=== PATIENT | male | born 1950 | race Caucasian/White ===

== ENCOUNTER 2016-11-21 14:41 | Inpatient (IN) | payer BC ==
[2016-11-21] MEDS ORDERED: SODIUM CHLORIDE 0.9% 500 ML IV ONE (15:12)
--- NOTE | 2016-11-21 15:15 | ED ---
General Adult HPI - General Chief complaint: Headache Stated complaint: altered mental Time Seen by Provider: 11/21/16 14:50 Source: patient, family, RN notes reviewed Mode of arrival: wheelchair Limitations: no limitations - History of Present Illness Initial comments: This is a 66-year-old male who presents to the emergency room with a past medical history significant for CVA as well as smoking hypertension and diabetes. She comes in today because he has been altered mentally according to his significant other for 3 days. So has been coughing a right-sided headache for 3 days. Patient is also been sleeping almost all day long according to the except for about 2 hours a day over the last 3 days. Patient denies any numbness or weakness that is new patient denies any visual disturbance or speech disturbance. Patient denies chest pain palpitations difficulty breathing shortest breath. Patient denies abdominal pain patient denies nausea vomiting or diarrhea. Patient denies any recent injury or trauma. Patient denies any dysuria hematuria urinary frequency. Significant other states that he is confused and it appears to be getting slightly worse over the last 3 days. - Related Data Home Medications Medication Instructions Recorded Confirmed Celecoxib [CeleBREX] 200 mg PO DAILY 06/04/14 11/21/16 amLODIPine BESYLATE/BENAZEPRIL 1 cap PO BID 06/04/14 11/21/16 [Amlodipine-Benazepril 10-20 mg] glipiZIDE [Glucotrol] 10 mg PO BID 06/04/14 11/21/16 Metoprolol Succinate 25 mg PO HS 10/21/14 11/21/16 Dipyridamole-Aspirin 200-25 mg 1 cap PO BID 11/10/14 11/21/16 [Aggrenox] Acetaminophen Tab [Tylenol Tab] 325 - 650 mg PO Q6H PRN 11/21/16 11/21/16 Atorvastatin [Lipitor] 20 mg PO HS 11/21/16 11/21/16 metFORMIN HCL 1,000 mg PO BID 11/21/16 11/21/16 Allergies Allergy/AdvReac Type Severity Reaction Status Date / Time No Known Allergies Allergy Verified 11/21/16 15:49 Review of Systems ROS Statement: Those systems with pertinent positive or pertinent negative responses have been documented in the HPI. ROS Other: All systems not noted in ROS Statement are negative. 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 History of Any Multi-Drug Resistant Organisms: None Reported Past Surgical History: No Surgical Hx Reported Additional Past Surgical History / Comment(s): R wrist fx with repair, Past Anesthesia/Blood Transfusion Reactions: No Reported Reaction Additional Past Anesthesia/Blood Transfusion Reaction / Comment(s): Pt has never recieved blood. Past Psychological History: No Psychological Hx Reported Additional Psychological History / Comment(s): Pt lives with in their home. 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 Smoking Status: Current every day smoker Past Alcohol Use History: None Reported Past Drug Use History: None Reported - Past Family History Father Family Medical History: Vascular Disorder Additional Family Medical History / Comment(s): Father during a surgery for his blood flow to his legs. Mother Family Medical History: Congestive Heart Failure (CHF), Diabetes Mellitus General Exam - General Exam Comments Initial Comments: GENERAL: Patient is well-developed and well-nourished. Patient is nontoxic and well- hydrated and is in mild distress. ENT: Neck is soft and supple. No significant lymphadenopathy is noted. Oropharynx is clear. Moist mucous membranes. Neck has full range of motion without eliciting any pain. EYES: The sclera were anicteric and conjunctiva were pink and moist. Extraocular movements were intact and pupils were equal round and reactive to light. Patient has some drooping of the right eyelid at rest but patient states this is from a previous stroke. PULMONARY: Unlabored respirations. Good breath sounds bilaterally. No audible rales rhonchi or wheezing was noted. CARDIOVASCULAR: There is a regular rate and rhythm without any murmurs gallops or rubs. ABDOMEN: Soft and nontender with normal bowel sounds. No palpable organomegaly was noted. There is no palpable pulsatile mass. SKIN: Skin is clear with no lesions or rashes and otherwise unremarkable. NEUROLOGIC: Patient is alert and oriented x3. Cranial nerves II through XII are grossly intact. Motor and sensory are also intact. Normal speech, volume and content. Symmetrical smile. MUSCULOSKELETAL: Normal extremities with adequate strength and full range of motion. No lower extremity swelling or edema. No calf tenderness. LYMPHATICS: No significant lymphadenopathy is noted PSYCHIATRIC: Normal psychiatric evaluation. Normal interpersonal interactions appears functionally intact in deals appropriately with others. No signs of depression. No signs of anxiety. Limitations: no limitations Course Vital Signs 11/21/16 11/21/16 11/21/16 14:47 15:02 15:29 Temperature 98.4 F 97.3 F L 97.0 F L Pulse Rate 84 86 84 Respiratory 20 15 18 Rate Blood Pressure 154/73 162/80 158/77 O2 Sat by Pulse 96 96 95 Oximetry Medical Decision Making - Medical Decision Making EKG shows sinus rhythm with an occasional PVC at 83 bpm WI interval is 1:30 QRS is 12 QT interval 370 QTC is 434. Patient's EKG is compared to an old EKG in no acute abdomen is noted the only difference EKGs noted is the PVCs. CAT scan of the patient's brain shows a subacute ischemia in the left occipital parietal region. I spoke with Dr. Padron he agreed to admit the patient I admitted the patient a consult to Dr. Oliver for neurology and I wrote admitting orders. - Lab Data Result diagrams: 11/21/16 15:09 11/21/16 15:09 Lab Results 11/21/16 11/21/16 11/21/16 Range/Units 15:09 15:09 15:09 WBC 6.8 (3.8-10.6) k/uL RBC 4.82 (4.30-5.90) m/uL Hgb 14.7 (13.0-17.5) gm/dL Hct 43.6 (39.0-53.0) % MCV 90.6 (80.0-100.0) fL MCH 30.5 (25.0-35.0) pg MCHC 33.7 (31.0-37.0) g/dL RDW 13.3 (11.5-15.5) % Plt Count 344 (150-450) k/uL Neutrophils % 66 % Lymphocytes % 22 % Monocytes % 10 % Eosinophils % 0 % Basophils % 1 % Neutrophils # 4.5 (1.3-7.7) k/uL Lymphocytes # 1.5 (1.0-4.8) k/uL Monocytes # 0.7 (0-1.0) k/uL Eosinophils # 0.0 (0-0.7) k/uL Basophils # 0.0 (0-0.2) k/uL PT (9.0-12.0) sec INR (<1.1) APTT (22.0-30.0) sec Sodium 142 (137-145) mmol/L Potassium 3.9 (3.5-5.1) mmol/L Chloride 103 (98-107) mmol/L Carbon Dioxide 24 (22-30) mmol/L Anion Gap 15 mmol/L BUN 22 H (9-20) mg/dL Creatinine 1.60 H (0.66-1.25) mg/dL Est GFR (MDRD) Af Amer 53 (>60 ml/min/1.73 sqM) Est GFR (MDRD) Non-Af 44 (>60 ml/min/1.73 sqM) Glucose 90 (74-99) mg/dL POC Glucose (mg/dL) (75-99) mg/dL POC Glu Internet Architect ID Calcium 9.8 (8.4-10.2) mg/dL Total Bilirubin 0.7 (0.2-1.3) mg/dL AST 33 (17-59) U/L ALT 57 (21-72) U/L Alkaline Phosphatase 103 (38-126) U/L Total Creatine Kinase 55 (55-170) U/L Total Protein 7.5 (6.3-8.2) g/dL Albumin 4.6 (3.5-5.0) g/dL 11/21/16 11/21/16 Range/Units 15:09 15:25 WBC (3.8-10.6) k/uL RBC (4.30-5.90) m/uL Hgb (13.0-17.5) gm/dL Hct (39.0-53.0) % MCV (80.0-100.0) fL MCH (25.0-35.0) pg MCHC (31.0-37.0) g/dL RDW (11.5-15.5) % Plt Count (150-450) k/uL Neutrophils % % Lymphocytes % % Monocytes % % Eosinophils % % Basophils % % Neutrophils # (1.3-7.7) k/uL Lymphocytes # (1.0-4.8) k/uL Monocytes # (0-1.0) k/uL Eosinophils # (0-0.7) k/uL Basophils # (0-0.2) k/uL PT 10.7 (9.0-12.0) sec INR 1.1 (<1.1) APTT 23.8 (22.0-30.0) sec Sodium (137-145) mmol/L Potassium (3.5-5.1) mmol/L Chloride (98-107) mmol/L Carbon Dioxide (22-30) mmol/L Anion Gap mmol/L BUN (9-20) mg/dL Creatinine (0.66-1.25) mg/dL Est GFR (MDRD) Af Amer (>60 ml/min/1.73 sqM) Est GFR (MDRD) Non-Af (>60 ml/min/1.73 sqM) Glucose (74-99) mg/dL POC Glucose (mg/dL) 89 (75-99) mg/dL POC Glu Internet Architect DANIS [employer] Calcium (8.4-10.2) mg/dL Total Bilirubin (0.2-1.3) mg/dL AST (17-59) U/L ALT (21-72) U/L Alkaline Phosphatase (38-126) U/L Total Creatine Kinase (55-170) U/L Total Protein (6.3-8.2) g/dL Albumin (3.5-5.0) g/dL Disposition Clinical Impression: CVA (cerebral infarction) Disposition: ADMITTED IP TO THIS [facility] Time of Disposition: 16:08
[2016-11-21 15:26] LABS: Glucose,Whole Blood 89 mg/dL (75-99)
[2016-11-21 15:34] LABS: Basophils % (A) 1 %; CH 31.4; CHCM 34.9; Eosinophils % (A) 0 %; HCT 43.6 % (39.0-53.0); HDW 2.52; HGB 14.7 gm/dL (13.0-17.5); Luc # (Auto) 0.14; Luc % (Auto) 2; Lymphocytes # (A) 1.5 k/uL (1.0-4.8); Lymphocytes % (A) 22 %; MCH 30.5 pg (25.0-35.0); MCHC 33.7 g/dL (31.0-37.0); MCV 90.6 fL (80.0-100.0); Monocytes # (A) 0.7 k/uL (0-1.0); Monocytes % (A) 10 %; Neutrophils # (A) 4.5 k/uL (1.3-7.7); Neutrophils % (A) 66 %; RBC 4.82 m/uL (4.30-5.90); RDW 13.3 % (11.5-15.5); WBC 6.8 k/uL (3.8-10.6); WBC (Perox) 6.84
[2016-11-21 15:42] LABS: Calcium 9.8 mg/dL (8.4-10.2); Potassium 3.9 mmol/L (3.5-5.1); Total Bilirubin 0.7 mg/dL (0.2-1.3); Total Protein 7.5 g/dL (6.3-8.2)
--- NOTE | 2016-11-21 15:50 | XR ---
EXAMINATION TYPE: XR chest 2V DATE OF EXAM: 11/21/2016 3:46 PM HISTORY: altered mental status. REFERENCE: Previous study dated 06/04/2014. FINDINGS: The lungs are clear. Pleural spaces are clear. Heart size is normal. IMPRESSION: NORMAL CHEST.
[2016-11-21 15:52] LABS: Partial Thromboplastin Time 23.8 sec (22.0-30.0)
[2016-11-21 15:55] LABS: INR 1.1 (<1.1); Prothrombin Time 10.7 sec (9.0-12.0)
--- NOTE | 2016-11-21 15:55 | CT ---
EXAMINATION TYPE: CT brain wo con DATE OF EXAM: 11/21/2016 3:43 PM COMPARISON: NONE HISTORY: Headache CT DLP: 1108.2 mGycm Automated exposure control for dose reduction was used. FINDINGS: There is abnormal attenuation within the left parietal and occipital lobe. No mass effect. Moderate generalized degenerative change with nonspecific periventricular white matter changes. Areas of abnormal signal in the white matter are nonspecific but suggestive of remote microvascular ischem ia. Well-defined density within the basal ganglia bilaterally is suggestive of remote lacunar infarct ion. Abnormal density within the mandeep is suggestive of remote ischemia. IMPRESSION: 1. Correlate for subacute ischemia left occipital and parietal lobes. Recommend MRI of the brain 2. No acute hemorrhage. 3. Degenerative and remote ischemic change
[2016-11-21 16:14] LABS: Creatine Kinase MB 1.4 ng/mL (0.0-2.4); Troponin I 0.029 ng/mL (0.000-0.034)
[2016-11-21 20:39] LABS: Glucose,Whole Blood 96 mg/dL (75-99)
[2016-11-21] MEDS: DIPYRIDAMOLE-ASPIRIN 200-25 MG 1 EACH CPMP.12HR PO SCH (20:51)
[2016-11-21] MEDS: metFORMIN 500 MG TAB PO SCH (20:51)
[2016-11-21] MEDS: METOPROLOL SUCCINATE (ER) 25 MG TAB.ER.24H PO SCH (20:52)
[2016-11-21] MEDS: ATORVASTATIN 20 MG TAB PO SCH (20:52)
[2016-11-21] MEDS: glipiZIDE 10 MG TAB PO SCH (20:52)
[2016-11-21 22:38] LABS: Appearance,Urine Clear (Clear); Bilirubin,Urine Negative (Negative); Glucose,Urine (UA) Negative (Negative); Ketones,Urine Negative (Negative); Leukocyte Esterase,Urine Negative (Negative); Mucus,Urine Rare /hpf; Nitrite,Urine Negative (Negative); PH, Urine 5.5 (5.0-8.0); Particle Count 1059; Protein,Urine 1+ (Negative); RBC,Urine <1 /hpf (0-5); Specific Gravity,Urine 1.014 (1.001-1.035); Squamous Epithelial Cell,Urine <1 /hpf (0-4); UA Billing (MACRO vs. MICRO) MICRO; Urobilinogen,Urine <2.0 mg/dL (<2.0); WBC,Urine 1 /hpf (0-5)
[2016-11-22 05:36] LABS: Glucose,Whole Blood 75 mg/dL (75-99)
--- NOTE | 2016-11-22 08:36 | US ---
EXAMINATION TYPE: US carotid duplex BILAT DATE OF EXAM: 11/22/2016 8:24 AM COMPARISON: 10/21/2014 carotid ultrasound CLINICAL HISTORY: Stenosis. Admitted with headache and altered mental status yesterday. EXAM MEASUREMENTS: RIGHT: Peak Systolic Velocity (PSV) cm/sec ----- Right CCA: 52.6 ----- Right ICA: 69.1 ----- Right ECA: 71.1 ICA/CCA ratio: 1.3 RIGHT: End Diastole cm/sec ----- Right CCA: 10.6 ----- Right ICA: 15.3 ----- Right ECA: 8.6 LEFT: Peak Systolic Velocity (PSV) cm/sec ----- Left CCA: 56.8 ----- Left ICA: 98.3 ----- Left ECA: 125.9 ICA/CCA ratio: 1.7 LEFT: End Diastole cm/sec ----- Left CCA: 16.7 ----- Left ICA: 19.5 ----- Left ECA: 13.6 VERTEBRALS (direction of flow): Right Vertebral: Antegrade Left Vertebral: Antegrade TECHNOLOGIST IMPRESSION: moderate atherosclerotic changes left bulb into proximal left ica Grayscale images redemonstrate moderate eccentric plaque at left carotid bulb not significantly whatley ed from prior study. Velocity measurements and ratios in visualized portion of both internal carotid arteries remains within normal limits. IMPRESSION: No hemodynamically significant stenosis is seen in either internal carotid artery. No si gnificant change from prior.
[2016-11-22] MEDS: metFORMIN 500 MG TAB PO SCH (08:56)
[2016-11-22] MEDS: LISINOPRIL 20 MG TAB PO SCH (08:58)
[2016-11-22] MEDS: amLODIPine 10 MG TAB PO SCH (08:58)
[2016-11-22] MEDS: DIPYRIDAMOLE-ASPIRIN 200-25 MG 1 EACH CPMP.12HR PO SCH ×2 (08:58→21:29)
[2016-11-22 09:41] LABS: Anion Gap 12 mmol/L; Blood Urea Nitrogen 20 mg/dL (9-20); Calcium 9.5 mg/dL (8.4-10.2); Carbon Dioxide 27 mmol/L (22-30); Chloride 102 mmol/L (98-107); Glucose 151 mg/dL (74-99); Magnesium 1.9 mg/dL (1.6-2.3); Non-African American GFR(MDRD) 52 (>60 ml/min/1.73 sqM); Sodium 141 mmol/L (137-145)
[2016-11-22] MEDS ORDERED: Magnesium Replacement Protocol 1 EACH MISC MISCELLANE PRN (09:51)
[2016-11-22 12:08] LABS: Glucose,Whole Blood 130 mg/dL (75-99)
--- NOTE | 2016-11-22 12:26 | P.HPIM ---
History of Present Illness H&P Date: 11/22/16 Chief Complaint: Headache Patient is a 66-year-old male, patient of Dr. Padron in the outpatient setting, but medical history significant for CVA, diabetes mellitus type 2, dyslipidemia, hypertension, retinal hemorrhage, detached retina, and TIA. Patient is a cigarette smoker. Patient was admitted through the emergency department with stated complained of "full last 2 days and felt cold." According to , patient has been complaining of headaches for approximately one week. states that patient did have an episode last Sunday where he is complaining of headache followed by one episode of vomiting. states that over the last 3 days patient's appetite has been decreased, patient has been "repeating himself," and been sleeping excessively. Patient also states that his right eye has been bothering him more recently and is right eye vision is more blurry especially looking to the right. Patient reports chronic numbness of his right upper and lower extremity since his stroke in 1999. No history of fevers, shortness of breath, chest pain, or abdominal pain. Patient denies urinary urgency, hesitancy, dysuria, hematuria. Patient denies constipation or diarrhea. EKG in the emergency department without ischemic changes. CT of brain with evidence of subacute ischemia left occipital and parietal lobes with no acute hemorrhage; degenerative and remote ischemic changes. Chest x-ray with no acute cardiopulmonary process. Carotid duplex study with no hemodynamically significant stenosis in either internal carotid artery. Labs on admission with evidence of acute on chronic renal failure, stage III suspect secondary to dehydration with BUN to creatinine ratio greater than 20. In the emergency department, patient was given a fluid bolus of 500 mL of normal saline and [facility] with consult to Dr. Erickson for neurology service. Upon examination, patient is sitting on the side of the bed with present at bedside. Patient currently denies headache. Denies chills, nausea, vomiting , shortness of breath, chest pain, or abdominal pain. Patient reports good appetite. Patient states that he really needs to smoke a cigarette. Labs reviewed with renal function improved. Magnesium 1.9. Neurology recommendations pending. Past Medical History Past Medical History: CVA/TIA, Diabetes Mellitus, Eye Disorder (History of right retinal detachment and right retinal macular degeneration. Patient follows with Dr. 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 History of Any Multi-Drug Resistant Organisms: None Reported Past Surgical History: No Surgical Hx Reported Additional Past Surgical History / Comment(s): R wrist fx with repair Past Anesthesia/Blood Transfusion Reactions: No Reported Reaction Additional Past Anesthesia/Blood Transfusion Reaction / Comment(s): Pt has never recieved blood. Past Psychological History: No Psychological Hx Reported Additional Psychological History / Comment(s): Pt lives with in their home. Pt is retired from [employer]. Smoking Status: Current every day smoker Past Alcohol Use History: None Reported Past Drug Use History: None Reported - Past Family History Father Family Medical History: Vascular Disorder Additional Family Medical History / Comment(s): Father during a surgery for his blood flow to his legs. Mother Family Medical History: Congestive Heart Failure (CHF), Diabetes Mellitus Medications and Allergies Home Medications Medication Instructions Recorded Confirmed Type Celecoxib [CeleBREX] 200 mg PO DAILY 06/04/14 11/21/16 History amLODIPine BESYLATE/BENAZEPRIL 1 cap PO BID 06/04/14 11/21/16 History [Amlodipine-Benazepril 10-20 mg] glipiZIDE [Glucotrol] 10 mg PO BID 06/04/14 11/21/16 History Metoprolol Succinate 25 mg PO HS 10/21/14 11/21/16 History Dipyridamole-Aspirin 200-25 mg 1 cap PO BID 11/10/14 11/21/16 History [Aggrenox] Atorvastatin [Lipitor] 20 mg PO HS 11/21/16 11/21/16 History metFORMIN HCL 1,000 mg PO BID 11/21/16 11/21/16 History Allergies Allergy/AdvReac Type Severity Reaction Status Date / Time No Known Allergies Allergy Verified 11/21/16 19:51 Physical Exam Vitals: Vital Signs Temp Pulse Pulse Resp BP BP Pulse Ox 11/22/16 08:00 97.1 F L 76 141/83 96 11/22/16 04:00 71 16 146/76 95 11/22/16 00:00 82 16 96 11/21/16 20:00 98.1 F 85 16 167/76 95 11/21/16 18:52 96.9 F L 89 18 163/74 95 11/21/16 18:38 98.0 F 98 18 163/72 97 11/21/16 16:43 97.0 F L 86 18 167/79 95 Intake and Output 11/21/16 11/22/16 11/22/16 22:59 06:59 14:59 Intake Total 120 Output Total 200 Balance -200 120 Intake: Oral 120 Output: Urine 200 Other: Voiding Method Toilet Toilet Weight 66.9 kg GENERAL: Pt awake and alert, well-appearing, well-nourished, and in no acute distress. HEAD: Atraumatic, normocephalic. EYES: Pupils equal, round, and reactive to light. Peripheral vision to right eye decreased. Lateral ocular movement of right eye absent. Sclera anicteric, conjunctiva are normal. ENT: Oropharynx clear without exudates. Moist mucous membranes. Tongue smooth, pink, no lesions, protrudes in midline. NECK:Normal range of motion, supple without lymphadenopathy or JVD. LUNGS: Breath sounds clear to auscultation bilaterally. No wheezes, rales, or rhonchi. HEART: Heart S1, S2, no S3 or S4. Regular rate and rhythm. No murmurs, rubs or gallops. ABDOMEN: Soft, nontender, nondistended, normoactive bowel sounds. No guarding, no rebound. No masses or organomegaly appreciated. EXTREMITIES: Palpable peripheral pulses. No edema. No calf tenderness. NEUROLOGICAL: Pt oriented x 3. Focal deficits noted to right eye suspect cranial nerve II and involvement. Decreased sensation to right upper and right lower extremity PSYCH: Normal mood, normal affect. Poor insight, poor judgment. SKIN: Warm, dry, intact. Normal turgor. No rashes or lesions. Results CBC & Chem 7: 11/21/16 15:09 11/22/16 09:09 Labs: Abnormal Lab Results - Last 24 Hours (Table) 11/21/16 11/22/16 Range/Units 21:32 09:09 Creatinine 1.38 H (0.66-1.25) mg/dL Glucose 151 H (74-99) mg/dL Urine Protein 1+ H (Negative) Hyaline Casts 4 H (0-2) /lpf Urine Mucus Rare H (None) /hpf Chest x-ray: report reviewed CT Scan - head: report reviewed Thrombosis Risk Factor Assmnt - DVT/VTE Prophylaxis DVT/VTE Prophylaxis: Pharmacologic Prophylaxis ordered, Mechanical Prophylaxis ordered - Choose All That Apply Any of the Below Risk Factors Present?: Yes Other Risk Factors: Yes Each Risk Factor Represents 2 Points: Age 61-74 years Other congenital or acquired thrombophilia - If yes, enter type in comment: Yes Each Risk Factor Represents 5 Points: Stroke (< 1 month) Thrombosis Risk Factor Assessment Total Risk Factor Score: 7 Thrombosis Risk Factor Assessment Level: High Risk Assessment and Plan Plan: Impression and plan: 1. Acute CVA. CT brain with evidence of subacute ischemia left occipital and parietal lobes. Neurology consult requested, recommendations pending. Continue stroke workup per protocol. Continue Aggrenox twice a day.. 2. Hypertension. Continue lisinopril 40 mg daily, continue Norvasc 10 mg daily , continue metoprolol succinate 25 mg by mouth daily. 3. Dyslipidemia. Continue Lipitor 20 mg daily. 4. Type 2 diabetes mellitus. Continue Glucotrol 10 mg by mouth before meals twice a day, continue Accu-Cheks before meals and at bedtime with Humalog sliding scale, continue consistent carbohydrate diet. Hold metformin for acute renal failure with admitting GFR less than 50. 5. Acute renal failure, present on admission, suspect secondary to intravascular volume deficit secondary to dehydration. BUN to creatinine ratio greater than 20. Encourage oral intake. 6. Chronic renal failure, stage III. GFR on 08/07/2016 56. 7. History of right eye blurriness. Consult Dr. Cha for ophthalmology service, recommendations pending. 8. History of retinal detachment status post surgery. 9. History of right retinal hemorrhage with injections. 10. Nicotine dependence. Continue nicotine patch. Smoking cessation encouraged. 11. History of previous CVA with previous lacunar infarct and possible microvascular ischemia involving right optic nerve. 12. History of TIA. Continue full neurological workup. Continue current medications. Continue Aggrenox. Continue to follow with neurology and ophthalmology service. Continue DVT prophylaxis. Repeat CBC, BMP, magnesium in a.m. The above impression and plan have been discussed and directed by Dr. Padron. Angel DAVILA acting as scribe for Dr. Padron.
[2016-11-22] MEDS: INSULIN LISPRO (humaLOG) 300 UNIT/3 ML VIAL SQ SCH ×3 (12:38→23:47)
[2016-11-22] MEDS: glipiZIDE 10 MG TAB PO SCH ×2 (12:38→17:33)
[2016-11-22] MEDS: NICOTINE 14MG/24HR PATCH TRANSDERM SCH (12:38)
[2016-11-22] MEDS: MAGNESIUM SULFATE-D5W PMX 1 GM in DEXTROSE/WATER 1 100ML.BAG IVPB SCH ×2 (12:38→14:26)
[2016-11-22 15:09] LABS: Hemoglobin A1C 6.9 % (4.2-6.1)
[2016-11-22 17:20] LABS: Glucose,Whole Blood 100 mg/dL (75-99)
[2016-11-22 20:36] LABS: Glucose,Whole Blood 116 mg/dL (75-99)
[2016-11-22] MEDS: ATORVASTATIN 20 MG TAB PO SCH (21:29)
[2016-11-22] MEDS: METOPROLOL SUCCINATE (ER) 25 MG TAB.ER.24H PO SCH (21:29)
[2016-11-23 05:45] LABS: Glucose,Whole Blood 104 mg/dL (75-99)
[2016-11-23] MEDS: INSULIN LISPRO (humaLOG) 300 UNIT/3 ML VIAL SQ SCH ×4 (06:42→22:08)
[2016-11-23 06:57] LABS: Basophils # (A) 0.1 k/uL (0-0.2); Basophils % (A) 1 %; CH 31.5; CHCM 34.4; Eosinophils # (A) 0.1 k/uL (0-0.7); Eosinophils % (A) 1 %; HCT 42.4 % (39.0-53.0); HDW 2.54; HGB 13.7 gm/dL (13.0-17.5); Luc # (Auto) 0.18; Luc % (Auto) 2; Lymphocytes # (A) 1.3 k/uL (1.0-4.8); Lymphocytes % (A) 14 %; MCH 29.7 pg (25.0-35.0); MCHC 32.4 g/dL (31.0-37.0); MCV 91.7 fL (80.0-100.0); Mean Platelet Volume 6.8; Monocytes # (A) 0.7 k/uL (0-1.0); Monocytes % (A) 8 %; Neutrophils # (A) 6.6 k/uL (1.3-7.7); Neutrophils % (A) 74 %; RBC 4.62 m/uL (4.30-5.90); WBC 8.9 k/uL (3.8-10.6)
[2016-11-23] MEDS: glipiZIDE 10 MG TAB PO SCH ×2 (07:03→18:03)
[2016-11-23 07:10] LABS: Anion Gap 10 mmol/L; Blood Urea Nitrogen 17 mg/dL (9-20); Calcium 9.6 mg/dL (8.4-10.2); Carbon Dioxide 28 mmol/L (22-30); Chloride 104 mmol/L (98-107); Glucose 121 mg/dL (74-99); Magnesium 1.9 mg/dL (1.6-2.3); Non-African American GFR(MDRD) 52 (>60 ml/min/1.73 sqM); Potassium 3.9 mmol/L (3.5-5.1); Sodium 142 mmol/L (137-145)
[2016-11-23] MEDS: LISINOPRIL 20 MG TAB PO SCH (08:53)
[2016-11-23] MEDS: NICOTINE 14MG/24HR PATCH TRANSDERM SCH (08:53)
[2016-11-23] MEDS: DIPYRIDAMOLE-ASPIRIN 200-25 MG 1 EACH CPMP.12HR PO SCH ×2 (08:53→22:07)
[2016-11-23] MEDS: amLODIPine 10 MG TAB PO SCH (08:53)
[2016-11-23] MEDS: ACETAMINOPHEN TAB 325 MG TAB PO PRN (09:25)
[2016-11-23 13:26] LABS: Glucose,Whole Blood 153 mg/dL (75-99)
--- NOTE | 2016-11-23 14:20 | P.PN ---
Subjective Principal diagnosis: CVA Patient is a 66-year-old male, patient of Dr. Padron in the outpatient setting, but medical history significant for CVA, diabetes mellitus type 2, dyslipidemia, hypertension, retinal hemorrhage, detached retina, and TIA. Patient is a cigarette smoker. Patient was admitted through the emergency department with stated complained of "full last 2 days and felt cold." According to , patient has been complaining of headaches for approximately one week. states that patient did have an episode last Sunday where he is complaining of headache followed by one episode of vomiting. states that over the last 3 days patient's appetite has been decreased, patient has been "repeating himself," and been sleeping excessively. Patient also states that his right eye has been bothering him more recently and is right eye vision is more blurry especially looking to the right. Patient reports chronic numbness of his right upper and lower extremity since his stroke in 1999. No history of fevers, shortness of breath, chest pain, or abdominal pain. Patient denies urinary urgency, hesitancy, dysuria, hematuria. Patient denies constipation or diarrhea. EKG in the emergency department without ischemic changes. CT of brain with evidence of subacute ischemia left occipital and parietal lobes with no acute hemorrhage; degenerative and remote ischemic changes. Chest x-ray with no acute cardiopulmonary process. Carotid duplex study with no hemodynamically significant stenosis in either internal carotid artery. Labs on admission with evidence of acute on chronic renal failure, stage III suspect secondary to dehydration with BUN to creatinine ratio greater than 20. In the emergency department, patient was given a fluid bolus of 500 mL of normal saline and admitted to the selective care with consult to Dr. Erickson for neurology service, which has been changed to Dr. Falk. Consult was also requested for Dr. Whitney from ophthalmology service. 11/22/2016: Upon examination, patient is sitting on the side of the bed with present at bedside. Patient currently denies headache. Denies chills, nausea, vomiting, shortness of breath, chest pain, or abdominal pain. Patient reports good appetite. Patient states that he really needs to smoke a cigarette. Labs reviewed with renal function improved. Magnesium 1.9. Neurology recommendations pending. 11/23/2016: Patient is evaluated on selective care unit where he is currently sitting up in a chair. No new symptoms overnight. Renal function improved. Did speak with Dr. Falk from neurology service who recommended patient undergo MRI and MRA of brain without contrast in addition to EEG. Also spoke with Dr. Whitney who recommended that patient follow up in outpatient setting 1- 2 days after discharge. Objective - Vital Signs Vital signs: Vital Signs Temp 96.0 F L 11/23/16 13:48 Pulse 77 11/23/16 13:48 Resp 18 11/23/16 13:48 BP 170/77 11/23/16 13:48 Pulse Ox 97 11/23/16 13:48 Intake & Output 11/22/16 11/23/16 11/23/16 18:59 06:59 18:59 Intake Total 240 200 Balance 240 200 Weight 64.7 kg Intake: Oral 240 200 Other: Voiding Method Toilet # Voids 0 1 - Exam GENERAL: Pt awake and alert, well-appearing, well-nourished, and in no acute distress. HEAD: Atraumatic, normocephalic. EYES: Pupils equal, round, and reactive to light. Peripheral vision to right eye decreased. Sclera anicteric, conjunctiva are normal. ENT: Oropharynx clear without exudates. Moist mucous membranes. Tongue smooth, pink, no lesions, protrudes in midline. NECK:Normal range of motion, supple without lymphadenopathy or JVD. LUNGS: Breath sounds clear to auscultation bilaterally. No wheezes, rales, or rhonchi. HEART: Heart S1, S2, no S3 or S4. Regular rate and rhythm. No murmurs, rubs or gallops. ABDOMEN: Soft, nontender, nondistended, normoactive bowel sounds. No guarding, no rebound. No masses or organomegaly appreciated. EXTREMITIES: Palpable peripheral pulses. No edema. No calf tenderness. NEUROLOGICAL: Pt oriented x 3. Focal deficits noted to right eye suspect cranial nerve II and involvement. Decreased sensation to right upper and right lower extremity. PSYCH: Normal mood, normal affect. Poor insight, poor judgment. SKIN: Warm, dry, intact. Normal turgor. No rashes or lesions. - Labs CBC & Chem 7: 11/23/16 06:37 11/23/16 06:37 Labs: Abnormal Lab Results - Last 24 Hours (Table) 11/22/16 11/22/16 11/22/16 Range/Units 09:09 17:17 20:35 Creatinine (0.66-1.25) mg/dL Glucose (74-99) mg/dL POC Glucose (mg/dL) 100 H 116 H (75-99) mg/dL Hemoglobin A1c 6.9 H (4.2-6.1) % 11/23/16 11/23/16 11/23/16 Range/Units 05:44 06:37 13:24 Creatinine 1.37 H (0.66-1.25) mg/dL Glucose 121 H (74-99) mg/dL POC Glucose (mg/dL) 104 H 153 H (75-99) mg/dL Hemoglobin A1c (4.2-6.1) % Assessment and Plan Plan: Impression and plan: 1. Acute CVA. CT brain with evidence of subacute ischemia left occipital and parietal lobes. Neurology consult requested, recommendations received. Continue stroke workup per protocol. Continue Aggrenox twice a day. Continue statin. Will order MRI and MRA of brain without contrast in addition to EGD. 2. Hypertension. Continue lisinopril 40 mg daily, continue Norvasc 10 mg daily , continue metoprolol succinate 25 mg by mouth daily. 3. Dyslipidemia. Continue Lipitor 20 mg daily. 4. Type 2 diabetes mellitus. Continue Glucotrol 10 mg by mouth before meals twice a day, continue Accu-Cheks before meals and at bedtime with Humalog sliding scale, continue consistent carbohydrate diet. Hold metformin for acute renal failure with admitting GFR less than 50. 5. Acute renal failure, present on admission, suspect secondary to intravascular volume deficit secondary to dehydration, resolved. 6. Chronic renal failure, stage III. GFR on 08/07/2016 56. 7. History of right eye blurriness. Consult Dr. Cha for ophthalmology service, recommendations received. Patient to follow-up in 1 to 2 days in outpatient setting after discharge. 8. History of retinal detachment status post surgery. 9. History of right retinal hemorrhage with injections. 10. Nicotine dependence. Continue nicotine patch. Smoking cessation encouraged. 11. History of previous CVA with previous lacunar infarct and possible microvascular ischemia involving right optic nerve. 12. History of TIA. Continue full neurological workup. Continue current medications. Continue Aggrenox. Continue to follow with neurology. Continue DVT prophylaxis. Repeat CBC, BMP in a.m. The above impression and plan have been discussed and directed by Dr. James. Nguyene NYLON MENDER-C acting as scribe for Dr. Padron.
[2016-11-23 16:53] LABS: Glucose,Whole Blood 134 mg/dL (75-99)
--- NOTE | 2016-11-23 20:23 | MR ---
EXAMINATION TYPE: MR brain wo con, MR angio head wo con DATE OF EXAM: 11/23/2016 8:11 PM COMPARISON: CT brain from 2 days ago. MRI brain October 21, 2014. Old MRA brain August 30, 2011 HISTORY: Patient has CVA symptoms, left side numbness to arm and leg TECHNIQUE: Multiplanar, multisequence imaging of the brain and brainstem is performed without IV cont rast. [id number] images. [place] are performed. FINDINGS: Diffusion weighted images demonstrate areas of increased signal on diffusion weighted images with dim inished signal on ADC mapping that shows T1 hypointensity and T2 hyperintensity involving the inferio r left occipital lobe extending superiorly up to the level of the splenium of corpus callosum which i s included. There is edema and sulcal effacement. There is extension anteriorly involving the medial posterior temporal lobe. Findings consistent with a large posterior infarct There is no worrisome extra-axial fluid collection. There is background of diffuse cerebral atrophy. There are scattered foci of T2 hyperintensity seen throughout the white matter bilaterally. There is old infarct at level upon and in the right [place] radiata redemonstrated. Midline structures demonstrate normal morphology. The craniocervical junction appears within normal limits. Normal vascular flow voids are present. Mild mild to moderate mucosal thickening involving et hmoid sinuses bilaterally is redemonstrated. Mild mucosal thickening involving frontal sinuses bilate rally is noted. Right lens is now thinned. MRA images show diffuse narrowing of the supraclinoid segment of both internal carotid arteries witho ut greater than 50% focal stenosis. There is tiny eccentric aneurysmal along the right lateral margin of the right internal carotid artery raw data image 69 measuring 1.2 mm. No significant stenosis in the anterior circulation is seen. There is patent anterior communicating artery identified. Images of posterior circulation redemonstrated dominant right vertebral artery. Hypoplastic posterior indicating arteries bilaterally are redemonstrated. No significant stenosis is seen. IMPRESSION: 1. There is fairly large evolving acute infarct in the left posterior circulation involving the left occipital lobe extending to the posterior medial left temporal lobe also involving the splenium of th e corpus callosum. 2. There is background of mild to moderate diffuse cerebral atrophy and moderate chronic small vessel ischemic change with old infarcts all redemonstrated. 3. Stable chronic paranasal sinus disease. 4. No significant stenosis in the [place]. Atherosclerotic change supraclinoid segment bilat erally without greater than 50% stenosis. Likely clinically insignificant eccentric 1.2 mm aneurysm l ateral right supraclinoid segment of distal internal carotid artery. No aneurysm at the level of circ le of [place].
[2016-11-23 20:27] LABS: Glucose,Whole Blood 104 mg/dL (75-99)
[2016-11-23] MEDS: ATORVASTATIN 20 MG TAB PO SCH (22:07)
[2016-11-23] MEDS: METOPROLOL SUCCINATE (ER) 25 MG TAB.ER.24H PO SCH (22:07)
[2016-11-24 07:46] VITALS: BP 156/71; PULSE 82; RESP 16; TEMP 98
[2016-11-24 08:11] LABS: Basophils % (A) 0 %; CH 31.4; CHCM 34.3; Eosinophils % (A) 0 %; HCT 38.7 % (39.0-53.0); HDW 2.54; HGB 12.8 gm/dL (13.0-17.5); Luc # (Auto) 0.14; Luc % (Auto) 2; Lymphocytes % (A) 12 %; MCH 30.5 pg (25.0-35.0); MCHC 33.2 g/dL (31.0-37.0); MCV 91.8 fL (80.0-100.0); Monocytes # (A) 0.6 k/uL (0-1.0); Monocytes % (A) 7 %; Neutrophils # (A) 6.5 k/uL (1.3-7.7); Neutrophils % (A) 79 %; RBC 4.21 m/uL (4.30-5.90); RDW 12.9 % (11.5-15.5); WBC 8.2 k/uL (3.8-10.6)
[2016-11-24 08:26] LABS: Calcium 9.2 mg/dL (8.4-10.2); Potassium 4.1 mmol/L (3.5-5.1)
[2016-11-24] MEDS: ACETAMINOPHEN TAB 325 MG TAB PO PRN (08:55)
[2016-11-24] MEDS: amLODIPine 10 MG TAB PO SCH (08:56)
[2016-11-24] MEDS: glipiZIDE 10 MG TAB PO SCH (08:56)
[2016-11-24] MEDS: DIPYRIDAMOLE-ASPIRIN 200-25 MG 1 EACH CPMP.12HR PO SCH (08:56)
[2016-11-24] MEDS: NICOTINE 14MG/24HR PATCH TRANSDERM SCH ×2 (08:56→09:06)
[2016-11-24] MEDS: LISINOPRIL 20 MG TAB PO SCH (08:56)
[2016-11-24] MEDS: INSULIN LISPRO (humaLOG) 300 UNIT/3 ML VIAL SQ SCH (09:06)
--- NOTE | 2016-11-24 11:58 | EEG ---
DATE OF SERVICE: 11/23/2016 INDICATIONS FOR EXAMINATION: Stroke. AGE: 66Y DESCRIPTION OF PROCEDURE: This EEG was performed using a 21 channel digital electroencephalograph following international 10-20 system. DESCRIPTION OF THE RECORDING: From the beginning of the tracing, with the patient's eyes closed, the background rhythm was mostly consisting of 9 Hz alpha frequency in the posterior occipital leads. No obvious asymmetry is seen. Occasional movement artifacts are noticed. Photic stimulation was performed with a minimal driving response seen. No pathological waves were elicited. Later in the tracing, muscle artifacts are noticed more on the right side compared to the left side. No epileptiform discharges are seen. His EKG lead showed regular rate and rhythm. INTERPRETATION: This awake EEG can be considered within normal limits. No epileptiform discharges were seen. The absence of epileptiform discharges does not rule out the diagnoses of epilepsy. Therefore, clinical correlation is recommended.
--- NOTE | 2016-11-24 12:21 | P.DS ---
Providers Date of admission: 11/21/16 16:10 Expected date of discharge: 11/24/16 Attending physician: Chandan Padron Consults: 11/23/16 09:03 Consult Physician Routine Consulting Provider: Jamison Falk Consult Reason/Comments: CVA Do you want consulting provider notified?: Already Contacted Primary care physician: Chandan Padron [facility] Course: Patient is a 66-year-old male, patient of Dr. Padron in the outpatient setting,with medical history significant for CVA, diabetes mellitus type 2, dyslipidemia, hypertension, retinal hemorrhage, detached retina, and TIA. Patient is a cigarette smoker. Patient was admitted through the emergency department with complaints of headaches for approximately one week, increased blurry vision to right eye, and fatigue. Patient was found to have evidence of a fairly large evolving acute infarct in the left posterior circulation involving the left occipital lobe extending to the posterior medial left temporal lobe also involving the splenium of the corpus callosum. Patient was seen and evaluated by Dr. Falk during his hospital stay. Admission labs with evidence of acute renal failure. Dr. Whitney from ophthalmology service was consulted but requested to have patient follow up in the outpatient setting in 1-2 days post discharge. Patient's renal function improved during hospital stay. No new neurological deficits observed during hospital stay. Patient was very eager to go home. Neurology recommended the patient follow-up with their service and 2-3 weeks post discharge. Patient and family educated on importance of smoking cessation which patient declined at time of discharge. Celebrex and metformin was held upon discharge secondary to renal function and new CVA. Patient will follow-up with Dr. Padron in the outpatient setting. Discharge diagnoses: 1. Acute CVA and left posterior circulation involving left occipital lobe extending to the posterior medial left temporal lobe also involving the splenium of the corpus callosum. 2. Mild to moderate diffuse cerebral atrophy and moderate chronic small vessel ischemic changes with old infarcts. 2. Hypertension. 3. Dyslipidemia. 4. Type 2 diabetes mellitus. 5. Acute renal failure, present on admission, suspect secondary to intravascular volume deficit secondary to dehydration, resolved. 6. Chronic renal failure, stage III. 7. History of right eye blurriness. 8. History of retinal detachment status post surgery. 9. History of right retinal hemorrhage with injections. 10. Nicotine dependence. 11. History of previous CVA with previous lacunar infarct and possible microvascular ischemia involving right optic nerve. 12. History of TIA. The above impression and plan have been discussed and directed by Dr. Padron. Angel DAVILA acting as scribe for Dr. Padron. Pertinent Studies: EKG; brain CT; chest x-ray; carotid Doppler study; brain MRI; head MRA; EEG Patient Condition at Discharge: Stable Plan - Discharge Summary Discharge Medication List amLODIPine BESYLATE/BENAZEPRIL [Amlodipine-Benazepril 10-20 mg] 1 cap PO BID 10/17 [History] glipiZIDE [Glucotrol] 10 mg PO BID 06/04/14 [History] Metoprolol Succinate 25 mg PO HS 10/21/14 [History] Dipyridamole-Aspirin 200-25 mg [Aggrenox 25MG -200MG] 1 cap PO BID 11/10/14 [ History] Atorvastatin [Lipitor] 20 mg PO HS 11/21/16 [History] Follow up Appointment(s)/Referral(s): Carlton Cha MD [STAFF PHYSICIAN] - 11/27/16 8:30 am Chandan Padron DO [Primary Care Provider] - 1-2 days Jamison Falk MD [STAFF PHYSICIAN] - 2 Weeks Patient Instructions/Handouts: Stroke (DC) Discharge Disposition: HOME SELF-CARE
--- NOTE | 2016-11-27 15:20 | CONS ---
DATE OF CONSULTATION: 11/23/2016 CHIEF COMPLAINT: Visual changes. HISTORY OF PRESENT ILLNESS: Mr. Mccormick is a pleasant 66-year-old male who is being evaluated today on 11/23/2016 by the neurology service per the request of Dr. Padron for visual changes. The patient has a history of ischemic stroke and is on Aggrenox b.i.d. at home. His stroke risk factors include a previous history of stroke, his gender, his age, history of hypertension, dyslipidemia, and continued smoking. He was brought into [facility] with complaints of visual disturbance. The patient was having some blurred vision in his peripheral visual field mostly affecting the left side. A CT scan of the brain was done, which showed evidence of a subacute ischemic stroke involving the left occipital and parietal lobe. He was admitted for further work-up and management. His carotid Doppler showed no hemodynamically significant stenosis. I did review his EEG, which was normal. His CBC, urinalysis and urine drug screen were normal. His basic metabolic profile was normal except for mildly elevated creatinine at 1.37. An MRI of the brain was just completed and the report is still pending. I did review the images which did show evidence of an acute infarct involving the left occipital parietal region. Hypoplastic left vertebral artery was noticed as well. At the time of my evaluation, the patient is sitting at the edge of his bed and appears to be in no acute distress. He denies any changes in his visual symptoms. He denies any lateralizing numbness or weakness. PAST MEDICAL HISTORY: Stroke, diabetes, history of retinal detachments, dyslipidemia, hypertension, chronic renal disease, history of orthopedic surgeries. SOCIAL HISTORY: The patient continues to smoke cigarettes. He denies any alcohol or drug use. FAMILY HISTORY: Positive for heart disease and diabetes. HOME MEDICATIONS: Reviewed in the chart. ALLERGIES: No known drug allergies. REVIEW OF SYSTEMS: CONSTITUTIONAL: Negative. EYES: As mentioned above. ENT: Negative. CARDIOVASCULAR: Negative. RESPIRATORY: Positive for frequent coughing. NEUROLOGICAL: As mentioned above. GASTROINTESTINAL: Negative. GENITOURINARY: Negative. ENDOCRINE: Positive for history of diabetes. MUSCULOSKELETAL: Negative. Dermatological: Negative. PSYCHIATRIC: Negative. PHYSICAL EXAM: Vital signs show a temperature of 96.6, pulse 78, respirations 18, blood pressure 166/77. GENERAL APPEARANCE: The patient is a well-developed, elderly male who appears to be in no acute distress. HEENT: Normocephalic, atraumatic, no facial asymmetry is seen. Extraocular muscles are intact. Neck is supple with no masses felt. CARDIOVASCULAR: Regular rate and rhythm. ABDOMEN: Nontender, nondistended. EXTREMITIES: No edema or clubbing. NEUROLOGICAL EXAM: The patient is awake, alert, and oriented x3. Speech and language are normal. Strength is full in all 4 extremities. Sensory exam was normal to light touch in all 4 extremities. No tremors or seizure-like activity is seen. Cranial nerve testing showed no facial asymmetry but his visual testing showed decreased visual acuity involving the right eye in all visual barry and there is slight decreased visual acuity involving the right visual field of the left eye. IMPRESSION: 1. Acute ischemic stroke, left occipital parietal region. 2. Right visual field vision difficulties. 3. Tobacco dependence. 4. History of previous ischemic stroke. 5. Hypertension. 6. Diabetes. RECOMMENDATIONS: The patient did suffer an acute ischemic stroke, as seen on his CT scan of the brain and MRI of the brain. His MRI report is still pending but I did review the images which did show an acute ischemic infarct involving the left parietal occipital region. He continues to have some right visual field difficulties involving his left eye. He does have chronic visual acuity reduction involving his right due to retinal detachment. I will keep him on Aggrenox b.i.d. Otherwise, his carotid Doppler showed no hemodynamically significant stenosis. I will order a fasting lipid panel and serum homocysteine level. The patient was again counseled on tobacco cessation. Continue the rest of your current work-up and management. I will continue to follow with you. Further recommendations to follow. Thank you, Dr. Padron, for allowing me to participate in the care of your patient. If you have any questions, please feel free to contact me.
== END 2016-11-24 13:40 | disposition home or self-care (01) | DRG 65 ==
LOC: EC 14:41 → 6SEL 16:10 → 5ONC 11-23 11:01
PROVIDERS: ADMIT Family Medicine; ATTEND Family Medicine
DX: I63.9 Cerebral infarction, unspecified (principal); N17.9 Acute kidney failure, unspecified; E11.22 Type 2 diabetes mellitus with diabetic chronic kidney disease; N18.3 Chronic kidney disease, stage 3 (moderate); I12.9 Hypertensive chronic kidney disease with stage 1 through stage 4 chronic kidney disease, or unspecified chronic kidney disease; E78.5 Hyperlipidemia, unspecified; F17.210 Nicotine dependence, cigarettes, uncomplicated; I69.398 Other sequelae of cerebral infarction; R20.0 Anesthesia of skin; H35.30 Unspecified macular degeneration; I49.3 Ventricular premature depolarization; Z79.84 Long term (current) use of oral hypoglycemic drugs; Z79.899 Other long term (current) drug therapy
CPT/HCPCS: 36415; 70450; 70544; 70551; 71020; 80048; 80053; 80061; 80306; 81001; 82550; 82553; 83036; 83735; 84484; 85025; 85610; 85730; 93005; 93880; 95819; 96360; 99285

== ENCOUNTER 2017-12-27 10:46 | Inpatient (IN) | payer BC, MEDICARE ==
[2017-12-27] MEDS ORDERED: methylPREDNISolone SOD SUCCI 125 MG/2 ML VIAL IV STA (11:00)
[2017-12-27] MEDS ORDERED: IPRATROPIUM-ALBUTEROL 3 ML NEB INHALATION STA (11:00)
[2017-12-27] MEDS ORDERED: SODIUM CHLORIDE 0.9% 1,000 ML IV STA (11:04)
[2017-12-27] MEDS ORDERED: SODIUM CHLORIDE 0.9% 500 ML IV STA (11:04)
--- NOTE | 2017-12-27 11:04 | ED ---
SOB HPI - General Chief Complaint: Shortness of Breath Stated Complaint: francisco Time Seen by Provider: 12/27/17 10:53 Source: patient, family Mode of arrival: wheelchair Limitations: no limitations - History of Present Illness Initial Comments: This 67-year-old white male presents with a complaint of some shortness of breath. He has had this for the past 2 days. He denies any coughing, fever, shortness of breath, or nasal congestion. He states that it is worse when he lies down flat or if he exerts himself. He denies any current leg pain or swelling. There is no history of previous known pulmonary or Cardiologic disorders. He does not have any known history of asthma, COPD, or emphysema. He does relate that he's been smoking approximately one pack per day for the last 50 years. No other complaints or modifying factors. He denies any chest pain. - Related Data Home Medications Medication Instructions Recorded Confirmed glipiZIDE [Glucotrol] 10 mg PO BID 06/04/14 12/27/17 Dipyridamole-Aspirin 200-25 mg 1 cap PO BID 11/10/14 12/27/17 [Aggrenox 25MG -200MG] Atorvastatin [Lipitor] 20 mg PO HS 11/21/16 12/27/17 Cholecalciferol [Vitamin D3] 1,000 unit PO DAILY 12/27/17 12/27/17 Latanoprost Ophth [Xalatan 0.005%] 1 drop BOTH EYES HS 12/27/17 12/27/17 metFORMIN HCL 1,000 mg PO TID 12/27/17 12/27/17 Allergies Allergy/AdvReac Type Severity Reaction Status Date / Time No Known Allergies Allergy Verified 12/27/17 11:35 Review of Systems ROS Statement: Those systems with pertinent positive or pertinent negative responses have been documented in the HPI. ROS Other: All systems not noted in ROS Statement are negative. 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 History of Any Multi-Drug Resistant Organisms: None Reported Past Surgical History: No Surgical Hx Reported Additional Past Surgical History / Comment(s): R wrist fx with repair Past Anesthesia/Blood Transfusion Reactions: No Reported Reaction Additional Past Anesthesia/Blood Transfusion Reaction / Comment(s): Pt has never recieved blood. Past Psychological History: No Psychological Hx Reported Smoking Status: Current every day smoker Past Alcohol Use History: None Reported Past Drug Use History: None Reported - Past Family History Father Family Medical History: Vascular Disorder Additional Family Medical History / Comment(s): Father during a surgery for his blood flow to his legs. Mother Family Medical History: Congestive Heart Failure (CHF), Diabetes Mellitus General Exam - General Exam Comments Initial Comments: GENERAL: The patient is well nourished and well hydrated. VITAL SIGNS: Heart rate, blood pressure, respiratory rate reviewed as recorded in nurse's notes. EYES: Pupils are round and reactive. Extraocular movements are intact. No conjunctival / lid redness or swelling. ENT: No external evidence of injury, swelling, or ecchymosis. Airway is patent. Throat is clear. NECK: Nontender. No swelling or evidence of injury. No subcutaneous emphysema. Trachea is midline. No thyroid mass. HEART: Regular rate and rhythm. Good peripheral pulses. There is no lower extremity swelling or edema noted. LUNGS/CHEST: There is mild wheezing noted bilaterally. No ecchymosis, subcutaneous emphysema, or tenderness. ABDOMEN: Abdomen soft without tenderness. No palpable masses or organomegaly. No peritoneal signs. No abdominal wall swelling or ecchymosis. EXTREMITIES: No extremity tenderness. Normal muscle tone and function. No thoracolumbar tenderness. NEUROLOGIC: Sensation is grossly intact. Cranial nerve exam reveals face is symmetrical, tongue is midline, speech is clear. SKIN: No abrasions or ecchymosis is noted. No induration or masses noted. PSYCHIATRIC: Alert and oriented. Appropriate behavior and judgment. Limitations: no limitations Course Vital Signs 12/27/17 12/27/17 12/27/17 10:48 11:12 11:32 Temperature 97.4 F L Pulse Rate 117 H 116 H 116 H Respiratory 20 Rate Blood Pressure 180/96 O2 Sat by Pulse 94 L Oximetry 12/27/17 12:27 Temperature 97.1 F L Pulse Rate 104 H Respiratory 22 Rate Blood Pressure 184/94 O2 Sat by Pulse 93 L Oximetry Medical Decision Making - Medical Decision Making The patient was seen and examined. All diagnostics were reviewed. He does receive a IV as well as IV Solu-Medrol. He also receives a double DuoNeb breathing treatment. The EKG is completed and this does show sinus tachycardia at a rate of 103. The patient does have some ST-T wave changes primarily in the anteroseptal as well as lateral leads but this does appear to be similar as compared to old EKGs from 2013. The laboratory came back showing a significant elevation of the BNP at 23,000, and elevation of the CK-MB and troponin, elevation of the renal function studies which are worsened as compared to previous. The chest x-ray shows evidence of congestive heart failure. The d- dimer is slightly elevated but it is felt as though his main problem is that of congestive heart failure. Upon reviewing the x-ray and labs it is felt that the possibility of a pulmonary embolism is unlikely due to a clear-cut diagnosis of congestive heart failure and possible non-ST elevation myocardial infarction. He does receive some aspirin as well as some Nitropaste. Heparin will be started. The case is discussed with Dr. Padron and he is agreeable with admission with cardiology to consult and would forego a VQ scan at this time. His repeat EKG still does not show any evidence of ST elevation. It shows a sinus tachycardia at a rate of 107. There is some nonspecific ST T-wave changes primarily noted in lead V5 and the 6 and flattening of T-wave in aVL. - Lab Data Result diagrams: 12/27/17 11:48 12/27/17 11:48 Lab Results 12/27/17 12/27/17 12/27/17 Range/Units 11:48 11:48 11:48 WBC 11.1 H (3.8-10.6) k/uL RBC 4.14 L (4.30-5.90) m/uL Hgb 12.4 L (13.0-17.5) gm/dL Hct 37.5 L (39.0-53.0) % MCV 90.6 (80.0-100.0) fL MCH 29.9 (25.0-35.0) pg MCHC 33.0 (31.0-37.0) g/dL RDW 13.2 (11.5-15.5) % Plt Count 481 H (150-450) k/uL Neutrophils % 80 % Lymphocytes % 13 % Monocytes % 4 % Eosinophils % 1 % Basophils % 0 % Neutrophils # 8.9 H (1.3-7.7) k/uL Lymphocytes # 1.5 (1.0-4.8) k/uL Monocytes # 0.5 (0-1.0) k/uL Eosinophils # 0.1 (0-0.7) k/uL Basophils # 0.0 (0-0.2) k/uL PT (9.0-12.0) sec INR (<1.2) APTT (22.0-30.0) sec D-Dimer (<0.60) mg/L FEU Sodium 147 H (137-145) mmol/L Potassium 4.0 (3.5-5.1) mmol/L Chloride 106 (98-107) mmol/L Carbon Dioxide 23 (22-30) mmol/L Anion Gap 18 mmol/L BUN 28 H (9-20) mg/dL Creatinine 2.31 H (0.66-1.25) mg/dL Est GFR (CKD-EPI)AfAm 33 (>60 ml/min/1.73 sqM) Est GFR (CKD-EPI)NonAf 29 (>60 ml/min/1.73 sqM) Glucose 134 H (74-99) mg/dL Calcium 9.6 (8.4-10.2) mg/dL Total Bilirubin 0.8 (0.2-1.3) mg/dL AST 21 (17-59) U/L ALT 33 (21-72) U/L Alkaline Phosphatase 107 (38-126) U/L Total Creatine Kinase 53 L (55-170) U/L CK-MB (CK-2) 3.0 H* (0.0-2.4) ng/mL CK-MB (CK-2) Rel Index 5.7 Troponin I 1.340 H* (0.000-0.034) ng/mL NT-Pro-B Natriuret Pep pg/mL Total Protein 6.6 (6.3-8.2) g/dL Albumin 4.1 (3.5-5.0) g/dL 12/27/17 12/27/17 Range/Units 11:48 11:48 WBC (3.8-10.6) k/uL RBC (4.30-5.90) m/uL Hgb (13.0-17.5) gm/dL Hct (39.0-53.0) % MCV (80.0-100.0) fL MCH (25.0-35.0) pg MCHC (31.0-37.0) g/dL RDW (11.5-15.5) % Plt Count (150-450) k/uL Neutrophils % % Lymphocytes % % Monocytes % % Eosinophils % % Basophils % % Neutrophils # (1.3-7.7) k/uL Lymphocytes # (1.0-4.8) k/uL Monocytes # (0-1.0) k/uL Eosinophils # (0-0.7) k/uL Basophils # (0-0.2) k/uL PT 11.0 (9.0-12.0) sec INR 1.1 (<1.2) APTT 22.5 (22.0-30.0) sec D-Dimer 0.76 H (<0.60) mg/L FEU Sodium (137-145) mmol/L Potassium (3.5-5.1) mmol/L Chloride (98-107) mmol/L Carbon Dioxide (22-30) mmol/L Anion Gap mmol/L BUN (9-20) mg/dL Creatinine (0.66-1.25) mg/dL Est GFR (CKD-EPI)AfAm (>60 ml/min/1.73 sqM) Est GFR (CKD-EPI)NonAf (>60 ml/min/1.73 sqM) Glucose (74-99) mg/dL Calcium (8.4-10.2) mg/dL Total Bilirubin (0.2-1.3) mg/dL AST (17-59) U/L ALT (21-72) U/L Alkaline Phosphatase (38-126) U/L Total Creatine Kinase (55-170) U/L CK-MB (CK-2) (0.0-2.4) ng/mL CK-MB (CK-2) Rel Index Troponin I (0.000-0.034) ng/mL NT-Pro-B Natriuret Pep 02702 pg/mL Total Protein (6.3-8.2) g/dL Albumin (3.5-5.0) g/dL Disposition Clinical Impression: COPD exacerbation, Dyspnea, Bronchospasm, Hypertension, PA (acute kidney injury), Tobacco abuse, Hypoxia, Congestive heart failure, NSTEMI (non-ST elevated myocardial infarction) Disposition: ADMITTED IP TO THIS HOSP Condition: Fair Is patient prescribed a controlled substance at d/c from ED?: No Time of Disposition: 12:48 Decision Date: 12/27/17 Decision Time: 12:48
--- NOTE | 2017-12-27 11:56 | XR ---
EXAMINATION TYPE: XR chest 2V DATE OF EXAM: 12/27/2017 COMPARISON: 11/21/2016 HISTORY: Shortness of breath TECHNIQUE: Frontal and lateral views of the chest are obtained. FINDINGS: There is new mild interstitial pulmonary edema, layering trace pleural effusions blunting the costophrenic angles, and bibasilar airspace disease favoring atelectasis. No pneumothorax is iden tified. Osseous structures are intact with mild multilevel degenerative change of the thoracic spine. Heart is upper limits of normal size. Royal B lines are seen on the left. IMPRESSION: Findings of fluid overload that may be cardiogenic or noncardiogenic.
[2017-12-27] MEDS ORDERED: ASPIRIN 81 MG PO STA (11:59)
[2017-12-27] MEDS ORDERED: FUROSEMIDE 10 MG/ML 10 ML VIAL IV STA (11:59)
[2017-12-27] MEDS ORDERED: NITROGLYCERIN OINT 1 INCH/GM PACKET TOPICAL STA (11:59)
[2017-12-27 12:02] LABS: Basophils % (A) 0 %; Eosinophils # (A) 0.1 k/uL (0-0.7); Eosinophils % (A) 1 %; HCT 37.5 % (39.0-53.0); HGB 12.4 gm/dL (13.0-17.5); Lymphocytes # (A) 1.5 k/uL (1.0-4.8); Lymphocytes % (A) 13 %; MCH 29.9 pg (25.0-35.0); MCV 90.6 fL (80.0-100.0); Mean Platelet Volume 7.3; Monocytes # (A) 0.5 k/uL (0-1.0); Monocytes % (A) 4 %; Neutrophils # (A) 8.9 k/uL (1.3-7.7); Neutrophils % (A) 80 %; Platelet Count 481 k/uL (150-450); RBC 4.14 m/uL (4.30-5.90); RDW 13.2 % (11.5-15.5); WBC 11.1 k/uL (3.8-10.6)
[2017-12-27 12:10] LABS: Albumin 4.1 g/dL (3.5-5.0); Calcium 9.6 mg/dL (8.4-10.2); Total Bilirubin 0.8 mg/dL (0.2-1.3); Total Protein 6.6 g/dL (6.3-8.2)
[2017-12-27 12:18] LABS: INR 1.1 (<1.2); Partial Thromboplastin Time 22.5 sec (22.0-30.0)
[2017-12-27 12:21] LABS: D-Dimer 0.76 mg/L FEU (<0.60)
[2017-12-27 12:36] LABS: Troponin I 1.34 ng/mL (0.000-0.034)
[2017-12-27] MEDS ORDERED: hydrALAZINE HCL 20 MG/ML 1 ML VIAL IVP STA (12:38)
[2017-12-27] MEDS ORDERED: HEPARIN SODIUM,PORCINE 5,000 UNIT/ML 1 ML VIAL IV PRN (12:49)
[2017-12-27] MEDS ORDERED: HEPARIN SODIUM,PORCINE 5,000 UNIT/ML 1 ML VIAL IV ONE (12:49)
[2017-12-27] MEDS: HEPARIN SOD,PORK IN 0.45% NACL 25,000 UNIT in 0.45% NACL 1 500ML.BAG IV SCH (13:04)
[2017-12-27] MEDS: IPRATROPIUM-ALBUTEROL 3 ML NEB INHALATION SCH ×2 (15:47→19:20)
[2017-12-27 17:05] LABS: Glucose,Whole Blood 243 mg/dL (75-99)
[2017-12-27] MEDS: metFORMIN 500 MG TAB PO SCH ×2 (17:24→22:07)
[2017-12-27] MEDS: glipiZIDE 10 MG TAB PO SCH (17:25)
[2017-12-27] MEDS: NITROGLYCERIN OINT 1 INCH/GM PACKET TOPICAL SCH ×2 (17:25→23:24)
[2017-12-27 19:30] LABS: Creatine Kinase MB 2.8 ng/mL (0.0-2.4); Troponin I 0.86 ng/mL (0.000-0.034)
[2017-12-27] MEDS ORDERED: ATORVASTATIN 20 MG TAB PO SCH (21:00)
[2017-12-27] MEDS ORDERED: DIPYRIDAMOLE-ASPIRIN 200-25 MG 1 EACH CPMP.12HR PO SCH (21:00)
[2017-12-27 21:06] LABS: Glucose,Whole Blood 171 mg/dL (75-99)
[2017-12-27] MEDS: hydrALAZINE HCL 25 MG TAB PO SCH (22:07)
[2017-12-27] MEDS: METOPROLOL TARTRATE 25 MG TAB PO SCH (22:08)
[2017-12-27] MEDS: LATANOPROST 0.005% OPHTH DROPS 2.5 ML BTL BOTH EYES SCH (22:08)
[2017-12-27] MEDS ORDERED: IPRATROPIUM-ALBUTEROL 3 ML NEB INHALATION PRN (22:08)
[2017-12-28 01:24] LABS: Creatine Kinase MB 3.5 ng/mL (0.0-2.4); Troponin I 0.793 ng/mL (0.000-0.034)
[2017-12-28 06:14] LABS: Glucose,Whole Blood 65 mg/dL (75-99)
[2017-12-28 06:24] LABS: Basophils % (A) 0 %; Eosinophils # (A) 0.1 k/uL (0-0.7); Eosinophils % (A) 1 %; HCT 30.7 % (39.0-53.0); Lymphocytes # (A) 1.9 k/uL (1.0-4.8); Lymphocytes % (A) 13 %; MCH 29.3 pg (25.0-35.0); MCHC 32.2 g/dL (31.0-37.0); MCV 90.9 fL (80.0-100.0); Mean Platelet Volume 7.9; Monocytes # (A) 0.6 k/uL (0-1.0); Monocytes % (A) 4 %; Neutrophils # (A) 11.6 k/uL (1.3-7.7); Neutrophils % (A) 82 %; Platelet Count 371 k/uL (150-450); RBC 3.37 m/uL (4.30-5.90); RDW 13.4 % (11.5-15.5); WBC 14.3 k/uL (3.8-10.6)
[2017-12-28] MEDS: glipiZIDE 10 MG TAB PO SCH ×2 (06:24→17:18)
[2017-12-28] MEDS: NITROGLYCERIN OINT 1 INCH/GM PACKET TOPICAL SCH ×4 (06:25→23:35)
[2017-12-28 06:28] LABS: HGB 9.9 gm/dL (13.0-17.5)
[2017-12-28 06:37] LABS: Calcium 8.7 mg/dL (8.4-10.2)
[2017-12-28 06:38] LABS: Glucose,Whole Blood 99 mg/dL (75-99)
--- NOTE | 2017-12-28 07:53 | ECHOF ---
Referral Reason:sob MEASUREMENTS -------- HEIGHT: 165.1 cm WEIGHT: 72.6 kg BP: IVSd: 1.1 cm (0.6 - 1.1) LVIDd: 4.8 cm (3.9 - 5.3) LVPWd: 1.4 cm (0.6 - 1.1) IVSs: 1.5 cm LVIDs: 4.6 cm LVPWs: 1.4 cm LAESV Index (A-L): 22.71 ml/m Ao Diam: 3.4 cm (2.0 - 3.7) AV Cusp: 1.6 cm (1.5 - 2.6) LA Diam: 3.8 cm (2.7 - 3.8) MV EXCURSION: 15.271 mm (> 18.000) MV EF SLOPE: 85 mm/s (70 - 150) EPSS: 1.0 cm MV E Ata: 0.98 m/s MV DecT: 125 ms MV A Ata: 0.82 m/s MV E/A Ratio: 1.21 AV maxP.68 mmHg AV meanP.11 mmHg RAP: 5.00 mmHg RVSP: 20.45 mmHg FINDINGS -------- Resting tachycardia (HR>100bpm). This was a technically good study. The left ventricular size is normal. There is mild concentric left ventricular hypertrophy. There is severe global hypokinesis of LV . Overall left ventricular systolic function is severely impair ed with, an EF between 20 - 25 %. The right ventricle is normal in size and function. The left atrium is normal in size. The right atrium is normal in size. Aortic valve is trileaflet and is mildly thickened. There is mild aortic stenosis present. Peak/m simran gradient across the Aortic Valve is 17.68mmHg / 10.11mmHg. The mitral valve leaflets are mildly thickened. [id number]-[id number] mitral regurgitation is present. Mild tricuspid regurgitation present. The right ventricular systolic pressure, as measured by Doppl er, is 20.45mmHg. Pulmonic valve appears structurally normal. Cannot exclude thrombus/mass in the lv apex. The aortic root size is normal. The inferior vena cava is mildly dilated. There is a trivial pericardial effusion present. CONCLUSIONS -------- 1. Resting tachycardia (HR>100bpm). 2. This was a technically good study. 3. The left ventricular size is normal. 4. There is mild concentric left ventricular hypertrophy. 5. There is severe global hypokinesis of LV . 6. Overall left ventricular systolic function is severely impaired with, an EF between 20 - 25 %. 7. The right ventricle is normal in size and function. 8. The left atrium is normal in size. 9. The right atrium is normal in size. 10. Aortic valve is trileaflet and is mildly thickened. 11. There is mild aortic stenosis present. 12. Peak/mean gradient across the Aortic Valve is 17.68mmHg / 10.11mmHg. 13. The mitral valve leaflets are mildly thickened. 14. Udnt-lr-[id number] mitral regurgitation is present. 15. Mild tricuspid regurgitation present. 16. The right ventricular systolic pressure, as measured by Doppler, is 20.45mmHg. 17. Pulmonic valve appears structurally normal. 18. Cannot exclude thrombus/mass in the lv apex. 19. The aortic root size is normal. 20. The inferior vena cava is mildly dilated. 21. There is a trivial pericardial effusion present. [employer]: Nimisha Ramirez RDCS
--- NOTE | 2017-12-28 07:59 | CONS ---
CONSULTATION ATTENDING: Dr. Padron. HISTORY OF PRESENT ILLNESS: Mr. Mccormick 67-year-old male with history of diabetes and hyperlipidemia, who presented with a symptoms of progressive dyspnea going on for the last week or so. He denies any associated chest discomfort. In the emergency room, he was noted to have evidence of renal failure, mild elevation of troponin as well as elevation of the NT proBNP. The patient denies any prior cardiac history. He denies any discomfort in the chest. He denies any PND or orthopnea. No peripheral edema. He denies any dizziness, palpitation, or syncope. He has no prior cardiac workup. He has a prior history of stroke. He denies any prior history of CHF or myocardial infarction. His coronary risk factors are remarkable for the history of diabetes, hyperlipidemia. He is a nonsmoker. MEDICATIONS: Include metformin 1 g 3 times a day, Glucotrol 10 mg twice a day, Aggrenox 25-200 mg daily, Lipitor 20 mg daily. Vitamin D and Xalatan eye drops. REVIEW OF SYSTEMS: RESPIRATORY SYSTEM. He has no history of documented asthma or emphysema. He has the progressive dyspnea. He denies any wheezing. GI system: No recent GI bleeding. No peptic ulcer disease. system: No dysuria, hematuria. Nervous system: He has a history of stroke as needed. PHYSICAL EXAMINATION: A 67-year-old male, alert, in no apparent distress. Blood pressure 134/70 with a heart rate in the 80s. HEAD: Normocephalic. Eyes sclerae anicteric. Neck: Good carotid upstroke. No bruit. No jugular venous distention. Lungs: No rales or wheezes. HEART: Regular rate and rhythm S1, S2. No S3. Plus systolic murmur heard at the base. No diastolic murmur. ABDOMEN: Soft, nontender. Positive bowel sounds. No megaly. EXTREMITIES: No edema. Intact distal pulses. LAB DATA: Revealed BUN and creatinine 35 and 2.3, potassium 4.0. Troponin of 1.3, 0.8, 0.793. NT proBNP of 23,800. EKG revealed a sinus mechanism with poor R wave progression cannot exclude anterior myocardial infarction, nonspecific ST-T wave changes. No evolution on the EKG. Chest x-ray revealed evidence of congestive heart failure. IMPRESSION: 1. Symptoms of progressive dyspnea with findings suggestive of congestive heart failure. The patient feels better this morning. He received a dose of diuretics yesterday. 2. Elevation of the troponin could be related to recent myocardial infarction. 3. Renal failure. 4. History of diabetes. 5. Hyperlipidemia. RECOMMENDATIONS: The patient may have had sustained a myocardial infarction about a week ago and he is presenting now with the finding of congestive heart failure. I will add to his regimen hydralazine as well as beta rebekah. His metformin will be stopped. He will be given diuretics. We will obtain echocardiogram with Doppler. At this time, the patient may require coronary angiography, but this time I would like to stabilize his renal function prior to proceeding with any procedure. Depending on his progress, further recommendation will be made. Thank you for this consult. We will follow with you. BOZENA / ELLAN: [id number] /
[2017-12-28] MEDS: hydrALAZINE HCL 25 MG TAB PO SCH ×2 (08:47→20:35)
[2017-12-28] MEDS: CHOLECALCIFEROL 1,000 UNIT TAB PO SCH (08:48)
[2017-12-28] MEDS: METOPROLOL TARTRATE 25 MG TAB PO SCH ×2 (08:48→20:35)
[2017-12-28] MEDS ORDERED: ASPIRIN 325 MG TAB PO SCH (09:00)
[2017-12-28] MEDS: IPRATROPIUM-ALBUTEROL 3 ML NEB INHALATION SCH ×4 (09:28→20:44)
[2017-12-28] MEDS: ASPIRIN 81 MG PO SCH (09:43)
[2017-12-28] MEDS: FUROSEMIDE 10 MG/ML 4 ML VIAL IV SCH ×2 (09:43→20:34)
[2017-12-28 11:28] LABS: Glucose,Whole Blood 131 mg/dL (75-99)
[2017-12-28] MEDS: HEPARIN SOD,PORK IN 0.45% NACL 25,000 UNIT in 0.45% NACL 1 500ML.BAG IV SCH (12:34)
--- NOTE | 2017-12-28 14:00 | P.NPCON ---
History of Present Illness - Reason for Consult acute renal failure - History of Present Illness Reason for consultation: Acute kidney injury History of present illness: Patient is a 67-year-old male seen in renal consultation for acute kidney injury on chronic kidney disease. Looking at prior records it appears patient has chronic kidney disease stage III with baseline creatinine in the range of 1.2-1.3. Patient presented to the hospital with worsening dyspnea over the last couple of weeks. Patient did admit to orthopnea. Chest x-ray suggested fluid overload. Echocardiogram revealed an ejection fraction of 20-25%, mild to moderate mitral regurgitation. He is currently maintained on Lasix 40 mg IV twice daily. Admits to good urine output. No hematuria or dysuria. Denies lower extremity edema. No vomiting or diarrhea. Denies use of NSAIDs. Denies any family history of renal disease. Denies any active chest pain. Dyspnea has improved since admission. He does have history of diabetes mellitus and is maintained on metformin as an outpatient. Creatinine was 2.31 on admission and is 2.33 today. Vital signs are stable. General: The patient appeared well nourished and normally developed. HEENT: Head exam is unremarkable. Neck is without jugular venous distension. LUNGS: Lungs are clear to auscultation and percussion. Breath sounds decreased. HEART: Rate and Rhythm are regular. First and second heart sounds normal. No murmurs, rubs or gallops. ABDOMEN: Abdominal exam reveals normal bowel sounds. Non-tender and non- distended. No evidence of peritonitis. EXTREMITITES: No clubbing, cyanosis, or edema. 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 History of Any Multi-Drug Resistant Organisms: None Reported Past Surgical History: No Surgical Hx Reported Additional Past Surgical History / Comment(s): R wrist fx with repair, R eye retinal detachment with surgery, R eye retinal hemorrhage with eye injections in the past Past Anesthesia/Blood Transfusion Reactions: No Reported Reaction Additional Past Anesthesia/Blood Transfusion Reaction / Comment(s): Pt has never recieved blood. Smoking Status: Current every day smoker - Past Family History Father Family Medical History: Vascular Disorder Additional Family Medical History / Comment(s): Father during vascular surgery for his blood flow to his legs. Mother Family Medical History: Congestive Heart Failure (CHF), Diabetes Mellitus Medications and Allergies Home Medications Medication Instructions Recorded Confirmed Type glipiZIDE [Glucotrol] 10 mg PO BID 06/04/14 12/27/17 History Dipyridamole-Aspirin 200-25 mg 1 cap PO BID 11/10/14 12/27/17 History [Aggrenox 25MG -200MG] Atorvastatin [Lipitor] 20 mg PO HS 11/21/16 12/27/17 History Cholecalciferol [Vitamin D3] 1,000 unit PO DAILY 12/27/17 12/27/17 History Latanoprost Ophth [Xalatan 0.005%] 1 drop BOTH EYES HS 12/27/17 12/27/17 History metFORMIN HCL 1,000 mg PO TID 12/27/17 12/27/17 History Allergies Allergy/AdvReac Type Severity Reaction Status Date / Time No Known Allergies Allergy Verified 12/27/17 11:35 Physical Exam Vitals: Vital Signs Temp Pulse Pulse Resp BP BP Pulse Ox 12/28/17 13:34 96 12/28/17 13:24 100 12/28/17 12:00 95 17 145/84 100 12/28/17 09:43 88 12/28/17 09:28 84 12/28/17 08:00 97.1 F L 96 18 154/81 97 12/28/17 03:52 97.5 F L 88 18 134/71 94 L 12/28/17 00:00 97.2 F L 98 18 133/69 95 12/27/17 20:00 97.3 F L 118 H 18 145/65 95 12/27/17 19:32 116 H 16 12/27/17 19:21 116 H 16 12/27/17 15:55 114 H 18 12/27/17 15:48 97.9 F 115 H 18 144/95 98 12/27/17 15:30 114 H 22 175/93 98 12/27/17 15:00 109 H 22 172/101 98 12/27/17 14:00 113 H 22 173/90 95 Intake and Output 12/27/17 12/28/17 12/28/17 22:59 06:59 14:59 Intake Total 1555.455 121.912 504.633 Output Total 150 Balance 1555.455 -28.088 504.633 Intake: Amount of Fluid Infused ( 1000 ml) Intake, IV Titration 113.455 121.912 264.633 Amount Heparin Sod,Pork in 0.45% 113.455 121.912 264.633 NaCl 25,000 unit In 0.45 % NaCl 1 500ml.bag @ 12 UNITS/KG/HR 17.41 mls/hr IV .Q24H GELY Rx#: [id number] Oral 442 240 Output: Urine 150 Other: # Voids 1 1 Weight 65 kg Results - Lab Results Most recent lab results Calcium 8.7 mg/dL (8.4-10.2) 12/28/17 05:56 12/28/17 05:56 12/28/17 05:56 Assessment and Plan Plan: Assessment: #1. Nonoliguric acute kidney injury secondary to ATN secondary to cardiorenal syndrome. Creatinine 2.31 on admission and is 2.33 today. Rule out urinary retention. #2. Chronic kidney disease stage III with baseline creatinine in the range of 1.2-1.3. Etiology is likely diabetic kidney disease. #3. Systolic CHF with ejection fraction of 20-25%. Unclear as to if this is acute or chronic. #4. Hypernatremia secondary to lack of oral water intake and diuresis. Sodium level stable at 147 today. #5. Anemia. Rule out iron deficiency. #6. Diabetes mellitus. #7. Dyspnea secondary to fluid overload. Plan: Continue with Lasix 40 mg IV twice daily. Agree with holding metformin. Check urinalysis. Check renal ultrasound. Avoid nephrotoxic agents and hypotensive episodes. Encouraged oral water intake. Check iron studies. Repeat electrolytes in the morning. Case discussed with cardiology. Patient will likely require cardiac catheterization in the near future. I discussed with the patient and his family present at bedside the risk of developing contrast-induced nephropathy post cardiac catheterization. They understand. Thank you for the consultation. I will continue to follow the patient with you during his hospital stay.
--- NOTE | 2017-12-28 14:59 | US ---
EXAMINATION TYPE: US kidneys/renal and bladder DATE OF EXAM: 12/28/2017 COMPARISON: NONE CLINICAL HISTORY: essence. EXAM MEASUREMENTS: Right Kidney: 9.3 x 4.6 x 4.4 cm Left Kidney: 8.7 x 4.7 x 4.1 cm Right Kidney: No hydronephrosis or masses seen, Left Kidney: No hydronephrosis or masses seen, Measuring small, however symmetric with the right Bladder: wnl Bilateral Jets seen: Yes There is no evidence for hydronephrosis at this point in time. No nephrolithiasis is seen. No hyacinth s are identified. The urinary bladder is anechoic. Bilateral ureteral jets are seen. Bilateral pleural effusions visualized IMPRESSION: Diminutive kidneys are without evidence for hydronephrosis or nephrolithiasis. Pleural effusions seen . Fatty liver.
[2017-12-28 16:16] LABS: Appearance,Urine Clear (Clear); Bilirubin,Urine Negative (Negative); Blood,Urine Negative (Negative); Color,Urine Yellow; Glucose,Urine (UA) Negative (Negative); Ketones,Urine Negative (Negative); Leukocyte Esterase,Urine Negative (Negative); Nitrite,Urine Negative (Negative); Protein,Urine Trace (Negative); Urobilinogen,Urine <2.0 mg/dL (<2.0)
[2017-12-28 16:39] LABS: Glucose,Whole Blood 137 mg/dL (75-99)
[2017-12-28 18:56] LABS: Iron Saturation 9.86 (15.00-50.00)
[2017-12-28 20:31] LABS: Glucose,Whole Blood 177 mg/dL (75-99)
[2017-12-28] MEDS: LATANOPROST 0.005% OPHTH DROPS 2.5 ML BTL BOTH EYES SCH (20:34)
[2017-12-28] MEDS: ATORVASTATIN 40 MG TAB PO SCH (20:34)
--- NOTE | 2017-12-28 23:29 | HP ---
HISTORY AND PHYSICAL DATE OF SERVICE: 12/28/2017. This is a pleasant 67-year-old debilitated white male who was admitted to the hospital with acute myocardial infarction. The patient has suffered many strokes, approximately 3 in the past, with not much regard to his health. He continues to suffer from sugar diabetes as well as hypertension and he continues to smoke, despite encouragement to quit. ALLERGIES: No known drug allergies. MEDICATIONS: Include: 1. Glucotrol. 2. Aggrenox. 3. Lipitor. 4. Vitamin D. 5. Dilantin. 6. Metformin. PAST MEDICAL HISTORY: Significant for TIA and CVA x3, diabetes with neuropathy, hyperlipidemia, hypertension, renal disease. PAST SURGICAL HISTORY: No surgeries reported except a right wrist fracture with repair. PSYCHOLOGICAL: He is denies any depression. SOCIAL: Tobacco: Currently every day smoker. Denies any drugs or alcohol. REVIEW OF SYSTEMS: Was unobtained secondary to the patient's condition. FAMILY HISTORY: Father during surgery. Mother had congestive heart failure and diabetes. Mother had vascular problems and congestive heart failure. PHYSICAL EXAM: GENERAL: The patient is alert and answering questions appropriately. Vital signs are stable. He is asking to go home. EYES: Pupils are equal. HEENT: Head is normocephalic. Neck is supple. No JVD. HEART: Regular rate and rhythm rate and rhythm. LUNGS: Diminished breath sounds bilateral. ABDOMEN: Soft, nontender. No rebound, rigidity or guarding. EXTREMITIES: Walks with an unsteady gait. Neurological reveals no new deficit at this time. He has some residual weakness on the right from previous stroke. IMPRESSIONS: 1. Acute myocardial infarction. 2. Significant acute congestive heart failure. 3. Diabetes. 4. Previous stroke and multi-infarct dementia. PLAN: Continue to follow the patient's progress, neurological consultation. MMODL / IJN: [id number] /
[2017-12-29] MEDS: NITROGLYCERIN OINT 1 INCH/GM PACKET TOPICAL SCH ×4 (06:08→23:22)
[2017-12-29 06:11] LABS: Glucose,Whole Blood 197 mg/dL (75-99)
[2017-12-29 06:12] LABS: Basophils % (A) 0 %; Eosinophils # (A) 0.1 k/uL (0-0.7); Eosinophils % (A) 0 %; HCT 32.1 % (39.0-53.0); HGB 10.6 gm/dL (13.0-17.5); Lymphocytes # (A) 1.4 k/uL (1.0-4.8); Lymphocytes % (A) 11 %; MCH 30.2 pg (25.0-35.0); MCHC 33.1 g/dL (31.0-37.0); MCV 91.3 fL (80.0-100.0); Mean Platelet Volume 7.4; Monocytes # (A) 0.5 k/uL (0-1.0); Monocytes % (A) 4 %; Neutrophils # (A) 10.8 k/uL (1.3-7.7); Neutrophils % (A) 84 %; Platelet Count 409 k/uL (150-450); RBC 3.51 m/uL (4.30-5.90); RDW 13.3 % (11.5-15.5); WBC 12.8 k/uL (3.8-10.6)
[2017-12-29] MEDS: glipiZIDE 10 MG TAB PO SCH ×2 (06:15→17:11)
[2017-12-29 06:40] LABS: Calcium 8.7 mg/dL (8.4-10.2); Magnesium 1.7 mg/dL (1.6-2.3)
[2017-12-29] MEDS: IPRATROPIUM-ALBUTEROL 3 ML NEB INHALATION SCH ×4 (08:49→19:22)
[2017-12-29] MEDS: METOPROLOL TARTRATE 25 MG TAB PO SCH ×2 (08:59→20:54)
[2017-12-29] MEDS: hydrALAZINE HCL 25 MG TAB PO SCH ×2 (08:59→20:53)
[2017-12-29] MEDS: CHOLECALCIFEROL 1,000 UNIT TAB PO SCH (08:59)
[2017-12-29] MEDS: ASPIRIN 81 MG PO SCH (08:59)
[2017-12-29] MEDS: FUROSEMIDE 10 MG/ML 4 ML VIAL IV SCH ×2 (08:59→20:53)
--- NOTE | 2017-12-29 12:00 | P.PN ---
Subjective Progress Note Date: 12/29/17 Principal diagnosis: This is a 7-year-old male seen in consultation because of acute kidney injury and chronic kidney disease. He was admitted with shortness of breath. His troponin is 0.7. He has no chest pain though. His shortness of breath is about the same and his mild. Appetite is fair. No nausea vomiting headache dizziness. No fever chills dysuria frequency. He is known with diabetes, hypertension, history of stroke in 2017 retinal hemorrhage. Objective - Vital Signs Vital signs: Vital Signs Temp 97.7 F 12/29/17 11:30 Pulse 105 H 12/29/17 11:30 Resp 19 12/29/17 11:30 BP 141/80 12/29/17 11:30 Pulse Ox 98 12/29/17 11:30 Intake & Output 12/28/17 12/29/17 12/29/17 18:59 06:59 18:59 Intake Total 1160.633 765.807 240 Output Total 300 350 Balance 860.633 415.807 240 Weight 65 kg 63.9 kg Intake: IV 182 heparin 182 Intake, IV Titration 264.633 465.807 Amount Heparin Sod,Pork in 0.45% 264.633 465.807 NaCl 25,000 unit In 0.45 % NaCl 1 500ml.bag @ 12 UNITS/KG/HR 17.41 mls/hr IV .Q24H [facility] Rx#: [id number] Oral 714 300 240 Output: Urine 300 350 Other: Voiding Method Urinal Urinal # Voids 1 2 # Bowel Movements 1 On examination is awake alert oriented. HEENT exam no JVP neck is supple no facial asymmetry Lungs are clear to auscultation percussion good air entry bilaterally Heart sounds are unremarkable for any murmur rub gallop Abdomen soft nontender no organomegaly ascites masses Extremity exam was no edema Neurologically awake alert oriented. - Labs CBC & Chem 7: 12/29/17 05:43 12/29/17 05:43 Labs: Abnormal Lab Results - Last 24 Hours (Table) 12/28/17 12/28/17 12/28/17 Range/Units 05:56 16:10 16:37 WBC (3.8-10.6) k/uL RBC (4.30-5.90) m/uL Hgb (13.0-17.5) gm/dL Hct (39.0-53.0) % Neutrophils # (1.3-7.7) k/uL APTT (22.0-30.0) sec BUN (9-20) mg/dL Creatinine (0.66-1.25) mg/dL Glucose (74-99) mg/dL POC Glucose (mg/dL) 137 H (75-99) mg/dL Iron 28 L (65-175) ug/dL Iron Saturation 9.86 L (15.00-50.00) Urine Protein Trace H (Negative) 12/28/17 12/29/17 12/29/17 Range/Units 20:30 05:43 05:43 WBC 12.8 H (3.8-10.6) k/uL RBC 3.51 L (4.30-5.90) m/uL Hgb 10.6 L (13.0-17.5) gm/dL Hct 32.1 L (39.0-53.0) % Neutrophils # 10.8 H (1.3-7.7) k/uL APTT 70.5 H (22.0-30.0) sec BUN (9-20) mg/dL Creatinine (0.66-1.25) mg/dL Glucose (74-99) mg/dL POC Glucose (mg/dL) 177 H (75-99) mg/dL Iron (65-175) ug/dL Iron Saturation (15.00-50.00) Urine Protein (Negative) 12/29/17 12/29/17 Range/Units 05:43 06:10 WBC (3.8-10.6) k/uL RBC (4.30-5.90) m/uL Hgb (13.0-17.5) gm/dL Hct (39.0-53.0) % Neutrophils # (1.3-7.7) k/uL APTT (22.0-30.0) sec BUN 40 H (9-20) mg/dL Creatinine 2.31 H (0.66-1.25) mg/dL Glucose 176 H (74-99) mg/dL POC Glucose (mg/dL) 197 H (75-99) mg/dL Iron (65-175) ug/dL Iron Saturation (15.00-50.00) Urine Protein (Negative) Microbiology - Last 24 Hours (Table) 12/27/17 11:48 Blood Culture - Preliminary Blood No Growth after 24 hours Assessment and Plan Assessment: Impression 1. Acute kidney injury secondary to prerenal, creatinine baseline is 1.27 dated 11/20/2017. Creatinine on admission was 2.31 and remains the same 2 days later at 2.31. 2. Chronic kidney disease with a baseline creatinine of 1.27 on 11/20/2017. Trace proteinuria possible diabetic nephropathy and nephrosclerosis. 3. Slightly high troponin 0.7 rule out acute [place] though doubt it. 4. Anemia of chronic kidney disease hemoglobin is 10.6, admission hemoglobin was 12.4. Rule out bleeding. 5. Hyponatremia secondary to decreased water intake. Sodium improved from 147- 141. Recommendation. 1. There is some discussion although is not clear about a possible need for cardiac cath. If he needs a cardiac catheterization then we will have to wait until acute kidney injury resolves. Can be performed if it is urgent but there does not seem to be any reason for urgency. 2. Check postvoid residual 3. Monitor I's and O's, 4. Monitor labs. 5. Watch for GI bleed. Check occult blood
[2017-12-29] MEDS: HEPARIN SOD,PORK IN 0.45% NACL 25,000 UNIT in 0.45% NACL 1 500ML.BAG IV SCH (16:07)
--- NOTE | 2017-12-29 17:29 | P.PN ---
Subjective 67-year-old male admitted for back and start failure systolic dysfunction with acute exacerbation patient can he is given IV Lasix and the patient is also found to have non-ST elevation microinfarction patient may may need A catheterization. If reading his kidney function to improve. Patient appears to have acute on chronic kidney disease patient's previous creatinine was 1.27 now around 2.3 Constitutional: Denied any fatigue denied any fever. Cardio vascular: denied any chest pain, palpitations Gastrointestinal denied any nausea vomiting Pulmonary: Denied any shortness of breath cough Neurologic denied any new focal deficits Objective - Vital Signs Vital signs: Vital Signs Temp 97.6 F 12/29/17 16:39 Pulse 105 H 12/29/17 16:39 Resp 19 12/29/17 16:39 BP 161/84 12/29/17 16:39 Pulse Ox 95 12/29/17 16:39 Intake & Output 12/28/17 12/29/17 12/29/17 18:59 06:59 18:59 Intake Total 1160.633 765.807 480 Output Total 153 155 7759 Balance 860.633 415.807 -520 Weight 65 kg 63.9 kg Intake: IV 182 heparin 182 Intake, IV Titration 264.633 465.807 Amount Heparin Sod,Pork in 0.45% 264.633 465.807 NaCl 25,000 unit In 0.45 % NaCl 1 500ml.bag @ 12 UNITS/KG/HR 17.41 mls/hr IV .Q24H [facility] Rx#: [id number] Oral 714 300 480 Output: Urine 297 029 6572 Other: Voiding Method Urinal Urinal # Voids 1 2 # Bowel Movements 1 - Exam PHYSICAL EXAMINATION: GENERAL: The patient is alert and oriented x3, not in any acute distress. Well developed, well nourished. HEENT: Pupils are round and equally reacting to light. EOMI. No scleral icterus. No conjunctival pallor. Normocephalic, atraumatic. No pharyngeal erythema. No thyromegaly. CARDIOVASCULAR: S1 and S2 present. No murmurs, rubs, patient does have S3 and minimally elevated JVD with mild pedal edema PULMONARY: Chest is clear to auscultation, no wheezing or crackles. ABDOMEN: Soft, nontender, nondistended, normoactive bowel sounds. No palpable organomegaly. MUSCULOSKELETAL: No joint swelling or deformity. EXTREMITIES: No cyanosis, clubbing, NEUROLOGICAL: Gross neurological examination did not reveal any focal deficits. SKIN: No rashes. - Labs CBC & Chem 7: 12/29/17 05:43 12/29/17 05:43 Labs: Abnormal Lab Results - Last 24 Hours (Table) 12/28/17 12/28/17 12/29/17 Range/Units 05:56 20:30 05:43 WBC 12.8 H (3.8-10.6) k/uL RBC 3.51 L (4.30-5.90) m/uL Hgb 10.6 L (13.0-17.5) gm/dL Hct 32.1 L (39.0-53.0) % Neutrophils # 10.8 H (1.3-7.7) k/uL APTT (22.0-30.0) sec BUN (9-20) mg/dL Creatinine (0.66-1.25) mg/dL Glucose (74-99) mg/dL POC Glucose (mg/dL) 177 H (75-99) mg/dL Iron 28 L (65-175) ug/dL Iron Saturation 9.86 L (15.00-50.00) 12/29/17 12/29/17 12/29/17 Range/Units 05:43 05:43 06:10 WBC (3.8-10.6) k/uL RBC (4.30-5.90) m/uL Hgb (13.0-17.5) gm/dL Hct (39.0-53.0) % Neutrophils # (1.3-7.7) k/uL APTT 70.5 H (22.0-30.0) sec BUN 40 H (9-20) mg/dL Creatinine 2.31 H (0.66-1.25) mg/dL Glucose 176 H (74-99) mg/dL POC Glucose (mg/dL) 197 H (75-99) mg/dL Iron (65-175) ug/dL Iron Saturation (15.00-50.00) Microbiology - Last 24 Hours (Table) 12/27/17 11:48 Blood Culture - Preliminary Blood No Growth after 48 hours Assessment and Plan Plan: -Congestive heart failure acute systolic dysfunction with acute exacerbation continue with IV Lasix. 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
--- NOTE | 2017-12-29 20:45 | PN ---
PROGRESS NOTE This patient has been admitted with history of shortness of breath and congestive cardiac failure. Patient also has acute on chronic renal failure. The patient remains comfortable at present without any acute respiratory distress. Blood pressure is 160/84 mmHg, respirations are not labored. Oxygen saturation is 95%. Bilateral diminished air entry. First and second heart sounds are normal. The patient has been diuresing with IV Lasix. Hemoglobin is 10.6. Patient's creatinine remains 2.3. His baseline creatinine is in the range of 1.2-1.3. Echocardiogram reveals moderate to severely impaired left ventricular systolic function. Patient's iron saturation is 10%. We will at present continue the patient on IV Lasix. There is no significant improvement in the patient's creatinine by tomorrow, may consider treatment with dobutamine to treat cardiorenal syndrome. We will hold off the cardiac catheterization at present until the patient's renal functions are stable. MMODL / IJN: [id number] /
[2017-12-29 20:49] LABS: Glucose,Whole Blood 153 mg/dL (75-99)
[2017-12-29] MEDS: ATORVASTATIN 40 MG TAB PO SCH (20:53)
[2017-12-29] MEDS: LATANOPROST 0.005% OPHTH DROPS 2.5 ML BTL BOTH EYES SCH (20:54)
[2017-12-30 05:50] LABS: Glucose,Whole Blood 170 mg/dL (75-99)
[2017-12-30] MEDS: NITROGLYCERIN OINT 1 INCH/GM PACKET TOPICAL SCH ×3 (06:02→17:26)
[2017-12-30] MEDS: glipiZIDE 10 MG TAB PO SCH ×2 (06:02→17:26)
[2017-12-30 06:51] LABS: Basophils % (A) 0 %; Eosinophils # (A) 0.1 k/uL (0-0.7); Eosinophils % (A) 1 %; HCT 32.7 % (39.0-53.0); HGB 10.6 gm/dL (13.0-17.5); Lymphocytes # (A) 1.4 k/uL (1.0-4.8); Lymphocytes % (A) 12 %; MCH 29.6 pg (25.0-35.0); MCHC 32.5 g/dL (31.0-37.0); Mean Platelet Volume 7.9; Monocytes # (A) 0.5 k/uL (0-1.0); Monocytes % (A) 4 %; Neutrophils # (A) 9.9 k/uL (1.3-7.7); Neutrophils % (A) 83 %; Platelet Count 361 k/uL (150-450); RDW 13.2 % (11.5-15.5)
[2017-12-30 07:04] LABS: Calcium 8.7 mg/dL (8.4-10.2)
[2017-12-30 07:07] LABS: Potassium 4.5 mmol/L (3.5-5.1)
[2017-12-30] MEDS: FUROSEMIDE 10 MG/ML 4 ML VIAL IV SCH (08:21)
[2017-12-30] MEDS: hydrALAZINE HCL 25 MG TAB PO SCH ×2 (08:21→20:07)
[2017-12-30] MEDS: METOPROLOL TARTRATE 25 MG TAB PO SCH ×2 (08:21→20:07)
[2017-12-30] MEDS: ASPIRIN 81 MG PO SCH (08:21)
[2017-12-30] MEDS: CHOLECALCIFEROL 1,000 UNIT TAB PO SCH (08:21)
[2017-12-30] MEDS: IPRATROPIUM-ALBUTEROL 3 ML NEB INHALATION SCH ×4 (08:24→21:02)
[2017-12-30 11:36] LABS: Glucose,Whole Blood 160 mg/dL (75-99)
--- NOTE | 2017-12-30 11:39 | P.PN ---
Subjective Progress Note Date: 12/30/17 Principal diagnosis: This is a 7-year-old male seen in consultation because of acute kidney injury secondary to prerenal from possible acute NC, and chronic kidney disease. He was admitted with shortness of breath. His troponin 1.3 and is down to 0.7 as of 12/28/2017.. He has no chest pain though. His shortness of breath is about the same and his mild. Appetite is fair. No nausea vomiting headache dizziness. No fever chills dysuria frequency. He is known with diabetes, hypertension, history of stroke in 2017 retinal hemorrhage. Objective - Vital Signs Vital signs: Vital Signs Temp 97.6 F 12/30/17 08:27 Pulse 105 H 12/30/17 08:36 Resp 18 12/30/17 08:27 BP 195/101 12/30/17 08:27 Pulse Ox 96 12/30/17 08:27 Intake & Output 12/29/17 12/30/17 12/30/17 18:59 06:59 18:59 Intake Total 720 200 274.193 Output Total 1000 450 Balance -280 -250 274.193 Weight 64.8 kg Intake: Intake, IV Titration 34.193 Amount Heparin Sod,Pork in 0.45% 34.193 NaCl 25,000 unit In 0.45 % NaCl 1 500ml.bag @ 12 UNITS/KG/HR 17.41 mls/hr IV .Q24H [facility] Rx#: [id number] Oral 720 200 240 Output: Urine 1000 450 Other: Voiding Method Urinal Urinal Urinal # Voids 1 # Bowel Movements 1 On examination is awake alert oriented comfortable he is on nasal cannula but short of breath on exertion. No dizziness. HEENT exam no JVP neck is supple no facial asymmetry Lungs are significant for bilateral fine crackles no dullness percussion good air entry bilaterally Heart sounds are unremarkable for any murmur rub gallop Abdomen soft nontender no organomegaly status masses Extremity exam was trace edema Neurologically awake alert oriented. - Labs CBC & Chem 7: 12/30/17 05:28 12/30/17 05:28 Labs: Abnormal Lab Results - Last 24 Hours (Table) 12/29/17 12/30/17 12/30/17 Range/Units 20:47 05:28 05:28 WBC 12.0 H (3.8-10.6) k/uL RBC 3.60 L (4.30-5.90) m/uL Hgb 10.6 L (13.0-17.5) gm/dL Hct 32.7 L (39.0-53.0) % Neutrophils # 9.9 H (1.3-7.7) k/uL APTT 67.7 H (22.0-30.0) sec Carbon Dioxide (22-30) mmol/L BUN (9-20) mg/dL Creatinine (0.66-1.25) mg/dL Glucose (74-99) mg/dL POC Glucose (mg/dL) 153 H (75-99) mg/dL 12/30/17 12/30/17 Range/Units 05:28 05:49 WBC (3.8-10.6) k/uL RBC (4.30-5.90) m/uL Hgb (13.0-17.5) gm/dL Hct (39.0-53.0) % Neutrophils # (1.3-7.7) k/uL APTT (22.0-30.0) sec Carbon Dioxide 21 L (22-30) mmol/L BUN 35 H (9-20) mg/dL Creatinine 2.07 H (0.66-1.25) mg/dL Glucose 134 H (74-99) mg/dL POC Glucose (mg/dL) 170 H (75-99) mg/dL Microbiology - Last 24 Hours (Table) 12/27/17 11:48 Blood Culture - Preliminary Blood No Growth after 48 hours Assessment and Plan Assessment: Impression 1. Acute kidney injury secondary to prerenal, creatinine baseline is 1.27 dated 11/20/2017. Creatinine on admission was 2.31 and has improved to 2.07 as of this morning. 2. Chronic kidney disease with a baseline creatinine of 1.27 on 11/20/2017. Trace proteinuria possible diabetic nephropathy and nephrosclerosis. Ultrasound shows 9.3 and 8.7 cm dated 12/28/2017 3. Possible acute NC with high troponin 1.3 and down to 0.7 rule out acute [place]. 4. Anemia of chronic kidney disease hemoglobin is 10.6, admission hemoglobin was 12.4. Rule out bleeding. 5. Hyponatremia secondary to decreased water intake. Sodium improved from 147- 141. 6. Congestive heart failure Recommendation. 1. Supposedly scheduled for cardiac catheterization tomorrow. In view of his acute kidney injury I would like to discuss with cardiology if there is urgency to cardiac cath or if it can be postponed in view of the acute kidney injury. If there is urgency we will proceed and take the risk of ATN from diet toxicity. This was discussed with the family and the patient. They accept the risk. 2. Monitor I's and O's, 3. Monitor labs. 4. Check chest x-ray this morning and see if she needs aggressive diuresis. This will improve his blood pressure as well as his acute kidney injury.
--- NOTE | 2017-12-30 12:07 | XR ---
EXAMINATION TYPE: XR chest 2V DATE OF EXAM: 12/30/2017 HISTORY: CHF and PA . REFERENCE: Previous study dated 12/27/2017. FINDINGS: There is vascular congestion and pulmonary edema. There are bilateral effusions. I suspect underlying COPD. IMPRESSION: 1. COPD. 2. FINDINGS CONSISTENT WITH CONGESTIVE HEART FAILURE AND PULMONARY EDEMA.
[2017-12-30] MEDS ORDERED: FUROSEMIDE 10 MG/ML 4 ML VIAL IV STA (12:25)
[2017-12-30] MEDS: DOBUTamine 250 MG in DEXTROSE 5% IN WATER 250 ML IV SCH ×2 (15:24)
--- NOTE | 2017-12-30 15:58 | P.PN ---
Subjective 67-year-old male admitted for back and start failure systolic dysfunction with acute exacerbation patient can he is given IV Lasix and the patient is also found to have non-ST elevation microinfarction patient may may need A catheterization. If reading his kidney function to improve. Patient appears to have acute on chronic kidney disease patient's previous creatinine was 1.27 now around 2.3 12/30/2017 Patient's creatinine did improve with the patient pulmonary divide history of worsened patient isn't ready Yeung and now patient does have crackles on exam patient's dose of Lasix was increased. Creatinine came down to 2 from 2.3. Once his kidney function improves cardiology will plan on cardiac catheterization Constitutional: Denied any fatigue denied any fever. Cardio vascular: denied any chest pain, palpitations Gastrointestinal denied any nausea vomiting Pulmonary: Denied any shortness of breath cough Neurologic denied any new focal deficits Objective - Vital Signs Vital signs: Vital Signs Temp 97.7 F 12/30/17 12:02 Pulse 96 12/30/17 15:56 Resp 18 12/30/17 12:02 BP 159/81 12/30/17 12:02 Pulse Ox 98 12/30/17 15:42 Intake & Output 12/29/17 12/30/17 12/30/17 18:59 06:59 18:59 Intake Total 720 200 274.193 Output Total 1000 450 800 Balance -280 -250 -525.807 Weight 64.8 kg Intake: Intake, IV Titration 34.193 Amount Heparin Sod,Pork in 0.45% 34.193 NaCl 25,000 unit In 0.45 % NaCl 1 500ml.bag @ 12 UNITS/KG/HR 17.41 mls/hr IV .Q24H COUNTS INCLUDE 234 BEDS AT THE [facility] Rx#: [id number] Oral 720 200 240 Output: Urine 1000 450 800 Other: Voiding Method Urinal Urinal Urinal # Voids 1 # Bowel Movements 1 - Exam PHYSICAL EXAMINATION: GENERAL: The patient is alert and oriented x3, not in any acute distress. Well developed, well nourished. HEENT: Pupils are round and equally reacting to light. EOMI. No scleral icterus. No conjunctival pallor. Normocephalic, atraumatic. No pharyngeal erythema. No thyromegaly. CARDIOVASCULAR: S1 and S2 present. No murmurs, rubs, patient does have S3 and elevated JVD with mild pedal edema PULMONARY: Diffuse crackles bilaterally ABDOMEN: Soft, nontender, nondistended, normoactive bowel sounds. No palpable organomegaly. MUSCULOSKELETAL: No joint swelling or deformity. EXTREMITIES: No cyanosis, clubbing, NEUROLOGICAL: Gross neurological examination did not reveal any focal deficits. SKIN: No rashes. - Labs CBC & Chem 7: 12/30/17 05:28 12/30/17 05:28 Labs: Abnormal Lab Results - Last 24 Hours (Table) 12/29/17 12/30/17 12/30/17 Range/Units 20:47 05:28 05:28 WBC 12.0 H (3.8-10.6) k/uL RBC 3.60 L (4.30-5.90) m/uL Hgb 10.6 L (13.0-17.5) gm/dL Hct 32.7 L (39.0-53.0) % Neutrophils # 9.9 H (1.3-7.7) k/uL APTT 67.7 H (22.0-30.0) sec Carbon Dioxide (22-30) mmol/L BUN (9-20) mg/dL Creatinine (0.66-1.25) mg/dL Glucose (74-99) mg/dL POC Glucose (mg/dL) 153 H (75-99) mg/dL 12/30/17 12/30/17 12/30/17 Range/Units 05:28 05:49 11:35 WBC (3.8-10.6) k/uL RBC (4.30-5.90) m/uL Hgb (13.0-17.5) gm/dL Hct (39.0-53.0) % Neutrophils # (1.3-7.7) k/uL APTT (22.0-30.0) sec Carbon Dioxide 21 L (22-30) mmol/L BUN 35 H (9-20) mg/dL Creatinine 2.07 H (0.66-1.25) mg/dL Glucose 134 H (74-99) mg/dL POC Glucose (mg/dL) 170 H 160 H (75-99) mg/dL Microbiology - Last 24 Hours (Table) 12/27/17 11:48 Blood Culture - Preliminary Blood No Growth after 72 hours Assessment and Plan Plan: -Congestive heart failure acute systolic dysfunction with acute exacerbation continue with IV Lasix. Patient had ejection fraction of 25% which is probably from acute myocardial -Acute renal failure prerenal azotemia secondary to congestive heart failure and patient is on IV Lasix as mentioned above I's and O's and basic metabolic profile tomorrow. Patient's creatinine did improve probably may remain on IV Lasix. There is no improvement will consider dobutamine drip -Possible non-ST elevation myocardial infarction: Continue with IV heparin -Leukocytosis: Reactive secondary to acute myocardial infarction -Type 2 diabetes mellitus with diabetic nephropathy chronic kidney disease stage II -Hyperlipidemia
[2017-12-30] MEDS: HEPARIN SOD,PORK IN 0.45% NACL 25,000 UNIT in 0.45% NACL 1 500ML.BAG IV SCH (16:13)
[2017-12-30 17:01] LABS: Glucose,Whole Blood 229 mg/dL (75-99)
[2017-12-30 18:24] LABS: Hemoglobin A1C 6.9 % (4.0-6.0)
[2017-12-30] MEDS: FUROSEMIDE 10 MG/ML 10 ML VIAL IV SCH (20:06)
[2017-12-30] MEDS: LATANOPROST 0.005% OPHTH DROPS 2.5 ML BTL BOTH EYES SCH (20:07)
[2017-12-30] MEDS: ATORVASTATIN 40 MG TAB PO SCH (20:07)
[2017-12-30] MEDS: HEPARIN SODIUM,PORCINE/D5W PMX 25,000 UNIT in DEXTROSE/WATER 1 500ML.BAG IV SCH (21:10)
[2017-12-30 21:20] LABS: Glucose,Whole Blood 87 mg/dL (75-99)
[2017-12-31] MEDS: NITROGLYCERIN OINT 1 INCH/GM PACKET TOPICAL SCH ×5 (00:01→23:04)
--- NOTE | 2017-12-31 00:19 | PN ---
PROGRESS NOTE This patient is admitted with congestive cardiac failure and acute on chronic renal failure. The patient complains of mild shortness of breath. The patient's chest x-ray done today shows evidence of a more congestive heart failure as compared to before. The patient's creatinine remains . Blood pressure is 146/57 mmHg. Heart S1 and S2 normal. Lungs reveal bilateral basal rales. Patient's Lasix was increased to 80 mg q.12h hourly. We will also start dobutamine hopefully to improve the renal perfusion and improve the patient's cardiac output and renal plasma flow. At present we will hold cardiac catheterization because of the patient's acute on chronic renal failure. MMODL / IJN: [id number] /
[2017-12-31] MEDS: DOBUTamine 250 MG in DEXTROSE 5% IN WATER 250 ML IV SCH ×4 (04:14→16:17)
[2017-12-31 05:56] LABS: Basophils % (A) 0 %; Eosinophils # (A) 0.1 k/uL (0-0.7); Eosinophils % (A) 1 %; HCT 29.9 % (39.0-53.0); HGB 9.8 gm/dL (13.0-17.5); Lymphocytes # (A) 1.7 k/uL (1.0-4.8); Lymphocytes % (A) 19 %; MCH 29.7 pg (25.0-35.0); MCHC 32.8 g/dL (31.0-37.0); MCV 90.4 fL (80.0-100.0); Mean Platelet Volume 7.2; Monocytes # (A) 0.4 k/uL (0-1.0); Monocytes % (A) 5 %; Neutrophils # (A) 6.7 k/uL (1.3-7.7); Neutrophils % (A) 74 %; Platelet Count 349 k/uL (150-450); RBC 3.31 m/uL (4.30-5.90); RDW 13.4 % (11.5-15.5)
[2017-12-31 06:36] LABS: Glucose,Whole Blood 138 mg/dL (75-99)
[2017-12-31] MEDS: glipiZIDE 10 MG TAB PO SCH ×2 (06:39→17:15)
[2017-12-31] MEDS: FUROSEMIDE 10 MG/ML 10 ML VIAL IV SCH ×2 (08:57→21:08)
[2017-12-31] MEDS: ASPIRIN 81 MG PO SCH (09:02)
[2017-12-31] MEDS: METOPROLOL TARTRATE 25 MG TAB PO SCH ×2 (09:02→21:09)
[2017-12-31] MEDS: hydrALAZINE HCL 25 MG TAB PO SCH ×2 (09:02→21:08)
[2017-12-31] MEDS: IPRATROPIUM-ALBUTEROL 3 ML NEB INHALATION SCH ×4 (09:20→20:46)
--- NOTE | 2017-12-31 09:20 | P.PN ---
Subjective Patient is seen in follow-up for acute kidney injury on chronic kidney disease. Patient has chronic kidney disease stage III secondary to diabetic kidney disease and cardiorenal syndrome with baseline creatinine near 1.3. Creatinine was 2.31 this admission and was down to 2.07 as of yesterday. Patient presented with dyspnea and orthopnea. He is noted to have ejection fraction of 20-25% with mild to moderate mitral regurgitation. He is currently maintained on dobutamine drip along with Lasix 80 mg IV twice daily. He admits to good urine output. No vomiting or diarrhea. Vital signs are stable. General: The patient appeared well nourished and normally developed. HEENT: Head exam is unremarkable. Neck is without jugular venous distension. LUNGS: Lungs are clear to auscultation and percussion. Breath sounds decreased. HEART: Rate and Rhythm are regular. First and second heart sounds normal. No murmurs, rubs or gallops. ABDOMEN: Abdominal exam reveals normal bowel sounds. Non-tender and non- distended. No evidence of peritonitis. EXTREMITITES: No clubbing, cyanosis, or edema. Objective - Vital Signs Vital signs: Vital Signs Temp 97.5 F L 12/31/17 08:00 Pulse 89 12/31/17 08:00 Resp 16 12/31/17 08:00 BP 170/88 12/31/17 08:00 Pulse Ox 97 12/31/17 08:00 Intake & Output 12/30/17 12/31/17 12/31/17 18:59 06:59 18:59 Intake Total 718.193 244.222 240 Output Total 1600 625 Balance -881.807 -380.778 240 Weight 62.9 kg Intake: Intake, IV Titration 34.193 244.222 Amount Heparin Sod,Pork in 0.45% 34.193 NaCl 25,000 unit In 0.45 % NaCl 1 500ml.bag @ 12 UNITS/KG/HR 17.41 mls/hr IV .Q24H [facility] Rx#: [id number] Heparin Sodium,Porcine/ 244.222 D5w Pmx 25,000 unit In Dextrose/Water 1 500ml. bag @ 12 UNITS/KG/HR 17. 41 mls/hr IV .Q24H [facility] Rx #:[id number] Oral 684 240 Output: Urine 1600 625 Other: Voiding Method Urinal Urinal - Labs CBC & Chem 7: 12/31/17 05:41 12/30/17 05:28 Labs: Abnormal Lab Results - Last 24 Hours (Table) 12/30/17 12/30/17 12/30/17 Range/Units 05:28 11:35 16:23 RBC (4.30-5.90) m/uL Hgb (13.0-17.5) gm/dL Hct (39.0-53.0) % APTT (22.0-30.0) sec POC Glucose (mg/dL) 160 H 229 H (75-99) mg/dL Hemoglobin A1c 6.9 H (4.0-6.0) % 12/31/17 12/31/17 12/31/17 Range/Units 05:41 05:41 06:34 RBC 3.31 L (4.30-5.90) m/uL Hgb 9.8 L (13.0-17.5) gm/dL Hct 29.9 L (39.0-53.0) % APTT 63.1 H (22.0-30.0) sec POC Glucose (mg/dL) 138 H (75-99) mg/dL Hemoglobin A1c (4.0-6.0) % Microbiology - Last 24 Hours (Table) 12/27/17 11:48 Blood Culture - Preliminary Blood No Growth after 72 hours Assessment and Plan Plan: Assessment: #1. Nonoliguric acute kidney injury secondary to ATN secondary to cardiorenal syndrome. Creatinine 2.31 on admission and 2.07 as of yesterday. Labs from today are pending at this time. #2. Chronic kidney disease stage III with baseline creatinine in the range of 1.2-1.3. Etiology is diabetic kidney disease and cardiorenal syndrome. #3. Systolic CHF with ejection fraction of 20-25%. Unclear as to if this is acute or chronic. #4. Hypernatremia secondary to lack of oral water intake and diuresis. Resolved. #5. Anemia. Iron deficiency noted. #6. Diabetes mellitus. #7. Dyspnea secondary to fluid overload. Plan: Continue with Lasix 80 mg IV twice daily. Add metolazone 5 mg daily. Maintain dobutamine drip. Ferrlecit 125 mg IV daily for 3 days. First dose today. Avoid nephrotoxic agents and hypotensive episodes. Encouraged oral water intake. Repeat electrolytes in the morning. Case discussed with cardiology. Patient will likely require cardiac catheterization in the near future. I discussed with the patient and his family present at bedside the risk of developing contrast-induced nephropathy post cardiac catheterization. They understand.
[2017-12-31 09:31] LABS: Calcium 8.6 mg/dL (8.4-10.2); Magnesium 1.6 mg/dL (1.6-2.3); Potassium 3.2 mmol/L (3.5-5.1)
[2017-12-31] MEDS ORDERED: Potassium Replacement Protocol 1 EACH MISC MISCELLANE PRN (09:39)
[2017-12-31] MEDS ORDERED: Magnesium Replacement Protocol 1 EACH MISC MISCELLANE PRN (09:40)
[2017-12-31] MEDS: SODIUM FERRIC GLUCONAT-SUCROSE 125 MG in SODIUM CHLORIDE 0.9% 100 ML IVPB SCH (09:53)
[2017-12-31] MEDS ORDERED: POTASSIUM CHLORIDE ER 20 MEQ TAB.ER PO SCH (10:00)
[2017-12-31] MEDS: METOLAZONE 5 MG TAB PO SCH (10:02)
[2017-12-31] MEDS: MAGNESIUM SULFATE-D5W PMX 1 GM in DEXTROSE/WATER 1 100ML.BAG IVPB SCH ×2 (10:08→11:43)
[2017-12-31] MEDS ORDERED: POTASSIUM CHLORIDE ER 20 MEQ TAB.ER PO STA (10:57)
[2017-12-31 11:40] LABS: Glucose,Whole Blood 165 mg/dL (75-99)
[2017-12-31] MEDS: CHOLECALCIFEROL 1,000 UNIT TAB PO SCH (11:43)
[2017-12-31] MEDS: HEPARIN SODIUM,PORCINE/D5W PMX 25,000 UNIT in DEXTROSE/WATER 1 500ML.BAG IV SCH (16:17)
[2017-12-31 16:25] LABS: Glucose,Whole Blood 113 mg/dL (75-99)
[2017-12-31 20:45] LABS: Glucose,Whole Blood 185 mg/dL (75-99)
--- NOTE | 2017-12-31 20:59 | PN ---
PROGRESS NOTE The patient is a pleasantly debilitated 67-year-old white male who is currently awaiting heart catheterization until his kidney function stabilizes. He was admitted with acute HI and acute congestive heart failure. He does admit to shortness of breath with exertion. His BUN and creatinine have not responded too well to cautious fluids. Vital signs are stable. His blood pressure is 146/57. HEENT: Head is normocephalic and atraumatic. Pupils are equal, round and reactive to light. Neck is supple. No JVD. HEART: Regular rate and rhythm. LUNGS: Clear to auscultation with decreased breath sounds in bilateral bases and slight crackles. Abdomen is soft, non-tender. No rebound. EXTREMITIES: No cyanosis, clubbing or jaundice. NEUROLOGICAL: Appears intact, post stroke. Some behaviors are erratic and irrational at times. IMPRESSIONS: 1. Acute kidney injury secondary to his myocardial infarction. 2. His chronic kidney disease, stage III. 3. Diabetes, type 2, with diabetic nephropathy. 4. Systolic congestive heart failure with ejection fraction of 20% to 25%. 5. Anemia of iron deficiency and chronic kidney disease. 6. Hypernatremia. 7. Past cerebrovascular accident x2. PLAN: Will continue gentle hydration. Nephrology consultation in progress. Cardiology is currently waiting for improved renal function to undergo a cardiac catheterization to find out the extent of his coronary artery disease and myocardial infarction. MMODL / IJN: [id number] /
[2017-12-31] MEDS: ATORVASTATIN 40 MG TAB PO SCH (21:08)
[2017-12-31] MEDS: LATANOPROST 0.005% OPHTH DROPS 2.5 ML BTL BOTH EYES SCH (21:09)
[2018-01-01] MEDS: DOBUTamine 250 MG in DEXTROSE 5% IN WATER 250 ML IV SCH ×4 (02:33→16:26)
[2018-01-01] MEDS: NITROGLYCERIN OINT 1 INCH/GM PACKET TOPICAL SCH ×3 (06:05→17:11)
[2018-01-01 06:10] LABS: Glucose,Whole Blood 163 mg/dL (75-99)
[2018-01-01] MEDS: glipiZIDE 10 MG TAB PO SCH ×2 (06:29→16:30)
[2018-01-01 06:42] LABS: Basophils % (A) 0 %; Eosinophils # (A) 0.2 k/uL (0-0.7); Eosinophils % (A) 2 %; HCT 30.3 % (39.0-53.0); Lymphocytes # (A) 1.7 k/uL (1.0-4.8); Lymphocytes % (A) 18 %; MCH 29.8 pg (25.0-35.0); MCV 90.4 fL (80.0-100.0); Mean Platelet Volume 7.4; Monocytes # (A) 0.5 k/uL (0-1.0); Monocytes % (A) 5 %; Neutrophils # (A) 7.1 k/uL (1.3-7.7); Neutrophils % (A) 75 %; Platelet Count 337 k/uL (150-450); RBC 3.35 m/uL (4.30-5.90); RDW 13.5 % (11.5-15.5); WBC 9.5 k/uL (3.8-10.6)
[2018-01-01 07:10] LABS: Calcium 8.8 mg/dL (8.4-10.2); Magnesium 1.9 mg/dL (1.6-2.3)
[2018-01-01] MEDS: IPRATROPIUM-ALBUTEROL 3 ML NEB INHALATION SCH ×4 (08:22→19:45)
[2018-01-01] MEDS: hydrALAZINE HCL 25 MG TAB PO SCH ×2 (09:54→20:55)
[2018-01-01] MEDS: ASPIRIN 81 MG PO SCH (09:54)
[2018-01-01] MEDS: METOPROLOL TARTRATE 25 MG TAB PO SCH ×2 (09:54→20:55)
[2018-01-01] MEDS: METOLAZONE 5 MG TAB PO SCH (09:54)
[2018-01-01] MEDS: HEPARIN SODIUM,PORCINE/D5W PMX 25,000 UNIT in DEXTROSE/WATER 1 500ML.BAG IV SCH (09:55)
[2018-01-01] MEDS: FUROSEMIDE 10 MG/ML 10 ML VIAL IV SCH ×2 (10:02→20:55)
[2018-01-01] MEDS: SODIUM FERRIC GLUCONAT-SUCROSE 125 MG in SODIUM CHLORIDE 0.9% 100 ML IVPB SCH (11:38)
[2018-01-01] MEDS: INSULIN ASPART 100 UNIT/ML 1 ML 10 ML VIAL SQ SCH ×3 (11:41→21:07)
[2018-01-01] MEDS: CHOLECALCIFEROL 1,000 UNIT TAB PO SCH (11:41)
[2018-01-01 11:42] LABS: Glucose,Whole Blood 171 mg/dL (75-99)
--- NOTE | 2018-01-01 16:11 | P.PN ---
Subjective Progress Note Date: 01/01/18 Patient seen and examined at the bedside on rounds with Dr. Padron. Patient is awake and alert. Sitting up in the chair. He complains of shortness of breath this morning, specifically with exertion. Patient states he just walked to the bathroom and feels winded. He remains on dobutamine drip and heparin drip. Nephrology and cardiology are on consult. Creatinine is 1.90, which is the same as yesterday. Creatinine was 2.31 on admission. He remains on lasix 80mg IV q 12 hours. Patient states he is urinating frequently. Denies chest pain or pressure. Denies nausea or vomiting. Blood pressure this morning was 159/74. Remains on 1.5L NC with oxygen saturations greater than 92%. Patient is very anxious to be discharged home. Discussed importance of hospitalization and treatment with patient. Patient verbalized understanding. Objective - Vital Signs Vital signs: Vital Signs Temp 97.0 F L 01/01/18 08:00 Pulse 88 01/01/18 08:39 Resp 16 01/01/18 08:00 BP 159/74 01/01/18 08:00 Pulse Ox 95 01/01/18 08:26 Intake & Output 12/31/17 01/01/18 01/01/18 18:59 06:59 18:59 Intake Total 717.105 200 578.583 Output Total 1032024 250 Balance -312.895 -1825 328.583 Weight 63 kg Intake: Intake, IV Titration 255.105 200 460.583 Amount Heparin Sodium,Porcine/ 255.105 460.583 D5w Pmx 25,000 unit In Dextrose/Water 1 500ml. bag @ 12 UNITS/KG/HR 17. 41 mls/hr IV .Q24H [facility] Rx #:[id number] Magnesium Sulfate-D5w Pmx 200 1 gm In Dextrose/Water 1 100ml.bag @ 100 mls/hr IVPB Q1H [facility] Rx#: [id number] Oral 462 118 Output: Urine 1030 2025 250 Other: Voiding Method Urinal # Voids 1 - Exam GENERAL: This is a 67-year-old male in no apparent distress at the time of examination. Pleasant and cooperative, although very anxious to be discharged home HEENT: Head is atraumatic, normocephalic. Pupils are equal, round, and reactive to light. Sclerae anicteric. Conjunctivae are clear. Mucus membranes of the mouth are moist. Neck is supple. RESPIRATORY: Clear to ausculation with fine crackles to bilateral posterior bases. No wheezes, rales, or rhonchi. No use of accessory muscles. Patient maintaining oxygen saturation greater than 92%. No chest wall tenderness is noted on palpation or with deep breathing. CARDIOVASCULAR: Regular rate and rhythm. S1 and S2 noted. No systolic or diastolic murmur auscultated. No JVD noted. No S3 or S4 noted. GASTROINTESTINAL: No distention noted. Abdomen soft and round. Normal active bowel sounds auscultated x 4 quadrants. No pain or tenderness noted upon palpation. INTEGUMENTARY: No cyanosis. No jaundice. No rashes noted. No cellulitis noted. EXTREMITIES: 2+ peripheral pulses. No evidence of peripheral edema. No calf tenderness noted. NEUROLOGIC: Cranial nerves II-XII intact. PSYCHIATRIC: Awake, alert, and oriented X 3. Anxious. Appropriate affect. - Labs CBC & Chem 7: 01/01/18 05:54 01/01/18 05:54 Labs: Abnormal Lab Results - Last 24 Hours (Table) 12/31/17 12/31/17 12/31/17 Range/Units 11:38 16:24 20:44 RBC (4.30-5.90) m/uL Hgb (13.0-17.5) gm/dL Hct (39.0-53.0) % APTT (22.0-30.0) sec BUN (9-20) mg/dL Creatinine (0.66-1.25) mg/dL Glucose (74-99) mg/dL POC Glucose (mg/dL) 165 H 113 H 185 H (75-99) mg/dL 01/01/18 01/01/18 01/01/18 Range/Units 05:54 05:54 05:54 RBC 3.35 L (4.30-5.90) m/uL Hgb 10.0 L (13.0-17.5) gm/dL Hct 30.3 L (39.0-53.0) % APTT 63.2 H (22.0-30.0) sec BUN 23 H (9-20) mg/dL Creatinine 1.90 H (0.66-1.25) mg/dL Glucose 150 H (74-99) mg/dL POC Glucose (mg/dL) (75-99) mg/dL 01/01/18 Range/Units 06:06 RBC (4.30-5.90) m/uL Hgb (13.0-17.5) gm/dL Hct (39.0-53.0) % APTT (22.0-30.0) sec BUN (9-20) mg/dL Creatinine (0.66-1.25) mg/dL Glucose (74-99) mg/dL POC Glucose (mg/dL) 163 H (75-99) mg/dL Microbiology - Last 24 Hours (Table) 12/27/17 11:48 Blood Culture - Preliminary Blood No Growth after 96 hours Assessment and Plan Plan: ASSESSMENT: Suspected non-ST elevation myocardial infarction, cardiology following Nonoliguric acute kidney injury secondary to ATN secondary to cardiorenal syndrome, creatinine 2.31 on admission Chronic kidney disease, stage III, baseline creatinine 1.2-1.3 Acute exacerbation of systolic congestive heart failure, EF 20-25% Diabetes mellitus, type II, hemoglobin A1c 6.9% Hypernatremia secondary to lack of oral water intake and diuresis, resolved Anemia, iron deficiency and anemia of chronic disease, patient to receive Ferrlecit per nephrology History of cerebrovascular accident 2 PLAN: Nephrology on consult. Appreciate recommendations and input Continue Lasix 80 mg. Continue dobutamine drip. Cardiology on consult. Appreciate recommendations and input Patient to undergo cardiac catheterization in the near future Continue heparin drip Home meds as appropriate Monitor labs GI prophylaxis: Protonix 40 mg PO Daily DVT prophylaxis: Currently on heparin drip Monitor vital signs and address as appropriate Further recommendations pending patient's course Nurse practitioner note has been reviewed by physician. Signing provider agrees with the documented findings, assessment, and plan of care.
[2018-01-01 16:46] LABS: Glucose,Whole Blood 220 mg/dL (75-99)
--- NOTE | 2018-01-01 18:51 | PN ---
PROGRESS NOTE Patient is seen for followup for acute kidney injury. Currently he remains on dobutamine drip and IV heparin. Cardiac catheterization is tentatively scheduled for Sunday. Renal function is fairly stable. Serum creatinine has been 1.9 for the last 2 days. Patient denies any significant complaints. On examination, blood pressure was 149/71, heart rate 88 per minute. He is afebrile. EXAMINATION OF THE HEART: S1, S2. EXAMINATION OF LUNGS: Bilateral breath sounds are heard. No crackles or wheezing is heard. ABDOMEN: Soft, non-tender. Examination of lower extremities shows no evidence of edema. ULTRASOUND COORDINATOR exam is grossly intact. Labs show sodium 139, potassium 4.0, chloride 100, BUN 23, serum creatinine 1.9, hemoglobin 10.0 g/dL. ASSESSMENT: 1. Acute kidney injury, acute tubular necrosis, currently nonoliguric, slightly improved. 2. Chronic kidney disease, stage III, with baseline creatinine 1.2 to 1.3, secondary to diabetic kidney disease and cardiorenal syndrome. 3. Congestive heart failure, acute on top of chronic, ejection fraction 20% to 25%, currently improved. 4. Hypernatremia, now resolved. 5. Iron deficiency, receiving IV iron. 6. Fluid overload, currently improved. PLAN: Repeat labs in a.m. Most likely patient will be stable to proceed with cardiac catheterization on Sunday. Avoid hypotension and decrease Lasix to 60 mg q.12 hours. MMODL / IJN: [id number] /
[2018-01-01 19:20] LABS: Glucose,Whole Blood 64 mg/dL (75-99)
[2018-01-01] MEDS: ATORVASTATIN 40 MG TAB PO SCH (20:55)
[2018-01-01 21:04] LABS: Glucose,Whole Blood 182 mg/dL (75-99)
[2018-01-01] MEDS: LATANOPROST 0.005% OPHTH DROPS 2.5 ML BTL BOTH EYES SCH (21:07)
--- NOTE | 2018-01-01 22:20 | CONS ---
CONSULTATION This patient's vital signs and laboratory tests over the last 24 hours reviewed. This patient was admitted with acute congestive cardiac failure. Patient also had evidence of acute kidney injury with initial creatinine 2.3. The patient seems to be feeling better. His shortness of breath is improved. The patient's blood pressure is 140/70 mmHg. First and second heart sounds are normal. Lungs revealed a few crackles at the bases. Abdomen is soft. The patient's serum creatinine is 1.9. Patient has been diuresing well with IV Lasix as well as dobutamine. IMPRESSION: 1. Acute on chronic systolic heart failure. The patient's congestive heart failure is improving. 2. Acute kidney injury. RECOMMENDATIONS: We will continue the patient on IV Lasix and dobutamine over the next 24-48 hours. At present, the patient does not need urgent cardiac catheterization in view of his acute kidney and kidney injury. Once the patient's kidney function has stabilized and improved, we will consider cardiac catheterization as an outpatient. We will repeat the chest x-ray tomorrow. MMRANJIT / ELLAN: [id number] /
[2018-01-02] MEDS: NITROGLYCERIN OINT 1 INCH/GM PACKET TOPICAL SCH ×3 (01:06→11:27)
[2018-01-02] MEDS: DOBUTamine 250 MG in DEXTROSE 5% IN WATER 250 ML IV SCH ×4 (04:18→14:58)
[2018-01-02 05:59] LABS: Glucose,Whole Blood 141 mg/dL (75-99)
[2018-01-02 06:10] LABS: Basophils % (A) 0 %; Eosinophils # (A) 0.2 k/uL (0-0.7); Eosinophils % (A) 2 %; HGB 11.1 gm/dL (13.0-17.5); Lymphocytes # (A) 1.7 k/uL (1.0-4.8); Lymphocytes % (A) 14 %; MCH 28.8 pg (25.0-35.0); MCHC 32.5 g/dL (31.0-37.0); MCV 88.7 fL (80.0-100.0); Mean Platelet Volume 7.8; Monocytes # (A) 0.7 k/uL (0-1.0); Monocytes % (A) 6 %; Neutrophils # (A) 9.3 k/uL (1.3-7.7); Neutrophils % (A) 77 %; Platelet Count 365 k/uL (150-450); RBC 3.83 m/uL (4.30-5.90); RDW 13.4 % (11.5-15.5); WBC 12.1 k/uL (3.8-10.6)
[2018-01-02] MEDS: INSULIN ASPART 100 UNIT/ML 1 ML 10 ML VIAL SQ SCH ×4 (06:19→21:48)
[2018-01-02 06:22] LABS: Albumin 3.9 g/dL (3.5-5.0); Calcium 9.9 mg/dL (8.4-10.2); Magnesium 1.9 mg/dL (1.6-2.3); Potassium 4.3 mmol/L (3.5-5.1); Total Bilirubin 0.6 mg/dL (0.2-1.3); Total Protein 6.1 g/dL (6.3-8.2)
[2018-01-02] MEDS: PANTOPRAZOLE 40 MG TABLET PO SCH (06:48)
[2018-01-02] MEDS: glipiZIDE 10 MG TAB PO SCH ×2 (06:48→17:02)
[2018-01-02] MEDS: IPRATROPIUM-ALBUTEROL 3 ML NEB INHALATION SCH ×5 (07:21→20:15)
--- NOTE | 2018-01-02 08:47 | XR ---
EXAMINATION TYPE: XR chest 1V portable DATE OF EXAM: 01/02/2018 HISTORY: Shortness of breath. COMPARISON: 12/30/2017 TECHNIQUE: Single view of the chest is submitted. FINDINGS: Demonstrated are scattered senescent parenchymal change. Much improved features of congestive failure. Resolution of pulmonary venous congestion and interstit ial edema. Small residual pleural effusions and basilar atelectasis or infiltrates. Hilar and mediastinal structures are within normal limits. Degenerative changes are seen of the dorsal spine. IMPRESSION: 1. Much improved features of congestive failure. Resolution of pulmonary venous congestion and inter stitial edema. Small residual pleural effusions and basilar atelectasis or infiltrates.
[2018-01-02] MEDS: FUROSEMIDE 10 MG/ML 10 ML VIAL IV SCH (08:56)
[2018-01-02] MEDS: ASPIRIN 81 MG PO SCH (08:57)
[2018-01-02] MEDS: METOPROLOL TARTRATE 25 MG TAB PO SCH ×2 (08:57→21:48)
[2018-01-02] MEDS: hydrALAZINE HCL 25 MG TAB PO SCH ×2 (08:57→21:48)
[2018-01-02] MEDS: METOLAZONE 5 MG TAB PO SCH (08:58)
[2018-01-02] MEDS: SODIUM FERRIC GLUCONAT-SUCROSE 125 MG in SODIUM CHLORIDE 0.9% 100 ML IVPB SCH (11:09)
[2018-01-02 11:17] LABS: Glucose,Whole Blood 202 mg/dL (75-99)
[2018-01-02] MEDS: CHOLECALCIFEROL 1,000 UNIT TAB PO SCH (11:27)
[2018-01-02] MEDS: FUROSEMIDE 40 MG TAB PO SCH (17:02)
[2018-01-02 17:05] LABS: Glucose,Whole Blood 167 mg/dL (75-99)
--- NOTE | 2018-01-02 18:36 | PN ---
PROGRESS NOTE Patient is seen for followup for acute kidney injury. He is currently being diuresed. The patient has had an acute myocardial infarction and he is awaiting cardiac catheterization. The serum creatinine is slightly higher from 1.9-2.1 mg/dL. The patient has had good urine output. His diuretics were slightly decreased yesterday. I will decrease them further today. His volume status has improved significantly. PHYSICAL EXAMINATION: Blood pressure is 139/81, heart rate 93 per minute. Patient is afebrile. Examination of the heart S1, S2. Examination lungs decreased breath sounds bases. Abdomen is soft, nontender. Exam of lower extremities shows no significant edema. DESIGN TEACHER exam is grossly intact. LAB: Show sodium 140, potassium 4.3, chloride 93, CO2 is 35, BUN 24, serum creatinine 2.15, hemoglobin 11.1 g/dL. ASSESSMENT: 1. Acute kidney injury, cardiorenal and secondary to recent diuresis. Currently, the slightly improved. Serum creatinine is higher again mainly secondary to diureses. I will decrease the Lasix and the metolazone as well. The patient is maintained on dobutamine drip. It appears that cardiology would like to perform cardiac catheterization as outpatient, which is appropriate from kidney standpoint. However, if the patient needs urgent cardiac catheterization, we can proceed. I expect the renal function to improve over the next 2-3 days given the reduction in the diuretics. 2. Status post acute non ST elevation myocardial infarction. 3. Chronic kidney disease stage 3 secondary to diabetic kidney disease and cardiorenal syndrome. Baseline creatinine 1.2-1.3. 4. Cardiomyopathy ejection fraction 20-25%. 5. Congestive heart failure, acute on top of chronic, mainly systolic. 6. Iron deficiency maintained on IV iron. PLAN: 1. Decrease diuretics and expect improvement in renal function over the next 2-3 days. 2. Okay to proceed with cardiac cath if still planning on Sunday. Otherwise, it is appropriate to do it as outpatient. MMODL / IJN: [id number] /
--- NOTE | 2018-01-02 20:04 | P.PN ---
Subjective Progress Note Date: 01/02/18 01/01/2018 Patient seen and examined at the bedside on rounds with Dr. Padron. Patient is awake and alert. Sitting up in the chair. He complains of shortness of breath this morning, specifically with exertion. Patient states he just walked to the bathroom and feels winded. He remains on dobutamine drip and heparin drip. Nephrology and cardiology are on consult. Creatinine is 1.90, which is the same as yesterday. Creatinine was 2.31 on admission. He remains on lasix 80mg IV q 12 hours. Patient states he is urinating frequently. Denies chest pain or pressure. Denies nausea or vomiting. Blood pressure this morning was 159/74. Remains on 1.5L NC with oxygen saturations greater than 92%. Patient is very anxious to be discharged home. Discussed importance of hospitalization and treatment with patient. Patient verbalized understanding. 01/02/2018 Patient seen and examined at the bedside. Spouse present. Patient is sitting on the side of the bed eating breakfast. Patient states his appetite is good but does not like the food here. Patient states his shortness of breath is improving. He remains on 1L NC. Oxygen saturations greater than 92%. Blood pressure this AM is 139/81. Heart rate in the 90s. Patients heparin drip was discontinued yesterday per cardiology. He remains on dobutamine at 5mcg. Lasix has been decreased to 40mg IV q 12 hours. Chest xray completed 01/02/2018 reveals much improved features of CHF. Resolution of pulmonary venous congestion and interstitial edema. Small residual pleural effusions and basilar atelectasis or infiltrates. Creatinine today has increased to 2.15, from 1.90 yesterday. Patient will require cardiac catherization in the near future and may occur as an outpatient procedure per cardiology. Patients has requested provider document request for all staff and providers do not tell the patient there is a possibility of him going home until the day of discharge as the patient has apparently been told this during hospitalization and then the patient becomes upset that he cant be discharged. Objective - Vital Signs Vital signs: Vital Signs Temp 98.0 F 01/02/18 08:00 Pulse 93 01/02/18 08:00 Resp 15 01/02/18 08:00 BP 139/81 01/02/18 08:00 Pulse Ox 95 01/02/18 08:00 Intake & Output 01/01/18 01/02/18 01/02/18 18:59 06:59 18:59 Intake Total 1498.583 480 120 Output Total 1372 2575 150 Balance 126.583 -2094 -30 Weight 63 kg 63.2 kg Intake: Intake, IV Titration 460.583 Amount Heparin Sodium,Porcine/ 460.583 D5w Pmx 25,000 unit In Dextrose/Water 1 500ml. bag @ 12 UNITS/KG/HR 17. 41 mls/hr IV .Q24H [facility] Rx #:[id number] Oral 1038 480 120 Output: Urine 1372 2575 150 Other: # Voids 4 - Exam GENERAL: This is a 67-year-old male in no apparent distress at the time of examination. Pleasant and cooperative, although very anxious to be discharged home. HEENT: Head is atraumatic, normocephalic. Pupils are equal, round, and reactive to light. Sclerae anicteric. Conjunctivae are clear. Mucus membranes of the mouth are moist. Neck is supple. RESPIRATORY: Clear to ausculation. No wheezes, rales, or rhonchi. No use of accessory muscles. Patient maintaining oxygen saturation greater than 92%. No chest wall tenderness is noted on palpation or with deep breathing. CARDIOVASCULAR: Regular rate and rhythm. S1 and S2 noted. No systolic or diastolic murmur auscultated. No JVD noted. No S3 or S4 noted. GASTROINTESTINAL: No distention noted. Abdomen soft and round. Normal active bowel sounds auscultated x 4 quadrants. No pain or tenderness noted upon palpation. INTEGUMENTARY: No cyanosis. No jaundice. No rashes noted. No cellulitis noted. EXTREMITIES: 2+ peripheral pulses. No evidence of peripheral edema. No calf tenderness noted. NEUROLOGIC: Cranial nerves II-XII intact. PSYCHIATRIC: Awake, alert, and oriented X 3. Anxious. Appropriate affect. - Labs CBC & Chem 7: 01/02/18 05:48 01/02/18 05:48 Labs: Abnormal Lab Results - Last 24 Hours (Table) 01/01/18 01/01/18 01/01/18 Range/Units 11:35 16:44 19:19 WBC (3.8-10.6) k/uL RBC (4.30-5.90) m/uL Hgb (13.0-17.5) gm/dL Hct (39.0-53.0) % Neutrophils # (1.3-7.7) k/uL Chloride (98-107) mmol/L Carbon Dioxide (22-30) mmol/L BUN (9-20) mg/dL Creatinine (0.66-1.25) mg/dL Glucose (74-99) mg/dL POC Glucose (mg/dL) 171 H 220 H 64 L (75-99) mg/dL ALT (21-72) U/L Total Protein (6.3-8.2) g/dL 01/01/18 01/02/18 01/02/18 Range/Units 20:45 05:48 05:48 WBC 12.1 H (3.8-10.6) k/uL RBC 3.83 L (4.30-5.90) m/uL Hgb 11.1 L (13.0-17.5) gm/dL Hct 34.0 L (39.0-53.0) % Neutrophils # 9.3 H (1.3-7.7) k/uL Chloride 93 L (98-107) mmol/L Carbon Dioxide 35 H (22-30) mmol/L BUN 24 H (9-20) mg/dL Creatinine 2.15 H (0.66-1.25) mg/dL Glucose 120 H (74-99) mg/dL POC Glucose (mg/dL) 182 H (75-99) mg/dL ALT 79 H (21-72) U/L Total Protein 6.1 L (6.3-8.2) g/dL 01/02/18 Range/Units 05:58 WBC (3.8-10.6) k/uL RBC (4.30-5.90) m/uL Hgb (13.0-17.5) gm/dL Hct (39.0-53.0) % Neutrophils # (1.3-7.7) k/uL Chloride (98-107) mmol/L Carbon Dioxide (22-30) mmol/L BUN (9-20) mg/dL Creatinine (0.66-1.25) mg/dL Glucose (74-99) mg/dL POC Glucose (mg/dL) 141 H (75-99) mg/dL ALT (21-72) U/L Total Protein (6.3-8.2) g/dL Microbiology - Last 24 Hours (Table) 12/27/17 11:48 Blood Culture - Preliminary Blood No Growth after 120 hours Assessment and Plan Plan: ASSESSMENT: Suspected non-ST elevation myocardial infarction, cardiology following Nonoliguric acute kidney injury secondary to ATN secondary to cardiorenal syndrome, creatinine 2.31 on admission Chronic kidney disease, stage III, baseline creatinine 1.2-1.3 Acute exacerbation of systolic congestive heart failure, EF 20-25% Diabetes mellitus, type II, hemoglobin A1c 6.9% Hypernatremia secondary to lack of oral water intake and diuresis, resolved Anemia, iron deficiency and anemia of chronic disease, patient to receive Ferrlecit x 3 doses per nephrology History of cerebrovascular accident 2 PLAN: Nephrology on consult. Appreciate recommendations and input Continue Lasix 40 mg. Wean per nephrology Avoid nephrotoxic agents Cardiology on consult. Appreciate recommendations and input Continue dobutamine drip per cardiology Patient to undergo cardiac catheterization in the near future. May be as an outpatient per cardiology. Wean oxygen as tolerated Home meds as appropriate Monitor labs GI prophylaxis: Protonix 40 mg PO Daily DVT prophylaxis: Currently on heparin drip Monitor vital signs and address as appropriate Further recommendations pending patient's course Nurse practitioner note has been reviewed by physician. Signing provider agrees with the documented findings, assessment, and plan of care.
[2018-01-02] MEDS ORDERED: FUROSEMIDE 10 MG/ML 4 ML VIAL IV SCH (21:00)
[2018-01-02 21:11] LABS: Glucose,Whole Blood 213 mg/dL (75-99)
[2018-01-02] MEDS: ATORVASTATIN 40 MG TAB PO SCH (21:48)
[2018-01-02] MEDS: LATANOPROST 0.005% OPHTH DROPS 2.5 ML BTL BOTH EYES SCH (21:49)
[2018-01-03] MEDS: DOBUTamine 250 MG in DEXTROSE 5% IN WATER 250 ML IV SCH ×2 (01:35)
[2018-01-03 06:16] LABS: Glucose,Whole Blood 131 mg/dL (75-99)
[2018-01-03] MEDS: PANTOPRAZOLE 40 MG TABLET PO SCH (06:38)
[2018-01-03] MEDS: INSULIN ASPART 100 UNIT/ML 1 ML 10 ML VIAL SQ SCH ×2 (06:38→12:34)
[2018-01-03] MEDS: glipiZIDE 10 MG TAB PO SCH (06:38)
[2018-01-03 07:03] LABS: Albumin 3.8 g/dL (3.5-5.0); Potassium 4.6 mmol/L (3.5-5.1); Total Bilirubin 0.6 mg/dL (0.2-1.3)
[2018-01-03] MEDS: hydrALAZINE HCL 25 MG TAB PO SCH (08:24)
[2018-01-03] MEDS: METOPROLOL TARTRATE 25 MG TAB PO SCH (08:25)
[2018-01-03] MEDS: ASPIRIN 81 MG PO SCH (08:25)
[2018-01-03] MEDS: FUROSEMIDE 40 MG TAB PO SCH (08:25)
[2018-01-03] MEDS: IPRATROPIUM-ALBUTEROL 3 ML NEB INHALATION SCH (08:34)
[2018-01-03] MEDS: SODIUM FERRIC GLUCONAT-SUCROSE 125 MG in SODIUM CHLORIDE 0.9% 100 ML IVPB SCH (09:35)
--- NOTE | 2018-01-03 10:57 | P.PN ---
Subjective Progress Note Date: 01/03/18 01/01/2018 Patient seen and examined at the bedside on rounds with Dr. Padron. Patient is awake and alert. Sitting up in the chair. He complains of shortness of breath this morning, specifically with exertion. Patient states he just walked to the bathroom and feels winded. He remains on dobutamine drip and heparin drip. Nephrology and cardiology are on consult. Creatinine is 1.90, which is the same as yesterday. Creatinine was 2.31 on admission. He remains on lasix 80mg IV q 12 hours. Patient states he is urinating frequently. Denies chest pain or pressure. Denies nausea or vomiting. Blood pressure this morning was 159/74. Remains on 1.5L NC with oxygen saturations greater than 92%. Patient is very anxious to be discharged home. Discussed importance of hospitalization and treatment with patient. Patient verbalized understanding. 01/02/2018 Patient seen and examined at the bedside. Spouse present. Patient is sitting on the side of the bed eating breakfast. Patient states his appetite is good but does not like the food here. Patient states his shortness of breath is improving. He remains on 1L NC. Oxygen saturations greater than 92%. Blood pressure this AM is 139/81. Heart rate in the 90s. Patients heparin drip was discontinued yesterday per cardiology. He remains on dobutamine at 5mcg. Lasix has been decreased to 40mg IV q 12 hours. Chest xray completed 01/02/2018 reveals much improved features of CHF. Resolution of pulmonary venous congestion and interstitial edema. Small residual pleural effusions and basilar atelectasis or infiltrates. Creatinine today has increased to 2.15, from 1.90 yesterday. Patient will require cardiac catherization in the near future and may occur as an outpatient procedure per cardiology. Patients has requested provider document request for all staff and providers do not tell the patient there is a possibility of him going home until the day of discharge as the patient has apparently been told this during hospitalization and then the patient becomes upset that he cant be discharged. 01/03/2018 Patient seen and examined at the bedside on rounds with Dr. Padron. Patient is sitting up in the bed. Patient is upset and wanting to be discharged home today. Explained to patient that we are still monitoring his kidney function and awaiting further input from cardiology regarding dobutamine drip. Patient denies chest pain or pressure. Denies shortness of breath. Patient is on room air with oxygen saturations greater than 92%. Creatinine today is 2.34, up from 2.15. He is receiving lasix 40mg PO BID. Zaroxolyn was discontinued yesterday. Objective - Vital Signs Vital signs: Vital Signs Temp 97.2 F L 01/03/18 04:00 Pulse 89 01/03/18 08:45 Resp 18 01/03/18 04:00 BP 132/68 01/03/18 04:00 Pulse Ox 93 L 01/03/18 04:00 Intake & Output 01/02/18 01/03/18 01/03/18 18:59 06:59 18:59 Intake Total 460 40 240 Output Total 1100 1300 300 Balance -640 -1260 -60 Weight 59.6 kg Intake: IV 40 0.9 40 Oral 460 240 Output: Urine 1100 1300 300 Other: Voiding Method Urinal Toilet Urinal # Voids 200 - Exam GENERAL: This is a 67-year-old male in no apparent distress at the time of examination. Pleasant and cooperative, although very anxious to be discharged home. HEENT: Head is atraumatic, normocephalic. Pupils are equal, round, and reactive to light. Sclerae anicteric. Conjunctivae are clear. Mucus membranes of the mouth are moist. Neck is supple. RESPIRATORY: Clear to ausculation. No wheezes, rales, or rhonchi. No use of accessory muscles. Patient maintaining oxygen saturation greater than 92%. No chest wall tenderness is noted on palpation or with deep breathing. CARDIOVASCULAR: Regular rate and rhythm. S1 and S2 noted. No systolic or diastolic murmur auscultated. No JVD noted. No S3 or S4 noted. GASTROINTESTINAL: No distention noted. Abdomen soft and round. Normal active bowel sounds auscultated x 4 quadrants. No pain or tenderness noted upon palpation. INTEGUMENTARY: No cyanosis. No jaundice. No rashes noted. No cellulitis noted. EXTREMITIES: 2+ peripheral pulses. No evidence of peripheral edema. No calf tenderness noted. NEUROLOGIC: Cranial nerves II-XII intact. PSYCHIATRIC: Awake, alert, and oriented X 3. Anxious. Appropriate affect. - Labs CBC & Chem 7: 01/02/18 05:48 01/03/18 06:16 Labs: Abnormal Lab Results - Last 24 Hours (Table) 01/02/18 01/02/18 01/02/18 Range/Units 11:02 16:26 21:09 Chloride (98-107) mmol/L Carbon Dioxide (22-30) mmol/L BUN (9-20) mg/dL Creatinine (0.66-1.25) mg/dL Glucose (74-99) mg/dL POC Glucose (mg/dL) 202 H 167 H 213 H (75-99) mg/dL ALT (21-72) U/L Total Protein (6.3-8.2) g/dL 01/03/18 01/03/18 Range/Units 06:11 06:16 Chloride 91 L (98-107) mmol/L Carbon Dioxide 36 H (22-30) mmol/L BUN 30 H (9-20) mg/dL Creatinine 2.34 H (0.66-1.25) mg/dL Glucose 111 H (74-99) mg/dL POC Glucose (mg/dL) 131 H (75-99) mg/dL ALT 79 H (21-72) U/L Total Protein 6.0 L (6.3-8.2) g/dL Microbiology - Last 24 Hours (Table) 12/27/17 11:48 Blood Culture - Final Blood No Growth after 144 hours Assessment and Plan Plan: ASSESSMENT: Suspected non-ST elevation myocardial infarction, cardiology following Nonoliguric acute kidney injury secondary to ATN secondary to cardiorenal syndrome, creatinine 2.31 on admission Chronic kidney disease, stage III, baseline creatinine 1.2-1.3 Acute exacerbation of systolic congestive heart failure, EF 20-25% Diabetes mellitus, type II, hemoglobin A1c 6.9% Hypernatremia secondary to lack of oral water intake and diuresis, resolved Anemia, iron deficiency and anemia of chronic disease, patient to receive Ferrlecit x 3 doses per nephrology History of cerebrovascular accident 2 PLAN: Nephrology on consult. Appreciate recommendations and input Avoid nephrotoxic agents Cardiology on consult. Appreciate recommendations and input Dobutamine infusion per cardiology Patient to undergo cardiac catheterization in the near future. May be as an outpatient per cardiology. Continue to hold Metformin at the time of discharge due to kidney function. Patient may continue on Glipizide 10mg with meals at DC. DC scheduled neubulizer treatments. Patient may continue with PRN treatments. Unlikely that patient will require nebulizer at the time of discharge. Will provide rx for glucometer to patient at the time of discharge Home meds as appropriate Monitor labs GI prophylaxis: Protonix 40 mg PO Daily DVT prophylaxis: LEISA hose to bilateral LE Monitor vital signs and address as appropriate Further recommendations pending patient's course Nurse practitioner note has been reviewed by physician. Signing provider agrees with the documented findings, assessment, and plan of care.
[2018-01-03 10:59] VITALS: RESP 16
--- NOTE | 2018-01-03 11:27 | P.PN ---
Subjective Patient is seen in follow-up for acute kidney injury on chronic kidney disease. Patient has chronic kidney disease stage III secondary to diabetic kidney disease and cardiorenal syndrome with baseline creatinine near 1.3. Creatinine is elevated at 2.34 today. Patient presented with dyspnea and orthopnea. He is noted to have ejection fraction of 20-25% with mild to moderate mitral regurgitation. He is currently maintained on dobutamine drip along with Lasix 40 mg PO twice daily. He admits to good urine output. No vomiting or diarrhea. Eager to go home. Vital signs are stable. General: The patient appeared well nourished and normally developed. HEENT: Head exam is unremarkable. Neck is without jugular venous distension. LUNGS: Lungs are clear to auscultation and percussion. Breath sounds decreased. HEART: Rate and Rhythm are regular. First and second heart sounds normal. No murmurs, rubs or gallops. ABDOMEN: Abdominal exam reveals normal bowel sounds. Non-tender and non- distended. No evidence of peritonitis. EXTREMITITES: No clubbing, cyanosis, or edema. Objective - Vital Signs Vital signs: Vital Signs Temp 97.2 F L 01/03/18 08:00 Pulse 89 01/03/18 08:45 Resp 16 01/03/18 08:00 BP 139/66 01/03/18 08:00 Pulse Ox 95 01/03/18 08:00 Intake & Output 01/02/18 01/03/18 01/03/18 18:59 06:59 18:59 Intake Total 460 40 240 Output Total 1100 1300 300 Balance -640 -1260 -60 Weight 59.6 kg Intake: IV 40 0.9 40 Oral 460 240 Output: Urine 1100 1300 300 Other: Voiding Method Urinal Toilet Toilet Urinal # Voids 200 1 # Bowel Movements 1 - Labs CBC & Chem 7: 01/02/18 05:48 01/03/18 06:16 Labs: Abnormal Lab Results - Last 24 Hours (Table) 01/02/18 01/02/18 01/03/18 Range/Units 16:26 21:09 06:11 Chloride (98-107) mmol/L Carbon Dioxide (22-30) mmol/L BUN (9-20) mg/dL Creatinine (0.66-1.25) mg/dL Glucose (74-99) mg/dL POC Glucose (mg/dL) 167 H 213 H 131 H (75-99) mg/dL ALT (21-72) U/L Total Protein (6.3-8.2) g/dL 01/03/18 Range/Units 06:16 Chloride 91 L (98-107) mmol/L Carbon Dioxide 36 H (22-30) mmol/L BUN 30 H (9-20) mg/dL Creatinine 2.34 H (0.66-1.25) mg/dL Glucose 111 H (74-99) mg/dL POC Glucose (mg/dL) (75-99) mg/dL ALT 79 H (21-72) U/L Total Protein 6.0 L (6.3-8.2) g/dL Microbiology - Last 24 Hours (Table) 12/27/17 11:48 Blood Culture - Final Blood No Growth after 144 hours Assessment and Plan Plan: Assessment: #1. Nonoliguric acute kidney injury secondary to ATN secondary to cardiorenal syndrome. Creatinine elevated at 2.34 today. #2. Chronic kidney disease stage III with baseline creatinine in the range of 1.2-1.3. Etiology is diabetic kidney disease and cardiorenal syndrome. #3. Systolic CHF with ejection fraction of 20-25%. Unclear as to if this is acute or chronic. #4. Hypernatremia secondary to lack of oral water intake and diuresis. Resolved. #5. Anemia. s/p IV iron. #6. Diabetes mellitus. #7. Dyspnea secondary to fluid overload. Improved. Plan: Continue with Lasix 40 mg po bid. Avoid nephrotoxic agents and hypotensive episodes. Repeat electrolytes in the morning. Case discussed with cardiology. Patient will likely require cardiac catheterization in the near future. I discussed with the patient and his family present at bedside the risk of developing contrast-induced nephropathy post cardiac catheterization. They understand. Will need BMP checked in 2-3 days post-discharge and f/u outpatient within 1-2 weeks.
[2018-01-03 11:46] LABS: Glucose,Whole Blood 238 mg/dL (75-99)
[2018-01-03] MEDS: CHOLECALCIFEROL 1,000 UNIT TAB PO SCH (12:35)
[2018-01-03 13:23] VITALS: BMI 21.8
[2018-01-03 14:12] VITALS: BP 132/69; PULSE 101; TEMP 96.9
--- NOTE | 2018-01-03 14:58 | P.PN ---
Subjective Progress Note Date: 01/03/18 This is a 67-year-old gentleman with diabetes and hyperlipidemia who presented to the hospital with symptoms of dyspnea, patient was found to have abnormality in troponin, also found to be in congestive heart failure as well as acute renal failure. He was seen and examined today, feeling great overall, creatinine worsened somewhat today. He was on dobutamine as well as IV Lasix which will be discontinued today. From the primary perspective as well as nephrology, patient is discharged. He may be able to go home today from our perspective to follow-up with Dr. Blair in the office. We need to check lytes BUN and creatinine every 3 days. Heart catheterization will be performed as an outpatient once the patient is more stable. Hemodynamically he is stable today. Objective - Vital Signs Vital signs: Vital Signs Temp 96.9 F L 01/03/18 12:00 Pulse 101 H 01/03/18 12:00 Resp 16 01/03/18 12:00 BP 132/69 01/03/18 12:00 Pulse Ox 95 01/03/18 12:00 Intake & Output 01/02/18 01/03/18 01/03/18 18:59 06:59 18:59 Intake Total 460 40 360 Output Total 1100 1300 1300 Balance -640 -1260 -940 Weight 59.6 kg 59.6 kg Intake: IV 40 0.9 40 Oral 460 360 Output: Urine 1100 1300 1300 Other: Voiding Method Urinal Toilet Toilet Urinal # Voids 200 1 # Bowel Movements 1 - Exam PHYSICAL EXAMINATION: HEENT: [Head is atraumatic, normocephalic. Pupils equal, round. Neck is supple. There is no elevated jugular venous pressure.] HEART EXAMINATION: [Heart S1, [id number] murmur is heard.] CHEST EXAMINATION:[ Lungs are clear to auscultation and precussion. No chest wall tenderness is noted on palpation or with deep breathing.] ABDOMEN: [ Soft, nontender. Bowel sounds are heard. No organomegaly noted]. EXTREMITIES:[ 2+ peripheral pulses with no evidence of peripheral edema and no calf tenderness noted]. NEUROLOGIC [patient is awake, alert and oriented -3.] . - Labs CBC & Chem 7: 01/02/18 05:48 01/03/18 06:16 Labs: Abnormal Lab Results - Last 24 Hours (Table) 01/02/18 01/02/18 01/03/18 Range/Units 16:26 21:09 06:11 Chloride (98-107) mmol/L Carbon Dioxide (22-30) mmol/L BUN (9-20) mg/dL Creatinine (0.66-1.25) mg/dL Glucose (74-99) mg/dL POC Glucose (mg/dL) 167 H 213 H 131 H (75-99) mg/dL ALT (21-72) U/L Total Protein (6.3-8.2) g/dL 01/03/18 01/03/18 Range/Units 06:16 11:24 Chloride 91 L (98-107) mmol/L Carbon Dioxide 36 H (22-30) mmol/L BUN 30 H (9-20) mg/dL Creatinine 2.34 H (0.66-1.25) mg/dL Glucose 111 H (74-99) mg/dL POC Glucose (mg/dL) 238 H (75-99) mg/dL ALT 79 H (21-72) U/L Total Protein 6.0 L (6.3-8.2) g/dL Microbiology - Last 24 Hours (Table) 12/27/17 11:48 Blood Culture - Final Blood No Growth after 144 hours Assessment and Plan Plan: assessment and plan #1 systolic congestive heart failure acute on chronic #2 acute on chronic renal failure #3 diabetes #4 hyperlipidemia # 5 abnormality in troponin which could be secondary to non-Q-wave [place] plan Patient may be able to be discharged home today from cardiology's perspective. We will make him a follow-up appointment to see Dr. Blair in the office post discharge. Kokites BUN and creatinine every 3 days. She will undergo outpatient cardiac catheterization once stable from the kidney perspective. DNP note has been reviewed, I agree with a documented findings and plan of care. Patient was seen and examined.
[2018-01-03 16:45] LABS: Glucose,Whole Blood 224 mg/dL (75-99)
--- NOTE | 2018-01-04 12:12 | P.DS ---
Providers Date of admission: 12/27/17 12:50 Expected date of discharge: 01/03/18 Attending physician: Chandan Padron Consults: 12/27/17 12:50 Consult Physician Urgent Consulting Provider: Ramses Richardson Consult Reason/Comments: nstemi, chf, htn Do you want consulting provider notified?: Yes 12/28/17 08:06 Consult Physician Stat Consulting Provider: Darren Diego Consult Reason/Comments: ckd/ acute kidney injury Do you want consulting provider notified?: Yes Primary care physician: Chandan Padron [facility] Course: 67-year-old male who presented to the emergency room with a chief complaint of chest pain. The patient was found to have elevated troponins. He was admitted to the selective care unit and cardiology was consulted. He was also found to have acute kidney injury on admission and nephrology was also consulted to evaluate the patient. He was placed on lasix IV due to fluid overload which he responded to well. He was able to wean off supplemental oxygen and tolerate short periods of ambulation. He was transitioned to oral lasix per cardiology. He was placed on dobutamine drip during hospitalization in an effort to improve his kidney function. His bun/cr stayed relatively about the same. The decision was made to allow the patient to be discharged home as he had remained stable and symptom free for many days in the hospital and then schedule cardiac catherization on an outpatient basis. He was deemed stable for discharge per dr. padron. He was cleared for discharge from cardiology and nephrology as well. He is to follow up outpatient will all providers. His metformin was discontinued due to PA and he is to continue to hold medication at this time. Rx given to the patient for glucometer and testing supplies. He is to repeat lab work in 3 days. DISCHARGE DIAGNOSIS: Non-ST elevation myocardial infarction, cardiology following Nonoliguric acute kidney injury secondary to ATN secondary to cardiorenal syndrome, creatinine 2.31 on admission Chronic kidney disease, stage III, baseline creatinine 1.2-1.3 Acute exacerbation of systolic congestive heart failure, EF 20-25% Diabetes mellitus, type II, hemoglobin A1c 6.9% Hypernatremia secondary to lack of oral water intake and diuresis, resolved Anemia, iron deficiency and anemia of chronic disease, patient to receive Ferrlecit x 3 doses per nephrology History of cerebrovascular accident 2 Nurse practitioner note has been reviewed by physicianJeanne Bhandariing provider agrees with the documented findings, assessment, and plan of care. Patient Condition at Discharge: Fair Plan - Discharge Summary Discharge Rx Participant: No New Discharge Prescriptions: New Aspirin 81 mg PO DAILY #30 chew Atorvastatin [Lipitor] 40 mg PO HS #30 tab Furosemide [Lasix] 40 mg PO BID@0900,1600 #60 tab hydrALAZINE HCL [Apresoline] 25 mg PO BID #60 tab Metoprolol Tartrate [Lopressor] 25 mg PO BID #60 tab Continue glipiZIDE [Glucotrol] 10 mg PO BID Latanoprost Ophth [Xalatan 0.005%] 1 drop BOTH EYES HS Cholecalciferol [Vitamin D3] 1,000 unit PO DAILY Discontinued Dipyridamole-Aspirin 200-25 mg [Aggrenox 25MG -200MG] 1 cap PO BID Atorvastatin [Lipitor] 20 mg PO HS metFORMIN HCL 1,000 mg PO TID Discharge Medication List glipiZIDE [Glucotrol] 10 mg PO BID 06/04/14 [History] Cholecalciferol [Vitamin D3] 1,000 unit PO DAILY 12/27/17 [History] Latanoprost Ophth [Xalatan 0.005%] 1 drop BOTH EYES HS 12/27/17 [History] Aspirin 81 mg PO DAILY #30 chew 01/03/18 [Rx] Atorvastatin [Lipitor] 40 mg PO HS #30 tab 01/03/18 [Rx] Furosemide [Lasix] 40 mg PO BID@0900,1600 #60 tab 01/03/18 [Rx] Metoprolol Tartrate [Lopressor] 25 mg PO BID #60 tab 01/03/18 [Rx] hydrALAZINE HCL [Apresoline] 25 mg PO BID #60 tab 01/03/18 [Rx] Follow up Appointment(s)/Referral(s): Violet Blair MD [STAFF PHYSICIAN] - 01/09/18 2:15 pm Chandan Padron DO [Primary Care Provider] - 01/10/18 8:50 am (SUNDAY) Darren Diego DO [STAFF PHYSICIAN] - 1 Week (Spoke to entry level receptionist. Office will call with appointment time.) Ambulatory/Diagnostic Orders: Basic Metabolic Panel [LAB.AMB] Time Frame: 3 Days, Location: Determined By Patient Patient Instructions/Handouts: Heart Failure (DC), Left Heart Catheterization ( DC), Acute Kidney Injury (DC) Discharge Disposition: HOME SELF-CARE
== END 2018-01-03 17:00 | disposition home or self-care (01) | DRG 280 ==
LOC: EC 10:46 → 6SEL 12:50
PROVIDERS: ADMIT Family Medicine; ATTEND Family Medicine
DX: I21.4 Non-ST elevation (NSTEMI) myocardial infarction (principal); I50.23 Acute on chronic systolic (congestive) heart failure; N17.0 Acute kidney failure with tubular necrosis; E87.0 Hyperosmolality and hypernatremia; I13.0 Hypertensive heart and chronic kidney disease with heart failure and stage 1 through stage 4 chronic kidney disease, or unspecified chronic kidney disease; I42.9 Cardiomyopathy, unspecified; I69.351 Hemiplegia and hemiparesis following cerebral infarction affecting right dominant side; D50.9 Iron deficiency anemia, unspecified; D63.1 Anemia in chronic kidney disease; E11.21 Type 2 diabetes mellitus with diabetic nephropathy; E11.22 Type 2 diabetes mellitus with diabetic chronic kidney disease; E11.40 Type 2 diabetes mellitus with diabetic neuropathy, unspecified; E78.5 Hyperlipidemia, unspecified; F01.50 Vascular dementia, unspecified severity, without behavioral disturbance, psychotic disturbance, mood disturbance, and anxiety; F17.200 Nicotine dependence, unspecified, uncomplicated; I34.0 Nonrheumatic mitral (valve) insufficiency; N18.3 Chronic kidney disease, stage 3 (moderate); T50.2X5A Adverse effect of carbonic-anhydrase inhibitors, benzothiadiazides and other diuretics, initial encounter; Z79.84 Long term (current) use of oral hypoglycemic drugs; Z79.899 Other long term (current) drug therapy; Z82.49 Family history of ischemic heart disease and other diseases of the circulatory system; Z83.3 Family history of diabetes mellitus; Z87.81 Personal history of (healed) traumatic fracture; I69.319 Unspecified symptoms and signs involving cognitive functions following cerebral infarction; I69.398 Other sequelae of cerebral infarction
CPT/HCPCS: 36415; 71045; 71046; 76770; 80048; 80053; 80061; 81003; 82550; 82553; 82728; 83036; 83540; 83550; 83735; 83880; 84484; 85025; 85379; 85610; 85730; 87040; 93005; 93306; 94640; 94760; 96361; 96365; 96366; 96375; 96376; 99285

== ENCOUNTER 2018-02-06 10:31 | Day surgery (SDC) | payer BC, MEDICARE ==
[2018-02-01 10:27] VITALS: BMI 22.8
[~2018-02-06 10:31] MED LIST: ALPRAZolam 0.25 MG TAB PO PRN; ALPRAZolam 0.5 MG TAB PO PRN; ASPIRIN 325 MG TAB PO STA; ATORVASTATIN 80 MG TAB PO STA; NITROGLYCERIN SL TABS 0.4 MG TAB SUBLINGUAL PRN; SODIUM CHLORIDE 0.9% 1,000 ML in EMPTY BAG 1 BAG IV ONE
[2018-02-06 10:54] VITALS: TEMP 97.6
[2018-02-06] MEDS ORDERED: SODIUM CHLORIDE 0.9% 1,000 ML IV SCH ×3 (11:00→13:00)
[2018-02-06 11:20] LABS: Calcium 9.8 mg/dL (8.4-10.2); Potassium 3.7 mmol/L (3.5-5.1)
[2018-02-06] MEDS ORDERED: VERAPAMIL 2.5 MG/ML 2 ML AMP ONE (12:00)
[2018-02-06] MEDS ORDERED: LIDOCAINE 2% INJ 20 MG/ML (20 ML MDV) ONE (12:00)
[2018-02-06] MEDS ORDERED: HEPARIN SODIUM 1,000 UN/ML (10ML VL) ONE (12:01)
[2018-02-06] MEDS ORDERED: fentaNYL (PF) 50 MCG/ML 2 ML AMP ONE (12:01)
[2018-02-06] MEDS ORDERED: fentaNYL (PF) 50 MCG/ML 2 ML AMP IVP ONE (12:18)
[2018-02-06] MEDS ORDERED: LIDOCAINE 2% INJ 20 MG/ML SQ ONE (12:23)
[2018-02-06] MEDS ORDERED: VERAPAMIL SYRINGE (5 MG/10 ML) INTRAARTER ONE (12:24)
[2018-02-06] MEDS ORDERED: MIDAZOLAM 2 MG/2 ML VIAL IVP ONE (12:24)
[2018-02-06] MEDS ORDERED: MIDAZOLAM 2 MG/2 ML VIAL ONE (12:24)
[2018-02-06] MEDS ORDERED: HEPARIN SODIUM 1,000 UN/ML (10ML VL) IV ONE (12:25)
[2018-02-06] MEDS ORDERED: NITROGLYCERIN SL TABS 0.4 MG TAB SUBLINGUAL ONE (12:28)
[2018-02-06] MEDS ORDERED: IOPAMIDOL-370 125ML BTL INJ ONE (12:46)
[2018-02-06] MEDS ORDERED: RX INFO: IV CONTRAST WAS GIVEN 1 EACH MISC MISCELLANE PRN (12:55)
[2018-02-06] MEDS ORDERED: ACETYLCYSTEINE 600 MG PO SCH (13:00)
[2018-02-06] MEDS ORDERED: hydrALAZINE HCL 50 MG TAB PO STA ×2 (13:07→15:31)
--- NOTE | 2018-02-06 13:49 | CC ---
CARDIAC CATHETERIZATION REPORT Mr. Mccormick is a 67-year-old male with known history of hypertension, hyperlipidemia, diabetes mellitus, history of chronic tobacco use, who was noted to have severe cardiomyopathy of unknown etiology. In view of that, recommendation made regarding cardiac catheterization. The procedures, risks and complications were discussed with the patient who is in full understanding and agreement. PROCEDURE: Patient was brought to labels molder in a fasting semi-sedated state after receiving fentanyl and Benadryl and achieving moderate conscious sedated state. Using Xylocaine anesthesia and Seldinger technique, a 6-Estonian sheath was introduced in the right radial artery. Selective right and left angiography performed were performed using 5- Estonian 3.5 bend right and left Boaz catheter, multiple views of the coronary artery including reji-axial views obtained. Following that, a 5-Estonian tight pigtail catheter was introduced into the left ventricle and pressures were calculated. Following that, catheter and sheaths were removed. Hemostasis was obtained with deployment of a TR band. There was no immediate complication. Patient is returned to his room in stable condition. Of note, patient received intra-arterial verapamil as well as 3500 units of intravenous heparin. FINDINGS: 1. FLUOROSCOPY: There was calcification involving the left main. 2. LEFT MAIN: This is a short-size vessel bifurcating into left circumflex, left anterior descending artery, left main coronary artery, has no evidence of high- grade stenosis. 3. LEFT ANTERIOR DESCENDING ARTERY: This is a large-sized vessel reaching toward the apex with a wraparound apex segment giving rise to a small diagonal branch. Left anterior descending artery tapers down distal third of the left anterior descending artery and its branches have no evidence of obstructive coronary artery disease. 4. LEFT CIRCUMFLEX: This is a nondominant vessel, giving rise to 2 obtuse marginal branch of moderate caliber. The left circumflex as well as it branches have no evidence of significant obstructive disease. Mild plaque in the mid left circumflex was noted. 5. RIGHT CORONARY ARTERY: This vessel is totally occluded proximally with no significant antegrade flow. 6. COLLATERALS: There is good collateral from the left coronary system toward the right PDA, that is large in caliber. 7. LEFT VENTRICULOGRAM: Left ventriculogram was not performed. 8. HEMODYNAMICS: There was no gradient across the aortic valve. The left ventricular end-diastolic pressure 32 to 34 mmHg. CONCLUSION: 1. Calcified left main. 2. Chronically occluded proximal right coronary artery with good collateral from the left coronary artery system. 3. Mild disease in the left circumflex. 4. Elevated left ventricular end-diastolic pressure. RECOMMENDATION: In view of finding anatomy, I have recommended to continue medical therapy with aggressive risk factor modifications. Depending on his progress, further recommendation will be made. Those findings and recommendation were discussed with the patient and his family who are in full understanding and agreement. Duration of procedure is 18 minutes. MMRANJIT / ELLAN: [id number] /
--- NOTE | 2018-02-06 13:55 | LTR ---
DATE OF SERVICE: 02/06/2018 RE: Eric Mccormick Dear Dr. Padron; I had the pleasure to perform cardiac catheterization on Mr. Mccormick at [facility] on February 06, 2018 and a full copy of the procedure note will be forwarded to you. In brief, he was found to have chronic occluded right coronary artery with collateral from the left coronary system. At this time, I will maximize his medical therapy and depending on his progress, further recommendation would be made. I will keep you updated on his progress and thank you again for allowing me to participate in this patient's care. Please feel free to call for any questions. Sincerely yours, MD BOZENA Good / BLAKE: [id number] /
[2018-02-06 15:26] VITALS: RESP 18
[2018-02-06] MEDS ORDERED: amLODIPine 5 MG TAB ONE (16:50)
[2018-02-06 16:53] VITALS: PULSE 70
[2018-02-06] MEDS ORDERED: amLODIPine 5 MG TAB PO STA (16:53)
[2018-02-06 17:53] VITALS: BP 150/80
[2018-02-06] MEDS ORDERED: hydrALAZINE HCL 25 MG TAB PO SCH (21:00)
[2018-02-06] MEDS ORDERED: ATORVASTATIN 40 MG TAB PO SCH (21:00)
[2018-02-06] MEDS ORDERED: METOPROLOL TARTRATE 25 MG TAB PO SCH (21:00)
[2018-02-06] MEDS ORDERED: LATANOPROST 0.005% OPHTH DROPS 2.5 ML BTL BOTH EYES SCH (21:00)
[2018-02-06] MEDS ORDERED: glipiZIDE 10 MG TAB PO SCH (21:00)
[2018-02-07] MEDS ORDERED: ASPIRIN 81 MG PO SCH (09:00)
[2018-02-07] MEDS ORDERED: CHOLECALCIFEROL 1,000 UNIT TAB PO SCH (09:00)
== END 2018-02-06 18:35 | disposition home or self-care (01) ==
LOC: CATHCVL 10:31
PROVIDERS: ATTEND Internal Medicine Interventional Cardiology
DX: I25.10 Atherosclerotic heart disease of native coronary artery without angina pectoris (principal); I25.5 Ischemic cardiomyopathy; I25.82 Chronic total occlusion of coronary artery; E78.2 Mixed hyperlipidemia; F17.210 Nicotine dependence, cigarettes, uncomplicated; E11.22 Type 2 diabetes mellitus with diabetic chronic kidney disease; I12.9 Hypertensive chronic kidney disease with stage 1 through stage 4 chronic kidney disease, or unspecified chronic kidney disease; N18.9 Chronic kidney disease, unspecified; Z79.84 Long term (current) use of oral hypoglycemic drugs; Z79.82 Long term (current) use of aspirin; Z82.49 Family history of ischemic heart disease and other diseases of the circulatory system; Z86.73 Personal history of transient ischemic attack (TIA), and cerebral infarction without residual deficits
CPT/HCPCS: 93458; 80048; C1894; C1769; J2001; J2250; J3010; J1644; Q9967

== ENCOUNTER → 2018-02-09 | Outpatient (CLI) | payer BC, MEDICARE ==
[2018-02-09 13:56] LABS: Calcium 9.8 mg/dL (8.4-10.2); Potassium 4.2 mmol/L (3.5-5.1)
== END | disposition home or self-care (01) ==
LOC: LAB 12:32
PROVIDERS: ATTEND Nurse Practitioner Family
DX: S37.009A Unspecified injury of unspecified kidney, initial encounter (principal)
CPT/HCPCS: 80048

== ENCOUNTER → 2018-05-20 | Outpatient (CLI) | payer MEDICARE, BC ==
[2018-05-20 11:17] LABS: HGB 12.9 gm/dL (13.0-17.5); MCH 29.2 pg (25.0-35.0); MCHC 32.3 g/dL (31.0-37.0); MCV 90.2 fL (80.0-100.0); Mean Platelet Volume 7.3; Platelet Count 235 k/uL (150-450); RBC 4.43 m/uL (4.30-5.90); RDW 13.3 % (11.5-15.5); WBC 12.7 k/uL (3.8-10.6)
[2018-05-20 11:45] LABS: Albumin 3.9 g/dL (3.5-5.0); Calcium 9.8 mg/dL (8.4-10.2); Magnesium 1.9 mg/dL (1.6-2.3); Potassium 3.9 mmol/L (3.5-5.1); Total Bilirubin 0.6 mg/dL (0.2-1.3); Total Protein 6.7 g/dL (6.3-8.2); Uric Acid 7.8 mg/dL (3.5-8.5)
[2018-05-20 12:05] LABS: Prostate Specific Antigen 2.06 ng/mL (0.00-4.00)
[2018-05-20 17:22] LABS: Vitamin D 25 Hydroxy 32.3 ng/mL (30.0-100.0)
[2018-05-20 17:35] LABS: Iron Saturation 21.17 (15.00-50.00)
[2018-05-20 18:07] LABS: DNA Double-Stranded NEGATIVE (NEGATIVE)
[2018-05-20 19:17] LABS: Hemoglobin A1C 6.8 % (4.0-6.0)
[2018-05-21 13:50] LABS: C-ANCA <1:20 Titer (<1:20); P-ANCA <1:20 Titer (<1:20)
== END ==
LOC: LABWHC1 09:58
PROVIDERS: ATTEND Internal Medicine Interventional Cardiology
DX: N17.9 Acute kidney failure, unspecified (principal); E21.3 Hyperparathyroidism, unspecified; N25.81 Secondary hyperparathyroidism of renal origin; E11.9 Type 2 diabetes mellitus without complications; D50.9 Iron deficiency anemia, unspecified; R80.9 Proteinuria, unspecified; N39.0 Urinary tract infection, site not specified; M10.9 Gout, unspecified; E78.2 Mixed hyperlipidemia
CPT/HCPCS: 36415; 80053; 80061; 82306; 82728; 83036; 83516; 83540; 83550; 83735; 83883; 83970; 84100; 84153; 84550; 85027; 86038; 86160; 86162; 86225; 86255; 86334

== ENCOUNTER → 2018-06-28 | Outpatient (CLI) | payer MEDICARE, BC ==
[2018-06-28 14:10] LABS: HCT 40.6 % (39.0-53.0); HGB 13.5 gm/dL (13.0-17.5); MCH 29.5 pg (25.0-35.0); MCHC 33.1 g/dL (31.0-37.0); Mean Platelet Volume 7.3; Platelet Count 252 k/uL (150-450); RBC 4.56 m/uL (4.30-5.90); RDW 13.5 % (11.5-15.5); WBC 9.9 k/uL (3.8-10.6)
[2018-06-28 14:20] LABS: Potassium 4.6 mmol/L (3.5-5.1)
== END | disposition home or self-care (01) ==
LOC: LABPAT 12:39
PROVIDERS: ATTEND Internal Medicine Clinical Cardiac Electrophysiology
DX: Z01.812 Encounter for preprocedural laboratory examination (principal); I25.5 Ischemic cardiomyopathy; I25.10 Atherosclerotic heart disease of native coronary artery without angina pectoris
CPT/HCPCS: 36415; 80051; 82565; 82947; 84520; 85027

== ENCOUNTER 2018-07-04 06:34 | Day surgery (SDC) | payer MEDICARE, BC ==
[~2018-07-04 06:34] MED LIST changes: -ALPRAZolam 0.25 MG TAB PO PRN; -ALPRAZolam 0.5 MG TAB PO PRN; -ASPIRIN 325 MG TAB PO STA; -ATORVASTATIN 80 MG TAB PO STA; -NITROGLYCERIN SL TABS 0.4 MG TAB SUBLINGUAL PRN; -SODIUM CHLORIDE 0.9% 1,000 ML in EMPTY BAG 1 BAG IV ONE; +ceFAZolin 1,000 MG in SODIUM CHLORIDE 0.9% IRRIGATIO 250 ML IRRIGATION ONE; +ceFAZolin IN SWFI 2 GM/20 ML SYRINGE IVP ONE
[2018-07-04 07:18] LABS: Glucose,Whole Blood 132 mg/dL (75-99)
[2018-07-04] MEDS ORDERED: LIDOCAINE 1% INJ 10MG/ML (20 ML MDV) ONE ×2 (07:52→08:21)
[2018-07-04] MEDS ORDERED: fentaNYL (PF) 50 MCG/ML 2 ML AMP ONE (07:52)
[2018-07-04] MEDS ORDERED: MIDAZOLAM 2 MG/2 ML VIAL ONE (07:52)
[2018-07-04] MEDS ORDERED: PROPOFOL 10 MG/ML 20 ML VIAL IV ONE (07:52)
[2018-07-04] MEDS ORDERED: IOPAMIDOL-250 50ML BTL IV ONE (08:06)
[2018-07-04] MEDS ORDERED: SODIUM CHLORIDE 0.9% 950 ML IV ONE (08:09)
--- NOTE | 2018-07-04 08:29 | P.HPCAR ---
History of Present Illness Diagnosis Congestive heart failure class II Cardiomyopathy with a left ventricular ejection fraction of 30% that has not improved significantly despite medical treatment and revascularization Sick Sinus Syndrome heart rates between 40-50 beats a minute at rest Diabetes type 2, hypertension, chronic kidney disease Coronary artery disease Inferior wall ID, old Cardio myopathy is likely a combination of ischemic as well as nonischemic cardiomyopathy A shared decision-making process between the patient and myself involving a detailed discussion of the indication for the procedure, expectations, success rates, risks and alternatives/options in the office. 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 Smoking Status: Current every day smoker - Past Family History Father Family Medical History: Vascular Disorder Additional Family Medical History / Comment(s): Father during vascular surgery for his blood flow to his legs. Mother Family Medical History: Congestive Heart Failure (CHF), Diabetes Mellitus Physical Examination Vital Signs Temp Pulse Resp BP Pulse Ox 07/04/18 07:08 97.8 F 56 L 20 157/83 95 Results Current Medications Generic Name Dose Route Start Last Admin Trade Name Freq PRN Reason Stop Dose Admin Lactated Ringer's 1,000 mls @ 20 mls/hr 07/03/18 14:45 Lactated Ringers IV .Q24H GELY Sodium Chloride 1,000 mls @ 50 mls/hr 07/04/18 05:53 Saline 0.9% IV .Q20H GELY Sodium Chloride 1,000 mls @ 50 mls/hr 07/04/18 05:53 Saline 0.9% IV .Q20H GELY
[2018-07-04] MEDS ORDERED: LIDOCAINE 1% INJ 10MG/ML (20 ML MDV) SQ ONE ×2 (08:41→08:53)
[2018-07-04] MEDS ORDERED: HYDROcodone/APAP 5-325MG 1 EACH TAB PO PRN (09:57)
[2018-07-04] MEDS ORDERED: ACETAMINOPHEN TAB 325 MG TAB PO PRN (09:57)
[2018-07-04 11:10] LABS: Glucose,Whole Blood 152 mg/dL (75-99)
[2018-07-04] MEDS ORDERED: ACETAMINOPHEN IV (For NPO) 1,000 MG in EMPTY BAG 1 BAG IVPB ONE (11:28)
[2018-07-04 11:43] VITALS: BMI 25.4
[2018-07-04] MEDS: LACTATED RINGERS 1,000 ML IV SCH ×2 (11:48→13:28)
[2018-07-04] MEDS: SODIUM CHLORIDE 0.9% 1,000 ML IV SCH ×4 (11:49→21:23)
[2018-07-04 11:59] LABS: Glucose,Whole Blood 143 mg/dL (75-99)
[2018-07-04] MEDS: ceFAZolin IN SWFI 2 GM/20 ML SYRINGE IVP SCH ×2 (14:03→20:06)
[2018-07-04] MEDS: hydrALAZINE HCL 25 MG TAB PO SCH ×2 (15:50→20:08)
[2018-07-04 16:31] LABS: Glucose,Whole Blood 236 mg/dL (75-99)
[2018-07-04] MEDS: CARVEDILOL 6.25 MG TAB PO SCH (17:31)
[2018-07-04] MEDS: glipiZIDE 10 MG TAB PO SCH (17:31)
[2018-07-04] MEDS: FUROSEMIDE 40 MG TAB PO SCH (17:31)
--- NOTE | 2018-07-04 20:03 | PCN ---
PROCEDURE NOTE Mr. Mccormick has severe cardiomyopathy. Please see my H and P for details. He underwent a dual-chamber ICD implantation for primary prevention of sudden cardiac . DESCRIPTION OF PROCEDURE: The patient brought to the EP lab in a fasting state. Written informed consent was obtained prior to procedure. The left shoulder area was prepped and draped as per protocol. 1% lidocaine was used for local anesthesia. A 4 cm incision was made parallel to the deltopectoral groove, about 1.5 cm medial to it. The incision was carried down to the level of the pectoralis muscle. A subfascial pocket was made. Hemostasis was assured. The left axillary vein was accessed at 2 separate points under fluoroscopy and via appropriately-sized introducer sheaths 2 leads were positioned in the right heart. The atrial lead was a [employer] model #1944, 52 cm length and serial number [id number]. This was positioned in the right atrial appendage. P waves were between 3- 6 mV, pacing impedance 564 ohms, pacing threshold 0.5 V at 0.5 milliseconds 10 V test negative. The RV lead was positioned in the low RV septum. R-waves 18.8 mV. Pacing impedance 896 ohms, pacing threshold 0.6 V at 0.5 milliseconds. Current protocol was followed. The leads were secured to the underlying pectoralis fascia using 2 nonabsorbable sutures. Pocket was irrigated with antibiotic solution. Leads were connected to the generator ([employer] model number [id number] serial #[id number]). Leads and generator were then placed in the subfascial pocket. The wound was closed in 3 layers and dressed per protocol. DFT testing under anesthesia: DC fib shock was used to induce ventricular fibrillation. This was adequately and appropriately detected at least sensitivity and successfully internally defibrillated with a 10-joule shock. The charge time was 1.9 seconds and shock impedance 71 ohms. No post shock noise occurred. No dropouts noted. The device was then programmed according to the RIT programming. DDD 50 bpm and later rate responsiveness added. PLAN: IV antibiotics and telemetry monitoring. MMODL / IJN: [id number] /
--- NOTE | 2018-07-04 20:03 | LTR ---
DATE OF SERVICE: 07/04/[address] Chandan Padron: I had the pleasure of seeing Mr. Eric Mccormick in electrophysiology followup. Eric underwent a dual-chamber an ICD implantation for management of future risk of sudden cardiac on account of his severe cardiomyopathy and sick sinus syndrome. His blood pressure was elevated through the hospitalization. Therefore, I stopped metoprolol and switched him to carvedilol instead and hopefully with this change, his blood pressure will be better controlled. He will continue to follow up with you and Dr. Blair and he will see me in the [facility] in 5 days. Thank you for entrusting me in the care of your patient. Warm regards, Sincerely, MMODL / IJN: [id number] /
[2018-07-04 20:40] LABS: Glucose,Whole Blood 159 mg/dL (75-99)
[2018-07-04] MEDS ORDERED: ATORVASTATIN 20 MG TAB PO SCH (21:00)
[2018-07-05] MEDS: ceFAZolin IN SWFI 2 GM/20 ML SYRINGE IVP SCH ×2 (02:49→09:02)
[2018-07-05 05:45] LABS: Glucose,Whole Blood 134 mg/dL (75-99)
[2018-07-05] MEDS: glipiZIDE 10 MG TAB PO SCH (06:50)
[2018-07-05] MEDS: CARVEDILOL 6.25 MG TAB PO SCH (06:50)
[2018-07-05 08:01] VITALS: BP 166/96; PULSE 76; RESP 16; TEMP 98.2
--- NOTE | 2018-07-05 08:17 | P.DS ---
Providers Attending physician: Frederick Rodriguez Primary care physician: Chandan [facility] Course: Patient is doing well. No chest discomfort dizziness lightheadedness or palpitations Vitals are stable Blood pressure 147 79 mmHg pulse rate in 70s afebrile. BP persistently elevated Normal heart sounds Normal breath sounds Impression Dual-chamber ICD implant for sick sinus syndrome and risk of sudden cardiac in the future based on the persistent cardio myopathy/heart failure Elevated blood pressure readings Plan Discharge home after completion of IV antibiotics, device interrogation and chest x-ray report Follow-up with Dr. Dr. Blair as scheduled and follow-up in the device clinic 5 days The only medication change is to stop metoprolol and start carvedilol 6.25 mg twice daily Patient Condition at Discharge: Stable Plan - Discharge Summary Discharge Rx Participant: No New Discharge Prescriptions: New Carvedilol [Coreg] 6.25 mg PO BID #180 tablet Discontinued Metoprolol Tartrate [Lopressor] 25 mg PO BID #60 tab No Action glipiZIDE [Glucotrol] 10 mg PO BID Cholecalciferol [Vitamin D3] 1,000 unit PO DAILY Aspirin 81 mg PO DAILY #30 chew hydrALAZINE HCL [Apresoline] 50 mg PO BID #60 tab Ferrous Sulfate [Feosol] 325 mg PO DAILY Calcitriol [Rocaltrol] 0.5 mcg PO MOWE Isosorbide Mononitrate [Isosorbide Mononitrate ER] 30 mg PO DAILY amLODIPine [Norvasc] 10 mg PO DAILY Folic Acid 0.4 mg PO DAILY Furosemide [Lasix] 40 mg PO BID@0900,1800 Atorvastatin [Lipitor] 20 mg PO HS Discharge Medication List glipiZIDE [Glucotrol] 10 mg PO BID 06/04/14 [History] Cholecalciferol [Vitamin D3] 1,000 unit PO DAILY 12/27/17 [History] Aspirin 81 mg PO DAILY #30 chew 01/03/18 [Rx] hydrALAZINE HCL [Apresoline] 50 mg PO BID #60 tab 02/06/18 [Rx] Atorvastatin [Lipitor] 20 mg PO HS 07/03/18 [History] Calcitriol [Rocaltrol] 0.5 mcg PO MOWE 07/03/18 [History] Ferrous Sulfate [Feosol] 325 mg PO DAILY 07/03/18 [History] Folic Acid 0.4 mg PO DAILY 07/03/18 [History] Furosemide [Lasix] 40 mg PO BID@0900,1800 07/03/18 [History] Isosorbide Mononitrate [Isosorbide Mononitrate ER] 30 mg PO DAILY 07/03/18 [ History] amLODIPine [Norvasc] 10 mg PO DAILY 07/03/18 [History] Carvedilol [Coreg] 6.25 mg PO BID #180 tablet 07/04/18 [Rx] Follow up Appointment(s)/Referral(s): [facility] [Provider Group] - 07/08/18 2:30 pm (Sunday Device check only) Violet Blair MD [STAFF PHYSICIAN] - 1 Week (Follow-up in the device clinic on Sunday, July 08 at 2:[address] Blair as previously scheduled in August. ) Patient Instructions/Handouts: Implantable Cardioverter Defibrillator (DC) Activity/Diet/Wound Care/Special Instructions: PATIENT EDUCATION MATERIAL Instructions following a heart rhythm device implant. 1. Keep dressing DRY for 5 DAYS. You may cover the area with Saran or Cling Wrap, prior to a shower. 2. The dressing will be removed in the Device Clinic at [facility]. Absorbable sutures were used to close the wound. 3. Avoid raising the left arm above the shoulder level. 4 week restriction 4. Avoid arm movements, like backscratching, rubbing the head, or pulling on a cord. 4 weeks restriction 5. Gentle range of motion movements of the shoulder, closest to the incision should be performed to avoid a frozen shoulder. (Pendulum exercises of the shoulder) 6. The opposite arm may be used freely. 7. Avoid driving for 7 days. 8. Avoid activities such as golfing, swimming, weed whacking, lifting more than 10 pounds weight, bowling, gymnastics and weight training/lifting. (6 weeks restriction) 9. Activities such as wood chopping with an axe, pull-ups in the gymnasium, power lifting, arc-welding, being close to home induction cooktops will always be a problem. 10. Arm sling is only a reminder not to raise the arm above the head. You do not need to keep the arm completely immobilized. Your free to move the arm and use it and for normal activities. In case of any problems, please call [facility], Daphne Gross, @ [phone], Attention: Device Clinic Device clinic follow-up in 5 days Follow-up with primary airdox fitter in 2-3 months Stop her Toprol start carvedilol 6.25 mg by mouth twice a day Discharge Disposition: HOME SELF-CARE
--- NOTE | 2018-07-05 08:45 | XR ---
EXAMINATION TYPE: XR chest 2V DATE OF EXAM: 07/05/2018 COMPARISON: 01/02/2018 HISTORY: Lead placement. Status post cardiac device. TECHNIQUE: Frontal and lateral views of the chest are obtained. FINDINGS: There is a dual-lead left-sided cardiac device with a sinoatrial lead and ventricular lead appearing in appropriate position. No postprocedural pneumothorax is seen. Slight flattening of the diaphragms on the lateral images may relate to degree of underlying COPD. No focal consolidation, ple ural effusion or pneumothorax. Cardiomediastinal silhouette is within normal limits. Osseous structur es appear intact. IMPRESSION: New appropriately placed left-sided cardiac device with no postprocedural pneumothorax.
[2018-07-05] MEDS ORDERED: hydrALAZINE HCL 50 MG TAB PO SCH (09:00)
[2018-07-05] MEDS ORDERED: ISOSORBIDE MONONITRATE ER 30 MG TAB.ER.24H PO SCH (09:00)
[2018-07-05] MEDS ORDERED: ASPIRIN 81 MG PO SCH (09:00)
[2018-07-05] MEDS ORDERED: amLODIPine 10 MG TAB PO SCH (09:00)
[2018-07-05] MEDS: FUROSEMIDE 40 MG TAB PO SCH (09:02)
== END 2018-07-05 10:50 | disposition home or self-care (01) ==
LOC: CATHEP 06:34 → 3SCARD 09:52 → CATHEP 07-05 10:50
PROVIDERS: ATTEND Internal Medicine Clinical Cardiac Electrophysiology
DX: I25.5 Ischemic cardiomyopathy (principal); Z00.6 Encounter for examination for normal comparison and control in clinical research program; I42.8 Other cardiomyopathies; I49.5 Sick sinus syndrome; I25.10 Atherosclerotic heart disease of native coronary artery without angina pectoris; I13.0 Hypertensive heart and chronic kidney disease with heart failure and stage 1 through stage 4 chronic kidney disease, or unspecified chronic kidney disease; E11.22 Type 2 diabetes mellitus with diabetic chronic kidney disease; N18.9 Chronic kidney disease, unspecified; I50.22 Chronic systolic (congestive) heart failure; F17.210 Nicotine dependence, cigarettes, uncomplicated; Z82.49 Family history of ischemic heart disease and other diseases of the circulatory system; E78.2 Mixed hyperlipidemia; I25.2 Old myocardial infarction; Z86.73 Personal history of transient ischemic attack (TIA), and cerebral infarction without residual deficits; M19.90 Unspecified osteoarthritis, unspecified site; Z79.82 Long term (current) use of aspirin; Z79.899 Other long term (current) drug therapy; Z79.84 Long term (current) use of oral hypoglycemic drugs
CPT/HCPCS: 33249; 71046; C1892 ×2; C1730; C1769 ×3; C1721; C1898; C1777; J2250; J0690 ×3; J2001; J3010; J0131; J2704; Q9966

== ENCOUNTER 2018-08-09 20:31 | Emergency (ER) | payer MEDICARE, BC ==
[2018-08-09 21:22] LABS: Basophils # (A) 0.1 k/uL (0-0.2); Basophils % (A) 1 %; Eosinophils # (A) 0.6 k/uL (0-0.7); Eosinophils % (A) 7 %; HCT 38.5 % (39.0-53.0); HGB 12.9 gm/dL (13.0-17.5); Lymphocytes # (A) 1.8 k/uL (1.0-4.8); Lymphocytes % (A) 20 %; MCH 29.4 pg (25.0-35.0); MCHC 33.4 g/dL (31.0-37.0); MCV 87.9 fL (80.0-100.0); Mean Platelet Volume 7.1; Monocytes # (A) 0.6 k/uL (0-1.0); Monocytes % (A) 6 %; Neutrophils # (A) 6.1 k/uL (1.3-7.7); Neutrophils % (A) 65 %; Platelet Count 257 k/uL (150-450); RBC 4.38 m/uL (4.30-5.90); RDW 13.6 % (11.5-15.5); WBC 9.3 k/uL (3.8-10.6)
[2018-08-09 21:31] LABS: Albumin 4.3 g/dL (3.5-5.0); Calcium 9.6 mg/dL (8.4-10.2); Potassium 3.9 mmol/L (3.5-5.1); Total Bilirubin 0.8 mg/dL (0.2-1.3); Total Protein 7.4 g/dL (6.3-8.2)
--- NOTE | 2018-08-09 21:33 | XR ---
EXAMINATION TYPE: XR chest 2V DATE OF EXAM: 08/09/2018 COMPARISON: July 05, 2018 HISTORY: Short of breath TECHNIQUE: Frontal and lateral views of the chest are obtained. FINDINGS: Heart and mediastinum are normal. Lungs are clear. Diaphragm is normal. There is left axil renata pacemaker with the lead tips in the right ventricle. There are chest leads. Bony thorax appears intact. IMPRESSION: No active cardiopulmonary disease. No change.
[2018-08-09] MEDS ORDERED: predniSONE 20 MG TAB PO STA (21:34)
[2018-08-09] MEDS ORDERED: ALBUTEROL NEBULIZED 2.5 MG/3 ML INHALATION STA (21:34)
[2018-08-09] MEDS ORDERED: IPRATROPIUM-ALBUTEROL 3 ML NEB INHALATION STA (21:34)
[2018-08-09 21:36] LABS: Partial Thromboplastin Time 24.1 sec (22.0-30.0); Prothrombin Time 10.5 sec (9.0-12.0)
--- NOTE | 2018-08-09 21:38 | ED ---
SOB HPI - General Chief Complaint: Shortness of Breath Stated Complaint: coughing, RUTHY Time Seen by Provider: 08/09/18 21:07 Source: patient, family Mode of arrival: wheelchair Limitations: no limitations - History of Present Illness Initial Comments: This patient is a 68-year-old man with history of COPD who presents to be evaluated for shortness of breath that is been worsening over the past 2-3 days. Patient states that he noticed that the breathing was worse if he attempts to sleep lying flat so he is been sitting up to sleep. He does have a cough but states she is not able to bring up any sputum. He is denying fever or chills. There is no chest pain. He has not noticed any change in urination. He denies leg pain or swelling. No change in bowel movements, including no dark tarry stools or bright red blood. MD Complaint: shortness of breath, cough Onset/Timin -: days(s) Consistency: constant Improves With: nothing Worsens With: lying flat Known History Of: COPD Associated Symptoms: cough Treatments Prior to Arrival: none - Related Data Home Medications Medication Instructions Recorded Confirmed glipiZIDE [Glucotrol] 10 mg PO BID 06/04/14 08/09/18 Cholecalciferol [Vitamin D3] 1,000 unit PO DAILY 12/27/17 08/09/18 Atorvastatin [Lipitor] 20 mg PO HS 07/03/18 08/09/18 Calcitriol [Rocaltrol] 0.5 mcg PO MOWE 07/03/18 08/09/18 Ferrous Sulfate [Feosol] 325 mg PO DAILY 07/03/18 08/09/18 Folic Acid 0.4 mg PO DAILY 07/03/18 08/09/18 Furosemide [Lasix] 40 mg PO BID 07/03/18 08/09/18 Isosorbide Mononitrate [Isosorbide 30 mg PO DAILY 07/03/18 08/09/18 Mononitrate ER] amLODIPine [Norvasc] 10 mg PO DAILY 07/03/18 08/09/18 Previous Rx's Medication Instructions Recorded Aspirin 81 mg PO DAILY #30 chew 01/03/18 hydrALAZINE HCL [Apresoline] 50 mg PO BID #60 tab 02/06/18 Carvedilol [Coreg] 6.25 mg PO BID #180 tablet 07/04/18 Albuterol Inhaler [Ventolin Hfa 1 - 2 puff INHALATION Q6HR PRN #1 08/09/18 Inhaler] inhaler predniSONE 60 mg PO DAILY #30 tab 08/09/18 Allergies Allergy/AdvReac Type Severity Reaction Status Date / Time No Known Allergies Allergy Verified 08/09/18 21:00 Review of Systems ROS Statement: Those systems with pertinent positive or pertinent negative responses have been documented in the HPI. ROS Other: All systems not noted in ROS Statement are negative. Constitutional: Denies: fever, chills, weakness Respiratory: Reports: cough, dyspnea, wheezes. Denies: hemoptysis Cardiovascular: Reports: orthopnea. Denies: chest pain, palpitations, edema, syncope Gastrointestinal: Reports: constipation. 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 History of Any Multi-Drug Resistant Organisms: None Reported Past Surgical History: No Surgical Hx Reported Additional Past Surgical History / Comment(s): R wrist fx with repair, R eye retinal detachment with surgery, R eye retinal hemorrhage with eye injections in the past Past Anesthesia/Blood Transfusion Reactions: No Reported Reaction Additional Past Anesthesia/Blood Transfusion Reaction / Comment(s): Pt has never recieved blood. Past Psychological History: No Psychological Hx Reported Smoking Status: Current every day smoker Past Alcohol Use History: None Reported Past Drug Use History: None Reported - Past Family History Father Family Medical History: Vascular Disorder Additional Family Medical History / Comment(s): Father during vascular surgery for his blood flow to his legs. Mother Family Medical History: Congestive Heart Failure (CHF), Diabetes Mellitus General Exam Limitations: no limitations General appearance: alert, in no apparent distress Head exam: Present: atraumatic, normocephalic Eye exam: Present: normal appearance. Absent: scleral icterus, conjunctival injection ENT exam: Present: normal oropharynx Respiratory exam: Present: wheezes, decreased breath sounds. Absent: respiratory distress, rales, rhonchi, stridor, chest wall tenderness, accessory muscle use Cardiovascular Exam: Present: regular rate, normal rhythm, normal heart sounds. Absent: systolic murmur, diastolic murmur, rubs, gallop GI/Abdominal exam: Present: soft. Absent: distended, tenderness, guarding, rebound, rigid, mass Extremities exam: Present: normal inspection, normal capillary refill. Absent: pedal edema, calf tenderness Back exam: Present: normal inspection. Absent: CVA tenderness (R), CVA tenderness (L) Neurological exam: Present: alert Skin exam: Present: warm, dry, intact, normal color. Absent: rash Course Vital Signs 08/09/18 08/09/18 08/09/18 20:40 21:49 22:04 Temperature 97.6 F Pulse Rate 62 64 64 Respiratory 22 Rate Blood Pressure 140/75 O2 Sat by Pulse 94 L Oximetry Medical Decision Making - Medical Decision Making Patient is 68-year-old man presenting with dyspnea. He is feeling better following nebulized treatments here and does request to go home. I we did discuss that his d-dimer is minimally elevated and that the usual studies CT however his kidney function does not allow contrast study. I did recommend having the vehicle medicine test but the patient is refusing to be admitted. He states that he is going to go home and should any symptoms recur that he will return be admitted to the hospital and have the test, but he states that he is feeling much, much better. - Lab Data Result diagrams: 08/09/18 21:00 08/09/18 21:00 Lab Results 08/09/18 08/09/18 08/09/18 Range/Units 21:00 21:00 21:00 WBC 9.3 (3.8-10.6) k/uL RBC 4.38 (4.30-5.90) m/uL Hgb 12.9 L (13.0-17.5) gm/dL Hct 38.5 L (39.0-53.0) % MCV 87.9 (80.0-100.0) fL MCH 29.4 (25.0-35.0) pg MCHC 33.4 (31.0-37.0) g/dL RDW 13.6 (11.5-15.5) % Plt Count 257 (150-450) k/uL Neutrophils % 65 % Lymphocytes % 20 % Monocytes % 6 % Eosinophils % 7 % Basophils % 1 % Neutrophils # 6.1 (1.3-7.7) k/uL Lymphocytes # 1.8 (1.0-4.8) k/uL Monocytes # 0.6 (0-1.0) k/uL Eosinophils # 0.6 (0-0.7) k/uL Basophils # 0.1 (0-0.2) k/uL PT (9.0-12.0) sec INR (<1.2) APTT (22.0-30.0) sec D-Dimer (<0.60) mg/L FEU Sodium 143 (137-145) mmol/L Potassium 3.9 (3.5-5.1) mmol/L Chloride 105 (98-107) mmol/L Carbon Dioxide 27 (22-30) mmol/L Anion Gap 11 mmol/L BUN 23 H (9-20) mg/dL Creatinine 2.17 H (0.66-1.25) mg/dL Est GFR (CKD-EPI)AfAm 35 (>60 ml/min/1.73 sqM) Est GFR (CKD-EPI)NonAf 31 (>60 ml/min/1.73 sqM) Glucose 129 H (74-99) mg/dL Calcium 9.6 (8.4-10.2) mg/dL Total Bilirubin 0.8 (0.2-1.3) mg/dL AST 23 (17-59) U/L ALT 21 (21-72) U/L Alkaline Phosphatase 108 (38-126) U/L Total Creatine Kinase 51 L (55-170) U/L CK-MB (CK-2) 1.1 (0.0-2.4) ng/mL CK-MB (CK-2) Rel Index 2.2 Troponin I 0.031 (0.000-0.034) ng/mL NT-Pro-B Natriuret Pep pg/mL Total Protein 7.4 (6.3-8.2) g/dL Albumin 4.3 (3.5-5.0) g/dL 08/09/18 08/09/18 Range/Units 21:00 21:00 WBC (3.8-10.6) k/uL RBC (4.30-5.90) m/uL Hgb (13.0-17.5) gm/dL Hct (39.0-53.0) % MCV (80.0-100.0) fL MCH (25.0-35.0) pg MCHC (31.0-37.0) g/dL RDW (11.5-15.5) % Plt Count (150-450) k/uL Neutrophils % % Lymphocytes % % Monocytes % % Eosinophils % % Basophils % % Neutrophils # (1.3-7.7) k/uL Lymphocytes # (1.0-4.8) k/uL Monocytes # (0-1.0) k/uL Eosinophils # (0-0.7) k/uL Basophils # (0-0.2) k/uL PT 10.5 (9.0-12.0) sec INR 1.0 (<1.2) APTT 24.1 (22.0-30.0) sec D-Dimer 0.94 H (<0.60) mg/L FEU Sodium (137-145) mmol/L Potassium (3.5-5.1) mmol/L Chloride (98-107) mmol/L Carbon Dioxide (22-30) mmol/L Anion Gap mmol/L BUN (9-20) mg/dL Creatinine (0.66-1.25) mg/dL Est GFR (CKD-EPI)AfAm (>60 ml/min/1.73 sqM) Est GFR (CKD-EPI)NonAf (>60 ml/min/1.73 sqM) Glucose (74-99) mg/dL Calcium (8.4-10.2) mg/dL Total Bilirubin (0.2-1.3) mg/dL AST (17-59) U/L ALT (21-72) U/L Alkaline Phosphatase (38-126) U/L Total Creatine Kinase (55-170) U/L CK-MB (CK-2) (0.0-2.4) ng/mL CK-MB (CK-2) Rel Index Troponin I (0.000-0.034) ng/mL NT-Pro-B Natriuret Pep 1160 pg/mL Total Protein (6.3-8.2) g/dL Albumin (3.5-5.0) g/dL - EKG Data -: EKG Interpreted by Me EKG shows normal: sinus rhythm (Rate approximate 78 bpm), axis (Normal), intervals (Normal) Rate: normal Disposition Clinical Impression: COPD exacerbation Disposition: HOME SELF-CARE Condition: Fair Instructions: Chronic Bronchitis (ED) Prescriptions: Albuterol Inhaler [Ventolin Hfa Inhaler] 1 - 2 puff INHALATION Q6HR PRN #1 inhaler PRN Reason: Wheezing predniSONE 60 mg PO DAILY #30 tab Is patient prescribed a controlled substance at d/c from ED?: No Referrals: Chandan Padron DO [Primary Care Provider] - 1-2 days
[2018-08-09 21:48] LABS: Creatine Kinase MB 1.1 ng/mL (0.0-2.4)
[2018-08-09 21:50] LABS: D-Dimer 0.94 mg/L FEU (<0.60); Troponin I 0.031 ng/mL (0.000-0.034)
[2018-08-09 23:15] VITALS: BP 184/87; PULSE 74; RESP 19; TEMP 97.1
== END 2018-08-09 23:05 | disposition home or self-care (01) ==
LOC: EC 20:31
DX: J44.1 Chronic obstructive pulmonary disease with (acute) exacerbation (principal); R79.1 Abnormal coagulation profile; E78.5 Hyperlipidemia, unspecified; I12.9 Hypertensive chronic kidney disease with stage 1 through stage 4 chronic kidney disease, or unspecified chronic kidney disease; N18.3 Chronic kidney disease, stage 3 (moderate); E11.22 Type 2 diabetes mellitus with diabetic chronic kidney disease; I69.898 Other sequelae of other cerebrovascular disease; F17.200 Nicotine dependence, unspecified, uncomplicated; Z79.84 Long term (current) use of oral hypoglycemic drugs; Z79.899 Other long term (current) drug therapy
CPT/HCPCS: 36415; 94640; 93005; 85379; 83880; 80053; 82550; 82553; 84484; 85025; 85610; 85730; 71046; 99285; J7512

== ENCOUNTER 2019-05-24 15:35 | Observation (INO) | payer MEDICARE, BC ==
[2019-05-24] MEDS ORDERED: IPRATROPIUM-ALBUTEROL 3 ML NEB INHALATION STA (15:52)
[2019-05-24] MEDS ORDERED: SODIUM CHLORIDE 0.9% 1,000 ML IV STA (15:52)
--- NOTE | 2019-05-24 15:52 | ED ---
SOB HPI - General Chief Complaint: Shortness of Breath Stated Complaint: RUTHY Time Seen by Provider: 05/24/19 15:41 Source: patient, RN notes reviewed, old records reviewed Mode of arrival: ambulatory Limitations: no limitations - History of Present Illness Initial Comments: This is a 68-year-old male the ER for evaluation patient's presented today for e valuation regards to severe shortness of breath. Significant history of heart disease, no current chest pain. Patient has had shortness of breath 3 days denies any fevers. No history of asthma or COPD nonsmoker. Patient's noticed that is exercise tolerance is been decreased over the last day to day and a half. Patient again is complaining of current shortness of breath no cough no fevers no chest pain MD Complaint: shortness of breath, cough -: days(s) (3) Radiation: other Severity scale (1-10): 4 Consistency: constant Improves With: oxygen, rest Worsens With: exertion Known History Of: congestive heart failure Context: recent URI Associated Symptoms: cough, sputum production Treatments Prior to Arrival: none - Related Data Home Medications Medication Instructions Recorded Confirmed glipiZIDE [Glucotrol] 10 mg PO BID 06/04/14 05/24/19 Cholecalciferol [Vitamin D3 (25 5,000 unit PO DAILY 12/27/17 05/24/19 Mcg = 1000 Iu)] Atorvastatin [Lipitor] 20 mg PO HS 07/03/18 05/24/19 Isosorbide Mononitrate [Isosorbide 30 mg PO DAILY 07/03/18 05/24/19 Mononitrate ER] Albuterol Inhaler [Ventolin Hfa 1 - 2 puff INHALATION RT-QID PRN 05/24/19 05/24/19 Inhaler] Carvedilol [Coreg] 12.5 mg PO BID 05/24/19 05/24/19 Previous Rx's Medication Instructions Recorded Aspirin 81 mg PO DAILY #30 chew 01/03/18 hydrALAZINE HCL [Apresoline] 50 mg PO BID #60 tab 02/06/18 Allergies Allergy/AdvReac Type Severity Reaction Status Date / Time No Known Allergies Allergy Verified 05/24/19 16:07 Review of Systems ROS Statement: Those systems with pertinent positive or pertinent negative responses have been documented in the HPI. ROS Other: All systems not noted in ROS Statement are negative. 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 History of Any Multi-Drug Resistant Organisms: None Reported Past Surgical History: No Surgical Hx Reported Additional Past Surgical History / Comment(s): R wrist fx with repair, R eye retinal detachment with surgery, R eye retinal hemorrhage with eye injections in the past Past Anesthesia/Blood Transfusion Reactions: No Reported Reaction Additional Past Anesthesia/Blood Transfusion Reaction / Comment(s): Pt has never recieved blood. Past Psychological History: No Psychological Hx Reported Smoking Status: Current every day smoker Past Alcohol Use History: None Reported Past Drug Use History: None Reported - Past Family History Father Family Medical History: Vascular Disorder Additional Family Medical History / Comment(s): Father during vascular surgery for his blood flow to his legs. Mother Family Medical History: Congestive Heart Failure (CHF), Diabetes Mellitus General Exam - General Exam Comments Initial Comments: Patient does have deficit from old CVA, left-sided facial droop Limitations: no limitations General appearance: alert, in no apparent distress Head exam: Present: atraumatic, normocephalic, normal inspection Eye exam: Present: normal appearance, PERRL, EOMI. Absent: scleral icterus, conjunctival injection, periorbital swelling ENT exam: Present: normal exam, mucous membranes moist Neck exam: Present: normal inspection. Absent: tenderness, meningismus, lymphadenopathy Respiratory exam: Present: normal lung sounds bilaterally. Absent: respiratory distress, wheezes, rales, rhonchi, stridor Cardiovascular Exam: Present: regular rate, normal rhythm, normal heart sounds. Absent: systolic murmur, diastolic murmur, rubs, gallop, clicks GI/Abdominal exam: Present: soft, normal bowel sounds. Absent: distended, tenderness, guarding, rebound, rigid Extremities exam: Present: normal inspection, full ROM, normal capillary refill. Absent: tenderness, pedal edema, joint swelling, calf tenderness Back exam: Present: normal inspection Neurological exam: Present: alert, oriented X3, CN II-XII intact Psychiatric exam: Present: normal affect, normal mood Skin exam: Present: warm, dry, intact, normal color. Absent: rash Course Vital Signs 05/24/19 05/24/19 05/24/19 15:37 15:45 16:07 Temperature 98.6 F Pulse Rate 86 68 Respiratory 24 22 Rate Blood Pressure 185/92 O2 Sat by Pulse 99 Oximetry 05/24/19 16:21 Temperature Pulse Rate 68 Respiratory Rate Blood Pressure O2 Sat by Pulse Oximetry - Reevaluation(s) Reevaluation #1: 05/24/19 15:52 Medical records reviewed Reevaluation #2: 05/24/19 16:58 Mild improvement breathing treatment here in the ER Medical Decision Making - Medical Decision Making 68 male the ER for evaluation. Patient presents today for evaluation regards to shortness of breath severe shortness of breath found to have pneumonia right- sided pleural effusion and CHF mild on x-ray. Elevated troponin which we'll trend, patient will be admitted for breathing treatments and IV antibiotics - Lab Data Result diagrams: 05/24/19 16:06 05/24/19 16:06 Lab Results 05/24/19 05/24/19 05/24/19 Range/Units 16:06 16:06 16:06 WBC 10.3 (3.8-10.6) k/uL RBC 3.66 L (4.30-5.90) m/uL Hgb 11.1 L (13.0-17.5) gm/dL Hct 33.0 L (39.0-53.0) % MCV 90.1 (80.0-100.0) fL MCH 30.3 (25.0-35.0) pg MCHC 33.6 (31.0-37.0) g/dL RDW 13.8 (11.5-15.5) % Plt Count 268 (150-450) k/uL Neutrophils % 79 % Lymphocytes % 13 % Monocytes % 5 % Eosinophils % 2 % Basophils % 0 % Neutrophils # 8.2 H (1.3-7.7) k/uL Lymphocytes # 1.4 (1.0-4.8) k/uL Monocytes # 0.5 (0-1.0) k/uL Eosinophils # 0.2 (0-0.7) k/uL Basophils # 0.0 (0-0.2) k/uL PT (9.0-12.0) sec INR (<1.2) APTT (22.0-30.0) sec Sodium 141 (137-145) mmol/L Potassium 4.0 (3.5-5.1) mmol/L Chloride 108 H (98-107) mmol/L Carbon Dioxide 25 (22-30) mmol/L Anion Gap 8 mmol/L BUN 18 (9-20) mg/dL Creatinine 1.70 H (0.66-1.25) mg/dL Est GFR (CKD-EPI)AfAm 48 (>60 ml/min/1.73 sqM) Est GFR (CKD-EPI)NonAf 41 (>60 ml/min/1.73 sqM) Glucose 147 H (74-99) mg/dL Calcium 9.3 (8.4-10.2) mg/dL Magnesium 2.1 (1.6-2.3) mg/dL Total Bilirubin 1.2 (0.2-1.3) mg/dL AST 15 L (17-59) U/L ALT 14 L (21-72) U/L Alkaline Phosphatase 110 (38-126) U/L Troponin I (0.000-0.034) ng/mL NT-Pro-B Natriuret Pep 49016 pg/mL Total Protein 6.1 L (6.3-8.2) g/dL Albumin 3.6 (3.5-5.0) g/dL 05/24/19 05/24/19 Range/Units 16:06 16:06 WBC (3.8-10.6) k/uL RBC (4.30-5.90) m/uL Hgb (13.0-17.5) gm/dL Hct (39.0-53.0) % MCV (80.0-100.0) fL MCH (25.0-35.0) pg MCHC (31.0-37.0) g/dL RDW (11.5-15.5) % Plt Count (150-450) k/uL Neutrophils % % Lymphocytes % % Monocytes % % Eosinophils % % Basophils % % Neutrophils # (1.3-7.7) k/uL Lymphocytes # (1.0-4.8) k/uL Monocytes # (0-1.0) k/uL Eosinophils # (0-0.7) k/uL Basophils # (0-0.2) k/uL PT 11.3 (9.0-12.0) sec INR 1.1 (<1.2) APTT 25.7 (22.0-30.0) sec Sodium (137-145) mmol/L Potassium (3.5-5.1) mmol/L Chloride (98-107) mmol/L Carbon Dioxide (22-30) mmol/L Anion Gap mmol/L BUN (9-20) mg/dL Creatinine (0.66-1.25) mg/dL Est GFR (CKD-EPI)AfAm (>60 ml/min/1.73 sqM) Est GFR (CKD-EPI)NonAf (>60 ml/min/1.73 sqM) Glucose (74-99) mg/dL Calcium (8.4-10.2) mg/dL Magnesium (1.6-2.3) mg/dL Total Bilirubin (0.2-1.3) mg/dL AST (17-59) U/L ALT (21-72) U/L Alkaline Phosphatase (38-126) U/L Troponin I 0.064 H* (0.000-0.034) ng/mL NT-Pro-B Natriuret Pep pg/mL Total Protein (6.3-8.2) g/dL Albumin (3.5-5.0) g/dL - EKG Data -: EKG Interpreted by Me (EKG shows sinus rhythm rate of 75, TX 152, QRS 108, QTc 439) - Radiology Data Radiology results: report reviewed (Chest x-ray positive for right-sided pleural effusion pneumonia), image reviewed Disposition Clinical Impression: Hypoxia, Congestive heart failure, Dyspnea, NSTEMI (non-ST elevated myocardial infarction), Community acquired pneumonia Disposition: ADMITTED IP TO THIS HOSP Condition: Fair Is patient prescribed a controlled substance at d/c from ED?: No Referrals: Cahndan Padron DO [Primary Care Provider] - 1-2 days
[2019-05-24 16:17] LABS: Basophils % (A) 0 %; Eosinophils # (A) 0.2 k/uL (0-0.7); Eosinophils % (A) 2 %; HGB 11.1 gm/dL (13.0-17.5); Lymphocytes # (A) 1.4 k/uL (1.0-4.8); Lymphocytes % (A) 13 %; MCH 30.3 pg (25.0-35.0); MCHC 33.6 g/dL (31.0-37.0); MCV 90.1 fL (80.0-100.0); Mean Platelet Volume 7.8; Monocytes # (A) 0.5 k/uL (0-1.0); Monocytes % (A) 5 %; Neutrophils # (A) 8.2 k/uL (1.3-7.7); Neutrophils % (A) 79 %; Platelet Count 268 k/uL (150-450); RBC 3.66 m/uL (4.30-5.90); RDW 13.8 % (11.5-15.5); WBC 10.3 k/uL (3.8-10.6)
[2019-05-24 16:25] LABS: INR 1.1 (<1.2); Partial Thromboplastin Time 25.7 sec (22.0-30.0); Prothrombin Time 11.3 sec (9.0-12.0)
[2019-05-24 16:35] LABS: Albumin 3.6 g/dL (3.5-5.0); Calcium 9.3 mg/dL (8.4-10.2); Magnesium 2.1 mg/dL (1.6-2.3); Total Bilirubin 1.2 mg/dL (0.2-1.3); Total Protein 6.1 g/dL (6.3-8.2)
--- NOTE | 2019-05-24 16:41 | XR ---
EXAMINATION TYPE: XR chest 2V DATE OF EXAM: 05/24/2019 COMPARISON: 08/09/2018 HISTORY: Difficulty breathing TECHNIQUE: Frontal and lateral views of the chest are obtained. FINDINGS: There is blunting right costophrenic angle. There is no heart failure. There is left axill charan pacemaker. There are chest leads. There is increased density right lung base. IMPRESSION: There is new right pleural effusion and right basilar mild infiltrate and atelectasis co mpared to old exam. No heart failure seen.
[2019-05-24] MEDS ORDERED: AZITHROMYCIN 500 MG in SODIUM CHLORIDE 0.9% 250 ML IVPB STA (16:53)
[2019-05-24] MEDS ORDERED: PNEUMONIA PROTOCOL UTILIZED 1 EACH MISC PO PRN (16:53)
[2019-05-24] MEDS: SODIUM CHLORIDE 0.9% 1,000 ML IV SCH (17:45)
[2019-05-24] MEDS: FUROSEMIDE 10 MG/ML 4 ML VIAL IV SCH (17:48)
[2019-05-24] MEDS: IPRATROPIUM-ALBUTEROL 3 ML NEB INHALATION PRN (18:55)
[2019-05-24] MEDS: CARVEDILOL 12.5 MG TAB PO SCH (19:51)
[2019-05-24] MEDS: ATORVASTATIN 20 MG TAB PO SCH (19:51)
[2019-05-24] MEDS: hydrALAZINE HCL 50 MG TAB PO SCH (19:51)
[2019-05-25] MEDS: SODIUM CHLORIDE 0.9% 1,000 ML IV SCH ×2 (04:44→19:47)
[2019-05-25] MEDS: FUROSEMIDE 10 MG/ML 4 ML VIAL IV SCH ×2 (05:16→16:38)
[2019-05-25] MEDS: IPRATROPIUM-ALBUTEROL 3 ML NEB INHALATION PRN ×3 (05:32→16:54)
--- NOTE | 2019-05-25 06:38 | XR ---
EXAMINATION TYPE: XR chest 2V DATE OF EXAM: 05/25/2019 HISTORY: pneumonia. REFERENCE: Previous study dated 05/24/2019. FINDINGS: There is a bipolar pacemaker place on the left. The lungs are overinflated. There are bilateral effusions, greater on the right than left. I cannot e xclude a mild amount of bibasilar airspace disease. The heart is not enlarged. IMPRESSION: 1. COPD. 2. MILD, BIBASILAR AIRSPACE DISEASE WITH CONCOMITANT EFFUSIONS.
[2019-05-25] MEDS: AZITHROMYCIN 500 MG TAB PO SCH (08:37)
[2019-05-25] MEDS: ASPIRIN 81 MG PO SCH (08:37)
[2019-05-25] MEDS: CARVEDILOL 12.5 MG TAB PO SCH ×2 (08:37→19:46)
[2019-05-25] MEDS: hydrALAZINE HCL 50 MG TAB PO SCH ×3 (08:37→19:46)
[2019-05-25] MEDS: ISOSORBIDE MONONITRATE ER 30 MG TAB.ER.24H PO SCH (08:38)
[2019-05-25] MEDS: ENOXAPARIN 40 MG/0.4 ML SYRINGE SQ SCH (08:38)
[2019-05-25 09:03] LABS: Basophils # (A) 0.1 k/uL (0-0.2); Basophils % (A) 1 %; Eosinophils # (A) 0.2 k/uL (0-0.7); Eosinophils % (A) 2 %; HCT 33.7 % (39.0-53.0); HGB 11.2 gm/dL (13.0-17.5); Lymphocytes # (A) 1.1 k/uL (1.0-4.8); Lymphocytes % (A) 12 %; MCH 30.7 pg (25.0-35.0); MCHC 33.3 g/dL (31.0-37.0); MCV 92.3 fL (80.0-100.0); Mean Platelet Volume 8.5; Monocytes # (A) 0.5 k/uL (0-1.0); Monocytes % (A) 5 %; Neutrophils # (A) 7.6 k/uL (1.3-7.7); Neutrophils % (A) 80 %; Platelet Count 262 k/uL (150-450); RBC 3.65 m/uL (4.30-5.90); RDW 13.1 % (11.5-15.5); WBC 9.5 k/uL (3.8-10.6)
[2019-05-25 09:11] LABS: Calcium 8.9 mg/dL (8.4-10.2); Potassium 3.9 mmol/L (3.5-5.1)
[2019-05-25 11:46] VITALS: BMI 23.9
--- NOTE | 2019-05-25 12:48 | P.CRDCN ---
History of Present Illness Consult date: 05/25/19 Consult reason: congestive heart failure History of present illness: This is a 68-year-old male patient of Dr. Blair with past medical history of chronic systolic heart failure with cardiomyopathy and known ejection fraction 30% status post dual-chamber ICD, diabetes mellitus type 2, hypertension, chronic kidney disease, coronary artery disease, previous myocardial infarction, CVA in 2017. His last heart catheterization was in February 2018 finding calcified left main, chronically occluded proximal right coronary artery with good collaterals from the left coronary artery system. Mild disease in the left circumflex. Elevated left ventricular end-diastolic pressure and recommendations at that time for medical management. Patient was seen and Dr. Blair last week for checkup and did not have any complaints at that time. He s ubsequently has had shortness of breath for the past 3 days. He denies any fever or chills, no cough or sputum production. Initial chest x-ray revealed right pleural effusion and right basilar mild infiltrate and atelectasis. No heart failure seen. Repeat chest x-ray this morning reveals COPD. Mild bibasilar airspace disease with concomitant effusions. Patient was started on IV antibiotics and IV Lasix 40 mg every 12 hours. EKG reveals sinus mechanism. Laboratory studies: Hemoglobin 11.2, white count 9.5, platelet count 262. Sodium 142, potassium 3.9, chloride 108, CO2 23, BUN 18 creatinine 1.75. Troponin 0.064, 0.055, 0.054. ProBNP 12,300 Review Of Systems: At the time of my evaluation: Constitutional: No fever, no chills, no night sweats. No weight change. No weakness, fatigue or lethargy. No daytime sleepiness. EENT: No headache. No sore throat. Lungs: No shortness of breath, no cough, no sputum production. No wheezing. Cardiovascular: No chest pain, no lower extremity edema. No palpitations. No paroxysmal nocturnal dyspnea. No orthopnea. No lightheadedness or dizziness. No syncopal episodes. Abdominal: No abdominal pain. No nausea, vomiting. No diarrhea. No constipation. No loss of appetite. Genitourinary: No dysuria, increased frequency, urgency. No urinary retention. Musculoskeletal: No myalgias. No muscle weakness, no gait dysfunction, no frequ ent falls. No back pain. No neck pain. Integumentary: No wounds, no lesions. No rash or pruritus. No unusual bruising. No change in hair or nails. Neurologic: No aphasia. No facial droop. No change in mentation. No head injury. No headache. No paralysis. No paresthesia. Endocrine: No abnormal blood sugars. No weight change. No excessive sweating or thirst. No cold intolerance. No weight change. Gen: This is a 68-year-old male. Patient is in bed and appears to be comfortable. He appears to be in no acute distress. HEENT: Head is atraumatic, normocephalic. Pupils equal, round. Sclerae is anicteric. NECK: Supple. No JVD. No lymphadenopathy. No thyromegaly. LUNGS: Clear to auscultation. No wheezes or rhonchi. No intercostal retractions. HEART: Regular rate and rhythm. Systolic murmur. ABDOMEN: Soft. Bowel sounds are present. No masses. No tenderness. EXTREMITIES: No pedal edema. No calf tenderness. Dorsalis pedis +2 bilaterally. NEUROLOGICAL: Patient is awake, alert and oriented x3. Cranial nerves 2 through 12 are grossly intact. Assessment: Acute on chronic systolic heart failure Ischemic and non-ischemic cardiomyopathy status post AICD History of myocardial infarction, coronary artery disease Chronic kidney disease stage III Diabetes mellitus type 2 Hypertension Plan: Continue Lasix 40 mg IV every 12 hours Monitor I&O, daily weights, electrolytes and renal function Continue Imdur 30 mg daily, Coreg 25 mg twice daily, aspirin 81 mg daily Further recommendations to follow based upon clinical course. Thank you kindly for this consultation. Nurse practitioner note has been reviewed, I agree with documented findings and plan of care. Patient was seen and examined. 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 History of Any Multi-Drug Resistant Organisms: None Reported Past Surgical History: No Surgical Hx Reported, AICD Additional Past Surgical History / Comment(s): R wrist fx with repair, R eye retinal detachment with surgery, R eye retinal hemorrhage with eye injections in the past Past Anesthesia/Blood Transfusion Reactions: No Reported Reaction Additional Past Anesthesia/Blood Transfusion Reaction / Comment(s): Pt has never recieved blood. Type of Cardiac Device: AICD Device Placement Date:: 07/04/2018 Past Psychological History: No Psychological Hx Reported Additional Psychological History / Comment(s): Pt lives with in their home. Pt is retired from [employer] and the [employer]. Pt does not drive d/t [employer]. Spouse is retired and drives his to [employer]. Pt states he does not own a glucometer. He states he would use one if he didn't have to pay for it. Smoking Status: Current every day smoker Past Alcohol Use History: None Reported Additional Past Alcohol Use History / Comment(s): Pt started smoking in 1967 and is a ppd smoker. Past Drug Use History: None Reported - Past Family History Father Family Medical History: Vascular Disorder Additional Family Medical History / Comment(s): Father during vascular surgery for his blood flow to his legs. Mother Family Medical History: Congestive Heart Failure (CHF), Diabetes Mellitus Medications and Allergies Home Medications Medication Instructions Recorded Confirmed Type glipiZIDE [Glucotrol] 10 mg PO BID 06/04/14 05/24/19 History Cholecalciferol [Vitamin D3 (25 5,000 unit PO DAILY 12/27/17 05/24/19 History Mcg = 1000 Iu)] Aspirin 81 mg PO DAILY #30 chew 01/03/18 05/24/19 Rx hydrALAZINE HCL [Apresoline] 50 mg PO BID #60 tab 02/06/18 05/24/19 Rx Atorvastatin [Lipitor] 20 mg PO HS 07/03/18 05/24/19 History Isosorbide Mononitrate [Isosorbide 30 mg PO DAILY 07/03/18 05/24/19 History Mononitrate ER] Albuterol Inhaler [Ventolin Hfa 1 - 2 puff INHALATION RT-QID PRN 05/24/1905/24 History Inhaler] Carvedilol [Coreg] 12.5 mg PO BID 05/24/19 05/24/19 History Allergies Allergy/AdvReac Type Severity Reaction Status Date / Time No Known Allergies Allergy Verified 05/24/19 16:07 Physical Exam Vitals: Vital Signs Temp Pulse Pulse Resp BP BP Pulse Ox 05/25/19 08:00 98.1 F 83 16 167/76 98 05/25/19 06:00 80 05/25/19 05:32 80 05/25/19 03:10 97.9 F 75 18 157/86 97 05/24/19 23:25 97.8 F 80 18 128/69 93 L 05/24/19 19:15 97.5 F L 73 18 153/97 95 05/24/19 19:07 78 05/24/19 19:01 98.3 F 78 19 171/81 96 05/24/19 18:57 78 05/24/19 16:21 68 05/24/19 16:07 68 05/24/19 15:45 22 05/24/19 15:37 98.6 F 86 24 185/92 99 Intake and Output 05/24/19 05/25/19 05/25/19 22:59 06:59 14:59 Intake Total 240 Balance 240 Intake: Oral 240 Other: Weight 64.864 kg 65.3 kg Results 05/25/19 03:29 05/25/19 03:29 Cardiac Enzymes 05/24/19 05/24/19 05/24/19 Range/Units 16:06 16:06 22:01 AST 15 L (17-59) U/L Troponin I 0.064 H* 0.055 H* (0.000-0.034) ng/mL 05/25/19 Range/Units 03:29 AST (17-59) U/L Troponin I 0.054 H* (0.000-0.034) ng/mL Coagulation 05/24/19 Range/Units 16:06 PT 11.3 (9.0-12.0) sec APTT 25.7 (22.0-30.0) sec CBC 05/24/19 05/25/19 Range/Units 16:06 03:29 WBC 10.3 9.5 (3.8-10.6) k/uL RBC 3.66 L 3.65 L (4.30-5.90) m/uL Hgb 11.1 L 11.2 L (13.0-17.5) gm/dL Hct 33.0 L 33.7 L (39.0-53.0) % Plt Count 268 262 (150-450) k/uL Comprehensive Metabolic Panel 05/24/19 05/25/19 Range/Units 16:06 03:29 Sodium 141 142 (137-145) mmol/L Potassium 4.0 3.9 (3.5-5.1) mmol/L Chloride 108 H 108 H (98-107) mmol/L Carbon Dioxide 25 23 (22-30) mmol/L BUN 18 18 (9-20) mg/dL Creatinine 1.70 H 1.75 H (0.66-1.25) mg/dL Glucose 147 H 81 (74-99) mg/dL Calcium 9.3 8.9 (8.4-10.2) mg/dL AST 15 L (17-59) U/L ALT 14 L (21-72) U/L Alkaline Phosphatase 110 (38-126) U/L Total Protein 6.1 L (6.3-8.2) g/dL Albumin 3.6 (3.5-5.0) g/dL Current Medications Generic Name Dose Route Start Last Admin Trade Name Freq PRN Reason Stop Dose Admin Albuterol/Ipratropium 3 ml 05/24/19 16:53 05/25/19 05:32 Duoneb 0.5 Mg-3 Mg/3 Ml Soln INHALATION 3 ml RT-Q4H PRN Administration shortness of breath Aspirin 81 mg 05/25/19 09:00 05/25/19 08:37 Aspirin PO 81 mg DAILY GELY Administration Atorvastatin Calcium 20 mg 05/24/19 21:00 05/24/19 19:51 Lipitor PO 20 mg HS GELY Administration Azithromycin 500 mg 05/25/19 09:00 05/25/19 08:37 Zithromax PO 500 mg DAILY GELY Administration Carvedilol 12.5 mg 05/24/19 21:00 05/25/19 08:37 Coreg PO 12.5 mg BID GELY Administration Enoxaparin Sodium 40 mg 05/25/19 09:00 05/25/19 08:38 Lovenox SQ 40 mg DAILY GELY Administration Furosemide 40 mg 05/24/19 17:00 05/25/19 05:16 Lasix IV 40 mg Q12H GELY Administration Hydralazine HCl 50 mg 05/24/19 21:00 05/25/19 08:37 Apresoline PO 50 mg BID GELY Administration Sodium Chloride 1,000 mls @ 100 mls/hr 05/24/19 17:00 05/25/19 04:44 Saline 0.9% IV Not Given .Q10H GELY Ceftriaxone Sodium 1 gm/ 50 mls @ 100 mls/hr 05/25/19 09:00 05/25/19 08:38 Sodium Chloride IVPB 05/28/19 09:01 100 mls/hr Q24HR GELY Administration Isosorbide Mononitrate 30 mg 05/25/19 09:00 05/25/19 08:38 Imdur PO 30 mg DAILY GELY Administration Miscellaneous Information 1 each 05/24/19 16:53 Pneumonia Protocol Utilized PO ONCE PRN Per Protocol Intake and Output 05/24/19 05/25/19 05/25/19 22:59 06:59 14:59 Intake Total 240 Balance 240 Intake: Oral 240 Other: Weight 64.864 kg 65.3 kg 05/25/19 03:29 05/25/19 03:29
--- NOTE | 2019-05-25 14:14 | P.HPIM ---
History of Present Illness H&P Date: 05/25/19 Chief Complaint: Shortness of breath 68-year-old male with past medical history of chronic systolic heart failure with cardiomyopathy and known ejection fraction 30% status post dual- chamber ICD, diabetes mellitus type 2, hypertension, chronic kidney disease, coronary artery disease, previous myocardial infarction, CVA in 2017. His last heart catheterization was in February 2018 finding calcified left main, chronically occluded proximal right coronary artery with good collaterals from the left coronary artery system. Mild disease in the left circumflex. Elevated left ventricular end-diastolic pressure and recommendations at that time for medical management. Patient was seen and Dr. Blair last week for checkup and did not have any complaints at that time. He subsequently has had shortness of breath for the past 3 days. He denies any fever or chills, no cough or sputum production. Initial chest x-ray revealed right pleural effusion and right basilar mild infiltrate and atelectasis. No heart failure seen. Repeat chest x-ray this morning reveals COPD. Mild bibasilar airspace disease with concomitant effusions. Patient was started on IV antibiotics and IV Lasix 40 mg every 12 hours. Workup in ED with EKG shows a normal sinus rhythm; chest x-ray shows bibasilar airspace disease; blood work shows white blood count of 9.5 hemoglobin 11.1. Count of 262; sodium 142, potassium 2.9 with BUN of 18 and creatinine of 1.75; BNP of 12,300; troponin was elevated at 0.64 Review of Systems Constitutional: No fever, no chills, no night sweats. No weight change. No weakness, fatigue or lethargy. No daytime sleepiness. EENT: No headache. No sore throat. Lungs: No shortness of breath, no cough, no sputum production. No wheezing. Cardiovascular: No chest pain, no lower extremity edema. No palpitations. No paroxysmal nocturnal dyspnea. No orthopnea. No lightheadedness or dizziness. No syncopal episodes. Abdominal: No abdominal pain. No nausea, vomiting. No diarrhea. No constipation. No loss of appetite. Genitourinary: No dysuria, increased frequency, urgency. No urinary retention. Musculoskeletal: No myalgias. No muscle weakness, no gait dysfunction, no frequent falls. No back pain. No neck pain. Integumentary: No wounds, no lesions. No rash or pruritus. No unusual bruising. No change in hair or nails. Neurologic: No aphasia. No facial droop. No change in mentation. No head injury. No headache. No paralysis. No paresthesia. Endocrine: No abnormal blood sugars. No weight change. No excessive sweating or thirst. No cold intolerance. No weight change. 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 History of Any Multi-Drug Resistant Organisms: None Reported Past Surgical History: No Surgical Hx Reported, AICD Additional Past Surgical History / Comment(s): R wrist fx with repair, R eye retinal detachment with surgery, R eye retinal hemorrhage with eye injections in the past Past Anesthesia/Blood Transfusion Reactions: No Reported Reaction Additional Past Anesthesia/Blood Transfusion Reaction / Comment(s): Pt has never recieved blood. Type of Cardiac Device: AICD Device Placement Date:: 07/04/2018 Past Psychological History: No Psychological Hx Reported Additional Psychological History / Comment(s): Pt lives with in their home. Pt is retired from [employer] and the [employer]. Pt does not drive d/t [employer]. Spouse is retired and drives his to appts. Pt states he does not own a glucometer. He states he would use one if he didn't have to pay for it. Smoking Status: Current every day smoker Past Alcohol Use History: None Reported Additional Past Alcohol Use History / Comment(s): Pt started smoking in 1967 and is a ppd smoker. Past Drug Use History: None Reported - Past Family History Father Family Medical History: Vascular Disorder Additional Family Medical History / Comment(s): Father during vascular surgery for his blood flow to his legs. Mother Family Medical History: Congestive Heart Failure (CHF), Diabetes Mellitus Medications and Allergies Home Medications Medication Instructions Recorded Confirmed Type glipiZIDE [Glucotrol] 10 mg PO BID 06/04/14 05/24/19 History Cholecalciferol [Vitamin D3 (25 5,000 unit PO DAILY 12/27/17 05/24/19 History Mcg = 1000 Iu)] Aspirin 81 mg PO DAILY #30 chew 01/03/18 05/24/19 Rx hydrALAZINE HCL [Apresoline] 50 mg PO BID #60 tab 02/06/18 05/24/19 Rx Atorvastatin [Lipitor] 20 mg PO HS 07/03/18 05/24/19 History Isosorbide Mononitrate [Isosorbide 30 mg PO DAILY 07/03/18 05/24/19 History Mononitrate ER] Albuterol Inhaler [Ventolin Hfa 1 - 2 puff INHALATION RT-QID PRN 05/24/19 05/24/19 History Inhaler] Carvedilol [Coreg] 12.5 mg PO BID 05/24/19 05/24/19 History Allergies Allergy/AdvReac Type Severity Reaction Status Date / Time No Known Allergies Allergy Verified 05/24/19 16:07 Physical Exam Vitals: Vital Signs Temp Pulse Pulse Resp BP BP Pulse Ox 05/25/19 06:00 80 05/25/19 05:32 80 05/25/19 03:10 97.9 F 75 18 157/86 97 05/24/19 23:25 97.8 F 80 18 128/69 93 L 05/24/19 19:15 97.5 F L 73 18 153/97 95 05/24/19 19:07 78 05/24/19 19:01 98.3 F 78 19 171/81 96 05/24/19 18:57 78 05/24/19 16:21 68 05/24/19 16:07 68 05/24/19 15:45 22 05/24/19 15:37 98.6 F 86 24 185/92 99 Intake and Output 05/24/19 05/25/19 05/25/19 22:59 06:59 14:59 Other: Weight 64.864 kg 65.3 kg PHYSICAL EXAMINATION: GENERAL: The patient is alert and oriented x3, not in any acute distress. Well developed, well nourished. HEENT: Pupils are round and equally reacting to light. EOMI. No scleral icterus. No conjunctival pallor. Normocephalic, atraumatic. No pharyngeal erythema. No thyromegaly. CARDIOVASCULAR: S1 and S2 present. No murmurs, rubs, or gallops. PULMONARY: Chest is clear to auscultation, no wheezing or crackles. ABDOMEN: Soft, nontender, nondistended, normoactive bowel sounds. No palpable organomegaly. MUSCULOSKELETAL: No joint swelling or deformity. EXTREMITIES: No cyanosis, clubbing, or pedal edema. NEUROLOGICAL: Gross neurological examination did not reveal any focal deficits. SKIN: No rashes. Results CBC & Chem 7: 05/25/19 03:29 05/25/19 03:29 Labs: Abnormal Lab Results - Last 24 Hours (Table) 05/24/19 05/24/19 05/24/19 Range/Units 16:06 16:06 16:06 RBC 3.66 L (4.30-5.90) m/uL Hgb 11.1 L (13.0-17.5) gm/dL Hct 33.0 L (39.0-53.0) % Neutrophils # 8.2 H (1.3-7.7) k/uL Chloride 108 H (98-107) mmol/L Creatinine 1.70 H (0.66-1.25) mg/dL Glucose 147 H (74-99) mg/dL AST 15 L (17-59) U/L ALT 14 L (21-72) U/L Troponin I 0.064 H* (0.000-0.034) ng/mL Total Protein 6.1 L (6.3-8.2) g/dL 05/24/19 05/25/19 Range/Units 22:01 03:29 RBC (4.30-5.90) m/uL Hgb (13.0-17.5) gm/dL Hct (39.0-53.0) % Neutrophils # (1.3-7.7) k/uL Chloride (98-107) mmol/L Creatinine (0.66-1.25) mg/dL Glucose (74-99) mg/dL AST (17-59) U/L ALT (21-72) U/L Troponin I 0.055 H* 0.054 H* (0.000-0.034) ng/mL Total Protein (6.3-8.2) g/dL Thrombosis Risk Factor Assmnt - Choose All That Apply Any of the Below Risk Factors Present?: Yes Each Factor Represents 1 point: Swollen legs (current) Other Risk Factors: Yes Each Risk Factor Represents 2 Points: Age 61-74 years Other congenital or acquired thrombophilia - If yes, enter type in comment: No Thrombosis Risk Factor Assessment Total Risk Factor Score: 3 Thrombosis Risk Factor Assessment Level: Moderate Risk Assessment and Plan Assessment: 1. Pneumonia/pleural effusion - We will continue with IV antibiotic therapy in form of ceftriaxone and azithromycin - DuoNeb nebulizer treatments 4 times a day and when necessary 2. Acute exacerbation CHF - Patient is started on Lasix 40 mg IV every 12 hours - We will recommend low-salt and restricted fluid diet; monitor FRANDY's strictly along with monitoring daily weights - We will order echocardiogram and consult cardiology for further recommendations 3. Elevated troponin possible ST elevation [facility] - Cardiology is consulted and recommendations are appreciated; patient will continue on Imdur 30 mg daily along with Coreg 25 mg twice a day and aspirin 81 mg daily - Cardiology to give further recommendations once workup was completed 4. Acute renal injury/dehydration - We will monitor strict FRANDY's, renal function and electrolytes; avoid nephrotoxins and hypotension; we will consult nephrology if renal function continues to deteriorate 5. Hypertension; Coreg 25 mg twice a day, hydralazine 50 mg 3 times a day and Imdur 30 mg daily 6. Hyperlipidemia; Lipitor 20 mg by mouth daily at bedtime 7. Diabetes mellitus type 2; we will order Accu-Cheks every before meals and at bedtime with insulin sliding scale 8. DVT prophylaxis; subcu Lovenox CODE STATUS; full code Time with Patient: Greater than 30
[2019-05-25] MEDS: ATORVASTATIN 20 MG TAB PO SCH (19:46)
[2019-05-26] MEDS: SODIUM CHLORIDE 0.9% 1,000 ML IV SCH ×2 (01:40→15:39)
[2019-05-26] MEDS: IPRATROPIUM-ALBUTEROL 3 ML NEB INHALATION PRN ×4 (03:07→16:16)
[2019-05-26 03:12] VITALS: TEMP 98
[2019-05-26] MEDS: FUROSEMIDE 10 MG/ML 4 ML VIAL IV SCH ×2 (04:59→16:53)
[2019-05-26 07:02] LABS: Basophils # (A) 0.1 k/uL (0-0.2); Basophils % (A) 1 %; Eosinophils # (A) 0.2 k/uL (0-0.7); Eosinophils % (A) 3 %; HCT 34.1 % (39.0-53.0); HGB 11.5 gm/dL (13.0-17.5); Lymphocytes # (A) 1.3 k/uL (1.0-4.8); Lymphocytes % (A) 15 %; MCH 30.2 pg (25.0-35.0); MCHC 33.8 g/dL (31.0-37.0); MCV 89.4 fL (80.0-100.0); Mean Platelet Volume 8.1; Monocytes # (A) 0.5 k/uL (0-1.0); Monocytes % (A) 5 %; Neutrophils # (A) 6.8 k/uL (1.3-7.7); Neutrophils % (A) 76 %; Platelet Count 274 k/uL (150-450); RBC 3.81 m/uL (4.30-5.90); RDW 15.1 % (11.5-15.5)
[2019-05-26 07:34] LABS: Calcium 9.3 mg/dL (8.4-10.2); Potassium 3.2 mmol/L (3.5-5.1)
[2019-05-26] MEDS: hydrALAZINE HCL 50 MG TAB PO SCH ×2 (08:07→16:53)
[2019-05-26] MEDS: ENOXAPARIN 40 MG/0.4 ML SYRINGE SQ SCH (08:07)
[2019-05-26] MEDS: ISOSORBIDE MONONITRATE ER 30 MG TAB.ER.24H PO SCH (08:07)
[2019-05-26] MEDS: ASPIRIN 81 MG PO SCH (08:08)
[2019-05-26] MEDS: CARVEDILOL 12.5 MG TAB PO SCH (08:08)
[2019-05-26] MEDS: AZITHROMYCIN 500 MG TAB PO SCH (08:08)
[2019-05-26 08:17] VITALS: RESP 16
--- NOTE | 2019-05-26 11:59 | P.PN ---
Subjective Progress Note Date: 05/26/19 68-year-old male with past medical history of chronic systolic heart failure with cardiomyopathy and known ejection fraction 30% status post dual- chamber ICD, diabetes mellitus type 2, hypertension, chronic kidney disease, coronary artery disease, previous myocardial infarction, CVA in 2017. His last heart catheterization was in February 2018 finding calcified left main, chronically occluded proximal right coronary artery with good collaterals from the left coronary artery system. Mild disease in the left circumflex. Elevated left ventricular end-diastolic pressure and recommendations at that time for medical management. Patient was seen and Dr. Blair last week for checkup and did not h ave any complaints at that time. He subsequently has had shortness of breath for the past 3 days. He denies any fever or chills, no cough or sputum production. Initial chest x-ray revealed right pleural effusion and right basilar mild infiltrate and atelectasis. No heart failure seen. Repeat chest x-ray this morning reveals COPD. Mild bibasilar airspace disease with concomitant effusions. Patient was started on IV antibiotics and IV Lasix 40 mg every 12 hours. Workup in ED with EKG shows a normal sinus rhythm; chest x-ray shows bibasilar airspace disease; blood work shows white blood count of 9.5 hemoglobin 11.1. Count of 262; sodium 142, potassium 2.9 with BUN of 18 and creatinine of 1.75; BNP of 12,300; troponin was elevated at 0.64 05/26/2019 dose Lasix IV push, diuresing well with 24-hour I&O reflecting a decreased weight of nearly 1 kg. creatinine mildly worse, 2.09. No edema, significant clinical improvement in breathing. Denies cough. Continues on Rocephin, Zithromax, nebulized bronchodilators. Maintaining O2 sats in the mid 90s on room air. Hypertensive, repeat blood pressure pending. Echo pending. Patient reports he drinks 1 regular size can of V8 juice with additional added salt every day. Eager for discharge. 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 No conjunctival pallor. Normocephalic, atraumatic. No pharyngeal erythema. No thyromegaly. CARDIOVASCULAR: S1 and S2 present. No murmurs, rubs, or gallops. PULMONARY: Chest is clear to auscultation, no wheezing or crackles. ABDOMEN: Soft, nontender, nondistended, normoactive bowel sounds. No palpable organomegaly. MUSCULOSKELETAL: No joint swelling or deformity. EXTREMITIES: No cyanosis, clubbing, or pedal edema. No calf tenderness. NEUROLOGICAL: Gross neurological examination did not reveal any focal deficits. SKIN: No rashes. - Labs CBC & Chem 7: 05/26/19 06:38 05/26/19 06:38 Labs: Abnormal Lab Results - Last 24 Hours (Table) 05/26/19 05/26/19 Range/Units 06:38 06:38 RBC 3.81 L (4.30-5.90) m/uL Hgb 11.5 L (13.0-17.5) gm/dL Hct 34.1 L (39.0-53.0) % Potassium 3.2 L (3.5-5.1) mmol/L BUN 22 H (9-20) mg/dL Creatinine 2.09 H (0.66-1.25) mg/dL Glucose 126 H (74-99) mg/dL Microbiology - Last 24 Hours (Table) 05/24/19 17:00 Blood Culture - Preliminary Blood No Growth after 24 hours Assessment and Plan Assessment: 1. Acute COPD exacerbation, Possible Pneumonia/pleural effusion 2. Acute exacerbation CHF 3. Elevated troponin possible ST elevation [facility] - Cardiology is consulted and recommendations are appreciated; patient will continue on Imdur 30 mg daily along with Coreg 25 mg twice a day and aspirin 81 mg daily 4. Acute renal injury/dehydration 5. Hypertension 6. Hyperlipidemia 7. Diabetes mellitus type 2 Plan: Continue on current medication regime hydralazine, Imdur, Coreg ,monitoring and symptomatic treatment. Diuretics as per cardiology. Echo pending. Avoid nephrotoxins. Close Monitoring of renal function with repeat labs ordered for a.m. Maintain nebulized bronchodilators, Rocephin, azithromycin. Low-salt diet reinforced, as mentioned above patient has high salt intake daily consisting of V8 with additional salt. As mentioned above patient is eager for discharge. Potential discharge home today pending cardiology DC recommendations, clearance. The impression and plan of care has been dictated as directed. : I performed a history and examination of this patient, discussed the same with the dictator. I agree with the dictator's note ,documented as a scribe. Any additional findings or plans will be noted.
--- NOTE | 2019-05-26 16:00 | ECHOF ---
Referral Reason:Heart Failure MEASUREMENTS -------- HEIGHT: 165.1 cm WEIGHT: 64.4 kg BP: 148/69 RVIDd: 2.7 cm (< 3.3) IVSd: 1.5 cm (0.6 - 1.1) LVIDd: 5.1 cm (3.9 - 5.3) LVPWd: 1.3 cm (0.6 - 1.1) IVSs: 1.7 cm LVIDs: 4.3 cm LVPWs: 1.7 cm LAESV Index (A-L): 27.00 ml/m Ao Diam: 3.3 cm (2.0 - 3.7) AV Cusp: 1.8 cm (1.5 - 2.6) LA Diam: 4.3 cm (2.7 - 3.8) EPSS: 1.8 cm MV E Ata: 0.70 m/s MV DecT: 194 ms MV A Ata: 1.17 m/s MV E/A Ratio: 0.60 RAP: 5.00 mmHg RVSP: 19.09 mmHg MV EF SLOPE: 74.06 mm/s (70 - 150) MV EXCURSION: 1.96 cm (> 18.000) FINDINGS -------- Sinus rhythm. This was a technically adequate study. The left ventricular size is normal. There is moderate concentric left ventricular hypertrophy. O verall left ventricular systolic function is severely impaired with, an EF between 25 - 30 %. The right ventricle is normal in size. Left atrium is normal size by volume. The right atrial size is normal. Interatrial and interventricular septum intact. There is mild to moderate aortic valve sclerosis. Trace to mild aortic regurgitation. Mild mitral annular calcification present. [id number] mitral regurgitation is present. Mild tricuspid regurgitation present. There is no evidence of pulmonary hypertension. The right v entricular systolic pressure, as measured by Doppler, is 19.09mmHg. Trace/mild (physiologic) pulmonic regurgitation. The aortic root size is normal. The inferior vena cava was not well visualized. There is no pericardial effusion. CONCLUSIONS -------- 1. Sinus rhythm. 2. This was a technically adequate study. 3. The left ventricular size is normal. 4. There is moderate concentric left ventricular hypertrophy. 5. Overall left ventricular systolic function is severely impaired with, an EF between 25 - 30 %. 6. Left atrium is normal size by volume. 7. There is mild to moderate aortic valve sclerosis. 8. Trace to mild aortic regurgitation. 9. Mild mitral annular calcification present. 10. Qilq-da-[id number] mitral regurgitation is present. 11. Mild tricuspid regurgitation present. 12. There is no evidence of pulmonary hypertension. 13. Trace/mild (physiologic) pulmonic regurgitation. 14. The aortic root size is normal. 15. The inferior vena cava was not well visualized. 16. There is no pericardial effusion. WAITER/WAITRESS FIRST CLASS: Radha Gregory RDCS
[2019-05-26 16:50] VITALS: BP 194/96; PULSE 70
[2019-05-26] MEDS ORDERED: Potassium Replacement Protocol 1 EACH MISC MISCELLANE PRN (17:24)
[2019-05-26] MEDS: POTASSIUM CHLORIDE ER 20 MEQ TAB.ER PO SCH ×2 (17:58→19:06)
--- NOTE | 2019-05-26 18:11 | P.PN ---
Subjective Progress Note Date: 05/26/19 This is 68-year-old man with history of cardiomyopathy, AICD placement and chronic CHF was admitted with complaints of increasing shortness of breath and evidence of pleural effusion. Patient received IV Lasix with good diuresis. In systolic going home. Doesn't have any orthopnea. His echo Cardigan showed ejection fraction of 25-30%. There is mild to moderate mitral regurgitation and mild tricuspid regurgitation. His lungs show some diminished breath sounds at bases. From Cardec standpoint patient could be discharged home. Follow-up as an outpatient Objective - Vital Signs Vital signs: Vital Signs Temp 98 F 05/26/19 03:10 Pulse 70 05/26/19 16:48 Resp 16 05/26/19 16:48 BP 194/96 05/26/19 16:48 Pulse Ox 96 05/26/19 16:48 Intake & Output 05/25/19 05/26/19 05/26/19 18:59 06:59 18:59 Intake Total 1080 680 Output Total 1 2 2 Balance 1079 -2 678 Weight 65.3 kg 64.5 kg Intake: Oral 1080 680 Output: Stool 1 2 2 Other: Voiding Method Toilet Toilet # Voids 1 1 - Exam GENERAL EXAM: Patient is alert and oriented and doesn't appear to be in any acute distress HEENT: Normocephalic. Normal reaction of pupils, equal size, normal range of extraocular motion. No erythema or exudates in the throat. NECK: No masses, no nuchal rigidity. CHEST: No chest wall deformity. LUNGS: Diminished breath sounds at bases HEART: S1 and S2 normal with no audible mumurs or gallops. Regular rhythm, femorals equal on both sides.. ABDOMEN: No hepatosplenomegaly, normal bowel sounds, no guarding or rigidity. SKIN: No rashes CENTRAL NERVOUS SYSTEM: No focal deficits. EXTREMITIES: No cyanosis, clubbing or edema. - Labs CBC & Chem 7: 05/26/19 06:38 05/26/19 06:38 Labs: Abnormal Lab Results - Last 24 Hours (Table) 05/26/19 05/26/19 Range/Units 06:38 06:38 RBC 3.81 L (4.30-5.90) m/uL Hgb 11.5 L (13.0-17.5) gm/dL Hct 34.1 L (39.0-53.0) % Potassium 3.2 L (3.5-5.1) mmol/L BUN 22 H (9-20) mg/dL Creatinine 2.09 H (0.66-1.25) mg/dL Glucose 126 H (74-99) mg/dL Microbiology - Last 24 Hours (Table) 05/24/19 17:00 Blood Culture - Preliminary Blood No Growth after 24 hours Assessment and Plan (1) Cardiomyopathy Current Visit: Yes Status: Acute Code(s): I42.9 - CARDIOMYOPATHY, UNSPECIFIED SNOMED Code(s): 62774668 (2) Hypertension Current Visit: No Status: Acute Code(s): I10 - ESSENTIAL (PRIMARY) HYPERTENSION SNOMED Code(s): 08501508 (3) Acute on chronic systolic CHF (congestive heart failure) Current Visit: Yes Status: Acute Code(s): I50.23 - ACUTE ON CHRONIC SYSTOLIC (CONGESTIVE) HEART FAILURE SNOMED Code(s): 750496887 Plan: Patient seemed to be stable and wants to go home. Could be discharged home. His LV function is stable. Follow-up as an outpatient
== END 2019-05-26 19:17 | disposition home or self-care (01) ==
LOC: EC 15:35 → INTOOBSV 16:54 → 3SCARD 16:54
PROVIDERS: ADMIT Family Medicine; ATTEND Family Medicine
DX: I13.0 Hypertensive heart and chronic kidney disease with heart failure and stage 1 through stage 4 chronic kidney disease, or unspecified chronic kidney disease (principal); I50.23 Acute on chronic systolic (congestive) heart failure; E11.22 Type 2 diabetes mellitus with diabetic chronic kidney disease; N18.3 Chronic kidney disease, stage 3 (moderate); I42.9 Cardiomyopathy, unspecified; Z95.810 Presence of automatic (implantable) cardiac defibrillator; I25.10 Atherosclerotic heart disease of native coronary artery without angina pectoris; I25.2 Old myocardial infarction; N17.9 Acute kidney failure, unspecified; E86.0 Dehydration; J44.1 Chronic obstructive pulmonary disease with (acute) exacerbation; J44.0 Chronic obstructive pulmonary disease with (acute) lower respiratory infection; J18.9 Pneumonia, unspecified organism; R09.02 Hypoxemia; I08.1 Rheumatic disorders of both mitral and tricuspid valves; Z86.73 Personal history of transient ischemic attack (TIA), and cerebral infarction without residual deficits; I25.82 Chronic total occlusion of coronary artery; R79.89 Other specified abnormal findings of blood chemistry; E78.5 Hyperlipidemia, unspecified; M19.90 Unspecified osteoarthritis, unspecified site; F17.210 Nicotine dependence, cigarettes, uncomplicated; Z79.84 Long term (current) use of oral hypoglycemic drugs; Z79.82 Long term (current) use of aspirin; Z79.899 Other long term (current) drug therapy; Z83.3 Family history of diabetes mellitus; Z82.49 Family history of ischemic heart disease and other diseases of the circulatory system
CPT/HCPCS: 96376 ×2; 96366 ×2; 96372 ×2; 96361; 96365; 96367; 96375; 99285; 36415; 94640 ×5; 93005; 93306; 83880; 80053; 80048 ×2; 83735; 84484 ×2; 85025 ×3; 85610; 85730; 87040; 71046 ×2; G0378 ×4; J1940 ×3; J0456; J1650 ×2; J0696 ×3

== ENCOUNTER → 2019-09-09 | Outpatient (CLI) | payer MEDICARE, BC ==
[2019-09-10 00:45] LABS: African American GFR (CKD) 34.6 (60.0-200.0); BUN/Creat Ratio 14.09 Ratio (12.00-20.00); Calcium 9.5 mg/dL (8.7-10.3); Non-African American GFR(CKD) 29.9 (60.0-200.0)
== END | disposition home or self-care (01) ==
LOC: LABWHC1 16:08
PROVIDERS: ATTEND Nurse Practitioner Adult Health
DX: I48.0 Paroxysmal atrial fibrillation (principal)
CPT/HCPCS: 36415; 80048

== ENCOUNTER 2019-09-26 10:19 | Inpatient (IN) | payer MEDICARE, BC ==
[2019-09-26] MEDS ORDERED: IPRATROPIUM-ALBUTEROL 3 ML NEB INHALATION STA (10:59)
--- NOTE | 2019-09-26 11:02 | ED ---
General Adult HPI - General Chief complaint: Shortness of Breath Stated complaint: difficulty breathing Time Seen by Provider: 09/26/19 10:37 Source: patient, RN notes reviewed Mode of arrival: ambulatory Limitations: no limitations - History of Present Illness Initial comments: Patient is a pleasant 69-year-old male presenting to the emergency department with difficulty in breathing. Onset of symptoms was last night. Symptoms somewhat progressed however seem a little bit better at this time. Symptoms are worse with lying down. No leg pain or leg swelling. No history of similar symptoms previously. No history of lung disease however patient is a long-time smoker. No chest discomfort. No fevers. - Related Data Home Medications Medication Instructions Recorded Confirmed glipiZIDE [Glucotrol] 10 mg PO BID 06/04/14 09/26/19 Cholecalciferol [Vitamin D3 (25 5,000 unit PO DAILY 12/27/17 09/26/19 Mcg = 1000 Iu)] Isosorbide Mononitrate [Isosorbide 30 mg PO DAILY 07/03/18 09/26/19 Mononitrate ER] Albuterol Inhaler [Ventolin Hfa 1 - 2 puff INHALATION RT-QID PRN 05/24/19 09/26/19 Inhaler] Apixaban [Eliquis] 2.5 mg PO BID 09/26/19 09/26/19 Atorvastatin [Lipitor] 20 mg PO DAILY 09/26/19 09/26/19 Furosemide [Lasix] 40 mg PO BID 09/26/19 09/26/19 Previous Rx's Medication Instructions Recorded Aspirin 81 mg PO DAILY #30 chew 01/03/18 Carvedilol [Coreg] 25 mg PO BID-W/MEALS #60 tablet 05/26/19 hydrALAZINE HCL [Apresoline] 50 mg PO TID #90 tab 05/26/19 Allergies Allergy/AdvReac Type Severity Reaction Status Date / Time No Known Allergies Allergy Verified 09/26/19 11:32 Review of Systems ROS Statement: Those systems with pertinent positive or pertinent negative responses have been documented in the HPI. ROS Other: All systems not noted in ROS Statement are negative. Constitutional: Denies: fever Eyes: Denies: eye pain ENT: Denies: ear pain Respiratory: Reports: dyspnea. 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 History of Any Multi-Drug Resistant Organisms: None Reported Past Surgical History: No Surgical Hx Reported, AICD Additional Past Surgical History / Comment(s): R wrist fx with repair, R eye retinal detachment with surgery, R eye retinal hemorrhage with eye injections in the past Past Anesthesia/Blood Transfusion Reactions: No Reported Reaction Additional Past Anesthesia/Blood Transfusion Reaction / Comment(s): Pt has never recieved blood. Type of Cardiac Device: AICD Device Placement Date:: 07/04/2018 Past Psychological History: No Psychological Hx Reported Smoking Status: Current every day smoker Past Alcohol Use History: None Reported Past Drug Use History: None Reported - Past Family History Father Family Medical History: Vascular Disorder Additional Family Medical History / Comment(s): Father during vascular surgery for his blood flow to his legs. Mother Family Medical History: Congestive Heart Failure (CHF), Diabetes Mellitus General Exam Limitations: no limitations General appearance: alert, in no apparent distress Head exam: Present: normocephalic Eye exam: Present: other (Right eye closed from previous stroke) ENT exam: Present: normal oropharynx Neck exam: Present: normal inspection Respiratory exam: Present: rhonchi Cardiovascular Exam: Present: regular rate, normal rhythm GI/Abdominal exam: Present: soft. Absent: tenderness Extremities exam: Present: normal inspection. Absent: pedal edema, calf tenderness Neurological exam: Present: alert Psychiatric exam: Present: normal affect, normal mood Skin exam: Present: normal color Course Vital Signs 09/26/19 09/26/19 09/26/19 10:26 11:17 11:26 Temperature 98 F Pulse Rate 82 71 73 Respiratory 18 Rate Blood Pressure 186/79 O2 Sat by Pulse 93 L Oximetry 09/26/19 11:34 Temperature Pulse Rate 72 Respiratory 18 Rate Blood Pressure 172/78 O2 Sat by Pulse 96 Oximetry EKG Findings - EKG Comments: EKG Findings:: Normal sinus rhythm 79. SD 156. QRS 108. QT 402. QTC 460. Normal axis. Normal QRS. Lateral T wave inversion and borderline ST depression. Medical Decision Making - Medical Decision Making Age reevaluated and resting comfortably in bed. Patient updated on results and plan. Patient symptom-free at this time. Case was discussed in detail with Dr. Longoria, who will admit covering for Dr. Padron. - Lab Data Result diagrams: 09/26/19 10:45 09/26/19 10:45 Lab Results 09/26/19 09/26/19 09/26/19 Range/Units 10:45 10:45 10:45 WBC 13.9 H (3.8-10.6) k/uL RBC 3.97 L (4.30-5.90) m/uL Hgb 11.9 L (13.0-17.5) gm/dL Hct 35.8 L (39.0-53.0) % MCV 90.3 (80.0-100.0) fL MCH 30.0 (25.0-35.0) pg MCHC 33.3 (31.0-37.0) g/dL RDW 13.3 (11.5-15.5) % Plt Count 179 (150-450) k/uL Neutrophils % 87 % Lymphocytes % 6 % Monocytes % 5 % Eosinophils % 1 % Basophils % 1 % Neutrophils # 12.1 H (1.3-7.7) k/uL Lymphocytes # 0.9 L (1.0-4.8) k/uL Monocytes # 0.6 (0-1.0) k/uL Eosinophils # 0.1 (0-0.7) k/uL Basophils # 0.1 (0-0.2) k/uL PT (9.0-12.0) sec INR (<1.2) APTT (22.0-30.0) sec D-Dimer (<0.60) mg/L FEU Sodium 142 (137-145) mmol/L Potassium 4.3 (3.5-5.1) mmol/L Chloride 107 (98-107) mmol/L Carbon Dioxide 25 (22-30) mmol/L Anion Gap 10 mmol/L BUN 26 H (9-20) mg/dL Creatinine 1.94 H (0.66-1.25) mg/dL Est GFR (CKD-EPI)AfAm 40 (>60 ml/min/1.73 sqM) Est GFR (CKD-EPI)NonAf 35 (>60 ml/min/1.73 sqM) Glucose 178 H (74-99) mg/dL Plasma Lactic Acid Preston 1.1 (0.7-2.0) mmol/L Calcium 9.5 (8.4-10.2) mg/dL Total Bilirubin 1.2 (0.2-1.3) mg/dL AST 19 (17-59) U/L ALT 15 (4-49) U/L Alkaline Phosphatase 97 (38-126) U/L Troponin I (0.000-0.034) ng/mL NT-Pro-B Natriuret Pep pg/mL Total Protein 6.8 (6.3-8.2) g/dL Albumin 4.2 (3.5-5.0) g/dL 09/26/19 09/26/19 09/26/19 Range/Units 10:45 10:45 10:45 WBC (3.8-10.6) k/uL RBC (4.30-5.90) m/uL Hgb (13.0-17.5) gm/dL Hct (39.0-53.0) % MCV (80.0-100.0) fL MCH (25.0-35.0) pg MCHC (31.0-37.0) g/dL RDW (11.5-15.5) % Plt Count (150-450) k/uL Neutrophils % % Lymphocytes % % Monocytes % % Eosinophils % % Basophils % % Neutrophils # (1.3-7.7) k/uL Lymphocytes # (1.0-4.8) k/uL Monocytes # (0-1.0) k/uL Eosinophils # (0-0.7) k/uL Basophils # (0-0.2) k/uL PT 10.7 (9.0-12.0) sec INR 1.0 (<1.2) APTT 24.4 (22.0-30.0) sec D-Dimer 0.45 (<0.60) mg/L FEU Sodium (137-145) mmol/L Potassium (3.5-5.1) mmol/L Chloride (98-107) mmol/L Carbon Dioxide (22-30) mmol/L Anion Gap mmol/L BUN (9-20) mg/dL Creatinine (0.66-1.25) mg/dL Est GFR (CKD-EPI)AfAm (>60 ml/min/1.73 sqM) Est GFR (CKD-EPI)NonAf (>60 ml/min/1.73 sqM) Glucose (74-99) mg/dL Plasma Lactic Acid Preston (0.7-2.0) mmol/L Calcium (8.4-10.2) mg/dL Total Bilirubin (0.2-1.3) mg/dL AST (17-59) U/L ALT (4-49) U/L Alkaline Phosphatase (38-126) U/L Troponin I 0.096 H* (0.000-0.034) ng/mL NT-Pro-B Natriuret Pep 29053 pg/mL Total Protein (6.3-8.2) g/dL Albumin (3.5-5.0) g/dL - Radiology Data Radiology results: image reviewed (Chest x-ray shows small posterior effusion.) Disposition Clinical Impression: NSTEMI (non-ST elevated myocardial infarction), Congestive heart failure Disposition: ADMITTED IP TO THIS HOSP Is patient prescribed a controlled substance at d/c from ED?: No Referrals: Chandan Padron DO [Primary Care Provider] - 1-2 days Decision Time: 12:39
[2019-09-26 11:18] LABS: Basophils # (A) 0.1 k/uL (0-0.2); Basophils % (A) 1 %; Eosinophils # (A) 0.1 k/uL (0-0.7); Eosinophils % (A) 1 %; HCT 35.8 % (39.0-53.0); HGB 11.9 gm/dL (13.0-17.5); Lymphocytes # (A) 0.9 k/uL (1.0-4.8); Lymphocytes % (A) 6 %; MCHC 33.3 g/dL (31.0-37.0); MCV 90.3 fL (80.0-100.0); Mean Platelet Volume 8.9; Monocytes # (A) 0.6 k/uL (0-1.0); Monocytes % (A) 5 %; Neutrophils # (A) 12.1 k/uL (1.3-7.7); Neutrophils % (A) 87 %; Platelet Count 179 k/uL (150-450); RBC 3.97 m/uL (4.30-5.90); RDW 13.3 % (11.5-15.5); WBC 13.9 k/uL (3.8-10.6)
[2019-09-26 11:28] LABS: Albumin 4.2 g/dL (3.5-5.0); Calcium 9.5 mg/dL (8.4-10.2); Potassium 4.3 mmol/L (3.5-5.1); Total Bilirubin 1.2 mg/dL (0.2-1.3); Total Protein 6.8 g/dL (6.3-8.2)
--- NOTE | 2019-09-26 11:46 | XR ---
EXAMINATION TYPE: XR chest 2V DATE OF EXAM: 09/26/2019 COMPARISON: 05/25/2019 INDICATION: Difficulty breathing TECHNIQUE: Frontal and lateral views of the chest are obtained. FINDINGS: The heart size is normal. Pacemaker overlies left chest. The pulmonary vasculature is normal. The lungs are clear. Small posterior pleural effusion is present IMPRESSION: 1. Small posterior pleural effusion
[2019-09-26 12:18] LABS: D-Dimer 0.45 mg/L FEU (<0.60); Partial Thromboplastin Time 24.4 sec (22.0-30.0); Prothrombin Time 10.7 sec (9.0-12.0)
[2019-09-26] MEDS ORDERED: NITROGLYCERIN SL TABS 0.4 MG TAB SUBLINGUAL PRN (12:39)
[2019-09-26] MEDS ORDERED: HEPARIN SODIUM,PORCINE 5,000 UNIT/ML 1 ML VIAL IV ONE (12:39)
[2019-09-26] MEDS: NITROGLYCERIN OINT 1 INCH/GM PACKET TOPICAL SCH ×2 (14:07→18:37)
[2019-09-26] MEDS: ASPIRIN 81 MG PO STA ×3 (14:09→14:11)
[2019-09-26] MEDS: FUROSEMIDE 10 MG/ML 4 ML VIAL IV SCH (14:12)
[2019-09-26] MEDS: HEPARIN SOD,PORK IN 0.45% NACL 25,000 UNIT in 0.45% NACL 1 250ML.BAG IV SCH (14:17)
[2019-09-26 18:12] LABS: Glucose,Whole Blood 144 mg/dL (75-99)
[2019-09-26 21:53] LABS: Glucose,Whole Blood 133 mg/dL (75-99)
[2019-09-26] MEDS: INSULIN ASPART (NovoLOG) 100 UNIT/ML VIAL SQ SCH (21:55)
[2019-09-26] MEDS: hydrALAZINE HCL 50 MG TAB PO SCH (22:12)
--- NOTE | 2019-09-26 23:17 | P.HPIM ---
History of Present Illness H&P Date: 09/26/19 Chief Complaint: Shortness of breath Patient is a 69-year-old male with a known history of atrial fibrillation on anticoagulation with Eliquis, diabetes type 2, hypertension, hyperlipidemia, history of CVA with balance issues, TIA, chronic kidney disease stage III, degenerative joint disease and history of AICD placement came to ER with complaints of worsening symptoms since last night. Patient says that his symptoms gets worse with lying down flat. Denied any complaints of chest pain. No nausea vomiting or abdominal pain or diarrhea. Denied any leg swelling. No cough or sputum production. No headache or dizziness or lightheadedness. Patient is currently everyday smoker BNP 02899 Troponin 0.096 and 0.124 Creatinine 1.93, WBC 13.9 chest x-ray showed small pleural effusions EKG showed normal sinus rhythm and prolonged QT BP 186/79 on admission Review of Systems Constitutional: Patient denies any fever or chills . No generalized weakness or weight loss. Abdomen: Patient denied nausea vomiting and diarrhea and abdominal pain. Cardiovascular: Patient denies any chest pain or short of breath no palpitations . Shortness of breath when lying flat Respiratory: patient denied any cough is from production. No shortness of breath Neurologic: Patient denied any numbness or tingling headache. Musculoskeletal: Patient denies any complaints of joint swelling or deformity. Skin: Negative Psychiatric: Negative Endocrine: No heat or cold intolerance. No recent weight gain. Genitourinary: No dysuria or hematuria. 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 History of Any Multi-Drug Resistant Organisms: None Reported Past Surgical History: No Surgical Hx Reported, AICD Additional Past Surgical History / Comment(s): R wrist fx with repair, R eye retinal detachment with surgery, R eye retinal hemorrhage with eye injections in the past Past Anesthesia/Blood Transfusion Reactions: No Reported Reaction Additional Past Anesthesia/Blood Transfusion Reaction / Comment(s): Pt has never recieved blood. Type of Cardiac Device: AICD Device Placement Date:: 07/04/2018 Past Psychological History: No Psychological Hx Reported Additional Psychological History / Comment(s): Pt lives with in their home. Pt is retired from [employer] and the [employer]. Pt does not drive d/t eyesight. Spouse is retired and drives his to appts. Pt states he does not own a glucometer. He states he would use one if he didn't have to pay for it. Smoking Status: Current every day smoker Past Alcohol Use History: None Reported Additional Past Alcohol Use History / Comment(s): Pt started smoking in 1967 and is a ppd smoker. Past Drug Use History: None Reported - Past Family History Father Family Medical History: Vascular Disorder Additional Family Medical History / Comment(s): Father during vascular surgery for his blood flow to his legs. Mother Family Medical History: Congestive Heart Failure (CHF), Diabetes Mellitus Medications and Allergies Home Medications Medication Instructions Recorded Confirmed Type glipiZIDE [Glucotrol] 10 mg PO BID 06/04/14 09/26/19 History Cholecalciferol [Vitamin D3 (25 5,000 unit PO DAILY 12/27/17 09/26/19 History Mcg = 1000 Iu)] Aspirin 81 mg PO DAILY #30 chew 01/03/18 09/26/19 Rx Isosorbide Mononitrate [Isosorbide 30 mg PO DAILY 07/03/18 09/26/19 History Mononitrate ER] Albuterol Inhaler [Ventolin Hfa 1 - 2 puff INHALATION RT-QID PRN 05/24/19 09/26/19 History Inhaler] Carvedilol [Coreg] 25 mg PO BID-W/MEALS #60 tablet 05/26/19 09/26/19 Rx hydrALAZINE HCL [Apresoline] 50 mg PO TID #90 tab 05/26/19 09/26/19 Rx Apixaban [Eliquis] 2.5 mg PO BID 09/26/19 09/26/19 History Atorvastatin [Lipitor] 20 mg PO DAILY 09/26/19 09/26/19 History Furosemide [Lasix] 40 mg PO BID 09/26/19 09/26/19 History Allergies Allergy/AdvReac Type Severity Reaction Status Date / Time No Known Allergies Allergy Verified 09/26/19 11:32 Physical Exam Vitals: Vital Signs Temp Pulse Pulse Resp BP BP Pulse Ox 09/26/19 17:55 98.7 F 70 18 165/88 99 09/26/19 16:58 78 18 168/80 98 09/26/19 13:48 98.4 F 73 18 163/94 95 09/26/19 11:34 72 18 172/78 96 09/26/19 11:26 73 09/26/19 11:17 71 09/26/19 10:26 98 F 82 18 186/79 93 L Intake and Output 09/26/19 09/26/19 09/26/19 06:59 14:59 22:59 Output Total 150 Balance -150 Output: Urine 150 Other: Weight 63.503 kg PHYSICAL EXAMINATION: Patient is lying in the bed comfortably, no acute distress, awake alert and oriented.. HEENT: Normocephalic. Neck is supple. Pupils reactive. Left eye vision loss. Nostrils clear. Oral cavity is moist. Ears reveal no drainage. Neck reveals no JVD, carotid bruits, or thyromegaly. CHEST EXAMINATION: Trachea is central. Symmetrical expansion. Bibasilar rhonchi and crackles. Lung barry clear to auscultation and percussion. CARDIAC: Normal S1, S2 with no gallops. No murmurs ABDOMEN: Soft. Bowel sounds normal. No organomegaly. No abdominal bruits. Extremities: reveal no edema. No clubbing or cyanosis Neurologically awake, alert, oriented x3 with well-coordinated movements. Patient does havespeech difficulty. Skin: No rash or skin lesions. Psychiatric: Coperative. Nonsuicidal Musculoskeletal: No joint swelling or deformity. Normal range of motion. Results CBC & Chem 7: 09/26/19 10:45 09/26/19 10:45 Labs: Abnormal Lab Results - Last 24 Hours (Table) 09/26/19 09/26/19 09/26/19 Range/Units 10:45 10:45 10:45 WBC 13.9 H (3.8-10.6) k/uL RBC 3.97 L (4.30-5.90) m/uL Hgb 11.9 L (13.0-17.5) gm/dL Hct 35.8 L (39.0-53.0) % Neutrophils # 12.1 H (1.3-7.7) k/uL Lymphocytes # 0.9 L (1.0-4.8) k/uL BUN 26 H (9-20) mg/dL Creatinine 1.94 H (0.66-1.25) mg/dL Glucose 178 H (74-99) mg/dL POC Glucose (mg/dL) (75-99) mg/dL Troponin I 0.096 H* (0.000-0.034) ng/mL 09/26/19 09/26/19 Range/Units 17:28 18:11 WBC (3.8-10.6) k/uL RBC (4.30-5.90) m/uL Hgb (13.0-17.5) gm/dL Hct (39.0-53.0) % Neutrophils # (1.3-7.7) k/uL Lymphocytes # (1.0-4.8) k/uL BUN (9-20) mg/dL Creatinine (0.66-1.25) mg/dL Glucose (74-99) mg/dL POC Glucose (mg/dL) 144 H (75-99) mg/dL Troponin I 0.124 H* (0.000-0.034) ng/mL Thrombosis Risk Factor Assmnt - DVT/VTE Prophylaxis DVT/VTE Prophylaxis: Pharmacologic Prophylaxis ordered - Choose All That Apply Any of the Below Risk Factors Present?: Yes Each Risk Factor Represents 2 Points: Age 61-74 years Thrombosis Risk Factor Assessment Total Risk Factor Score: 2 Thrombosis Risk Factor Assessment Level: Low Risk Assessment and Plan Assessment: Acute non-ST elevated SD with elevated troponin levels Acute CHF with ejection fraction unknown. Patient does have small pleural effusion and elevated BNP and orthopnea Paroxysmal atrial fibrillation on anticoagulation with Eliquis History of AICD placement Possible underlying COPD with chronic ongoing history of smoking History of CVA/TIA with the dizziness and balance issues. Osteoarthritis of multiple joints Hypertension Hyperlipidemia Acute on chronic kidney disease stage III History of retinal detachment and vision loss Plan: Patient will be continued on heparin drip. Continue with aspirin and statins. Cardiology was consulted. Continue with the breathing treatments and IV Lasix was started. Monitor renal function. Continue the home medications and further recommendations based on the clinical course. Prognosis is guarded with multiple medical problems and comorbid conditions. Time with Patient: Greater than 30
[2019-09-27] MEDS: FUROSEMIDE 10 MG/ML 4 ML VIAL IV SCH (00:29)
[2019-09-27 02:37] LABS: Basophils # (A) 0.1 k/uL (0-0.2); Basophils % (A) 1 %; Eosinophils # (A) 0.2 k/uL (0-0.7); Eosinophils % (A) 2 %; HCT 32.6 % (39.0-53.0); HGB 10.5 gm/dL (13.0-17.5); Lymphocytes # (A) 1.8 k/uL (1.0-4.8); Lymphocytes % (A) 19 %; MCHC 32.4 g/dL (31.0-37.0); MCV 89.7 fL (80.0-100.0); Mean Platelet Volume 9.1; Monocytes # (A) 0.5 k/uL (0-1.0); Monocytes % (A) 5 %; Neutrophils # (A) 6.9 k/uL (1.3-7.7); Neutrophils % (A) 73 %; Platelet Count 160 k/uL (150-450); RBC 3.63 m/uL (4.30-5.90); RDW 13.4 % (11.5-15.5); WBC 9.5 k/uL (3.8-10.6)
[2019-09-27 04:00] LABS: Calcium 8.7 mg/dL (8.4-10.2); Potassium 3.5 mmol/L (3.5-5.1)
[2019-09-27] MEDS: INSULIN ASPART (NovoLOG) 100 UNIT/ML VIAL SQ SCH ×4 (06:48→21:29)
[2019-09-27] MEDS: CARVEDILOL 12.5 MG TAB PO SCH ×2 (07:01→17:14)
[2019-09-27 07:30] LABS: Glucose,Whole Blood 180 mg/dL (75-99)
[2019-09-27] MEDS ORDERED: HEPARIN SODIUM,PORCINE 5,000 UNIT/ML 1 ML VIAL IV PRN (08:36)
[2019-09-27] MEDS: IPRATROPIUM-ALBUTEROL 3 ML NEB INHALATION PRN ×2 (08:37→20:10)
[2019-09-27] MEDS: hydrALAZINE HCL 50 MG TAB PO SCH ×3 (08:44→21:29)
[2019-09-27] MEDS: CHOLECALCIFEROL 1,000 UNIT TAB PO SCH (08:44)
[2019-09-27] MEDS: ISOSORBIDE MONONITRATE ER 30 MG TAB.ER.24H PO SCH (08:44)
[2019-09-27] MEDS: ATORVASTATIN 20 MG TAB PO SCH (08:44)
[2019-09-27] MEDS: ASPIRIN 81 MG PO SCH (08:44)
[2019-09-27] MEDS: HEPARIN SOD,PORK IN 0.45% NACL 25,000 UNIT in 0.45% NACL 1 250ML.BAG IV SCH (08:45)
[2019-09-27] MEDS ORDERED: ASPIRIN 325 MG TAB PO SCH (09:00)
[2019-09-27 11:38] VITALS: BMI 23.9
[2019-09-27 11:59] LABS: Glucose,Whole Blood 170 mg/dL (75-99)
--- NOTE | 2019-09-27 15:49 | P.CRDCN ---
History of Present Illness History of present illness: This is Ritu Pisano PA-C dictating a consult on this patient The patient was interviewed and examined by me as well as by Dr. Rodriguez Case discussed with Dr. Rodriguez and he agrees with the plan of care HPI Patient is a 69-year-old male with a past medical history significant for chronic systolic heart failure status post ICD, diabetes, hypertension, CAD, CAD, and CVA. He is a patient of Dr. Blair. Patient states that last night he experienced a sudden onset of shortness of breath while he was laying in bed. It improved with sitting up. He denies shortness of breath on exertion however his is at the bedside and states he is a poor historian in that she has noted his been short of breath with exertion. Denies lower extremity edema. Upon admission his blood pressure was 186/79. His EKG showed sinus mechanism with T-wave changes in the lateral and anterior leads which were seen on previous EKGs. Chest x-ray showed small pleural effusion. Labs are significant for BUN 26 and creatinine 1.94, troponin mildly elevated. BNP 12,000 Patient was admitted for further evaluation. His blood pressure remains elevated. Patient seen and examined resting in bed. States his symptoms have resolved. No chest pain. ROS: No fevers, chills or rigors, no cough, phlegm or expectoration, no nausea, vomiting or diarrhea, no hematuria, dysuria, no musculoskeletal complaints, no strokes or seizures, no skin lesions. EXAMINATION: Patient is afebrile, pulse in the 70s, respirations 18, blood pressure in the 180s over 80s, oxygen saturation 94% on room air Patient seen and examined Resting in bed, in no acute distress Lungs are diminished bilaterally Heart is regular, systolic murmur audible No elevated JVD or lower extremity edema noted REVIEW OF LABS, ECG & MEDICAL DATA WBC 9.5, hemoglobin 10.5, platelets 160, potassium 3.5, BUN 30, creatinine 2.09 Troponins 0.096, 0.124, 0.096 Most recent echocardiogram shows EF 25-30%, mild to moderate MR IMPRESSION / ASSESSMENT: sudden onset of shortness of breath, no associated chest pain, no new EKG whatley es, d-dimer negative, troponin mildly elevated, BNP 12,000, possibly secondary to CHF exacerbation due to systolic dysfunction in the setting of hypertension and worsening renal function Mildly elevated troponins of unclear significance in the setting of worsening renal function and hypertensive heart disease, flat, patient remains chest pain- free Severe cardiomyopathy status post ICD placement, EF 25-30% PA on CKD Hypertension, blood pressure trending in the 180s over 80s PLAN: Continue aspirin, statin, Coreg,Lasix, and isosorbide Increase hydralazine 200 mg 3 times a day If his blood pressure remains elevated consider increasing Coreg tomorrow Past Medical History Past Medical History: Atrial Fibrillation, CVA/TIA, Diabetes Mellitus, Eye Disorder, Hyperlipidemia, Hypertension, Osteoarthritis (OA), Renal Disease Additional Past Medical History / Comment(s): 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 History of Any Multi-Drug Resistant Organisms: None Reported Past Surgical History: No Surgical Hx Reported, AICD Additional Past Surgical History / Comment(s): R wrist fx with repair, R eye retinal detachment with surgery, R eye retinal hemorrhage with eye injections in the past Past Anesthesia/Blood Transfusion Reactions: No Reported Reaction Additional Past Anesthesia/Blood Transfusion Reaction / Comment(s): Pt has never recieved blood. Type of Cardiac Device: AICD Device Placement Date:: 07/04/2018 Past Psychological History: No Psychological Hx Reported Additional Psychological History / Comment(s): Pt lives with in their home. Pt is retired from [employer] and the [employer]. Pt does not drive d/t [employer]. Spouse is retired and drives his to [employer]. Pt states he does not own a glucometer. He states he would use one if he didn't have to pay for it. Smoking Status: Current every day smoker Past Alcohol Use History: None Reported Additional Past Alcohol Use History / Comment(s): Pt started smoking in 1967 and is a ppd smoker. Past Drug Use History: None Reported - Past Family History Father Family Medical History: Vascular Disorder Additional Family Medical History / Comment(s): Father during vascular surgery for his blood flow to his legs. Mother Family Medical History: Congestive Heart Failure (CHF), Diabetes Mellitus Medications and Allergies Home Medications Medication Instructions Recorded Confirmed Type glipiZIDE [Glucotrol] 10 mg PO BID 06/04/14 09/26/19 History Cholecalciferol [Vitamin D3 (25 5,000 unit PO DAILY 12/27/17 09/26/19 History Mcg = 1000 Iu)] Aspirin 81 mg PO DAILY #30 chew 01/03/18 09/26/19 Rx Isosorbide Mononitrate [Isosorbide 30 mg PO DAILY 07/03/18 09/26/19 History Mononitrate ER] Albuterol Inhaler [Ventolin Hfa 1 - 2 puff INHALATION RT-QID PRN 05/24/19 09/26/19 History Inhaler] Carvedilol [Coreg] 25 mg PO BID-W/MEALS #60 tablet 05/26/19 09/26/19 Rx hydrALAZINE HCL [Apresoline] 50 mg PO TID #90 tab 05/26/19 09/26/19 Rx Apixaban [Eliquis] 2.5 mg PO BID 09/26/19 09/26/19 History Atorvastatin [Lipitor] 20 mg PO DAILY 09/26/19 09/26/19 History Furosemide [Lasix] 40 mg PO BID 09/26/19 09/26/19 History Allergies Allergy/AdvReac Type Severity Reaction Status Date / Time No Known Allergies Allergy Verified 09/26/19 11:32 Physical Exam Vitals: Vital Signs Temp Pulse Pulse Resp BP BP BP 09/27/19 11:20 98.7 F 65 18 164/82 188/87 09/27/19 08:48 76 09/27/19 08:40 72 09/27/19 08:25 98.1 F 69 18 183/84 09/27/19 06:00 98.2 F 68 17 163/75 09/27/19 02:00 98.1 F 69 18 168/67 09/26/19 21:45 98.5 F 70 18 199/86 09/26/19 20:00 97.9 F 79 16 136/69 09/26/19 17:55 98.7 F 70 18 165/88 09/26/19 16:58 78 18 168/80 Pulse Ox 09/27/19 11:20 94 L 09/27/19 08:48 09/27/19 08:40 95 09/27/19 08:25 95 09/27/19 06:00 96 09/27/19 02:00 97 09/26/19 21:45 95 09/26/19 20:00 95 09/26/19 17:55 99 09/26/19 16:58 98 Intake and Output 09/27/19 09/27/19 09/27/19 06:59 14:59 22:59 Intake Total 365.688 360.67 Output Total 1100 150 Balance -734.312 210.67 Intake: Intake, IV Titration 125.688 20.67 Amount Heparin Sod,Pork in 0.45% 125.688 20.67 NaCl 25,000 unit In 0.45 % NaCl 1 250ml.bag @ 12 UNITS/KG/HR 7.62 mls/hr IV .Q24H [facility] Rx#: [id number] Oral 240 340 Output: Urine 1100 150 Other: Voiding Method Urinal # Voids 5 1 Weight 65.317 kg 65.317 kg Results 09/27/19 02:11 09/27/19 02:11 Cardiac Enzymes 09/26/19 09/26/19 Range/Units 17:28 22:29 Troponin I 0.124 H* 0.096 H* (0.000-0.034) ng/mL Coagulation 09/26/19 09/27/19 09/27/19 Range/Units 20:25 02:11 06:41 APTT 44.0 H 68.1 H 26.8 (22.0-30.0) sec Lipids 09/27/19 Range/Units 02:11 Triglycerides 186 H (<150) mg/dL Cholesterol 144 (<200) mg/dL HDL Cholesterol 30 L (40-60) mg/dL CBC 09/27/19 Range/Units 02:11 WBC 9.5 (3.8-10.6) k/uL RBC 3.63 L (4.30-5.90) m/uL Hgb 10.5 L (13.0-17.5) gm/dL Hct 32.6 L (39.0-53.0) % Plt Count 160 (150-450) k/uL Comprehensive Metabolic Panel 09/27/19 Range/Units 02:11 Sodium 140 (137-145) mmol/L Potassium 3.5 (3.5-5.1) mmol/L Chloride 107 (98-107) mmol/L Carbon Dioxide 28 (22-30) mmol/L BUN 30 H (9-20) mg/dL Creatinine 2.09 H (0.66-1.25) mg/dL Glucose 127 H (74-99) mg/dL Calcium 8.7 (8.4-10.2) mg/dL Current Medications Generic Name Dose Route Start Last Admin Trade Name Freq PRN Reason Stop Dose Admin Albuterol/Ipratropium 3 ml 09/26/19 23:13 09/27/19 08:37 Duoneb 0.5 Mg-3 Mg/3 Ml Soln INHALATION 3 ml RT-QID PRN Administration Shortness Of Breath Or Wheezing Aspirin 81 mg 09/27/19 09:00 09/27/19 08:44 Aspirin PO 81 mg DAILY GELY Administration Atorvastatin Calcium 20 mg 09/27/19 09:00 09/27/19 08:44 Lipitor PO 20 mg DAILY GELY Administration Carvedilol 25 mg 09/27/19 07:30 09/27/19 07:01 Coreg PO Not Given BID-W/MEALS [facility] Cholecalciferol 5,000 unit 09/27/19 09:00 09/27/19 08:44 Vitamin D3 (25 Mcg = 1000 Iu) PO 5,000 unit DAILY [facility] Administration Furosemide 40 mg 09/27/19 16:00 Lasix PO BID@0900,1600 [facility] Heparin Sodium (Porcine) 5,000 unit 09/27/19 21:00 Heparin SQ Q12HR [facility] Hydralazine HCl 100 mg 09/27/19 16:00 Apresoline PO TID [facility] Insulin Aspart 0 unit 09/26/19 21:00 09/27/19 12:51 Novolog SQ 2 unit ACHS [facility] Administration Protocol Isosorbide Mononitrate 30 mg 09/27/19 09:00 09/27/19 08:44 Imdur PO 30 mg DAILY [facility] Administration Nitroglycerin 0.4 mg 09/26/19 12:39 Nitrostat SUBLINGUAL Q5M PRN Chest Pain Sodium Chloride 10 ml 09/26/19 21:00 09/27/19 08:45 Saline Flush IV Not Given BID GELY Intake and Output 09/27/19 09/27/19 09/27/19 06:59 14:59 22:59 Intake Total 365.688 360.67 Output Total 1100 150 Balance -734.312 210.67 Intake: Intake, IV Titration 125.688 20.67 Amount Heparin Sod,Pork in 0.45% 125.688 20.67 NaCl 25,000 unit In 0.45 % NaCl 1 250ml.bag @ 12 UNITS/KG/HR 7.62 mls/hr IV .Q24H [facility] Rx#: [id number] Oral 240 340 Output: Urine 1100 150 Other: Voiding Method Urinal # Voids 5 1 Weight 65.317 kg 65.317 kg Patient Weight 09/28/19 06:59 Weight 65.317 kg 09/27/19 02:11 09/27/19 02:11
[2019-09-27] MEDS ORDERED: ACETAMINOPHEN TAB 325 MG TAB PO PRN (16:20)
[2019-09-27 17:00] LABS: Glucose,Whole Blood 133 mg/dL (75-99)
[2019-09-27] MEDS: FUROSEMIDE 40 MG TAB PO SCH (17:14)
[2019-09-27 20:41] LABS: Glucose,Whole Blood 189 mg/dL (75-99)
[2019-09-27] MEDS ORDERED: HEPARIN SODIUM,PORCINE 5,000 UNIT/ML 1 ML VIAL SQ SCH (21:00)
[2019-09-27] MEDS: APIXABAN 2.5 MG TABLET PO SCH (21:29)
--- NOTE | 2019-09-27 22:55 | P.PN ---
Subjective Progress Note Date: 09/27/19 Principal diagnosis: Acute on chronic CHF exacerbation Elevated troponin level Patient is a 69-year-old male with a known history of atrial fibrillation on anticoagulation with Eliquis, diabetes type 2, hypertension, hyperlipidemia, history of CVA with balance issues, TIA, chronic kidney disease stage III, degenerative joint disease and history of AICD placement came to ER with complaints of worsening symptoms since last night. Patient says that his symptoms gets worse with lying down flat. Denied any complaints of chest pain. No nausea vomiting or abdominal pain or diarrhea. Denied any leg swelling. No cough or sputum production. No headache or dizziness or lightheadedness. Patient is currently everyday smoker BNP 74832 Troponin 0.096 and 0.124 Creatinine 1.93, WBC 13.9 chest x-ray showed small pleural effusions EKG showed normal sinus rhythm and prolonged QT BP 186/79 on admission 09/27/2019 Patient says that his breathing is much better now. No complaints of chest pain. Patient was continued on IV Lasix changed to by mouth. Increased hydralazine dose. Cardiology is following. Heparin drip has been discontinued. No further intervention was recommended this time. Patient has been afebrile. No cough or sputum production. Tolerating oral diet. Patient was started back on Eliquis due to history of atrial fibrillation. Current medications reviewed. Objective - Vital Signs Vital signs: Vital Signs Temp 98.7 F 09/27/19 11:20 Pulse 65 09/27/19 11:20 Resp 18 09/27/19 11:20 BP 188/87 09/27/19 11:20 Pulse Ox 94 L 09/27/19 11:20 Intake & Output 09/26/19 09/27/19 09/27/19 18:59 06:59 18:59 Intake Total 365.688 360.67 Output Total 150 1100 150 Balance -150 -734.312 210.67 Weight 63.503 kg 65.317 kg 65.317 kg Intake: Intake, IV Titration 125.688 20.67 Amount Heparin Sod,Pork in 0.45% 125.688 20.67 NaCl 25,000 unit In 0.45 % NaCl 1 250ml.bag @ 12 UNITS/KG/HR 7.62 mls/hr IV .Q24H [facility] Rx#: [id number] Oral 240 340 Output: Urine 150 1100 150 Other: Voiding Method Urinal # Voids 5 1 - Exam PHYSICAL EXAMINATION: Patient is lying in the bed comfortably, no acute distress, awake alert and oriented.. HEENT: Normocephalic. Neck is supple. Pupils reactive. Nostrils clear. Oral cavity is moist. Ears reveal no drainage. Neck reveals no JVD, carotid bruits, or thyromegaly. CHEST EXAMINATION: Trachea is central. Symmetrical expansion. Lung barry clear to auscultation and percussion. CARDIAC: Normal S1, S2 with no gallops. No murmurs ABDOMEN: Soft. Bowel sounds normal. No organomegaly. No abdominal bruits. Extremities: reveal no edema. No clubbing or cyanosis Neurologically awake, alert, oriented x3 with well-coordinated movements. No focal deficits noted Skin: No rash or skin lesions. Psychiatric: Coperative. Nonsuicidal Musculoskeletal: No joint swelling or deformity. Normal range of motion. - Labs CBC & Chem 7: 09/27/19 02:11 09/27/19 02:11 Labs: Abnormal Lab Results - Last 24 Hours (Table) 09/26/19 09/26/19 09/26/19 Range/Units 17:28 18:11 20:25 RBC (4.30-5.90) m/uL Hgb (13.0-17.5) gm/dL Hct (39.0-53.0) % APTT 44.0 H (22.0-30.0) sec BUN (9-20) mg/dL Creatinine (0.66-1.25) mg/dL Glucose (74-99) mg/dL POC Glucose (mg/dL) 144 H (75-99) mg/dL Troponin I 0.124 H* (0.000-0.034) ng/mL Triglycerides (<150) mg/dL HDL Cholesterol (40-60) mg/dL 09/26/19 09/26/19 09/27/19 Range/Units 21:52 22:29 02:11 RBC (4.30-5.90) m/uL Hgb (13.0-17.5) gm/dL Hct (39.0-53.0) % APTT 68.1 H (22.0-30.0) sec BUN (9-20) mg/dL Creatinine (0.66-1.25) mg/dL Glucose (74-99) mg/dL POC Glucose (mg/dL) 133 H (75-99) mg/dL Troponin I 0.096 H* (0.000-0.034) ng/mL Triglycerides (<150) mg/dL HDL Cholesterol (40-60) mg/dL 09/27/19 09/27/19 09/27/19 Range/Units 02:11 02:11 07:27 RBC 3.63 L (4.30-5.90) m/uL Hgb 10.5 L (13.0-17.5) gm/dL Hct 32.6 L (39.0-53.0) % APTT (22.0-30.0) sec BUN 30 H (9-20) mg/dL Creatinine 2.09 H (0.66-1.25) mg/dL Glucose 127 H (74-99) mg/dL POC Glucose (mg/dL) 180 H (75-99) mg/dL Troponin I (0.000-0.034) ng/mL Triglycerides 186 H (<150) mg/dL HDL Cholesterol 30 L (40-60) mg/dL 09/27/19 Range/Units 11:51 RBC (4.30-5.90) m/uL Hgb (13.0-17.5) gm/dL Hct (39.0-53.0) % APTT (22.0-30.0) sec BUN (9-20) mg/dL Creatinine (0.66-1.25) mg/dL Glucose (74-99) mg/dL POC Glucose (mg/dL) 170 H (75-99) mg/dL Troponin I (0.000-0.034) ng/mL Triglycerides (<150) mg/dL HDL Cholesterol (40-60) mg/dL Assessment and Plan Assessment: Acute CHF with systolic dysfunction ejection fraction 25-30%. Patient does have small pleural effusion and elevated BNP and orthopnea elevated troponin possible type II non-ST elevated UT Uncontrolled hypertension Paroxysmal atrial fibrillation on anticoagulation with Eliquis Severe cardiomyopathy History of AICD placement Possible underlying COPD with chronic ongoing history of smoking History of CVA/TIA with the dizziness and balance issues. Osteoarthritis of multiple joints Hypertension Hyperlipidemia Acute on chronic kidney disease stage III History of retinal detachment and vision loss Plan: Patient will be continued on heparin drip. Continue with aspirin and statins. Cardiology was consulted. Continue with the breathing treatments and IV Lasix was started. This extended to by mouth. Continue with blood pressure medications and hydralazine dose increased to 200 mg 3 times a day Monitor renal function. Continue the home medications and further recommendations based on the clinical course. Prognosis is guarded with multiple medical problems and comorbid conditions. Time with Patient: Greater than 30
[2019-09-28 05:57] VITALS: RESP 18
[2019-09-28 06:25] LABS: Glucose,Whole Blood 153 mg/dL (75-99)
[2019-09-28 06:47] LABS: Basophils % (A) 1 %; Eosinophils # (A) 0.2 k/uL (0-0.7); Eosinophils % (A) 2 %; HCT 32.2 % (39.0-53.0); HGB 10.5 gm/dL (13.0-17.5); Lymphocytes # (A) 1.1 k/uL (1.0-4.8); Lymphocytes % (A) 13 %; MCH 29.5 pg (25.0-35.0); MCHC 32.6 g/dL (31.0-37.0); MCV 90.5 fL (80.0-100.0); Mean Platelet Volume 9.1; Monocytes # (A) 0.5 k/uL (0-1.0); Monocytes % (A) 6 %; Neutrophils # (A) 6.4 k/uL (1.3-7.7); Neutrophils % (A) 77 %; Platelet Count 180 k/uL (150-450); RBC 3.56 m/uL (4.30-5.90); RDW 13.4 % (11.5-15.5); WBC 8.3 k/uL (3.8-10.6)
[2019-09-28 06:57] LABS: Potassium 3.9 mmol/L (3.5-5.1)
[2019-09-28] MEDS: CARVEDILOL 12.5 MG TAB PO SCH (07:01)
[2019-09-28] MEDS: INSULIN ASPART (NovoLOG) 100 UNIT/ML VIAL SQ SCH ×2 (07:01→13:16)
[2019-09-28] MEDS: ATORVASTATIN 20 MG TAB PO SCH (08:36)
[2019-09-28] MEDS: ASPIRIN 81 MG PO SCH (08:36)
[2019-09-28] MEDS: CHOLECALCIFEROL 1,000 UNIT TAB PO SCH (08:36)
[2019-09-28] MEDS: APIXABAN 2.5 MG TABLET PO SCH (08:36)
[2019-09-28] MEDS: FUROSEMIDE 40 MG TAB PO SCH ×2 (08:36→16:39)
[2019-09-28] MEDS: ISOSORBIDE MONONITRATE ER 30 MG TAB.ER.24H PO SCH (08:36)
[2019-09-28] MEDS: hydrALAZINE HCL 50 MG TAB PO SCH ×2 (08:36→16:39)
[2019-09-28 10:10] VITALS: TEMP 98.3
[2019-09-28 12:16] LABS: Glucose,Whole Blood 174 mg/dL (75-99)
[2019-09-28] MEDS ORDERED: CARVEDILOL 12.5 MG TAB PO STA (13:42)
--- NOTE | 2019-09-28 13:59 | ECHOF ---
Referral Reason: MEASUREMENTS -------- HEIGHT: 165.1 cm WEIGHT: 63.5 kg BP: IVSd: 1.4 cm (0.6 - 1.1) LVIDd: 5.0 cm (3.9 - 5.3) LVPWd: 1.7 cm (0.6 - 1.1) IVSs: 1.4 cm LVIDs: 4.5 cm LVPWs: 1.3 cm RVIDd: 2.7 cm (< 3.3) LAESV Index (A-L): 27.60 ml/m Ao Diam: 3.1 cm (2.0 - 3.7) LA Diam: 4.0 cm (2.7 - 3.8) AV Cusp: 1.8 cm (1.5 - 2.6) EPSS: 1.0 cm MV E Ata: 0.83 m/s MV DecT: 207 ms MV A Ata: 1.00 m/s MV E/A Ratio: 0.83 AV maxP.19 mmHg AV meanP.98 mmHg AR PHT: 389 ms RAP: 5.00 mmHg RVSP: 18.80 mmHg %FS: 25.58 % EDV(Teich): 177.92 ml EF(Teich): 49.59 % ESV(Teich): 89.70 ml IVSd: 1.11 cm (0.6 - 1.1) IVSs: 1.42 cm LVIDd: 5.97 cm (3.9 - 5.3) LVIDs: 4.44 cm LVPWd: 1.39 cm (0.6 - 1.1) LVPWs: 1.46 cm MV EF SLOPE: 29.44 mm/s (70 - 150) MV EXCURSION: 21.17 mm (> 18.000) SV(Teich): 88.23 ml TAPSE: 12.84 mm FINDINGS -------- Pacerwire seen in RV and RA. AICD This was a technically good study. The left ventricular size is normal. There is moderate concentric left ventricular hypertrophy. O verall left ventricular systolic function is moderately impaired with, an EF between 35 - 40 %. Lef t ventricular fillimg pressure cannot be estimated due to paced rhythm. Basal inferoseptal LV wall motion is hypokinetic. Mid to basal inferiorlateral is hypokinetic The right ventricle is normal in size. The left atrial size is normal. Normal LA size by volume 22+/-6 ml/m2. The right atrial size is normal. Aortic valve is trileaflet and is mildly thickened. There is mild aortic regurgitation. There is mild aortic stenosis present. Peak/mean gradient across the Aortic Valve is 22.19mmHg / 13.98mmHg. The mitral valve is normal. The mitral valve leaflets are mildly thickened. Mild mitral annular c alcification present. Mild mitral regurgitation is present. The tricuspid valve appears structurally normal. Mild tricuspid regurgitation present. Right vent ricular systolic pressure is normal at < 35 mmHg. There is no pulmonic regurgitation present. The aortic root size is normal. Normal inferior vena cava with normal inspiratory collapse consistent with estimated right atrial pre ssure of 5 mmHg. There is no pericardial effusion. CONCLUSIONS -------- 1. Pacerwire seen in RV and RA. 2. AICD 3. This was a technically good study. 4. The left ventricular size is normal. 5. There is moderate concentric left ventricular hypertrophy. 6. Overall left ventricular systolic function is moderately impaired with, an EF between 35 - 40 %. 7. Left ventricular fillimg pressure cannot be estimated due to paced rhythm. 8. Basal inferoseptal LV wall motion is hypokinetic. 9. Mid to basal inferiorlateral is hypokinetic 10. The right ventricle is normal in size. 11. The left atrial size is normal. 12. Normal LA size by volume 22+/-6 ml/m2. 13. The right atrial size is normal. 14. Aortic valve is trileaflet and is mildly thickened. 15. There is mild aortic regurgitation. 16. There is mild aortic stenosis present. 17. Peak/mean gradient across the Aortic Valve is 22.19mmHg / 13.98mmHg. 18. The mitral valve is normal. 19. The mitral valve leaflets are mildly thickened. 20. Mild mitral annular calcification present. 21. Mild mitral regurgitation is present. 22. The tricuspid valve appears structurally normal. 23. Mild tricuspid regurgitation present. 24. Right ventricular systolic pressure is normal at < 35 mmHg. 25. There is no pulmonic regurgitation present. 26. The aortic root size is normal. 27. Normal inferior vena cava with normal inspiratory collapse consistent with estimated right atrial pressure of 5 mmHg. 28. There is no pericardial effusion. W[employer]IT GLUER: Nimisha Ramirez RDCS
[2019-09-28 15:28] VITALS: BP 159/75; PULSE 56
--- NOTE | 2019-09-28 16:00 | P.PN ---
Subjective This is Ritu Pisano PA-C dictating a progress note on this patient The patient was interviewed and examined by me as well as by Dr. Rodriguez Case discussed with Dr. Rodriguez and he agrees with the plan of care HPI/interval history Patient is a 69-year-old male with a past medical history significant for chronic systolic heart failure status post ICD, diabetes, hypertension, CAD, and CVA who presented with shortness of breath. His blood pressure has been uncontrolled and we increased his hydralazine to 100 mg 3 times a day. His blood pressure remains elevated today. Patient seen and examined sitting up at the side of the bed. He has not had any further episodes of shortness of breath. States he "feels great". He is states he is ready to go home. No chest pain. EXAMINATION Patient is afebrile, pulse in the 70s, respirations 18, blood pressure 159/75, oxygen saturation 95% on room air Patient seen and examined sitting up at side bed, in no acute distress Lungs diminished bilaterally Heart is irregular, systolic murmur audible No edema REVIEW OF LABS, ECG WBC 8.3, hemoglobin 10.5, platelets 180, potassium 3.9, BUNs 32, creatinine 2.27 Echo shows moderate concentric hypertrophy, EF 35-40%, basal inferoseptal LV wall hypokinesis, inferior lateral hypokinesis, mild aortic stenosis, mild MR IMPRESSION / ASSESSMENT: sudden onset of shortness of breath, no associated chest pain, no new EKG changes, d-dimer negative, troponin mildly elevated, BNP 12,000, possibly secondary to CHF exacerbation due to systolic dysfunction in the setting of hypertension and worsening renal function, symptoms improved Mildly elevated troponins of unclear significance in the setting of worsening renal function and hypertensive heart disease, flat, patient remains chest pain- free Severe cardiomyopathy status post ICD placement, EF 35-40% PA on CKD, BUN and creatinine trending up Hypertension, blood pressure remained elevated 150s over 70s PLAN: Increase Coreg to 37.5 twice a day Continue hydralazine 100 mg by mouth 3 times a day Continue isosorbide Continue aspirin and statins Anticoagulation with eliquis Objective - Vital Signs Vital signs: Vital Signs Temp 98.3 F 09/28/19 11:20 Pulse 56 L 09/28/19 11:20 Resp 18 09/28/19 11:20 BP 159/75 09/28/19 11:20 Pulse Ox 96 09/28/19 11:20 Intake & Output 09/27/19 09/28/19 09/28/19 18:59 06:59 18:59 Intake Total 720.67 250 600 Output Total 150 475 Balance 570.67 -225 600 Weight 65.317 kg 73.5 kg Intake: IV 10 0.9 10 Intake, IV Titration 20.67 Amount Heparin Sod,Pork in 0.45% 20.67 NaCl 25,000 unit In 0.45 % NaCl 1 250ml.bag @ 12 UNITS/KG/HR 7.62 mls/hr IV .Q24H [facility] Rx#: [id number] Oral 700 240 600 Output: Urine 150 475 Other: Voiding Method Toilet # Voids 1 4 - Labs CBC & Chem 7: 09/28/19 05:52 09/28/19 05:52 Labs: Abnormal Lab Results - Last 24 Hours (Table) 09/27/19 09/27/19 09/28/19 Range/Units 16:48 20:32 05:52 RBC 3.56 L (4.30-5.90) m/uL Hgb 10.5 L (13.0-17.5) gm/dL Hct 32.2 L (39.0-53.0) % BUN (9-20) mg/dL Creatinine (0.66-1.25) mg/dL Glucose (74-99) mg/dL POC Glucose (mg/dL) 133 H 189 H (75-99) mg/dL 09/28/19 09/28/19 09/28/19 Range/Units 05:52 06:23 12:05 RBC (4.30-5.90) m/uL Hgb (13.0-17.5) gm/dL Hct (39.0-53.0) % BUN 32 H (9-20) mg/dL Creatinine 2.27 H (0.66-1.25) mg/dL Glucose 132 H (74-99) mg/dL POC Glucose (mg/dL) 153 H 174 H (75-99) mg/dL
[2019-09-28] MEDS ORDERED: CARVEDILOL 12.5 MG TAB PO SCH (17:30)
--- NOTE | 2019-10-13 13:19 | P.DS ---
Providers Date of admission: 09/26/19 12:40 Expected date of discharge: 09/28/19 Attending physician: Ann Longoria Consults: 09/26/19 12:40 Consult Physician Urgent Consulting Provider: Violet Blair Consult Reason/Comments: eval and tx for nstemi, chf Do you want consulting provider notified?: Yes Primary care physician: Chandan Padron Hospital Course: Discharge diagnosis Acute CHF with systolic dysfunction ejection fraction 25-30%. Patient does have small pleural effusion and elevated BNP and orthopnea elevated troponin possible type II non-ST elevated OK Uncontrolled hypertension due to medication dose increased. Paroxysmal atrial fibrillation on anticoagulation with Eliquis Severe cardiomyopathy History of AICD placement Possible underlying COPD with chronic ongoing history of smoking History of CVA/TIA with the dizziness and balance issues. Osteoarthritis of multiple joints Hypertension Hyperlipidemia Acute on chronic kidney disease stage III History of retinal detachment and vision loss Hospital course Patient is a 69-year-old male with a known history of atrial fibrillation on anticoagulation with Eliquis, diabetes type 2, hypertension, hyperlipidemia, history of CVA with balance issues, TIA, chronic kidney disease stage III, degenerative joint disease and history of AICD placement came to ER with complaints of worsening symptoms since last night. Patient says that his symptoms gets worse with lying down flat. Denied any complaints of chest pain. No nausea vomiting or abdominal pain or diarrhea. Denied any leg swelling. No cough or sputum production. No headache or dizziness or lightheadedness. Patient is currently everyday smoker BNP 66694 Troponin 0.096 and 0.124 Creatinine 1.93, WBC 13.9 chest x-ray showed small pleural effusions EKG showed normal sinus rhythm and prolonged QT BP 186/79 on admission 09/27/2019 Patient says that his breathing is much better now. No complaints of chest pain. Patient was continued on IV Lasix changed to by mouth. Increased hydralazine dose. Cardiology is following. Heparin drip has been discontinued. No further intervention was recommended this time. Patient has been afebrile. No cough or sputum production. Tolerating oral diet. Patient was started back on Eliquis due to history of atrial fibrillation. 09/28/2019 09/28/2019 Patient denied any complaints of chest pain. Shortness of breath is much improved now. Hydralazine and Coreg dose increased and blood pressure is better controlled. Patient was initially continued on heparin drip. Continue with aspirin and statins. Cardiology has seen the patient. Continue with the breathing treatments and IV Lasix was started. Changed to by mouth. Patient was seen by cardiology and cleared for discharge. Continue with anticoagulation for atrial fibrillation. Recommends follow with primary care physician and cardiology as an outpatient. PHYSICAL EXAMINATION: Patient is lying in the bed comfortably, no acute distress, awake alert and oriented.. HEENT: Normocephalic. Neck is supple. Pupils reactive. Nostrils clear. Oral cavity is moist. Ears reveal no drainage. Neck reveals no JVD, carotid bruits, or thyromegaly. CHEST EXAMINATION: Trachea is central. Symmetrical expansion. Lung barry clear to auscultation and percussion. CARDIAC: Normal S1, S2 with no gallops. No murmurs ABDOMEN: Soft. Bowel sounds normal. No organomegaly. No abdominal bruits. Extremities: reveal no edema. No clubbing or cyanosis Neurologically awake, alert, oriented x3 with well-coordinated movements. No focal deficits noted Skin: No rash or skin lesions. Psychiatric: Coperative. Nonsuicidal Musculoskeletal: No joint swelling or deformity. Normal range of motion. Vital Signs Temp 98.3 F 09/28/19 11:20 Pulse 56 L 09/28/19 11:20 Resp 18 09/28/19 11:20 BP 159/75 09/28/19 11:20 Pulse Ox 96 09/28/19 11:20 Intake & Output 09/27/19 09/28/19 09/28/19 18:59 06:59 18:59 Intake Total 720.67 250 600 Output Total 150 475 Balance 570.67 -225 600 Weight 65.317 kg 73.5 kg Intake: IV 10 0.9 10 Intake, IV Titration 20.67 Amount Heparin Sod,Pork in 0.45% 20.67 NaCl 25,000 unit In 0.45 % NaCl 1 250ml.bag @ 12 UNITS/KG/HR 7.62 mls/hr IV .Q[facility]H [facility] Rx#: [id number] Oral 700 240 600 Output: Urine 150 475 Other: Voiding Method Toilet # Voids 1 4 Total time taken greater than 35 minutes including 18 minutes for counseling and coordination of care. Patient Condition at Discharge: Fair Plan - Discharge Summary Discharge Rx Participant: Yes New Discharge Prescriptions: New hydrALAZINE HCL [Apresoline] 100 mg PO TID #90 tab Carvedilol [Coreg*] 37.5 mg PO BID-W/MEALS #180 tab Continue glipiZIDE [Glucotrol] 10 mg PO BID Cholecalciferol [Vitamin D3 (25 Mcg = 1000 Iu)] 5,000 unit PO DAILY Aspirin 81 mg PO DAILY #30 chew Isosorbide Mononitrate [Isosorbide Mononitrate ER] 30 mg PO DAILY Albuterol Inhaler [Ventolin Hfa Inhaler] 1 - 2 puff INHALATION RT-QID PRN PRN Reason: Shortness Of Breath Apixaban [Eliquis] 2.5 mg PO BID Atorvastatin [Lipitor] 20 mg PO DAILY Furosemide [Lasix] 40 mg PO BID Discontinued hydrALAZINE HCL [Apresoline] 50 mg PO TID #90 tab Carvedilol [Coreg] 25 mg PO BID-W/MEALS #60 tablet Discharge Medication List glipiZIDE [Glucotrol] 10 mg PO BID 06/04/14 [History] Cholecalciferol [Vitamin D3 (25 Mcg = 1000 Iu)] 5,000 unit PO DAILY 12/27/17 [History] Aspirin 81 mg PO DAILY #30 chew 01/03/18 [Rx] Isosorbide Mononitrate [Isosorbide Mononitrate ER] 30 mg PO DAILY 07/03/18 [History] Albuterol Inhaler [Ventolin Hfa Inhaler] 1 - 2 puff INHALATION RT-QID PRN 05/24/19 [History] Apixaban [Eliquis] 2.5 mg PO BID 09/26/19 [History] Atorvastatin [Lipitor] 20 mg PO DAILY 09/26/19 [History] Furosemide [Lasix] 40 mg PO BID 09/26/19 [History] Carvedilol [Coreg*] 37.5 mg PO BID-W/MEALS #180 tab 09/28/19 [Rx] hydrALAZINE HCL [Apresoline] 100 mg PO TID #90 tab 09/28/19 [Rx] Follow up Appointment(s)/Referral(s): Frederick Rodriguez MD [STAFF PHYSICIAN] - 2 Weeks (make appointment with Dr Rodriguez in 2-3 weeks.) Chandan Padron DO [Primary Care Provider] - 1-2 days (Make an appointment to see Dr Padron in 1-2 days. ) Discharge Disposition: HOME SELF-CARE
== END 2019-09-28 17:10 | disposition home or self-care (01) | DRG 291 ==
LOC: EC 10:19 → 3SCARD 12:40
PROVIDERS: ADMIT Internal Medicine; ATTEND Internal Medicine
DX: I13.0 Hypertensive heart and chronic kidney disease with heart failure and stage 1 through stage 4 chronic kidney disease, or unspecified chronic kidney disease (principal); I50.23 Acute on chronic systolic (congestive) heart failure; N17.9 Acute kidney failure, unspecified; I25.10 Atherosclerotic heart disease of native coronary artery without angina pectoris; F17.200 Nicotine dependence, unspecified, uncomplicated; I42.9 Cardiomyopathy, unspecified; I48.0 Paroxysmal atrial fibrillation; M15.9 Polyosteoarthritis, unspecified; E11.22 Type 2 diabetes mellitus with diabetic chronic kidney disease; H54.7 Unspecified visual loss; R79.89 Other specified abnormal findings of blood chemistry; E78.5 Hyperlipidemia, unspecified; N18.3 Chronic kidney disease, stage 3 (moderate); Z79.01 Long term (current) use of anticoagulants; Z79.82 Long term (current) use of aspirin; Z79.84 Long term (current) use of oral hypoglycemic drugs; Z79.899 Other long term (current) drug therapy; Z82.49 Family history of ischemic heart disease and other diseases of the circulatory system; Z83.3 Family history of diabetes mellitus; Z86.73 Personal history of transient ischemic attack (TIA), and cerebral infarction without residual deficits; Z95.810 Presence of automatic (implantable) cardiac defibrillator
CPT/HCPCS: 36415; 71046; 80048; 80053; 80061; 83605; 83880; 84484; 85025; 85379; 85610; 85730; 93005; 93306; 94640; 94760; 96365; 96367; 96375; 96376; 99285

== ENCOUNTER 2021-07-16 08:04 | Inpatient (IN) | payer MEDICARE, BC ==
[2021-07-16] MEDS ORDERED: IPRATROPIUM-ALBUTEROL 3 ML NEB INHALATION STA (08:14)
--- NOTE | 2021-07-16 08:20 | ED ---
General Adult HPI - General Chief complaint: Shortness of Breath Stated complaint: RUTHY Time Seen by Provider: 07/16/21 08:10 Source: patient, family, RN notes reviewed Mode of arrival: wheelchair Limitations: no limitations - History of Present Illness Initial comments: This a 71-year-old male presents emergency Department with chief complaint of cough congestion shortness of breath. Patient states symptoms started last day or so. Patient denies any leg pain or leg swelling does have a long history of cardiac disease, diabetes. Patient states he has no pain currently. Patient sounds congested, productive cough. No fever he doesn't listen chills no bodyaches no major nasal congestion. - Related Data Home Medications Medication Instructions Recorded Confirmed RX: glipiZIDE [Glucotrol] 10 mg PO BID 06/04/14 07/16/21 RX: Isosorbide Mononitrate 30 mg PO DAILY 07/03/18 07/16/21 [Isosorbide Mononitrate ER] RX: Apixaban [Eliquis] 2.5 mg PO BID 09/26/19 07/16/21 RX: Atorvastatin [Lipitor] 20 mg PO HS 09/26/19 07/16/21 RX: Furosemide [Lasix] 40 mg PO BID 09/26/19 07/16/21 Carvedilol [Coreg] 25 mg PO BID-W/MEALS 07/16/21 07/16/21 Multivit-Min/FA/Lycopen/Lutein 1 tab PO DAILY 07/16/21 07/16/21 [Centrum Silver Men Tablet] Potassium Chloride ER [K-Dur 20] 20 meq PO DAILY 07/16/21 07/16/21 RX: hydrALAZINE HCL [Apresoline] 50 mg PO TID 07/16/21 07/16/21 Allergies Allergy/AdvReac Type Severity Reaction Status Date / Time No Known Allergies Allergy Verified 07/16/21 09:47 Review of Systems ROS Statement: Those systems with pertinent positive or pertinent negative responses have been documented in the HPI. ROS Other: All systems not noted in ROS Statement are negative. 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 History of Any Multi-Drug Resistant Organisms: None Reported Past Surgical History: No Surgical Hx Reported, AICD Additional Past Surgical History / Comment(s): R wrist fx with repair, R eye retinal detachment with surgery, R eye retinal hemorrhage with eye injections in the past Past Anesthesia/Blood Transfusion Reactions: No Reported Reaction Additional Past Anesthesia/Blood Transfusion Reaction / Comment(s): Pt has never recieved blood. Type of Cardiac Device: AICD Device Placement Date:: 07/04/2018 Past Psychological History: No Psychological Hx Reported Smoking Status: Current every day smoker Past Alcohol Use History: None Reported Past Drug Use History: None Reported - Past Family History Father Family Medical History: Vascular Disorder Additional Family Medical History / Comment(s): Father during vascular surgery for his blood flow to his legs. Mother Family Medical History: Congestive Heart Failure (CHF), Diabetes Mellitus General Exam Limitations: no limitations General appearance: alert, in no apparent distress Head exam: Present: atraumatic, normocephalic, normal inspection Eye exam: Present: normal appearance, PERRL, EOMI. Absent: scleral icterus, conjunctival injection, periorbital swelling ENT exam: Present: normal exam, normal oropharynx, mucous membranes moist Neck exam: Present: normal inspection, full ROM. Absent: tenderness, meningismus, lymphadenopathy Respiratory exam: Present: respiratory distress, rales, rhonchi, decreased breath sounds. Absent: normal lung sounds bilaterally, wheezes, stridor Cardiovascular Exam: Present: regular rate, normal rhythm, normal heart sounds. Absent: systolic murmur, diastolic murmur, rubs, gallop, clicks GI/Abdominal exam: Present: soft, normal bowel sounds. Absent: distended, tenderness, guarding, rebound, rigid Extremities exam: Absent: pedal edema Course Vital Signs 07/16/21 07/16/21 07/16/21 08:07 08:32 08:33 Temperature 98.8 F 100 F H Pulse Rate 80 Respiratory 19 22 22 Rate Blood Pressure 156/77 O2 Sat by Pulse 92 L 94 L Oximetry 07/16/21 07/16/21 07/16/21 09:18 09:48 10:07 Temperature 99.1 F Pulse Rate 71 64 64 Respiratory 20 Rate Blood Pressure 164/83 O2 Sat by Pulse 98 Oximetry Medical Decision Making - Medical Decision Making 71-year-old presented for shortness of breath. Patient continues to have diffuse wheezing, rhonchi, having difficulty talking secondary to shortness of breath. Patient does have desaturations with ambulation. Patient will be referred for COPD exacerbation be febrile is starting antibiotics. COVID-19 is negative. Troponin is elevated though there are no acute changes patient most likely elevated secondary to renal disease, is chronically elevated from prior labs. - Lab Data Result diagrams: 07/16/21 08:17 07/16/21 08:17 Lab Results 07/16/21 07/16/21 07/16/21 Range/Units 08:17 08:17 08:17 WBC 7.8 (3.8-10.6) k/uL RBC 3.39 L (4.30-5.90) m/uL Hgb 10.0 L (13.0-17.5) gm/dL Hct 30.8 L (39.0-53.0) % MCV 90.9 (80.0-100.0) fL MCH 29.7 (25.0-35.0) pg MCHC 32.6 (31.0-37.0) g/dL RDW 14.5 (11.5-15.5) % Plt Count 198 (150-450) k/uL MPV 9.3 Neutrophils % 88 % Lymphocytes % 6 % Monocytes % 5 % Eosinophils % 0 % Basophils % 1 % Neutrophils # 6.9 (1.3-7.7) k/uL Lymphocytes # 0.5 L (1.0-4.8) k/uL Monocytes # 0.4 (0-1.0) k/uL Eosinophils # 0.0 (0-0.7) k/uL Basophils # 0.0 (0-0.2) k/uL PT 12.5 H (9.0-12.0) sec INR 1.2 H (<1.2) APTT 27.8 (22.0-30.0) sec Sodium 140 (137-145) mmol/L Potassium 4.2 (3.5-5.1) mmol/L Chloride 102 (98-107) mmol/L Carbon Dioxide 26 (22-30) mmol/L Anion Gap 12 mmol/L BUN 35 H (9-20) mg/dL Creatinine 3.32 H (0.66-1.25) mg/dL Est GFR (CKD-EPI)AfAm 21 (>60 ml/min/1.73 sqM) Est GFR (CKD-EPI)NonAf 18 (>60 ml/min/1.73 sqM) Glucose 211 H (74-99) mg/dL Plasma Lactic Acid Preston (0.7-2.0) mmol/L Calcium 9.3 (8.4-10.2) mg/dL Magnesium 2.1 (1.6-2.3) mg/dL Total Bilirubin 1.3 (0.2-1.3) mg/dL AST 30 (17-59) U/L ALT 22 (4-49) U/L Alkaline Phosphatase 120 (38-126) U/L Troponin I (0.000-0.034) ng/mL NT-Pro-B Natriuret Pep pg/mL Total Protein 6.8 (6.3-8.2) g/dL Albumin 4.1 (3.5-5.0) g/dL Coronavirus (PCR) (Not Detectd) 07/16/21 07/16/21 07/16/21 Range/Units 08:17 08:17 08:17 WBC (3.8-10.6) k/uL RBC (4.30-5.90) m/uL Hgb (13.0-17.5) gm/dL Hct (39.0-53.0) % MCV (80.0-100.0) fL MCH (25.0-35.0) pg MCHC (31.0-37.0) g/dL RDW (11.5-15.5) % Plt Count (150-450) k/uL MPV Neutrophils % % Lymphocytes % % Monocytes % % Eosinophils % % Basophils % % Neutrophils # (1.3-7.7) k/uL Lymphocytes # (1.0-4.8) k/uL Monocytes # (0-1.0) k/uL Eosinophils # (0-0.7) k/uL Basophils # (0-0.2) k/uL PT (9.0-12.0) sec INR (<1.2) APTT (22.0-30.0) sec Sodium (137-145) mmol/L Potassium (3.5-5.1) mmol/L Chloride (98-107) mmol/L Carbon Dioxide (22-30) mmol/L Anion Gap mmol/L BUN (9-20) mg/dL Creatinine (0.66-1.25) mg/dL Est GFR (CKD-EPI)AfAm (>60 ml/min/1.73 sqM) Est GFR (CKD-EPI)NonAf (>60 ml/min/1.73 sqM) Glucose (74-99) mg/dL Plasma Lactic Acid Preston 1.4 (0.7-2.0) mmol/L Calcium (8.4-10.2) mg/dL Magnesium (1.6-2.3) mg/dL Total Bilirubin (0.2-1.3) mg/dL AST (17-59) U/L ALT (4-49) U/L Alkaline Phosphatase (38-126) U/L Troponin I 0.106 H* (0.000-0.034) ng/mL NT-Pro-B Natriuret Pep 06671 pg/mL Total Protein (6.3-8.2) g/dL Albumin (3.5-5.0) g/dL Coronavirus (PCR) (Not Detectd) 07/16/21 Range/Units 08:46 WBC (3.8-10.6) k/uL RBC (4.30-5.90) m/uL Hgb (13.0-17.5) gm/dL Hct (39.0-53.0) % MCV (80.0-100.0) fL MCH (25.0-35.0) pg MCHC (31.0-37.0) g/dL RDW (11.5-15.5) % Plt Count (150-450) k/uL MPV Neutrophils % % Lymphocytes % % Monocytes % % Eosinophils % % Basophils % % Neutrophils # (1.3-7.7) k/uL Lymphocytes # (1.0-4.8) k/uL Monocytes # (0-1.0) k/uL Eosinophils # (0-0.7) k/uL Basophils # (0-0.2) k/uL PT (9.0-12.0) sec INR (<1.2) APTT (22.0-30.0) sec Sodium (137-145) mmol/L Potassium (3.5-5.1) mmol/L Chloride (98-107) mmol/L Carbon Dioxide (22-30) mmol/L Anion Gap mmol/L BUN (9-20) mg/dL Creatinine (0.66-1.25) mg/dL Est GFR (CKD-EPI)AfAm (>60 ml/min/1.73 sqM) Est GFR (CKD-EPI)NonAf (>60 ml/min/1.73 sqM) Glucose (74-99) mg/dL Plasma Lactic Acid Preston (0.7-2.0) mmol/L Calcium (8.4-10.2) mg/dL Magnesium (1.6-2.3) mg/dL Total Bilirubin (0.2-1.3) mg/dL AST (17-59) U/L ALT (4-49) U/L Alkaline Phosphatase (38-126) U/L Troponin I (0.000-0.034) ng/mL NT-Pro-B Natriuret Pep pg/mL Total Protein (6.3-8.2) g/dL Albumin (3.5-5.0) g/dL Coronavirus (PCR) Not Detected (Not Detectd) Disposition Clinical Impression: COPD exacerbation, PA (acute kidney injury), Dyspnea, Bronchospasm Disposition: ADMITTED IP TO THIS HOSP Condition: Serious Referrals: Chandan Padron DO [Primary Care Provider] - 1-2 days
[2021-07-16] MEDS ORDERED: ACETAMINOPHEN TAB 500 MG TAB PO STA (08:30)
[2021-07-16 08:50] LABS: Basophils % (A) 1 %; Eosinophils % (A) 0 %; HCT 30.8 % (39.0-53.0); Lymphocytes # (A) 0.5 k/uL (1.0-4.8); Lymphocytes % (A) 6 %; MCH 29.7 pg (25.0-35.0); MCHC 32.6 g/dL (31.0-37.0); MCV 90.9 fL (80.0-100.0); Mean Platelet Volume 9.3; Monocytes # (A) 0.4 k/uL (0-1.0); Monocytes % (A) 5 %; Neutrophils # (A) 6.9 k/uL (1.3-7.7); Neutrophils % (A) 88 %; Platelet Count 198 k/uL (150-450); RBC 3.39 m/uL (4.30-5.90); RDW 14.5 % (11.5-15.5); WBC 7.8 k/uL (3.8-10.6)
--- NOTE | 2021-07-16 09:01 | XR ---
EXAMINATION TYPE: XR chest 2V DATE OF EXAM: 07/16/2021 COMPARISON: 09/26/2019 INDICATION: Difficulty breathing TECHNIQUE: Frontal and lateral views of the chest are obtained. FINDINGS: The heart size is normal. The pulmonary vasculature is normal. The lungs are clear. Pacemaker overlies left chest IMPRESSION: 1. No acute pulmonary process.
[2021-07-16 09:03] LABS: INR 1.2 (<1.2); Partial Thromboplastin Time 27.8 sec (22.0-30.0); Prothrombin Time 12.5 sec (9.0-12.0)
[2021-07-16 09:13] LABS: Albumin 4.1 g/dL (3.5-5.0); Calcium 9.3 mg/dL (8.4-10.2); Magnesium 2.1 mg/dL (1.6-2.3); Potassium 4.2 mmol/L (3.5-5.1); Total Bilirubin 1.3 mg/dL (0.2-1.3); Total Protein 6.8 g/dL (6.3-8.2)
[2021-07-16] MEDS ORDERED: methylPREDNISolone SOD SUCCI 125 MG/2 ML VIAL IV STA (10:42)
[2021-07-16] MEDS ORDERED: ALBUTEROL NEBULIZED 2.5 MG/3 ML INHALATION PRN (10:44)
[2021-07-16] MEDS ORDERED: FUROSEMIDE 10 MG/ML 4 ML VIAL IV STA (10:48)
--- NOTE | 2021-07-16 15:12 | P.CNPUL ---
History of Present Illness Consult date: 07/16/21 Reason for consult: dyspnea History of present illness: 71-year-old male patient known history of cardiomyopathy with an ejection fraction of 30% and the patient has a dual-chamber AICD in addition to multiple other medical problems and comorbidities including diabetes mellitus type 2, hypertension, chronic kidney disease, coronary artery disease, previous CVA that occurred in 2016 and COPD. The patient has had a previous cardiac catheteriz ation in February 2018 showing calcified left main, chronically occluded proximal RCA with good collaterals and mild disease involving the circumflex vessel. The patient has been hospitalized in the past for CHF exacerbation. The patient comes in to the emergency with increased cough and congestion shortness of breath. Denies having any significant swelling lower extremities. Denied having any pain. No reported chest pain. No pleurisy. She was complaining of cough and congestion. She was seen in the emergency department, she was afebrile, hemodynamically stable, white cell count was at 7.8 with a hemoglobin of 10 and platelet count of 198, mean was 35 with a creatinine of 3.32, coagulation profile was normal, the patient had a normal electrolytes, troponin was 0.106, proBNP level was 22,400 and the COVID 19 testing was negative. The chest x-ray that was done in emergency was showing cardiomegaly, dual-chamber pacemaker in place, no airspace disease, no failure.Note that the patient also had a follow-up echocardiogram on 09/26/2019 and the patient had shown some improvement of the function with an ejection fraction of 35-40% no significant valvular abnormalities. Review of Systems Constitutional: No fever, no chills, no night sweats. No weight change. No weakness, fatigue or lethargy. No daytime sleepiness. EENT: No headache. No sore throat. Lungs: No shortness of breath, increased cough and congestion and some shortness of breath Cardiovascular: No chest pain, no lower extremity edema. No palpitations. No paroxysmal nocturnal dyspnea. No orthopnea. No lightheadedness or dizziness. No syncopal episodes. Abdominal: No abdominal pain. No nausea, vomiting. No diarrhea. No constipation. No loss of appetite. Genitourinary: No dysuria, increased frequency, urgency. No urinary retention. Musculoskeletal: No myalgias. No muscle weakness, no gait dysfunction, no frequent falls. No back pain. No neck pain. Integumentary: No wounds, no lesions. No rash or pruritus. No unusual bruising. No change in hair or nails. Neurologic: No aphasia. No facial droop. No change in mentation. No head injury. No headache. No paralysis. No paresthesia. Endocrine: No abnormal blood sugars. No weight change. No excessive sweating or thirst. No cold intolerance. No weight change. 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 History of Any Multi-Drug Resistant Organisms: None Reported Past Surgical History: No Surgical Hx Reported, AICD Additional Past Surgical History / Comment(s): R wrist fx with repair, R eye retinal detachment with surgery, R eye retinal hemorrhage with eye injections in the past Past Anesthesia/Blood Transfusion Reactions: No Reported Reaction Additional Past Anesthesia/Blood Transfusion Reaction / Comment(s): Pt has never recieved blood. Type of Cardiac Device: AICD Device Placement Date:: 07/04/2018 Past Psychological History: No Psychological Hx Reported Additional Psychological History / Comment(s): Pt lives with in their home. Pt is retired from [employer] and the for; to (do) Service. Pt does not drive d/t [employer]. Spouse is retired and drives his to [employer]. Pt states he does not own a glucometer. He states he would use one if he didn't have to pay for it. Smoking Status: Current every day smoker Past Alcohol Use History: None Reported Additional Past Alcohol Use History / Comment(s): Pt started smoking in 1967 and is a ppd smoker. Past Drug Use History: None Reported - Past Family History Father Family Medical History: Vascular Disorder Additional Family Medical History / Comment(s): Father during vascular surgery for his blood flow to his legs. Mother Family Medical History: Congestive Heart Failure (CHF), Diabetes Mellitus Medications and Allergies Home Medications Medication Instructions Recorded Confirmed Type glipiZIDE [Glucotrol] 10 mg PO BID 06/04/14 07/16/21 History Isosorbide Mononitrate [Isosorbide 30 mg PO DAILY 07/03/18 07/16/21 History Mononitrate ER] Apixaban [Eliquis] 2.5 mg PO BID 09/26/19 07/16/21 History Atorvastatin [Lipitor] 20 mg PO HS 09/26/19 07/16/21 History Furosemide [Lasix] 40 mg PO BID 09/26/19 07/16/21 History Carvedilol [Coreg] 25 mg PO BID-W/MEALS 07/16/21 07/16/21 History Multivit-Min/FA/Lycopen/Lutein 1 tab PO DAILY 07/16/21 07/16/21 History [Centrum Silver Men Tablet] Potassium Chloride ER [K-Dur 20] 20 meq PO DAILY 07/16/21 07/16/21 History hydrALAZINE HCL [Apresoline] 50 mg PO TID 07/16/21 07/16/21 History Allergies Allergy/AdvReac Type Severity Reaction Status Date / Time No Known Allergies Allergy Verified 07/16/21 09:47 Physical Exam Vitals: Vital Signs Temp Pulse Pulse Resp BP BP Pulse Ox 07/16/21 14:33 98.4 F 70 17 135/66 94 L 07/16/21 13:32 68 22 125/45 95 07/16/21 11:10 64 18 141/70 98 07/16/21 10:07 64 07/16/21 10:00 64 18 136/68 98 07/16/21 09:48 64 07/16/21 09:18 99.1 F 71 20 164/83 98 07/16/21 08:33 22 07/16/21 08:32 100 F H 22 94 L 07/16/21 08:07 98.8 F 80 19 156/77 92 L Intake and Output 07/15/21 07/16/21 07/16/21 22:59 06:59 14:59 Intake Total 240 Balance 240 Intake: Oral 240 Other: Weight 59.421 kg Results - Laboratory Findings CBC and BMP: 07/16/21 08:17 07/16/21 08:17 PT/INR, D-dimer PT 12.5 sec (9.0-12.0) H 07/16/21 08:17 INR 1.2 (<1.2) H 07/16/21 08:17 Abnormal lab findings: Abnormal Labs 07/16/21 07/16/21 07/16/21 08:17 08:17 08:17 RBC 3.39 L Hgb 10.0 L Hct 30.8 L Lymphocytes # 0.5 L PT 12.5 H INR 1.2 H BUN 35 H Creatinine 3.32 H Glucose 211 H Troponin I 07/16/21 08:17 RBC Hgb Hct Lymphocytes # PT INR BUN Creatinine Glucose Troponin I 0.106 H* Assessment and Plan Plan: 1 shortness of breath on an investigation. Consider underlying component of COPD/CHF exacerbation. ProBNP level is elevated. Nevertheless, no signs of any significant fluid overload and the chest x-ray is not showing any significant pulmonary edema. COVID 19 testing is negative. Doubt pneumonia. 2 coronary artery disease 3 CHF with a most recent echocardiac Bob showing an ejection fraction of 35%. The patient has normal liver functions. Patient has biventricular AICD/ pacemaker in place 4 chronic stage III kidney disease 5 history of CVA back in 2017 6 diabetes mellitus type 2 7 history of diabetic retinopathy with right eye retinal detachment and hemorrhage with impaired vision accordingly 8 hypertension plan Put the patient on DuoNeb nebulized treatments [id number] IV Solu Medrol 40 mg every 8 hours Resume all medications including her cardiac medications. Monitor his troponins Oxidation is stable and the patient is currently on 2 L of oxygen by nasal cannula with a process of 94-98%.
[2021-07-16] MEDS: carvediloL 12.5 MG TAB PO SCH (16:17)
[2021-07-16] MEDS: hydrALAZINE HCL 50 MG TAB PO SCH ×2 (16:17→21:06)
[2021-07-16] MEDS: methylPREDNISolone SOD SUCCI 40 MG/ML 1 ML VIAL IV SCH ×2 (16:17→23:58)
[2021-07-16] MEDS: IPRATROPIUM-ALBUTEROL 3 ML NEB INHALATION SCH ×3 (16:17→21:00)
[2021-07-16 17:21] LABS: Glucose,Whole Blood 372 mg/dL (75-99)
[2021-07-16] MEDS: INSULIN ASPART (NovoLOG) 100 UNIT/ML VIAL SQ SCH ×2 (17:40→21:06)
[2021-07-16 20:54] LABS: Glucose,Whole Blood 257 mg/dL (75-99)
[2021-07-16] MEDS: APIXABAN 2.5 MG TABLET PO SCH (21:06)
[2021-07-16] MEDS: glipiZIDE 10 MG TAB PO SCH (21:06)
[2021-07-16] MEDS: ATORVASTATIN 20 MG TAB PO SCH (21:06)
[2021-07-17] MEDS: IPRATROPIUM-ALBUTEROL 3 ML NEB INHALATION SCH ×5 (00:05→19:56)
--- NOTE | 2021-07-17 00:44 | P.HPIM ---
History of Present Illness H&P Date: 07/16/21 Chief Complaint: Shortness of breath Patient is a 71-year-old male with a known history of paroxysmal atrial fibrillation on anticoagulation with Eliquis, chronic kidney disease stage IV, hypertension, hyperlipidemia, diabetes type 2, history of CVA with balance issues, currently rate smoker and cardiomyopathy ejection fraction 30% status post AICD placement and other multiple medical problems presents to ER with complaints of cough congestion and shortness of breath. Denies any complaints of chest pain. On admission patient was having fever at 100 F and pulse ox 94% on 2 L oxygen via nasal cannula. Blood pressure is 156/77. Chest x-ray showed no acute cardiopulmonary process. EKG showed normal sinus rhythm. Laboratory data showed WBC 7.8 hemoglobin 10.0 and platelets 198 INR 1.2 BUN 35 and creatinine 3.32 Patient has a baseline creatinine level around 2.4 proBNP 58679, troponin 0 0.106. Review of Systems Constitutional: Patient denies any fever or chills . No generalized weakness or weight loss. Abdomen: Patient denied nausea vomiting and diarrhea and abdominal pain. Cardiovascular: Patient denies any chest pain. +short of breath no palpitations. Respiratory: Patient does have cough congestion and shortness of breath. No leg swelling. Neurologic: Patient denied any numbness or tingling headache. Musculoskeletal: Patient denies any complaints of joint swelling or deformity. Skin: Negative Psychiatric: Negative Endocrine: No heat or cold intolerance. No recent weight gain. Genitourinary: No dysuria or hematuria. 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 History of Any Multi-Drug Resistant Organisms: None Reported Past Surgical History: No Surgical Hx Reported, AICD Additional Past Surgical History / Comment(s): R wrist fx with repair, R eye retinal detachment with surgery, R eye retinal hemorrhage with eye injections in the past Past Anesthesia/Blood Transfusion Reactions: No Reported Reaction Additional Past Anesthesia/Blood Transfusion Reaction / Comment(s): Pt has never recieved blood. Type of Cardiac Device: AICD Device Placement Date:: 07/04/2018 Past Psychological History: No Psychological Hx Reported Additional Psychological History / Comment(s): Pt lives with in their home. Pt is retired from [employer] and the [employer]. Pt does not drive d/t eyesight. Spouse is retired and drives his to [employer]. Pt states he does not own a glucometer. He states he would use one if he didn't have to pay for it. Smoking Status: Current every day smoker Past Alcohol Use History: None Reported Additional Past Alcohol Use History / Comment(s): Pt started smoking in 1967 and is a ppd smoker. Past Drug Use History: None Reported - Past Family History Father Family Medical History: Vascular Disorder Additional Family Medical History / Comment(s): Father during vascular surgery for his blood flow to his legs. Mother Family Medical History: Congestive Heart Failure (CHF), Diabetes Mellitus Medications and Allergies Home Medications Medication Instructions Recorded Confirmed Type glipiZIDE [Glucotrol] 10 mg PO BID 06/04/14 07/16/21 History Isosorbide Mononitrate [Isosorbide 30 mg PO DAILY 07/03/18 07/16/21 History Mononitrate ER] Apixaban [Eliquis] 2.5 mg PO BID 09/26/19 07/16/21 History Atorvastatin [Lipitor] 20 mg PO HS 09/26/19 07/16/21 History Furosemide [Lasix] 40 mg PO BID 09/26/19 07/16/21 History Carvedilol [Coreg] 25 mg PO BID-W/MEALS 07/16/21 07/16/21 History Multivit-Min/FA/Lycopen/Lutein 1 tab PO DAILY 07/16/21 07/16/21 History [Centrum Silver Men Tablet] Potassium Chloride ER [K-Dur 20] 20 meq PO DAILY 07/16/21 07/16/21 History hydrALAZINE HCL [Apresoline] 50 mg PO TID 07/16/21 07/16/21 History Allergies Allergy/AdvReac Type Severity Reaction Status Date / Time No Known Allergies Allergy Verified 07/16/21 09:47 Physical Exam Vitals: Vital Signs Temp Pulse Pulse Resp BP BP Pulse Ox 07/16/21 21:30 65 18 07/16/21 21:23 98.1 F 65 18 157/73 96 07/16/21 20:15 63 18 122/55 95 07/16/21 16:28 66 07/16/21 16:17 65 07/16/21 15:59 98.3 F 70 15 148/77 94 L 07/16/21 14:33 98.4 F 70 17 135/66 94 L 07/16/21 13:32 68 22 125/45 95 07/16/21 11:10 64 18 141/70 98 07/16/21 10:07 64 07/16/21 10:00 64 18 136/68 98 07/16/21 09:48 64 07/16/21 09:18 99.1 F 71 20 164/83 98 07/16/21 08:33 22 07/16/21 08:32 100 F H 22 94 L 07/16/21 08:07 98.8 F 80 19 156/77 92 L Intake and Output 07/16/21 07/16/21 07/17/21 14:59 22:59 06:59 Intake Total 240 Output Total 200 Balance 240 -200 Intake: Oral 240 Output: Urine 200 Other: Voiding Method Toilet Urinal Weight 59.421 kg PHYSICAL EXAMINATION: Patient is lying in the bed comfortably, no acute distress, awake alert and oriented.. HEENT: Normocephalic. Neck is supple. Pupils reactive. Nostrils clear. Oral cavity is moist. Neck reveals no JVD, carotid bruits, or thyromegaly. CHEST EXAMINATION: Trachea is central. Symmetrical expansion.Bilateral dimi nished air entry and diffuse rhonchi. Nonlabored breathing.. CARDIAC: Normal S1, S2 with no gallops. No murmurs ABDOMEN: Soft. Bowel sounds normal. No organomegaly. No abdominal bruits. Extremities: reveal no edema. No clubbing or cyanosis Neurologically awake, alert, oriented x3 with well-coordinated movements. No focal deficits noted Skin: No rash or skin lesions. Psychiatric: Cooperative. Nonsuicidal Musculoskeletal: No joint swelling or deformity. Normal range of motion. Results CBC & Chem 7: 07/16/21 08:17 07/16/21 08:17 Labs: Abnormal Lab Results - Last 24 Hours (Table) 07/16/21 07/16/21 07/16/21 Range/Units 08:17 08:17 08:17 RBC 3.39 L (4.30-5.90) m/uL Hgb 10.0 L (13.0-17.5) gm/dL Hct 30.8 L (39.0-53.0) % Lymphocytes # 0.5 L (1.0-4.8) k/uL PT 12.5 H (9.0-12.0) sec INR 1.2 H (<1.2) BUN 35 H (9-20) mg/dL Creatinine 3.32 H (0.66-1.25) mg/dL Glucose 211 H (74-99) mg/dL POC Glucose (mg/dL) (75-99) mg/dL Troponin I (0.000-0.034) ng/mL 07/16/21 07/16/21 07/16/21 Range/Units 08:17 17:21 20:53 RBC (4.30-5.90) m/uL Hgb (13.0-17.5) gm/dL Hct (39.0-53.0) % Lymphocytes # (1.0-4.8) k/uL PT (9.0-12.0) sec INR (<1.2) BUN (9-20) mg/dL Creatinine (0.66-1.25) mg/dL Glucose (74-99) mg/dL POC Glucose (mg/dL) 372 H 257 H (75-99) mg/dL Troponin I 0.106 H* (0.000-0.034) ng/mL Thrombosis Risk Factor Assmnt - DVT/VTE Prophylaxis DVT/VTE Prophylaxis: Pharmacologic Prophylaxis ordered - Choose All That Apply Each Factor Represents 1 point: Abnormal pulmonary function (COPD) Each Risk Factor Represents 2 Points: Age 61-74 years Thrombosis Risk Factor Assessment Total Risk Factor Score: 3 Thrombosis Risk Factor Assessment Level: Moderate Risk Assessment and Plan Assessment: Shortness of breath likely due to acute COPD exacerbation. Elevated BNP with no leg swelling or evidence of CHF on the chest x-ray. Elevated troponin level Hyperglycemia with uncontrolled diabetes type 2. [id number]. Acute on chronic kidney disease stage III. Baseline creatinine 2.4. Paroxysmal atrial fibrillation on anticoagulation with Eliquis Chronic CHF with systolic dysfunction ejection fraction 35% Cardiomyopathy status post AICD placement Hypertension Coronary arteries with history of cardiac cath History of diabetic retinopathy with right eye retinal detachment and hemorrhage DVT prophylaxis patient is already on full anticoagulation Plan: Patient will be continued on duo nebs and IV steroids. Was given a dose of IV Lasix in the ER. Patient does have elevated BNP level. No evidence of CHF on chest x-ray. Continue with home medications and insulin sliding scale for better blood sugar control. Pulmonary is on board. Continue to follow closely. Cardiology was consulted due to elevated troponin level. Monitor renal function. Time with Patient: Greater than 30
[2021-07-17 06:03] LABS: Glucose,Whole Blood 152 mg/dL (75-99)
[2021-07-17] MEDS: INSULIN DETEMIR (LEVEMIR) 100 UNIT/ML SYR SQ SCH ×2 (06:09→20:54)
[2021-07-17] MEDS: INSULIN ASPART (NovoLOG) 100 UNIT/ML VIAL SQ SCH ×4 (06:18→20:54)
[2021-07-17] MEDS: carvediloL 12.5 MG TAB PO SCH ×2 (06:18→17:29)
[2021-07-17] MEDS: glipiZIDE 10 MG TAB PO SCH ×2 (08:20→20:53)
[2021-07-17] MEDS: ISOSORBIDE MONONITRATE ER 30 MG TAB.ER.24H PO SCH (08:20)
[2021-07-17] MEDS: methylPREDNISolone SOD SUCCI 40 MG/ML 1 ML VIAL IV SCH ×2 (08:20→17:29)
[2021-07-17] MEDS: hydrALAZINE HCL 50 MG TAB PO SCH ×3 (08:20→20:53)
[2021-07-17] MEDS: POTASSIUM CHLORIDE ER 20 MEQ TAB.ER PO SCH (08:20)
[2021-07-17] MEDS: APIXABAN 2.5 MG TABLET PO SCH ×2 (08:20→20:53)
[2021-07-17] MEDS ORDERED: NON FORMULARY DRUG (Multivit-Min/Fa/Lycopen/Lutein [Centrum Silver Men Tablet] 1 EACH Tabl PO SCH (09:00)
[2021-07-17] MEDS ORDERED: FUROSEMIDE 10 MG/ML 4 ML VIAL IV STA (09:21)
--- NOTE | 2021-07-17 09:24 | P.PN ---
Subjective Progress Note Date: 07/17/21 71-year-old male patient known history of cardiomyopathy with an ejection fraction of 30% and the patient has a dual-chamber AICD in addition to multiple other medical problems and comorbidities including diabetes mellitus type 2, hypertension, chronic kidney disease, coronary artery disease, previous CVA that occurred in 2016 and COPD. The patient has had a previous cardiac catheterization in February 2018 showing calcified left main, chronically occluded proximal RCA with good collaterals and mild disease involving the circumflex vessel. The patient has been hospitalized in the past for CHF exacerbation. The patient comes in to the emergency with increased cough and congestion shortness of breath. Denies having any significant swelling lower extremities. Denied having any pain. No reported chest pain. No pleurisy. She was complaining of cough and congestion. She was seen in the emergency department, she was afebrile, hemodynamically stable, white cell count was at 7.8 with a hemoglobin of 10 and platelet count of 198, mean was 35 with a creatinine of 3.32, coagulation profile was normal, the patient had a normal electrolytes, troponin was 0.106, proBNP level was 22,400 and the COVID 19 testing was negative. The chest x-ray that was done in emergency was showing cardiomegaly, dual-chamber pacemaker in place, no airspace disease, no failure.Note that the patient also had a follow-up echocardiogram on 09/26/2019 and the patient had shown some improvement of the function with an ejection fraction of 35-40% no significant valvular abnormalities. 07/17/2021, the patient is feeling better. He feels that he is ready to go home. Clinically, I feel that the patient is still bronchospastic and wheezy. He has responded nicely to the treatment and he is less bronchospastic and wheezy compared to yesterday. He is currently on IV Solu Medrol 40 mg every 8 hours. No significant hyperglycemia related to systemic steroids. Remains on bronchodilators. He will also benefit from a single dose of Lasix ordered milligrams. He was given a dose yesterday. Objective - Vital Signs Vital signs: Vital Signs Temp 98.1 F 07/16/21 21:23 Pulse 72 07/17/21 07:15 Resp 18 07/17/21 04:00 BP 164/69 07/17/21 04:00 Pulse Ox 93 L 07/17/21 07:06 Intake & Output 07/16/21 07/17/21 07/17/21 18:59 06:59 18:59 Intake Total 240 Output Total 200 Balance 40 Weight 59.421 kg 60 kg Intake: Oral 240 Output: Urine 200 Other: Voiding Method Toilet Urinal # Voids 2 - Exam Patient is lying in the bed comfortably, no acute distress, awake alert and oriented.. HEENT: Normocephalic. Neck is supple. Pupils reactive. Nostrils clear. Oral cavity is moist. Neck reveals no JVD, carotid bruits, or thyromegaly. CHEST EXAMINATION: Trachea is central. Symmetrical expansion.Bilateral diminished air entry and diffuse rhonchi. Nonlabored breathing.. CARDIAC: Normal S1, S2 with no gallops. No murmurs ABDOMEN: Soft. Bowel sounds normal. No organomegaly. No abdominal bruits. Extremities: reveal no edema. No clubbing or cyanosis Neurologically awake, alert, oriented x3 with well-coordinated movements. No fo dawit deficits noted Skin: No rash or skin lesions. Psychiatric: Cooperative. Nonsuicidal Musculoskeletal: No joint swelling or deformity. Normal range of motion. - Labs CBC & Chem 7: 07/16/21 08:17 07/16/21 08:17 Labs: Abnormal Lab Results - Last 24 Hours (Table) 07/16/21 07/16/21 07/16/21 Range/Units 08:17 17:21 20:53 POC Glucose (mg/dL) 372 H 257 H (75-99) mg/dL Troponin I 0.106 H* (0.000-0.034) ng/mL 07/17/21 Range/Units 06:00 POC Glucose (mg/dL) 152 H (75-99) mg/dL Troponin I (0.000-0.034) ng/mL Assessment and Plan Plan: 1 shortness of breath on an investigation. Consider underlying component of COPD/CHF exacerbation. ProBNP level is elevated. Nevertheless, no signs of any significant fluid overload and the chest x-ray is not showing any significant pulmonary edema. COVID 19 testing is negative. Doubt pneumonia.improving. Less short of breath on today's evaluation. 2 coronary artery disease 3 CHF with a most recent echocardiac Bob showing an ejection fraction of 35%. The patient has normal liver functions. Patient has biventricular AICD/pacemaker in place 4 chronic stage III kidney disease 5 history of CVA back in 2017 6 diabetes mellitus type 2 7 history of diabetic retinopathy with right eye retinal detachment and hemorrhage with impaired vision accordingly 8 hypertension plan Continue DuoNeb nebulized treatments [id number] IV Solu Medrol 40 mg every 8 hours and this will be switched to prednisone burst taper the time of discharge. We'll give additional dose of Lasix 40 mg IV. We'll monitor his progress. He is eager to go home today. I think discharges possible either today or tomorrow. I will wait till afternoon to the patient's condition gets more stabilized. He needs to quit smoking as smoking cessation counseling was done. Resume all medications including her cardiac medications. Monitor his troponins and I would like to get a cardiology clearance prior to discharge regarding his troponin leak. Oxidation is stable and the patient is currently on 2 L of oxygen by nasal cannula with a process of 94-98%.
[2021-07-17 12:13] LABS: Glucose,Whole Blood 296 mg/dL (75-99)
[2021-07-17 12:14] LABS: Calcium 8.9 mg/dL (8.4-10.2); Potassium 4.7 mmol/L (3.5-5.1)
[2021-07-17 12:27] LABS: Basophils % (A) 0 %; Eosinophils % (A) 0 %; HCT 31.2 % (39.0-53.0); Lymphocytes # (A) 0.7 k/uL (1.0-4.8); Lymphocytes % (A) 7 %; MCH 29.7 pg (25.0-35.0); MCHC 32.2 g/dL (31.0-37.0); MCV 92.1 fL (80.0-100.0); Mean Platelet Volume 9.2; Monocytes # (A) 0.2 k/uL (0-1.0); Monocytes % (A) 2 %; Neutrophils # (A) 9.3 k/uL (1.3-7.7); Neutrophils % (A) 90 %; Platelet Count 138 k/uL (150-450); RBC 3.38 m/uL (4.30-5.90); RDW 14.3 % (11.5-15.5); WBC 10.4 k/uL (3.8-10.6)
[2021-07-17 17:15] LABS: Glucose,Whole Blood 441 mg/dL (75-99)
--- NOTE | 2021-07-17 17:36 | XR ---
EXAMINATION TYPE: XR chest 1V portable DATE OF EXAM: 07/17/2021 COMPARISON: Chest radiograph 07/16/2021 HISTORY: Shortness of breath TECHNIQUE: Single frontal view of the chest is obtained. FINDINGS: Left chest wall generator device with the lead tips over the right atrium and right ventri avni. The cardiomediastinal silhouette and pulmonary vasculature are within normal limits. New strandy opacities over the right base. No large effusion or pneumothorax. IMPRESSION: Developing right lower lung infiltrate.
[2021-07-17 20:28] LABS: Glucose,Whole Blood 183 mg/dL (75-99)
[2021-07-17] MEDS: ATORVASTATIN 20 MG TAB PO SCH (20:54)
--- NOTE | 2021-07-17 21:10 | P.PN ---
Subjective Progress Note Date: 07/17/21 Principal diagnosis: Acute COPD exacerbation Elevated troponin level and BNP. Patient is a 71-year-old male with a known history of paroxysmal atrial fibrillation on anticoagulation with Eliquis, chronic kidney disease stage IV, hypertension, hyperlipidemia, diabetes type 2, history of CVA with balance issues, currently rate smoker and cardiomyopathy ejection fraction 30% status post AICD placement and other multiple medical problems presents to ER with complaints of cough congestion and shortness of breath. Denies any complaints of chest pain. On admission patient was having fever at 100 F and pulse ox 94% on 2 L oxygen via nasal cannula. Blood pressure is 156/77. Chest x-ray showed no acute cardiopulmonary process. EKG showed normal sinus rhythm. Laboratory data showed WBC 7.8 hemoglobin 10.0 and platelets 198 INR 1.2 BUN 35 and creatinine 3.32 Patient has a baseline creatinine level around 2.4 proBNP 54646, troponin 0 0.106. 07/17/2021 Patient is in the [facility] care unit. Lying in the bed comfortably. Still having bilateral rhonchi and wheezing. Breathing status is better compared to yesterday. Requiring oxygen at 2 L via nasal cannula. Patient is being continued on methylprednisolone 40 mg IV every 8 hourly and duo nebs. Laboratory showed WBC 10.4 hemoglobin 10.0 and platelets 138 sodium 136 potassium 4.7 chloride 105 bicarb is 21 BUN 49 and creatinine 3.06 and blood sugar is 278. Troponin came down to 0.066. Denied any complaints of chest pain. No nausea vomiting abdominal pain or diarrhea. Patient was agitated in the afternoon and wants to be discharged home. Blood sugar is also elevateddue to steroids. Current medications reviewed. Objective - Vital Signs Vital signs: Vital Signs Temp 98.2 F 07/17/21 11:56 Pulse 82 07/17/21 15:10 Resp 18 07/17/21 14:00 BP 137/71 07/17/21 11:56 Pulse Ox 98 07/17/21 11:56 Intake & Output 07/16/21 07/17/21 07/17/21 18:59 06:59 18:59 Intake Total 240 Output Total 200 200 Balance 40 -200 Weight 59.421 kg 60 kg Intake: Oral 240 Output: Urine 200 200 Other: Voiding Method Toilet Toilet Urinal Urinal # Voids 2 1 - Exam PHYSICAL EXAMINATION: Patient is lying in the bed comfortably, no acute distress, awake alert and oriented.. HEENT: Normocephalic. Neck is supple. Pupils reactive. Nostrils clear. Oral cavity is moist. Neck reveals no JVD, carotid bruits, or thyromegaly. CHEST EXAMINATION: Trachea is central. Symmetrical expansion. Bilateral wheezing and scattered rhonchi. Bibasilar diminished sounds. Nonlabored breathing.. CARDIAC: Normal S1, S2 with no gallops. No murmurs ABDOMEN: Soft. Bowel sounds normal. No organomegaly. No abdominal bruits. Extremities: reveal no edema. No clubbing or cyanosis Neurologically awake, alert, oriented x3 with well-coordinated movements. No focal deficits noted Skin: No rash or skin lesions. Psychiatric: Cooperative. Nonsuicidal Musculoskeletal: No joint swelling or deformity. Normal range of motion. - Labs CBC & Chem 7: 07/17/21 11:38 07/17/21 11:38 Labs: Abnormal Lab Results - Last 24 Hours (Table) 07/16/21 07/16/21 07/17/21 Range/Units 17:21 20:53 06:00 RBC (4.30-5.90) m/uL Hgb (13.0-17.5) gm/dL Hct (39.0-53.0) % Plt Count (150-450) k/uL Neutrophils # (1.3-7.7) k/uL Lymphocytes # (1.0-4.8) k/uL Sodium (137-145) mmol/L Carbon Dioxide (22-30) mmol/L BUN (9-20) mg/dL Creatinine (0.66-1.25) mg/dL Glucose (74-99) mg/dL POC Glucose (mg/dL) 372 H 257 H 152 H (75-99) mg/dL Troponin I (0.000-0.034) ng/mL 07/17/21 07/17/21 07/17/21 Range/Units 11:38 11:38 11:38 RBC 3.38 L (4.30-5.90) m/uL Hgb 10.0 L (13.0-17.5) gm/dL Hct 31.2 L (39.0-53.0) % Plt Count 138 L (150-450) k/uL Neutrophils # 9.3 H (1.3-7.7) k/uL Lymphocytes # 0.7 L (1.0-4.8) k/uL Sodium 136 L (137-145) mmol/L Carbon Dioxide 21 L (22-30) mmol/L BUN 49 H (9-20) mg/dL Creatinine 3.06 H (0.66-1.25) mg/dL Glucose 278 H (74-99) mg/dL POC Glucose (mg/dL) (75-99) mg/dL Troponin I 0.066 H* (0.000-0.034) ng/mL 07/17/21 Range/Units 11:49 RBC (4.30-5.90) m/uL Hgb (13.0-17.5) gm/dL Hct (39.0-53.0) % Plt Count (150-450) k/uL Neutrophils # (1.3-7.7) k/uL Lymphocytes # (1.0-4.8) k/uL Sodium (137-145) mmol/L Carbon Dioxide (22-30) mmol/L BUN (9-20) mg/dL Creatinine (0.66-1.25) mg/dL Glucose (74-99) mg/dL POC Glucose (mg/dL) 296 H (75-99) mg/dL Troponin I (0.000-0.034) ng/mL Microbiology - Last 24 Hours (Table) 07/16/21 08:17 Blood Culture - Preliminary Blood No Growth after 24 hours 07/16/21 08:32 Blood Culture - Preliminary Blood No Growth after 24 hours Assessment and Plan Assessment: Shortness of breath likely due to acute COPD exacerbation. Elevated BNP with no leg swelling or evidence of CHF on the chest x-ray. Elevated troponin level Hyperglycemia with uncontrolled diabetes type 2. [id number]. Acute on chronic kidney disease stage III. Baseline creatinine 2.4. Paroxysmal atrial fibrillation on anticoagulation with Eliquis Chronic CHF with systolic dysfunction ejection fraction 35% Cardiomyopathy status post AICD placement Hypertension Coronary arteries with history of cardiac cath History of diabetic retinopathy with right eye retinal detachment and hemorrhage DVT prophylaxis patient is already on full anticoagulation Plan: Patient will be continued on duo nebs and IV steroids. Was given a dose of IV Lasix in the ER. Patient does have elevated BNP level. No evidence of CHF on chest x-ray. Continue with home medications and insulin sliding scale for better blood sugar control. Pulmonary is on board. Continue to follow closely. Cardiology was consulted due to elevated troponin level. Monitor renal function. Time with Patient: Greater than 30
[2021-07-18] MEDS: methylPREDNISolone SOD SUCCI 40 MG/ML 1 ML VIAL IV SCH ×4 (02:51→23:21)
[2021-07-18 06:11] LABS: Glucose,Whole Blood 64 mg/dL (75-99)
[2021-07-18 06:34] LABS: Glucose,Whole Blood 102 mg/dL (75-99)
[2021-07-18] MEDS: INSULIN ASPART (NovoLOG) 100 UNIT/ML VIAL SQ SCH ×5 (06:43→20:47)
[2021-07-18] MEDS: carvediloL 12.5 MG TAB PO SCH ×2 (06:44→17:26)
[2021-07-18] MEDS: IPRATROPIUM-ALBUTEROL 3 ML NEB INHALATION SCH ×4 (07:58→20:38)
[2021-07-18 08:19] LABS: Basophils % (A) 0 %; Eosinophils % (A) 0 %; HCT 33.8 % (39.0-53.0); HGB 10.7 gm/dL (13.0-17.5); Lymphocytes # (A) 0.9 k/uL (1.0-4.8); Lymphocytes % (A) 5 %; MCHC 31.6 g/dL (31.0-37.0); MCV 91.9 fL (80.0-100.0); Mean Platelet Volume 9.5; Monocytes # (A) 0.3 k/uL (0-1.0); Monocytes % (A) 2 %; Neutrophils # (A) 16.3 k/uL (1.3-7.7); Neutrophils % (A) 92 %; Platelet Count 218 k/uL (150-450); RBC 3.68 m/uL (4.30-5.90); RDW 14.2 % (11.5-15.5); WBC 17.7 k/uL (3.8-10.6)
[2021-07-18] MEDS: glipiZIDE 10 MG TAB PO SCH (08:37)
[2021-07-18] MEDS: hydrALAZINE HCL 50 MG TAB PO SCH ×3 (08:37→20:46)
[2021-07-18] MEDS: AZITHROMYCIN 500 MG TAB PO SCH (08:37)
[2021-07-18] MEDS: APIXABAN 2.5 MG TABLET PO SCH ×2 (08:37→20:46)
[2021-07-18] MEDS: ISOSORBIDE MONONITRATE ER 30 MG TAB.ER.24H PO SCH (08:37)
[2021-07-18] MEDS: POTASSIUM CHLORIDE ER 20 MEQ TAB.ER PO SCH (08:37)
[2021-07-18 08:51] LABS: Potassium 3.8 mmol/L (3.5-5.1)
[2021-07-18] MEDS ORDERED: FUROSEMIDE 10 MG/ML 4 ML VIAL IV SCH (11:00)
[2021-07-18 11:43] LABS: Glucose,Whole Blood 390 mg/dL (75-99)
--- NOTE | 2021-07-18 12:34 | P.CRDCN ---
History of Present Illness History of present illness: HISTORY OF PRESENTING ILLNESS This is a pleasant 71-year-old male past medical history significant for coronary artery disease (chronically occluded proximal RCA cath 02/2018), hypertension, type 2 diabetes, dyslipidemia, chronic nicotine dependence, chronic systolic heart failure, paroxysmal atrial fibrillation, ischemic cardiomyopathy status post ICD placement 07/2018, chronic kidney disease, COPD, CVA 2016. He follows in the office with Dr. Blair. We have been asked to see in consultation for congestive heart failure and elevated troponin. Patient presented to the emergency department with cough and shortness of breath. He denies any chest pain, palpitations, lightheadedness ,dizziness, pre-syncope or syncope. He denies symptoms of orthopnea or PND. He is a current every day s moker, 1PPD. Denies alcohol use. DIAGNOSTICS EKG reveals sinus rhythm, incomplete left bundle branch block, heart rate 76, poor R wave progression. No acute ST or T-wave abnormalities. Telemetry tracings indicate sinus mechanism HR 60s. Most recent echocardiogram in the office 04/25/2021 revealed EF of 33%, moderate mitral regurgitation, mild to moderate aortic stenosis, mild tricuspid regurg itation Chest xray developing right lower lobe infiltrate Laboratory reviewed, WBC 17.7, and will be 10.7, platelets 218, troponin 0.1, 0.06, 0.05, proBNP 22,400, sodium 139, potassium 3.8, BUN 53, serum creatinine 2.9 Current cardiac medications include atorvastatin 20 mg nightly, Eliquis 2.5 mg twice a day, hydralazine, potassium chloride, Imdur 30 mg daily, Lasix 40 mg twice a day, carvedilol 25 mg twice a day REVIEW OF SYSTEMS At the time of my exam: CONSTITUTIONAL: Denies fever or chills. CARDIOVASCULAR: Denies chest pain, shortness of breath, orthopnea, PND or palpitations. RESPIRATORY: Denies cough. GASTROINTESTINAL: Denies abdominal pain, diarrhea, constipation, nausea or vomiting. MUSCULOSKELETAL: Denies myalgias. NEUROLOGIC: Denies numbness, tingling, headacbe or weakness. ENDOCRINE: Denies fatigue, weight change, polydipsia or polyurina. GENITOURINARY: Denies burning, hematuria or urgency with micturation. HEMATOLOGIC: Denies history of anemia or bleeding. PHYSICAL EXAMINATION Blood pressure 156/79, heart rate 66 Afebrile, oxygen saturation is greater than 92% on room air CONSTITUTIONAL: No apparent distress. HEENT: Head is normocephalic. Pupils are equal, round. Sclerae anicteric. Mucous membranes of the mouth are moist. No JVD. No carotid bruit. CHEST EXAMINATION: Lungs are diminished bilaterally to auscultation. No chest wall tenderness is noted on palpation or with deep breathing. HEART EXAMINATION: Regular rate and rhythm. S1, S2 heard. No murmurs, gallops or rub. ABDOMEN: Soft, nontender. Positive bowel sounds. EXTREMITIES: 2+ peripheral pulses, no lower extremity edema and no calf tenderness. NEUROLOGIC EXAMINATION: Patient is awake, alert and oriented x3. ASSESSMENT Acute on chronic systolic heart failure Ischemic cardiomyopathy EF 33% status post ICD placement 07/2018 Elevated troponin, not indicative of acute coronary syndrome Leukocytosis Right lower lobe infiltrate seen on chest xray COPD Coronary artery disease (chronically occluded proximal RCA cath 02/2018) Hypertension Type 2 diabetes Dyslipidemia Chronic nicotine dependence Paroxysmal atrial fibrillation On Eliquis Acute on chronic kidney disease History of CVA 2016. PLAN Start IV Lasix 40mg BID I/Os, daily weights Monitor renal function and electrolytes Continue Eliquis, statin, carvedilol, hydralazine, Imdur He is not on an ACEI/ARB due to renal function Pulmonary following appreciate recs Further recommendations based on clinical course Nurse Practitioner note has been reviewed, I agree with a documented findings and plan of care. Patient was seen and examined. 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 History of Any Multi-Drug Resistant Organisms: None Reported Past Surgical History: No Surgical Hx Reported, AICD Additional Past Surgical History / Comment(s): R wrist fx with repair, R eye retinal detachment with surgery, R eye retinal hemorrhage with eye injections in the past Past Anesthesia/Blood Transfusion Reactions: No Reported Reaction Additional Past Anesthesia/Blood Transfusion Reaction / Comment(s): Pt has never recieved blood. Type of Cardiac Device: AICD Device Placement Date:: 07/04/2018 Past Psychological History: No Psychological Hx Reported Additional Psychological History / Comment(s): Pt lives with in their home. Pt is retired from [employer] and the [employer]. Pt does not drive d/t eyesight. Spouse is retired and drives his to [email or web address]. Pt states he does not own a glucometer. He states he would use one if he didn't have to pay for it. Smoking Status: Current every day smoker Past Alcohol Use History: None Reported Additional Past Alcohol Use History / Comment(s): Pt started smoking in 1967 and is a ppd smoker. Past Drug Use History: None Reported - Past Family History Father Family Medical History: Vascular Disorder Additional Family Medical History / Comment(s): Father during vascular surgery for his blood flow to his legs. Mother Family Medical History: Congestive Heart Failure (CHF), Diabetes Mellitus Medications and Allergies Home Medications Medication Instructions Recorded Confirmed Type glipiZIDE [Glucotrol] 10 mg PO BID 06/04/14 07/16/21 History Isosorbide Mononitrate [Isosorbide 30 mg PO DAILY 07/03/18 07/16/21 History Mononitrate ER] Apixaban [Eliquis] 2.5 mg PO BID 09/26/19 07/16/21 History Atorvastatin [Lipitor] 20 mg PO HS 09/26/19 07/16/21 History Furosemide [Lasix] 40 mg PO BID 09/26/19 07/16/21 History Carvedilol [Coreg] 25 mg PO BID-W/MEALS 07/16/21 07/16/21 History Multivit-Min/FA/Lycopen/Lutein 1 tab PO DAILY 07/16/21 07/16/21 History [Centrum Silver Men Tablet] Potassium Chloride ER [K-Dur 20] 20 meq PO DAILY 07/16/21 07/16/21 History hydrALAZINE HCL [Apresoline] 50 mg PO TID 07/16/21 07/16/21 History Allergies Allergy/AdvReac Type Severity Reaction Status Date / Time No Known Allergies Allergy Verified 07/16/21 09:47 Physical Exam Vitals: Vital Signs Temp Pulse Pulse Resp BP Pulse Ox 07/18/21 11:40 84 07/18/21 11:31 82 07/18/21 08:08 80 07/18/21 08:00 66 18 156/79 92 L 07/18/21 07:58 81 07/18/21 04:00 97.4 F L 73 17 138/68 92 L 07/18/21 02:00 72 18 07/18/21 00:00 97.8 F 72 18 137/68 99 07/17/21 20:02 80 07/17/21 20:00 98.0 F 67 17 132/63 99 07/17/21 19:53 80 07/17/21 16:00 97.9 F 67 18 172/72 96 07/17/21 15:10 82 07/17/21 14:58 78 07/17/21 14:00 66 18 Intake and Output 07/17/21 07/18/21 07/18/21 22:59 06:59 14:59 Intake Total 120 Output Total 125 Balance -125 120 Intake: Oral 120 Output: Urine 125 Other: Voiding Method Toilet Toilet Urinal Urinal # Voids 1 1 Weight 59.5 kg Results 07/18/21 07:42 07/18/21 07:42 Cardiac Enzymes 07/17/21 07/18/21 Range/Units 11:38 07:42 Troponin I 0.066 H* 0.050 H* (0.000-0.034) ng/mL CBC 07/17/21 07/18/21 Range/Units 11:38 07:42 WBC 10.4 17.7 H (3.8-10.6) k/uL RBC 3.38 L 3.68 L (4.30-5.90) m/uL Hgb 10.0 L 10.7 L (13.0-17.5) gm/dL Hct 31.2 L 33.8 L (39.0-53.0) % Plt Count 138 L 218 (150-450) k/uL Comprehensive Metabolic Panel 07/18/21 Range/Units 07:42 Sodium 139 (137-145) mmol/L Potassium 3.8 (3.5-5.1) mmol/L Chloride 102 (98-107) mmol/L Carbon Dioxide 25 (22-30) mmol/L BUN 53 H (9-20) mg/dL Creatinine 2.94 H (0.66-1.25) mg/dL Glucose 128 H (74-99) mg/dL Calcium 9.0 (8.4-10.2) mg/dL Current Medications Generic Name Dose Route Start Last Admin Trade Name Freq PRN Reason Stop Dose Admin Albuterol Sulfate 2.5 mg 07/16/21 10:44 Albuterol Nebulized 2.5 Mg/3 Ml INHALATION Q2HR PRN Dyspnea Albuterol/Ipratropium 3 ml 07/16/21 12:00 07/18/21 11:31 Ipratropium-Albuterol 3 Ml Neb INHALATION 3 ml RT-QID GELY Administration Apixaban 2.5 mg 07/16/21 21:00 07/18/21 08:37 Apixaban 2.5 Mg Tablet PO 07/31/21 09:01 2.5 mg BID [facility] Administration Protocol Atorvastatin Calcium 20 mg 07/16/21 21:00 07/17/21 20:54 Atorvastatin 20 Mg Tab PO 20 mg HS GELY Administration Azithromycin 500 mg 07/18/21 09:00 07/18/21 08:37 Azithromycin 500 Mg Tab PO 500 mg DAILY [facility] Administration Carvedilol 25 mg 07/16/21 17:30 07/18/21 06:44 Carvedilol 12.5 Mg Tab PO 25 mg BID-W/MEALS G[facility] Administration Furosemide 40 mg 07/18/21 11:00 Furosemide 10 Mg/Ml 4 Ml Vial IV Q8H [facility] Glipizide 10 mg 07/16/21 21:00 07/18/21 08:37 Glipizide 10 Mg Tab PO 10 mg BID [facility] Administration Hydralazine HCl 50 mg 07/16/21 16:00 07/18/21 08:37 Hydralazine Hcl 50 Mg Tab PO 50 mg TID [facility] Administration Insulin Aspart 0 unit 07/16/21 17:30 07/18/21 06:43 Insulin Aspart (Novolog) 100 Unit/Ml Vial SQ Not Given ACHS [facility] Protocol Insulin Detemir 10 unit 07/17/21 01:00 07/17/21 20:54 Insulin Detemir (Levemir) 100 Unit/Ml Syr SQ 10 unit HS [facility] Administration Isosorbide Mononitrate 30 mg 07/17/21 09:00 07/18/21 08:37 Isosorbide Mononitrate Er 30 Mg Tab.Er.24h PO 30 mg DAILY [facility] Administration Methylprednisolone Sodium Succinate 40 mg 07/16/21 16:00 07/18/21 08:37 Methylprednisolone Sod Succi 40 Mg/Ml 1 Ml Vial IV 40 mg Q8HR [facility] Administration Potassium Chloride 20 meq 07/17/21 09:00 07/18/21 08:37 Potassium Chloride Er 20 Meq Tab.Er PO 20 meq DAILY [facility] Administration Intake and Output 07/17/21 07/18/21 07/18/21 22:59 06:59 14:59 Intake Total 120 Output Total 125 Balance -125 120 Intake: Oral 120 Output: Urine 125 Other: Voiding Method Toilet Toilet Urinal Urinal # Voids 1 1 Weight 59.5 kg 07/18/21 07:42 07/18/21 07:42
[2021-07-18] MEDS: FUROSEMIDE 10 MG/ML 4 ML VIAL IV SCH ×2 (12:38→20:46)
--- NOTE | 2021-07-18 16:34 | P.PN ---
Subjective Progress Note Date: 07/18/21 This is 71-year-old gentleman admitted with acute COPD exacerbation, acute CHF exacerbation and multiple other medical issues. Afebrile, WBC 17.7. Maintained on nebulized bronchodilators, IV steroids and antibiotics. Chest x-ray of yesterday reporting developing right lower lobe infiltrate. Maintaining O2 sats in the 90s on room air .Denies chest pain, palpitations.Good diet intake, consuming 75%. Blood sugars poorly controlled. Diuretics initiated as per cardiology. Creatinine 2.94. Objective - Vital Signs Vital signs: Vital Signs Temp 97.4 F L 07/18/21 04:00 Pulse 78 07/18/21 15:36 Resp 18 07/18/21 08:00 BP 155/71 07/18/21 12:00 Pulse Ox 94 L 07/18/21 12:00 Intake & Output 07/17/21 07/18/21 07/18/21 18:59 06:59 18:59 Intake Total 240 Output Total 325 Balance -325 240 Weight 59.5 kg Intake: Oral 240 Output: Urine 325 Other: Voiding Method Toilet Toilet Toilet Urinal Urinal Urinal # Voids 1 1 1 - Exam - Exam PHYSICAL EXAMINATION: VS: As above GENERAL: Sitting up in bed,no acute distress, awake alert and oriented 2, pleasantly confused, cooperative HEENT: Normocephalic. Neck is supple. Pupils reactive. Oral mucosa moist Neck: Supple, no JVD. CHEST EXAMINATION: Nonlabored, Symmetrical expansion,Bilateral wheezing and scattered rhonchi. Bibasilar diminished sounds. CARDIAC: Normal S1, S2 with no gallops. No murmurs ABDOMEN: Soft. Nontender, nondistended Bowel sounds normal. No organomegaly. No guarding Extremities: reveal no edema. No clubbing or cyanosis Neurologically awake, alert, oriented x2with well-coordinated movements. No focal deficits noted Skin: Warm and dry, No rash. - Labs CBC & Chem 7: 07/18/21 07:42 07/18/21 07:42 Labs: Abnormal Lab Results - Last 24 Hours (Table) 07/17/21 07/17/21 07/18/21 Range/Units 16:45 20:26 06:10 WBC (3.8-10.6) k/uL RBC (4.30-5.90) m/uL Hgb (13.0-17.5) gm/dL Hct (39.0-53.0) % Neutrophils # (1.3-7.7) k/uL Lymphocytes # (1.0-4.8) k/uL BUN (9-20) mg/dL Creatinine (0.66-1.25) mg/dL Glucose (74-99) mg/dL POC Glucose (mg/dL) 441 H 183 H 64 L (75-99) mg/dL Troponin I (0.000-0.034) ng/mL 07/18/21 07/18/21 07/18/21 Range/Units 06:32 07:42 07:42 WBC 17.7 H (3.8-10.6) k/uL RBC 3.68 L (4.30-5.90) m/uL Hgb 10.7 L (13.0-17.5) gm/dL Hct 33.8 L (39.0-53.0) % Neutrophils # 16.3 H (1.3-7.7) k/uL Lymphocytes # 0.9 L (1.0-4.8) k/uL BUN 53 H (9-20) mg/dL Creatinine 2.94 H (0.66-1.25) mg/dL Glucose 128 H (74-99) mg/dL POC Glucose (mg/dL) 102 H (75-99) mg/dL Troponin I (0.000-0.034) ng/mL 07/18/21 07/18/21 Range/Units 07:42 11:42 WBC (3.8-10.6) k/uL RBC (4.30-5.90) m/uL Hgb (13.0-17.5) gm/dL Hct (39.0-53.0) % Neutrophils # (1.3-7.7) k/uL Lymphocytes # (1.0-4.8) k/uL BUN (9-20) mg/dL Creatinine (0.66-1.25) mg/dL Glucose (74-99) mg/dL POC Glucose (mg/dL) 390 H (75-99) mg/dL Troponin I 0.050 H* (0.000-0.034) ng/mL Microbiology - Last 24 Hours (Table) 07/16/21 08:17 Blood Culture - Preliminary Blood No Growth after 48 hours 07/16/21 08:32 Blood Culture - Preliminary Blood No Growth after 48 hours Assessment and Plan Assessment: Acute hypoxic respiratory failure secondary to acute COPD exacerbation and acute CHF exacerbation, systolic dysfunction. Elevated troponins, acute coronary syndrome ruled out as per cardiology Acute on chronic kidney disease stage III. Baseline creatinine 2.4. Diabetes mellitus type 2, hyperglycemic Paroxysmal atrial fibrillation on anticoagulation with Eliquis Chronic CHF with systolic dysfunction ejection fraction 35% Cardiomyopathy, ischemic, status post AICD placement Hypertension Coronary arteries with history of cardiac cath History of CVA 2017 History of diabetic retinopathy with right eye retinal detachment and hemorrhage Plan: Continue on current medication regime ,monitoring and symptomatic treatment. Diuretics as per cardiology.maintain antibiotics.Aggressive pulmonary toileting, continue on IV steroids, nebulized bronchodilators. Poorly controlled blood sugars, pre-meal insulin of NovoLog added with parameters, Am levemir insulin added in addition to previously ordered at bedtime, to start now. Close monitoring of Accu-Cheks. Hemoglobin A1c ordered. The impression and plan of care has been dictated as directed. : I performed a history and examination of this patient, discussed the same with the dictator. I agree with the dictator's note ,documented as a scribe. Any additional findings or plans will be noted.
[2021-07-18 16:36] LABS: Glucose,Whole Blood 315 mg/dL (75-99)
[2021-07-18] MEDS: INSULIN DETEMIR (LEVEMIR) 100 UNIT/ML SYR SQ SCH ×2 (17:56→20:46)
[2021-07-18 20:36] LABS: Glucose,Whole Blood 275 mg/dL (75-99)
[2021-07-18] MEDS: ATORVASTATIN 20 MG TAB PO SCH (20:46)
[2021-07-19 04:28] VITALS: TEMP 97.8
[2021-07-19 06:18] LABS: Glucose,Whole Blood 78 mg/dL (75-99)
[2021-07-19] MEDS: INSULIN ASPART (NovoLOG) 100 UNIT/ML VIAL SQ SCH ×4 (06:46→12:29)
[2021-07-19] MEDS: INSULIN DETEMIR (LEVEMIR) 100 UNIT/ML SYR SQ SCH (06:47)
[2021-07-19] MEDS: carvediloL 12.5 MG TAB PO SCH (06:47)
[2021-07-19] MEDS: IPRATROPIUM-ALBUTEROL 3 ML NEB INHALATION SCH ×2 (07:34→11:06)
[2021-07-19 08:30] VITALS: RESP 18
[2021-07-19 08:40] LABS: Basophils % (A) 0 %; Eosinophils % (A) 0 %; HCT 33.8 % (39.0-53.0); HGB 10.6 gm/dL (13.0-17.5); Hypochromasia Slight; Lymphocytes % (A) 5 %; MCH 29.4 pg (25.0-35.0); MCHC 31.4 g/dL (31.0-37.0); MCV 93.4 fL (80.0-100.0); Mean Platelet Volume 8.9; Monocytes # (A) 0.3 k/uL (0-1.0); Monocytes % (A) 1 %; Neutrophils % (A) 93 %; Platelet Count 243 k/uL (150-450); RBC 3.62 m/uL (4.30-5.90); RDW 14.2 % (11.5-15.5); WBC 20.5 k/uL (3.8-10.6)
[2021-07-19] MEDS: methylPREDNISolone SOD SUCCI 40 MG/ML 1 ML VIAL IV SCH ×2 (08:45→16:06)
[2021-07-19] MEDS: APIXABAN 2.5 MG TABLET PO SCH (08:46)
[2021-07-19] MEDS: POTASSIUM CHLORIDE ER 20 MEQ TAB.ER PO SCH (08:46)
[2021-07-19] MEDS: hydrALAZINE HCL 50 MG TAB PO SCH ×2 (08:46→16:05)
[2021-07-19] MEDS: ISOSORBIDE MONONITRATE ER 30 MG TAB.ER.24H PO SCH (08:46)
[2021-07-19] MEDS: AZITHROMYCIN 500 MG TAB PO SCH (08:46)
[2021-07-19] MEDS: FUROSEMIDE 10 MG/ML 4 ML VIAL IV SCH (08:46)
[2021-07-19 08:56] LABS: Calcium 9.2 mg/dL (8.4-10.2); Magnesium 2.3 mg/dL (1.6-2.3)
[2021-07-19] MEDS ORDERED: FUROSEMIDE 40 MG TAB PO SCH ×2 (10:07→16:00)
--- NOTE | 2021-07-19 10:07 | P.PN ---
Subjective HISTORY OF PRESENTING ILLNESS This is a pleasant 71-year-old male past medical history significant for coronary artery disease (chronically occluded proximal RCA cath 02/2018), hypertension, type 2 diabetes, dyslipidemia, chronic nicotine dependence, chronic systolic heart failure, paroxysmal atrial fibrillation, ischemic cardiomyopathy status post ICD placement 07/2018, chronic kidney disease, COPD, CVA 2017. He follows in the office with Dr. Blair. We have been asked to see in consultation for congestive heart failure and elevated troponin. Patient presented to the emergency department with cough and shortness of breath. He denies any chest pain, palpitations, lightheadedness ,dizziness, pre-syncope or syncope. He denies symptoms of orthopnea or PND. He is a current every day smoker, 1PPD. Denies alcohol use. 07/19/2021 Patient seen and examined sitting up in bed with his at the bedside. He states his breathing is back to baseline. He denies significant change in his urination on IV lasix. Output not documented accurately. Blood pressure 157/73 heart rate 60 afebrile and maintaining oxygen saturation on room air. Joana torel data reviewed, WBC 20, hemoglobin 10.6, platelets 243, sodium 140, potassium 5, creatinine 2.84 and magnesium 2.3. PHYSICAL EXAMINATION CONSTITUTIONAL: No apparent distress. HEENT: Head is normocephalic. Pupils are equal, round. Sclerae anicteric. Mucous membranes of the mouth are moist. No JVD. No carotid bruit. CHEST EXAMINATION: Lungs are diminished bilaterally to auscultation. No chest wall tenderness is noted on palpation or with deep breathing. HEART EXAMINATION: Regular rate and rhythm. S1, S2 heard. No murmurs, gallops or rub. EXTREMITIES: 2+ peripheral pulses, no lower extremity edema and no calf tenderness. ASSESSMENT Acute on chronic systolic heart failure Ischemic cardiomyopathy EF 33% status post ICD placement 07/2018 Elevated troponin, not indicative of acute coronary syndrome Leukocytosis Right lower lobe infiltrate seen on chest xray COPD Coronary artery disease (chronically occluded proximal RCA cath 02/2018) Hypertension Type 2 diabetes Dyslipidemia Chronic nicotine dependence Paroxysmal atrial fibrillation On Eliquis Acute on chronic kidney disease History of CVA 2016. PLAN Transition to oral lasix. Increase activity as tolerated. Stable for discharge from a cardiac perspective. Follow up with Dr. Blair. Nurse Practitioner note has been reviewed, I agree with a documented findings and plan of care. Patient was seen and examined. Objective - Vital Signs Vital signs: Vital Signs Temp 97.8 F 07/19/21 08:00 Pulse 60 07/19/21 08:43 Resp 18 07/19/21 08:00 BP 157/73 07/19/21 08:00 Pulse Ox 98 07/19/21 08:00 Intake & Output 07/18/21 07/19/21 07/19/21 18:59 06:59 18:59 Intake Total 360 Balance 360 Weight 60.5 kg Intake: Oral 360 Other: Voiding Method Toilet Toilet Urinal Urinal # Voids 1 2 - Labs CBC & Chem 7: 07/19/21 08:02 07/19/21 08:02 Labs: Abnormal Lab Results - Last 24 Hours (Table) 07/18/21 07/18/21 07/18/21 Range/Units 07:42 11:42 16:34 WBC (3.8-10.6) k/uL RBC (4.30-5.90) m/uL Hgb (13.0-17.5) gm/dL Hct (39.0-53.0) % Neutrophils # (1.3-7.7) k/uL BUN (9-20) mg/dL Creatinine (0.66-1.25) mg/dL Glucose (74-99) mg/dL POC Glucose (mg/dL) 390 H 315 H (75-99) mg/dL Procalcitonin 0.16 H (0.02-0.09) ng/mL 07/18/21 07/19/21 07/19/21 Range/Units 20:34 08:02 08:02 WBC 20.5 H (3.8-10.6) k/uL RBC 3.62 L (4.30-5.90) m/uL Hgb 10.6 L (13.0-17.5) gm/dL Hct 33.8 L (39.0-53.0) % Neutrophils # 19.0 H (1.3-7.7) k/uL BUN 62 H (9-20) mg/dL Creatinine 2.84 H (0.66-1.25) mg/dL Glucose 139 H (74-99) mg/dL POC Glucose (mg/dL) 275 H (75-99) mg/dL Procalcitonin (0.02-0.09) ng/mL Microbiology - Last 24 Hours (Table) 07/16/21 08:17 Blood Culture - Preliminary Blood No Growth after 48 hours 07/16/21 08:32 Blood Culture - Preliminary Blood No Growth after 48 hours
[2021-07-19 11:38] LABS: Glucose,Whole Blood 215 mg/dL (75-99)
[2021-07-19 12:50] VITALS: PULSE 63
[2021-07-19 16:11] VITALS: BP 162/75
[2021-07-19 16:27] LABS: Glucose,Whole Blood 204 mg/dL (75-99)
--- NOTE | 2021-07-21 15:11 | P.DS ---
Providers Date of admission: 07/16/21 11:18 Expected date of discharge: 07/19/21 Attending physician: Chandan Padron Consults: 07/16/21 10:46 Consult Physician Urgent Consulting Provider: Andrea Keys Consult Reason/Comments: copd Do you want consulting provider notified?: Yes 07/17/21 21:05 Consult Physician Routine Consulting Provider: Severiano Burroughs Consult Reason/Comments: Elevated trop Do you want consulting provider notified?: Yes, Notify in am Primary care physician: Chandan Padron Hospital Course: Final Diagnoses: Acute hypoxic respiratory failure secondary to acute COPD exacerbation and acute CHF exacerbation, systolic dysfunction. Elevated troponins, acute coronary syndrome ruled out as per cardiology Acute on chronic kidney disease stage III. Baseline creatinine 2.4. Diabetes mellitus type 2, hyperglycemic, hemoglobin A1c 7.2. Further diabetic education in clinic at PCPs office. Paroxysmal atrial fibrillation on anticoagulation with Eliquis Chronic CHF with systolic dysfunction ejection fraction 35% Cardiomyopathy, ischemic, status post AICD placement Hypertension Coronary arteries with history of cardiac cath History of CVA 2017 History of diabetic retinopathy with right eye retinal detachment and hemorrhage Hospital course:This is 71-year-old gentleman admitted with acute COPD exacerbation, acute CHF exacerbation and multiple other medical issues. Afebrile, WBC 17.7. Maintained on nebulized bronchodilators, IV steroids and antibiotics. Chest x-ray of yesterday reporting developing right lower lobe infiltrate. Maintaining O2 sats in the 90s on room air .Denies chest pain, palpitations.Good diet intake, consuming 75%. Blood sugars poorly controlled. Diuretics initiated as per cardiology. Creatinine 2.94. Significant clinical improvement. Cleared by pulmonary and cardiology for discharge. She will be discharged home in stable condition with guarded prognosis. The impression and plan of care has been dictated as directed. : I performed a history and examination of this patient, discussed the same with the dictator. I agree with the dictator's note ,documented as a scribe. Any additional findings or plans will be noted. Patient Condition at Discharge: Stable Plan - Discharge Summary Discharge Rx Participant: Yes New Discharge Prescriptions: New predniSONE 10 mg PO DIRECTED #30 tab Albuterol Sulfate [Albuterol Sulfate Hfa] 2 puff PO Q6H PRN #8.5 gm PRN Reason: Shortness Of Breath Famotidine [Pepcid] 20 mg PO BID #60 tablet Budesonide/Formoterol Fumarate [Symbicort 80-4.5 Mcg Inhaler] 2 puff INHALATION BID #10.8 gm Cefuroxime [Ceftin] 250 mg PO BID 3 Days #6 tab Continue glipiZIDE [Glucotrol] 10 mg PO BID Isosorbide Mononitrate [Isosorbide Mononitrate ER] 30 mg PO DAILY Apixaban [Eliquis] 2.5 mg PO BID Atorvastatin [Lipitor] 20 mg PO HS Furosemide [Lasix] 40 mg PO BID Carvedilol [Coreg] 25 mg PO BID-W/MEALS Multivit-Min/FA/Lycopen/Lutein [Centrum Silver Men Tablet] 1 tab PO DAILY hydrALAZINE HCL [Apresoline] 50 mg PO TID Potassium Chloride ER [K-Dur 20] 20 meq PO DAILY Discharge Medication List glipiZIDE [Glucotrol] 10 mg PO BID 06/04/14 [History] Isosorbide Mononitrate [Isosorbide Mononitrate ER] 30 mg PO DAILY 07/03/18 [History] Apixaban [Eliquis] 2.5 mg PO BID 09/26/19 [History] Atorvastatin [Lipitor] 20 mg PO HS 09/26/19 [History] Furosemide [Lasix] 40 mg PO BID 09/26/19 [History] Carvedilol [Coreg] 25 mg PO BID-W/MEALS 07/16/21 [History] Multivit-Min/FA/Lycopen/Lutein [Centrum Silver Men Tablet] 1 tab PO DAILY 07/16/21 [History] Potassium Chloride ER [K-Dur 20] 20 meq PO DAILY 07/16/21 [History] hydrALAZINE HCL [Apresoline] 50 mg PO TID 07/16/21 [History] Albuterol Sulfate [Albuterol Sulfate Hfa] 2 puff PO Q6H PRN #8.5 gm 07/19/21 [Rx] Budesonide/Formoterol Fumarate [Symbicort 80-4.5 Mcg Inhaler] 2 puff INHALATION BID #10.8 gm 07/19/21 [Rx] Cefuroxime [Ceftin] 250 mg PO BID 3 Days #6 tab 07/19/21 [Rx] Famotidine [Pepcid] 20 mg PO BID #60 tablet 07/19/21 [Rx] predniSONE 10 mg PO DIRECTED #30 tab 07/19/21 [Rx] Follow up Appointment(s)/Referral(s): Violet Blair MD [STAFF PHYSICIAN] - 08/16/21 1:30 pm Chandan Padron DO [Primary Care Provider] - 07/26/21 10:00 am Ambulatory/Diagnostic Orders: Complete Blood Count w/diff [LAB.AMB] Time Frame: 3 Days, Location: None Selected Patient Instructions/Handouts: Acute Kidney Injury (DC), COPD (Chronic Obstructive Pulmonary Disease) (DC) Activity/Diet/Wound Care/Special Instructions: Hemoglobin A1c ordered, pending, final results to be faxed to PCP, Dr. Padron. No smoking. Discharge Disposition: HOME SELF-CARE
== END 2021-07-19 16:57 | disposition home or self-care (01) | DRG 291 ==
LOC: EC 08:04 → 3SCARD 11:18
PROVIDERS: ADMIT Family Medicine; ATTEND Family Medicine
DX: I13.0 Hypertensive heart and chronic kidney disease with heart failure and stage 1 through stage 4 chronic kidney disease, or unspecified chronic kidney disease (principal); I50.23 Acute on chronic systolic (congestive) heart failure; J96.01 Acute respiratory failure with hypoxia; J44.1 Chronic obstructive pulmonary disease with (acute) exacerbation; N17.9 Acute kidney failure, unspecified; N18.4 Chronic kidney disease, stage 4 (severe); E11.22 Type 2 diabetes mellitus with diabetic chronic kidney disease; E11.319 Type 2 diabetes mellitus with unspecified diabetic retinopathy without macular edema; E11.65 Type 2 diabetes mellitus with hyperglycemia; E78.5 Hyperlipidemia, unspecified; F17.210 Nicotine dependence, cigarettes, uncomplicated; I08.0 Rheumatic disorders of both mitral and aortic valves; I25.10 Atherosclerotic heart disease of native coronary artery without angina pectoris; I25.5 Ischemic cardiomyopathy; I44.7 Left bundle-branch block, unspecified; I48.0 Paroxysmal atrial fibrillation; Z20.822 Contact with and (suspected) exposure to COVID-19; Z79.01 Long term (current) use of anticoagulants; Z79.4 Long term (current) use of insulin; Z79.52 Long term (current) use of systemic steroids; Z95.0 Presence of cardiac pacemaker; Z79.899 Other long term (current) drug therapy; Z82.49 Family history of ischemic heart disease and other diseases of the circulatory system; Z83.3 Family history of diabetes mellitus; Z86.73 Personal history of transient ischemic attack (TIA), and cerebral infarction without residual deficits; M19.90 Unspecified osteoarthritis, unspecified site
CPT/HCPCS: 36415; 71045; 71046; 80048; 80053; 83036; 83605; 83735; 83880; 84145; 84484; 85025; 85610; 85730; 87040; 87635; 93005; 94640; 94760; 99285

== ENCOUNTER 2021-09-02 22:02 | Inpatient (IN) | payer MEDICARE, BC ==
[2021-09-02 23:18] LABS: Basophils % (A) 0 %; Eosinophils # (A) 0.1 k/uL (0-0.7); Eosinophils % (A) 1 %; HCT 30.9 % (39.0-53.0); Hypochromasia Moderate; Lymphocytes # (A) 0.7 k/uL (1.0-4.8); Lymphocytes % (A) 7 %; MCH 29.4 pg (25.0-35.0); MCHC 31.3 g/dL (31.0-37.0); MCV 93.7 fL (80.0-100.0); Mean Platelet Volume 8.7; Monocytes # (A) 0.4 k/uL (0-1.0); Monocytes % (A) 4 %; Neutrophils # (A) 9.2 k/uL (1.3-7.7); Neutrophils % (A) 88 %; Platelet Count 388 k/uL (150-450); RBC 3.29 m/uL (4.30-5.90); RDW 15.7 % (11.5-15.5); WBC 10.5 k/uL (3.8-10.6)
[2021-09-02 23:27] LABS: HGB 9.7 gm/dL (13.0-17.5)
[2021-09-02 23:28] LABS: INR 1.3 (<1.2); Partial Thromboplastin Time 25.9 sec (22.0-30.0); Prothrombin Time 13.1 sec (9.0-12.0)
[2021-09-02 23:30] LABS: Albumin 3.7 g/dL (3.5-5.0); Calcium 9.3 mg/dL (8.4-10.2); Magnesium 2.5 mg/dL (1.6-2.3); Potassium 5.1 mmol/L (3.5-5.1); Total Protein 6.4 g/dL (6.3-8.2)
--- NOTE | 2021-09-02 23:44 | XR ---
EXAMINATION TYPE: XR chest 2V DATE OF EXAM: 09/02/2021 COMPARISON: 07/17/2021 HISTORY: Short of breath TECHNIQUE: 2 views FINDINGS: Heart is normal. There is blunting of the costophrenic angles bilaterally. There are no hil ar masses. There is left axillary pacemaker. There is mild pulmonary congestion. IMPRESSION: Pleural effusions and mild congestion could be some mild chronic heart failure and appear s new compared to old exam. Heart however not grossly enlarged.
--- NOTE | 2021-09-03 00:27 | ED ---
General Adult HPI - General Chief complaint: Shortness of Breath Stated complaint: RUTHY Source: patient, RN notes reviewed Mode of arrival: wheelchair Limitations: no limitations - History of Present Illness Initial comments: 71-year-old male presents emergency Department chief complaint of increasing shortness of breath. Patient states that he's had increase in cough, dyspnea o sejal the last few days. Patient does have a known history of COPD, A. fib, diabetes renal disease. Patient states she's had a cough productive history of smoking. Patient denies any significant chest pain currently no headaches or dizziness he has been slightly lightheaded at times. - Related Data Home Medications Medication Instructions Recorded Confirmed glipiZIDE [Glucotrol] 10 mg PO BID 06/04/14 07/16/21 Isosorbide Mononitrate [Isosorbide 30 mg PO DAILY 07/03/18 07/16/21 Mononitrate ER] Apixaban [Eliquis] 2.5 mg PO BID 09/26/19 07/16/21 Atorvastatin [Lipitor] 20 mg PO HS 09/26/19 07/16/21 Furosemide [Lasix] 40 mg PO BID 09/26/19 07/16/21 Carvedilol [Coreg] 25 mg PO BID-W/MEALS 07/16/21 07/16/21 Multivit-Min/FA/Lycopen/Lutein 1 tab PO DAILY 07/16/21 07/16/21 [Centrum Silver Men Tablet] Potassium Chloride ER [K-Dur 20] 20 meq PO DAILY 07/16/21 07/16/21 hydrALAZINE HCL [Apresoline] 50 mg PO TID 07/16/21 07/16/21 Previous Rx's Medication Instructions Recorded Albuterol Sulfate [Albuterol 2 puff PO Q6H PRN #8.5 gm 07/19/21 Sulfate Hfa] Budesonide/Formoterol Fumarate 2 puff INHALATION BID #10.8 gm 07/19/21 [Symbicort 80-4.5 Mcg Inhaler] Cefuroxime [Ceftin] 250 mg PO BID 3 Days #6 tab 07/19/21 Famotidine [Pepcid] 20 mg PO BID #60 tablet 07/19/21 predniSONE 10 mg PO DIRECTED #30 tab 07/19/21 Allergies Allergy/AdvReac Type Severity Reaction Status Date / Time No Known Allergies Allergy Verified 09/02/21 22:36 Review of Systems ROS Statement: Those systems with pertinent positive or pertinent negative responses have been documented in the HPI. ROS Other: All systems not noted in ROS Statement are negative. 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 History of Any Multi-Drug Resistant Organisms: None Reported Past Surgical History: No Surgical Hx Reported, AICD Additional Past Surgical History / Comment(s): R wrist fx with repair, R eye retinal detachment with surgery, R eye retinal hemorrhage with eye injections in the past Past Anesthesia/Blood Transfusion Reactions: No Reported Reaction Additional Past Anesthesia/Blood Transfusion Reaction / Comment(s): Pt has never recieved blood. Type of Cardiac Device: AICD Device Placement Date:: 07/04/2018 Past Psychological History: No Psychological Hx Reported Smoking Status: Current every day smoker Past Alcohol Use History: None Reported Past Drug Use History: None Reported - Past Family History Father Family Medical History: Vascular Disorder Additional Family Medical History / Comment(s): Father during vascular surgery for his blood flow to his legs. Mother Family Medical History: Congestive Heart Failure (CHF), Diabetes Mellitus General Exam Limitations: no limitations General appearance: alert, in no apparent distress Head exam: Present: atraumatic, normocephalic, normal inspection Eye exam: Present: normal appearance, PERRL, EOMI. Absent: scleral icterus, conjunctival injection, periorbital swelling ENT exam: Present: normal exam, normal oropharynx, mucous membranes moist Neck exam: Present: normal inspection, full ROM. Absent: tenderness, meningismus, lymphadenopathy Respiratory exam: Present: wheezes, rales, decreased breath sounds. Absent: normal lung sounds bilaterally, respiratory distress, rhonchi, stridor Cardiovascular Exam: Present: regular rate, normal rhythm, normal heart sounds. Absent: systolic murmur, diastolic murmur, rubs, gallop, clicks Course Vital Signs 09/02/21 22:36 Temperature 98.0 F Pulse Rate 64 Respiratory 18 Rate Blood Pressure 157/85 O2 Sat by Pulse 98 Oximetry Medical Decision Making - Medical Decision Making Chest x-ray shows evidence of pleural effusion, pulmonary edema. Patient's BMP is slightly elevated and mildly elevated troponin. Patient be admitted for CHF exacerbation, repeat troponin - Lab Data Result diagrams: 09/02/21 23:02 09/02/21 23:02 Lab Results 09/02/21 09/02/21 09/02/21 Range/Units 23:02 23:02 23:02 WBC 10.5 (3.8-10.6) k/uL RBC 3.29 L (4.30-5.90) m/uL Hgb 9.7 L D (13.0-17.5) gm/dL Hct 30.9 L (39.0-53.0) % MCV 93.7 (80.0-100.0) fL MCH 29.4 (25.0-35.0) pg MCHC 31.3 (31.0-37.0) g/dL RDW 15.7 H (11.5-15.5) % Plt Count 388 (150-450) k/uL MPV 8.7 Neutrophils % 88 % Lymphocytes % 7 % Monocytes % 4 % Eosinophils % 1 % Basophils % 0 % Neutrophils # 9.2 H (1.3-7.7) k/uL Lymphocytes # 0.7 L (1.0-4.8) k/uL Monocytes # 0.4 (0-1.0) k/uL Eosinophils # 0.1 (0-0.7) k/uL Basophils # 0.0 (0-0.2) k/uL Hypochromasia Moderate PT 13.1 H (9.0-12.0) sec INR 1.3 H (<1.2) APTT 25.9 (22.0-30.0) sec Sodium 142 (137-145) mmol/L Potassium 5.1 (3.5-5.1) mmol/L Chloride 111 H (98-107) mmol/L Carbon Dioxide 21 L (22-30) mmol/L Anion Gap 10 mmol/L BUN 35 H (9-20) mg/dL Creatinine 2.99 H (0.66-1.25) mg/dL Est GFR (CKD-EPI)AfAm 24 (>60 ml/min/1.73 sqM) Est GFR (CKD-EPI)NonAf 20 (>60 ml/min/1.73 sqM) Glucose 164 H (74-99) mg/dL Calcium 9.3 (8.4-10.2) mg/dL Magnesium 2.5 H (1.6-2.3) mg/dL Total Bilirubin 1.0 (0.2-1.3) mg/dL AST 15 L (17-59) U/L ALT 18 (4-49) U/L Alkaline Phosphatase 107 (38-126) U/L Troponin I (0.000-0.034) ng/mL NT-Pro-B Natriuret Pep pg/mL Total Protein 6.4 (6.3-8.2) g/dL Albumin 3.7 (3.5-5.0) g/dL Coronavirus (PCR) (Not Detectd) 09/02/21 09/02/21 09/02/21 Range/Units 23:02 23:02 23:08 WBC (3.8-10.6) k/uL RBC (4.30-5.90) m/uL Hgb (13.0-17.5) gm/dL Hct (39.0-53.0) % MCV (80.0-100.0) fL MCH (25.0-35.0) pg MCHC (31.0-37.0) g/dL RDW (11.5-15.5) % Plt Count (150-450) k/uL MPV Neutrophils % % Lymphocytes % % Monocytes % % Eosinophils % % Basophils % % Neutrophils # (1.3-7.7) k/uL Lymphocytes # (1.0-4.8) k/uL Monocytes # (0-1.0) k/uL Eosinophils # (0-0.7) k/uL Basophils # (0-0.2) k/uL Hypochromasia PT (9.0-12.0) sec INR (<1.2) APTT (22.0-30.0) sec Sodium (137-145) mmol/L Potassium (3.5-5.1) mmol/L Chloride (98-107) mmol/L Carbon Dioxide (22-30) mmol/L Anion Gap mmol/L BUN (9-20) mg/dL Creatinine (0.66-1.25) mg/dL Est GFR (CKD-EPI)AfAm (>60 ml/min/1.73 sqM) Est GFR (CKD-EPI)NonAf (>60 ml/min/1.73 sqM) Glucose (74-99) mg/dL Calcium (8.4-10.2) mg/dL Magnesium (1.6-2.3) mg/dL Total Bilirubin (0.2-1.3) mg/dL AST (17-59) U/L ALT (4-49) U/L Alkaline Phosphatase (38-126) U/L Troponin I 0.042 H* (0.000-0.034) ng/mL NT-Pro-B Natriuret Pep 82731 pg/mL Total Protein (6.3-8.2) g/dL Albumin (3.5-5.0) g/dL Coronavirus (PCR) Not Detected (Not Detectd) Critical Care Time Critical Care Time: Yes Total Critical Care Time: 35 Disposition Clinical Impression: COPD exacerbation, Dyspnea, CHF exacerbation Disposition: ADMITTED IP TO THIS [facility] Condition: Poor Referrals: Chandan Padron DO [Primary Care Provider] - 1-2 days
[2021-09-03] MEDS ORDERED: FUROSEMIDE 10 MG/ML 4 ML VIAL IV STA (02:58)
[2021-09-03] MEDS: FUROSEMIDE 10 MG/ML 4 ML VIAL IV SCH ×2 (03:25→16:06)
[2021-09-03] MEDS ORDERED: ALBUTEROL NEBULIZED 2.5 MG/3 ML INHALATION PRN (10:31)
[2021-09-03] MEDS: carvediloL 12.5 MG TAB PO SCH ×2 (10:53→16:06)
[2021-09-03] MEDS: ISOSORBIDE MONONITRATE ER 30 MG TAB.ER.24H PO SCH (10:53)
[2021-09-03] MEDS: glipiZIDE 10 MG TAB PO SCH ×2 (10:53→20:24)
[2021-09-03] MEDS: hydrALAZINE HCL 50 MG TAB PO SCH ×3 (10:53→20:23)
[2021-09-03] MEDS: APIXABAN 2.5 MG TABLET PO SCH ×2 (10:53→20:24)
[2021-09-03] MEDS: FAMOTIDINE 20 MG TAB PO SCH ×2 (10:53→20:24)
[2021-09-03 13:39] LABS: Basophils % (A) 0 %; Eosinophils # (A) 0.1 k/uL (0-0.7); Eosinophils % (A) 1 %; HCT 29.3 % (39.0-53.0); HGB 9.2 gm/dL (13.0-17.5); Hypochromasia Moderate; Lymphocytes # (A) 0.9 k/uL (1.0-4.8); Lymphocytes % (A) 9 %; MCH 29.6 pg (25.0-35.0); MCHC 31.5 g/dL (31.0-37.0); MCV 93.8 fL (80.0-100.0); Monocytes # (A) 0.5 k/uL (0-1.0); Monocytes % (A) 5 %; Neutrophils # (A) 8.4 k/uL (1.3-7.7); Neutrophils % (A) 85 %; Platelet Count 283 k/uL (150-450); RBC 3.12 m/uL (4.30-5.90); RDW 15.6 % (11.5-15.5)
--- NOTE | 2021-09-03 14:01 | P.CRDCN ---
History of Present Illness History of present illness: HISTORY OF PRESENTING ILLNESS This is a pleasant 71-year-old male past medical history significant for coronary artery disease (chronically occluded proximal RCA cath 02/2018), hypertension, type 2 diabetes, dyslipidemia, chronic nicotine dependence, chronic systolic heart failure, paroxysmal atrial fibrillation, ischemic cardiomyopathy status post ICD placement 07/2018, chronic kidney disease, COPD, CVA 2016. He follows in the office with Dr. Blair. Patient is somewhat of a poor historian and much of history is supplied by chart. He states he had been doing fairly well up until the last day where he has been more short of breath. He states he has not changed any medications and denies any chest pain, pressure, tightness. Denies any orthopnea or lower extremity edema. The only change in his medications was he was given Lasix in the emergency department and states now he feels much better, close to back to normal. Blood work shows hemoglobin 9.7 with previous back in July 15, white blood cell 10.5, creatinine 2.99 with baseline 2.3 from July, minimally elevated troponin 0.04, 0.04, 0.03 and proBNP 32,000. Chest x-ray shows pleural effusions mild congestion consistent with mild chronic heart failure. REVIEW OF SYSTEMS At the time of my exam: CONSTITUTIONAL: Denies fever or chills. CARDIOVASCULAR: Denies chest pain, +shortness of breath, no orthopnea, PND or palpitations. RESPIRATORY: Denies cough. GASTROINTESTINAL: Denies abdominal pain, diarrhea, constipation, nausea or vomiting. MUSCULOSKELETAL: Denies myalgias. NEUROLOGIC: Denies numbness, tingling or weakness. ENDOCRINE: Denies fatigue, weight change, polydipsia or polyurina. GENITOURINARY: Denies burning, hematuria or urgency with micturation. HEMATOLOGIC: Denies history of anemia or bleeding. PHYSICAL EXAMINATION Vital signs reviewed. CONSTITUTIONAL: No apparent distress. HEENT: Head is normocephalic. Pupils are equal, round. Sclerae anicteric. Mucous membranes of the mouth are moist. No JVD. No carotid bruit. CHEST EXAMINATION: + Mild crackles at bases HEART EXAMINATION: Regular rate and rhythm. S1, S2 heard. No murmurs, gallops or rub. ABDOMEN: Soft, nontender. Positive bowel sounds. EXTREMITIES: 2+ peripheral pulses, no lower extremity edema and no calf tenderness. NEUROLOGIC EXAMINATION: Patient is awake, alert and oriented x3. ASSESSMENT 1. Acute on chronic systolic heart failure 2. Mildly elevated troponins, do not suspect acute coronary syndrome appears chronic related to chronic kidney disease 3. Chronic kidney disease, somewhat worse than baseline 4. Hypertension 5. Hyperlipidemia 6. Coronary artery disease 7. Ischemic cardiomyopathy 8. Paroxysmal atrial fibrillation 9. History of prior stroke PLAN Patient states he is feeling much better after diuretics however discussed increased risk of readmission if not fully optimize. Would recommend continued monitoring for one more day with possible discharge in next 24-48 hours. Continue with IV diuresis. 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 History of Any Multi-Drug Resistant Organisms: None Reported Past Surgical History: No Surgical Hx Reported, AICD Additional Past Surgical History / Comment(s): R wrist fx with repair, R eye retinal detachment with surgery, R eye retinal hemorrhage with eye injections in the past Past Anesthesia/Blood Transfusion Reactions: No Reported Reaction Additional Past Anesthesia/Blood Transfusion Reaction / Comment(s): Pt has never recieved blood. Type of Cardiac Device: AICD Device Placement Date:: 07/04/2018 Past Psychological History: No Psychological Hx Reported Additional Psychological History / Comment(s): Pt lives with in their home. Pt is retired from [employer] and the [employer]. Pt does not drive d/t [employer]. Spouse is retired and drives his to [employer]. Pt states he does not own a glucometer. He states he would use one if he didn't have to pay for it. Smoking Status: Current every day smoker Past Alcohol Use History: None Reported Additional Past Alcohol Use History / Comment(s): Pt started smoking in 1967 and is a ppd smoker. Past Drug Use History: None Reported - Past Family History Father Family Medical History: Vascular Disorder Additional Family Medical History / Comment(s): Father during vascular surgery for his blood flow to his legs. Mother Family Medical History: Congestive Heart Failure (CHF), Diabetes Mellitus Medications and Allergies Home Medications Medication Instructions Recorded Confirmed Type glipiZIDE [Glucotrol] 10 mg PO BID 06/04/14 09/03/21 History Isosorbide Mononitrate [Isosorbide 30 mg PO DAILY 07/03/18 09/03/21 History Mononitrate ER] Apixaban [Eliquis] 2.5 mg PO BID 09/26/19 09/03/21 History Atorvastatin [Lipitor] 20 mg PO HS 09/26/19 09/03/21 History Furosemide [Lasix] 40 mg PO BID 09/26/19 09/03/21 History Carvedilol [Coreg] 25 mg PO BID-W/MEALS 07/16/21 09/03/21 History Multivit-Min/FA/Lycopen/Lutein 1 tab PO DAILY 07/16/21 09/03/21 History [Centrum Silver Men Tablet] hydrALAZINE HCL [Apresoline] 50 mg PO TID 07/16/21 09/03/21 History Famotidine [Pepcid] 20 mg PO BID #60 tablet 07/19/21 09/03/21 Rx Albuterol Sulfate [Albuterol 2 puff PO RT-Q6H PRN 09/03/21 09/03/21 History Sulfate Hfa] Budesonide/Formoterol Fumarate 2 puff INHALATION RT-BID 09/03/21 09/03/21 History [Symbicort 80-4.5 Mcg Inhaler] Klor-Con (Unknown Dose) 1 tab PO DAILY 09/03/21 09/03/21 History Allergies Allergy/AdvReac Type Severity Reaction Status Date / Time No Known Allergies Allergy Verified 09/02/21 22:36 Physical Exam Vitals: Vital Signs Temp Pulse Pulse Resp BP BP Pulse Ox 09/03/21 12:21 18 09/03/21 11:05 98 F 84 18 159/74 95 09/03/21 07:42 97.7 F 76 18 164/95 94 L 09/03/21 05:52 74 16 166/95 100 09/02/21 22:36 98.0 F 64 18 157/85 98 Intake and Output 09/02/21 09/03/21 09/03/21 22:59 06:59 14:59 Other: Weight 58.967 kg 58.967 kg Results 09/03/21 13:26 09/02/21 23:02 Cardiac Enzymes 09/02/21 09/02/21 09/03/21 Range/Units 23:02 23:02 03:29 AST 15 L (17-59) U/L Troponin I 0.042 H* 0.043 H* (0.000-0.034) ng/mL 09/03/21 Range/Units 05:33 AST (17-59) U/L Troponin I 0.039 H* (0.000-0.034) ng/mL Coagulation 09/02/21 Range/Units 23:02 PT 13.1 H (9.0-12.0) sec APTT 25.9 (22.0-30.0) sec CBC 09/02/21 09/03/21 Range/Units 23:02 13:26 WBC 10.5 10.0 (3.8-10.6) k/uL RBC 3.29 L 3.12 L (4.30-5.90) m/uL Hgb 9.7 L D 9.2 L (13.0-17.5) gm/dL Hct 30.9 L 29.3 L (39.0-53.0) % Plt Count 388 283 (150-450) k/uL Comprehensive Metabolic Panel 09/02/21 Range/Units 23:02 Sodium 142 (137-145) mmol/L Potassium 5.1 (3.5-5.1) mmol/L Chloride 111 H (98-107) mmol/L Carbon Dioxide 21 L (22-30) mmol/L BUN 35 H (9-20) mg/dL Creatinine 2.99 H (0.66-1.25) mg/dL Glucose 164 H (74-99) mg/dL Calcium 9.3 (8.4-10.2) mg/dL AST 15 L (17-59) U/L ALT 18 (4-49) U/L Alkaline Phosphatase 107 (38-126) U/L Total Protein 6.4 (6.3-8.2) g/dL Albumin 3.7 (3.5-5.0) g/dL Current Medications Generic Name Dose Route Start Last Admin Trade Name Freq PRN Reason Stop Dose Admin Albuterol Sulfate 2.5 mg 09/03/21 10:31 Albuterol Nebulized 2.5 Mg/3 Ml INHALATION RT-Q6H PRN Shortness Of Breath Apixaban 2.5 mg 09/03/21 11:00 09/03/21 10:53 Apixaban 2.5 Mg Tablet PO 2.5 mg BID [facility] Administration Protocol Atorvastatin Calcium 20 mg 09/03/21 21:00 Atorvastatin 20 Mg Tab PO [facility] Budesonide/Formoterol Fumarate 2 puff 09/03/21 20:00 Symbicort 80-4.5 Mcg Inhaler INHALATION RT-BID [facility] Carvedilol 25 mg 09/03/21 10:45 09/03/21 10:53 Carvedilol 12.5 Mg Tab PO 25 mg BID-W/MEALS [facility] Administration Famotidine 20 mg 09/03/21 11:00 09/03/21 10:53 Famotidine 20 Mg Tab PO 20 mg BID [facility] Administration Furosemide 40 mg 09/03/21 03:00 09/03/21 03:25 Furosemide 10 Mg/Ml 4 Ml Vial IV Not Given Q12H [facility] Glipizide 10 mg 09/03/21 11:00 09/03/21 10:53 Glipizide 10 Mg Tab PO 10 mg BID [facility] Administration Hydralazine HCl 50 mg 09/03/21 11:00 09/03/21 10:53 Hydralazine Hcl 50 Mg Tab PO 50 mg TID [facility] Administration Isosorbide Mononitrate 30 mg 09/03/21 11:00 09/03/21 10:53 Isosorbide Mononitrate Er 30 Mg Tab.Er.24h PO 30 mg DAILY [facility] Administration Multivitamins 1 each 09/04/21 09:00 Multivitamins, Thera 1 Each Tab PO DAILY [facility] Intake and Output 09/02/21 09/03/21 09/03/21 22:59 06:59 14:59 Other: Weight 58.967 kg 58.967 kg Patient Weight 09/04/21 06:59 Weight 58.967 kg 09/03/21 13:26 09/02/21 23:02
[2021-09-03 14:07] LABS: Calcium 8.8 mg/dL (8.4-10.2); Potassium 4.3 mmol/L (3.5-5.1)
[2021-09-03 16:04] LABS: Glucose,Whole Blood 157 mg/dL (75-99)
[2021-09-03] MEDS: SYMBICORT 80-4.5 MCG INHALER INHALATION SCH (19:27)
[2021-09-03 19:55] LABS: Glucose,Whole Blood 138 mg/dL (75-99)
[2021-09-03] MEDS: ATORVASTATIN 20 MG TAB PO SCH (20:24)
[2021-09-04] MEDS: FUROSEMIDE 10 MG/ML 4 ML VIAL IV SCH (02:24)
--- NOTE | 2021-09-04 02:37 | P.HPIM ---
History of Present Illness H&P Date: 09/03/21 Chief Complaint: Shortness of breath Patient is a 71-year-old male with a known history of hypertension, diabetes type 2, hyperlipidemia, paroxysmal atrial fibrillation on anticoagulation with Eliquis, chronic CHF history of dysfunction, coronary artery disease and chronically occluded proximal RCA, ischemic cardiomyopathy status post ICD placement, COPD, history of CVA/brainstem stroke with dizziness/balance issues in 2017 and other multiple medical problems including CKD stage III and a right eye retinal detachment status post surgery presents to ER with complaints of worsening shortness of breath. Patient says that he has been having increased cough and dyspnea on exertion for the past few days. Chest x-ray showed pleural effusions and mild congestion and could be some mild chronic heart failure and appears new compared to an exam. Heart however not grossly enlarged. EKG showed normal sinus rhythm with heart rate 65 Laboratory data showed WBC 10.0 hemoglobin 9.7 and platelets 388 MCV 93.7 Sodium 142 potassium 5.1 chloride 101 bicarb is 21 BUN 35 and creatinine 2.99 Troponin 0 0.042, 0.043 and 0.039 proBNP 73810 Coronavirus PCR not detected. Review of Systems Constitutional: Patient denies any fever or chills . No generalized weakness or weight loss. Abdomen: Patient denied nausea vomiting and diarrhea and abdominal pain. Cardiovascular: Patient does have worsening shortness of breath. No chest pain. No leg swelling.. Respiratory: patient denied any cough or sputum production. No shortness of breath Neurologic: Patient denied any numbness or tingling headache. Musculoskeletal: Patient denies any complaints of joint swelling or deformity. Skin: Negative Psychiatric: Negative Endocrine: No heat or cold intolerance. No recent weight gain. Genitourinary: No dysuria or hematuria. 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 History of Any Multi-Drug Resistant Organisms: None Reported Past Surgical History: No Surgical Hx Reported, AICD Additional Past Surgical History / Comment(s): R wrist fx with repair, R eye re tinal detachment with surgery, R eye retinal hemorrhage with eye injections in the past Past Anesthesia/Blood Transfusion Reactions: No Reported Reaction Additional Past Anesthesia/Blood Transfusion Reaction / Comment(s): Pt has never recieved blood. Type of Cardiac Device: AICD Device Placement Date:: 07/04/2018 Past Psychological History: No Psychological Hx Reported Additional Psychological History / Comment(s): Pt lives with in their home. Pt is retired from [employer] and the [employer]. Pt does not drive d[employer]t [employer]. Spouse is retired and drives his to [employer]. Pt states he does not own a glucometer. He states he would use one if he didn't have to pay for it. Smoking Status: Current every day smoker Past Alcohol Use History: None Reported Additional Past Alcohol Use History / Comment(s): Pt started smoking in 1967 and is a ppd smoker. Past Drug Use History: None Reported - Past Family History Father Family Medical History: Vascular Disorder Additional Family Medical History / Comment(s): Father during vascular surgery for his blood flow to his legs. Mother Family Medical History: Congestive Heart Failure (CHF), Diabetes Mellitus Medications and Allergies Home Medications Medication Instructions Recorded Confirmed Type glipiZIDE [Glucotrol] 10 mg PO BID 06/04/14 09/03/21 History Isosorbide Mononitrate [Isosorbide 30 mg PO DAILY 07/03/18 09/03/21 History Mononitrate ER] Apixaban [Eliquis] 2.5 mg PO BID 09/26/19 09/03/21 History Atorvastatin [Lipitor] 20 mg PO HS 09/26/19 09/03/21 History Furosemide [Lasix] 40 mg PO BID 09/26/19 09/03/21 History Carvedilol [Coreg] 25 mg PO BID-W/MEALS 07/16/21 09/03/21 History Multivit-Min/FA/Lycopen/Lutein 1 tab PO DAILY 07/16/21 09/03/21 History [Centrum Silver Men Tablet] hydrALAZINE HCL [Apresoline] 50 mg PO TID 07/16/21 09/03/21 History Famotidine [Pepcid] 20 mg PO BID #60 tablet 07/19/21 09/03/21 Rx Albuterol Sulfate [Albuterol 2 puff PO RT-Q6H PRN 09/03/21 09/03/21 History Sulfate Hfa] Budesonide/Formoterol Fumarate 2 puff INHALATION RT-BID 09/03/21 09/03/21 History [Symbicort 80-4.5 Mcg Inhaler] Klor-Con (Unknown Dose) 1 tab PO DAILY 09/03/21 09/03/21 History Allergies Allergy/AdvReac Type Severity Reaction Status Date / Time No Known Allergies Allergy Verified 09/02/21 22:36 Physical Exam Vitals: Vital Signs Temp Pulse Pulse Resp BP BP Pulse Ox 09/03/21 12:21 18 09/03/21 11:05 98 F 84 18 159/74 95 09/03/21 07:42 97.7 F 76 18 164/95 94 L 09/03/21 05:52 74 16 166/95 100 09/02/21 22:36 98.0 F 64 18 157/85 98 Intake and Output 09/02/21 09/03/21 09/03/21 22:59 06:59 14:59 Other: Weight 58.967 kg 58.967 kg PHYSICAL EXAMINATION: Patient is lying in the bed comfortably, no acute distress, awake alert and oriented.. HEENT: Normocephalic. Neck is supple. Pupils reactive. Nostrils clear. Oral cavity is moist. Neck reveals no JVD, carotid bruits, or thyromegaly. CHEST EXAMINATION: Trachea is central. Symmetrical expansion. Bibasilar crackles.No wheezing. Nonlabored breathing.. CARDIAC: Normal S1, S2 with no gallops. No murmurs ABDOMEN: Soft. Bowel sounds normal. No organomegaly. No abdominal bruits. Extremities: reveal no edema. No clubbing or cyanosis Neurologically awake, alert, oriented x3 with well-coordinated movements. No focal deficits noted Skin: No rash or skin lesions. Psychiatric: Cooperative. Nonsuicidal Musculoskeletal: No joint swelling or deformity. Normal range of motion. Results CBC & Chem 7: 09/04/21 08:19 09/04/21 08:19 Labs: Abnormal Lab Results - Last 24 Hours (Table) 09/02/21 09/02/21 09/02/21 Range/Units 23:02 23:02 23:02 RBC 3.29 L (4.30-5.90) m/uL Hgb 9.7 L D (13.0-17.5) gm/dL Hct 30.9 L (39.0-53.0) % RDW 15.7 H (11.5-15.5) % Neutrophils # 9.2 H (1.3-7.7) k/uL Lymphocytes # 0.7 L (1.0-4.8) k/uL PT 13.1 H (9.0-12.0) sec INR 1.3 H (<1.2) Chloride 111 H (98-107) mmol/L Carbon Dioxide 21 L (22-30) mmol/L BUN 35 H (9-20) mg/dL Creatinine 2.99 H (0.66-1.25) mg/dL Glucose 164 H (74-99) mg/dL Magnesium 2.5 H (1.6-2.3) mg/dL AST 15 L (17-59) U/L Troponin I (0.000-0.034) ng/mL 09/02/21 09/03/21 09/03/21 Range/Units 23:02 03:29 05:33 RBC (4.30-5.90) m/uL Hgb (13.0-17.5) gm/dL Hct (39.0-53.0) % RDW (11.5-15.5) % Neutrophils # (1.3-7.7) k/uL Lymphocytes # (1.0-4.8) k/uL PT (9.0-12.0) sec INR (<1.2) Chloride (98-107) mmol/L Carbon Dioxide (22-30) mmol/L BUN (9-20) mg/dL Creatinine (0.66-1.25) mg/dL Glucose (74-99) mg/dL Magnesium (1.6-2.3) mg/dL AST (17-59) U/L Troponin I 0.042 H* 0.043 H* 0.039 H* (0.000-0.034) ng/mL Thrombosis Risk Factor Assmnt - DVT/VTE Prophylaxis DVT/VTE Prophylaxis: Pharmacologic Prophylaxis ordered - Choose All That Apply Each Risk Factor Represents 2 Points: Age 61-74 years Thrombosis Risk Factor Assessment Total Risk Factor Score: 2 Thrombosis Risk Factor Assessment Level: Low Risk Assessment and Plan Assessment: Shortness of breath secondary to acute on chronic CHF with systolic dysfunction ejection fraction 35 to 40% Elevated troponin level likely due to CKD Chronic renal disease stage III/IV with baseline creatinine around 2.3. Creatinine on admission is 3.08 Ischemic cardiomyopathy status post ICD placement Paroxysmal atrial fibrillation on anticoagulation with Eliquis History of CVA/TIA brainstem stroke with dizziness and balance issues Diabetes type 2 Hypertension Hyperlipidemia Osteoarthritis Currently everyday smoker Plan: Patient will be continued on Lasix 40 mg IV every 12. Continue with Coreg and Eliquis and other blood pressure medications including hydralazine and Imdur. Continue with telemetry monitoring. Cardiology is on board. Follow-up renal function. Continue with home medications. Prognosis is guarded at this time. Time with Patient: Greater than 30
[2021-09-04 06:05] LABS: Glucose,Whole Blood 116 mg/dL (75-99)
[2021-09-04] MEDS: carvediloL 12.5 MG TAB PO SCH ×2 (06:21→16:58)
[2021-09-04] MEDS: SYMBICORT 80-4.5 MCG INHALER INHALATION SCH ×2 (07:54→20:47)
[2021-09-04 09:00] LABS: Basophils % (A) 0 %; Eosinophils # (A) 0.1 k/uL (0-0.7); Eosinophils % (A) 1 %; HCT 29.6 % (39.0-53.0); HGB 9.3 gm/dL (13.0-17.5); Hypochromasia Marked; Lymphocytes % (A) 10 %; MCH 29.9 pg (25.0-35.0); MCHC 31.4 g/dL (31.0-37.0); MCV 95.4 fL (80.0-100.0); Mean Platelet Volume 8.3; Monocytes # (A) 0.6 k/uL (0-1.0); Monocytes % (A) 6 %; Neutrophils # (A) 8.3 k/uL (1.3-7.7); Neutrophils % (A) 82 %; Platelet Count 330 k/uL (150-450); RDW 15.8 % (11.5-15.5); WBC 10.1 k/uL (3.8-10.6)
[2021-09-04 09:09] LABS: Calcium 8.9 mg/dL (8.4-10.2); Potassium 3.8 mmol/L (3.5-5.1)
--- NOTE | 2021-09-04 09:29 | P.PN ---
Subjective HISTORY OF PRESENTING ILLNESS This is a pleasant 71-year-old male past medical history significant for coronary artery disease (chronically occluded proximal RCA cath 02/2018), hypertension, type 2 diabetes, dyslipidemia, chronic nicotine dependence, chronic systolic heart failure, paroxysmal atrial fibrillation, ischemic cardiomyopathy status post ICD placement 07/2018, chronic kidney disease, COPD, CVA 2016. He follows in the office with Dr. Blair. Patient is somewhat of a poor historian and much of history is supplied by chart. He states he had been doing fairly well up until the last day where he has been more short of breath. He states he has not changed any medications and denies any chest pain, pressure, tightness. Denies any orthopnea or lower extremity edema. The only change in his medications was he was given Lasix in [facility] emergency department and states now he feels much better, close to back to normal. Blood work shows hemoglobin 9.7 with previous back in July 15, white blood cell 10.5, creatinine 2.99 with baseline 2.3 from July, minimally elevated troponin 0.04, 0.04, 0.03 and proBNP 32,000. Chest x-ray shows pleural effusions mild congestion consistent with mild chronic heart failure. 1/2 Patient seen and examined. Patient denies any chest pain or pressure. He states that shortness breath has improved. He is lying flat in bed without any dyspnea. Creatinine mildly increased to 3.16 from his baseline of approximately 2.9. PHYSICAL EXAMINATION Vital signs reviewed. CONSTITUTIONAL: No apparent distress. HEENT: Head is normocephalic. Pupils are equal, round. Sclerae anicteric. Mucous membranes of the mouth are moist. No JVD. No carotid bruit. CHEST EXAMINATION: + Mild crackles at bases HEART EXAMINATION: Regular rate and rhythm. S1, S2 heard. No murmurs, gallops or rub. ABDOMEN: Soft, nontender. Positive bowel sounds. EXTREMITIES: 2+ peripheral pulses, no lower extremity edema and no calf tenderness. NEUROLOGIC EXAMINATION: Patient is awake, alert and oriented x3. ASSESSMENT 1. Acute on chronic systolic heart failure 2. Mildly elevated troponins, do not suspect acute coronary syndrome appears chronic related to chronic kidney disease 3. Chronic kidney disease, somewhat worse than baseline 4. Hypertension 5. Hyperlipidemia 6. Coronary artery disease 7. Ischemic cardiomyopathy 8. Paroxysmal atrial fibrillation 9. History of prior stroke PLAN She was transitioned back over to his oral Lasix 40 mg twice a day, home dose. He appears euvolemic and appears at his baseline. Creatinine appears close to his baseline. Patient appears stable for discharge home with outpatient follow- up in 1-2 weeks. Objective - Vital Signs Vital signs: Vital Signs Temp 97.5 F L 09/04/21 03:36 Pulse 64 09/04/21 03:36 Resp 20 09/04/21 03:36 BP 153/73 09/04/21 03:36 Pulse Ox 93 L 09/04/21 03:36 Intake & Output 09/03/21 09/04/21 09/04/21 18:59 06:59 18:59 Output Total 700 Balance -700 Weight 58.967 kg 59 kg Output: Urine 700 Other: Voiding Method Toilet Urinal # Voids 1 - Labs CBC & Chem 7: 09/04/21 08:19 09/04/21 08:19 Labs: Abnormal Lab Results - Last 24 Hours (Table) 09/03/21 09/03/21 09/03/21 Range/Units 13:26 13:26 16:03 RBC 3.12 L (4.30-5.90) m/uL Hgb 9.2 L (13.0-17.5) gm/dL Hct 29.3 L (39.0-53.0) % RDW 15.6 H (11.5-15.5) % Neutrophils # 8.4 H (1.3-7.7) k/uL Lymphocytes # 0.9 L (1.0-4.8) k/uL Chloride 109 H (98-107) mmol/L BUN 37 H (9-20) mg/dL Creatinine 3.04 H (0.66-1.25) mg/dL Glucose 140 H (74-99) mg/dL POC Glucose (mg/dL) 157 H (75-99) mg/dL 09/03/21 09/04/21 09/04/21 Range/Units 19:53 06:04 08:19 RBC 3.10 L (4.30-5.90) m/uL Hgb 9.3 L (13.0-17.5) gm/dL Hct 29.6 L (39.0-53.0) % RDW 15.8 H (11.5-15.5) % Neutrophils # 8.3 H (1.3-7.7) k/uL Lymphocytes # (1.0-4.8) k/uL Chloride (98-107) mmol/L BUN (9-20) mg/dL Creatinine (0.66-1.25) mg/dL Glucose (74-99) mg/dL POC Glucose (mg/dL) 138 H 116 H (75-99) mg/dL 09/04/21 Range/Units 08:19 RBC (4.30-5.90) m/uL Hgb (13.0-17.5) gm/dL Hct (39.0-53.0) % RDW (11.5-15.5) % Neutrophils # (1.3-7.7) k/uL Lymphocytes # (1.0-4.8) k/uL Chloride 108 H (98-107) mmol/L BUN 37 H (9-20) mg/dL Creatinine 3.16 H (0.66-1.25) mg/dL Glucose 136 H (74-99) mg/dL POC Glucose (mg/dL) (75-99) mg/dL
[2021-09-04] MEDS: hydrALAZINE HCL 50 MG TAB PO SCH ×3 (09:42→21:02)
[2021-09-04] MEDS: APIXABAN 2.5 MG TABLET PO SCH ×2 (09:42→21:02)
[2021-09-04] MEDS: FAMOTIDINE 20 MG TAB PO SCH ×2 (09:42→21:02)
[2021-09-04] MEDS: MULTIVITAMINS, THERA 1 EACH TAB PO SCH (09:42)
[2021-09-04] MEDS: ISOSORBIDE MONONITRATE ER 30 MG TAB.ER.24H PO SCH (09:42)
[2021-09-04] MEDS: glipiZIDE 10 MG TAB PO SCH ×2 (09:42→21:02)
[2021-09-04 11:45] LABS: Glucose,Whole Blood 115 mg/dL (75-99)
[2021-09-04 12:11] LABS: % Iron Saturation 12.1 (15.00-50.00)
[2021-09-04 16:40] LABS: Glucose,Whole Blood 145 mg/dL (75-99)
[2021-09-04] MEDS: FUROSEMIDE 40 MG TAB PO SCH (16:58)
[2021-09-04 20:13] LABS: Glucose,Whole Blood 264 mg/dL (75-99)
[2021-09-04] MEDS: ATORVASTATIN 20 MG TAB PO SCH (21:02)
--- NOTE | 2021-09-05 00:53 | P.PN ---
Subjective Progress Note Date: 09/04/21 Patient is a 71-year-old male with a known history of hypertension, diabetes type 2, hyperlipidemia, paroxysmal atrial fibrillation on anticoagulation with Eliquis, chronic CHF history of dysfunction, coronary artery disease and chronically occluded proximal RCA, ischemic cardiomyopathy status post ICD pl acement, COPD, history of CVA/brainstem stroke with dizziness/balance issues in 2017 and other multiple medical problems including CKD stage III and a right eye retinal detachment status post surgery presents to ER with complaints of worsening shortness of breath. Patient says that he has been having increased cough and dyspnea on exertion for the past few days. Chest x-ray showed pleural effusions and mild congestion and could be some mild chronic heart failure and appears new compared to an exam. Heart however not grossly enlarged. EKG showed normal sinus rhythm with heart rate 65 Laboratory data showed WBC 10.0 hemoglobin 9.7 and platelets 388 MCV 93.7 Sodium 142 potassium 5.1 chloride 101 bicarb is 21 BUN 35 and creatinine 2.99 Troponin 0 0.042, 0.043 and 0.039 proBNP 15310 Coronavirus PCR not detected. 09/04/2020 Patient is currently resting in the bed. Awake alert oriented x3. Otherwise patient still feels weak. Minimal exertional dyspnea with ambulation. IV Lasix changed to by mouth today. Patient's states that she is not able to take care of him at home and PT OT will be consulted. Laboratory data showed BUN 37 creatinine 3.16. Patient is also iron deficient with iron level 37 saturation 12.1%. REVIEW OF SYSTEMS CONSTITUTIONAL: Denies fever or chills. CARDIOVASCULAR: Denies chest pain, shortness of breath, orthopnea, PND or palpitations. RESPIRATORY: Denies cough. GASTROINTESTINAL: Denies abdominal pain, diarrhea, constipation, nausea or vomiting. MUSCULOSKELETAL: Denies myalgias. NEUROLOGIC: Denies numbness, tingling or weakness. ENDOCRINE: Denies fatigue, weight change, polydipsia or polyurina. GENITOURINARY: Denies burning, hematuria or urgency with micturation. HEMATOLOGIC: Denies history of anemia or bleeding. Current medications reviewed. Objective - Vital Signs Vital signs: Vital Signs Temp 97.6 F 09/04/21 13:23 Pulse 76 09/04/21 13:23 Resp 18 09/04/21 13:23 BP 152/77 09/04/21 13:23 Pulse Ox 97 01/02/22 13:23 Intake & Output 09/03/21 09/04/21 09/04/21 18:59 06:59 18:59 Intake Total 110 Output Total 700 100 Balance -700 10 Weight 58.967 kg 59 kg Intake: IV 10 Invasive Line 1 10 Oral 100 Output: Urine 700 100 Other: Voiding Method Toilet Toilet Urinal Urinal # Voids 1 - Exam PHYSICAL EXAMINATION: Patient is lying in the bed comfortably, no acute distress, awake alert and oriented.. HEENT: Normocephalic. Neck is supple. Pupils reactive. Nostrils clear. Oral cavity is moist. Neck reveals no JVD, carotid bruits, or thyromegaly. CHEST EXAMINATION: Trachea is central. Symmetrical expansion. Bibasilar aircraft ordnance systems mechanic ckles.No wheezing. Nonlabored breathing.. CARDIAC: Normal S1, S2 with no gallops. No murmurs ABDOMEN: Soft. Bowel sounds normal. No organomegaly. No abdominal bruits. Extremities: reveal no edema. No clubbing or cyanosis Neurologically awake, alert, oriented x3 with well-coordinated movements. No focal deficits noted Skin: No rash or skin lesions. Psychiatric: Cooperative. Nonsuicidal Musculoskeletal: No joint swelling or deformity. Normal range of motion. - Labs CBC & Chem 7: 09/04/21 08:19 09/04/21 08:19 Labs: Abnormal Lab Results - Last 24 Hours (Table) 09/03/21 09/04/21 09/04/21 Range/Units 19:53 06:04 08:19 RBC 3.10 L (4.30-5.90) m/uL Hgb 9.3 L (13.0-17.5) gm/dL Hct 29.6 L (39.0-53.0) % RDW 15.8 H (11.5-15.5) % Neutrophils # 8.3 H (1.3-7.7) k/uL Chloride (98-107) mmol/L BUN (9-20) mg/dL Creatinine (0.66-1.25) mg/dL Glucose (74-99) mg/dL POC Glucose (mg/dL) 138 H 116 H (75-99) mg/dL Iron (65-175) ug/dL % Saturation (15.00-50.00) 09/04/21 09/04/21 Range/Units 08:19 11:32 RBC (4.30-5.90) m/uL Hgb (13.0-17.5) gm/dL Hct (39.0-53.0) % RDW (11.5-15.5) % Neutrophils # (1.3-7.7) k/uL Chloride 108 H (98-107) mmol/L BUN 37 H (9-20) mg/dL Creatinine 3.16 H (0.66-1.25) mg/dL Glucose 136 H (74-99) mg/dL POC Glucose (mg/dL) 115 H (75-99) mg/dL Iron 37 L (65-175) ug/dL % Saturation 12.10 L (15.00-50.00) Assessment and Plan Assessment: Shortness of breath secondary to acute on chronic CHF with systolic dysfunction ejection fraction 35 to 40% Elevated troponin level likely due to CKD Chronic renal disease stage III/IV with baseline creatinine around 2.3. Creatinine on admission is 3.08 Ischemic cardiomyopathy status post ICD placement Paroxysmal atrial fibrillation on anticoagulation with Eliquis History of CVA/TIA brainstem stroke with dizziness and balance issues Diabetes type 2 Hypertension Hyperlipidemia Osteoarthritis Currently everyday smoker Iron deficiency anemia Plan: Patient was continued on Lasix 40 mg IV every 12. changed to PO. Continue with Coreg and Eliquis and other blood pressure medications including hydralazine and Imdur. Continue with telemetry monitoring. Cardiology is on board. Follow-up renal function. Continue with home medications. Prognosis is guarded at this time. Time with Patient: Greater than 30
[2021-09-05] MEDS: carvediloL 12.5 MG TAB PO SCH (06:10)
[2021-09-05 06:28] LABS: Glucose,Whole Blood 105 mg/dL (75-99)
[2021-09-05] MEDS: SYMBICORT 80-4.5 MCG INHALER INHALATION SCH (08:02)
[2021-09-05 08:06] VITALS: TEMP 97.8
[2021-09-05] MEDS ORDERED: SODIUM FERRIC GLUCONAT-SUCROSE 125 MG in SODIUM CHLORIDE 0.9% 100 ML IVPB SCH (09:00)
[2021-09-05 09:38] VITALS: PULSE 64
[2021-09-05] MEDS: ISOSORBIDE MONONITRATE ER 30 MG TAB.ER.24H PO SCH (09:39)
[2021-09-05] MEDS: glipiZIDE 10 MG TAB PO SCH (09:39)
[2021-09-05] MEDS: MULTIVITAMINS, THERA 1 EACH TAB PO SCH (09:39)
[2021-09-05] MEDS: APIXABAN 2.5 MG TABLET PO SCH (09:39)
[2021-09-05] MEDS: FAMOTIDINE 20 MG TAB PO SCH (09:39)
[2021-09-05] MEDS: hydrALAZINE HCL 50 MG TAB PO SCH (09:39)
[2021-09-05] MEDS: FUROSEMIDE 40 MG TAB PO SCH (09:39)
[2021-09-05 11:13] LABS: Glucose,Whole Blood 253 mg/dL (75-99)
--- NOTE | 2021-09-05 12:24 | P.PN ---
Subjective Progress Note Date: 09/05/21 HISTORY OF PRESENT ILLNESS: This is a pleasant 71-year-old male past medical history significant for coronary artery disease (chronically occluded proximal RCA cath 02/2018), hypert ension, type 2 diabetes, dyslipidemia, chronic nicotine dependence, chronic systolic heart failure, paroxysmal atrial fibrillation, ischemic cardiomyopathy status post ICD placement 07/2018, chronic kidney disease, COPD, CVA 2016. He follows in the office with Dr. Blair. Patient is somewhat of a poor historian and much of history is supplied by chart. He states he had been doing fairly well up until the last day where he has been more short of breath. He states he has not changed any medications and denies any chest pain, pressure, tightness. Denies any orthopnea or lower extremity edema. The only change in his medications was he was given Lasix in the emergency department and states now he feels much better, close to back to normal. Blood work shows hemoglobin 9.7 with previous back in July 15, white blood cell 10.5, creatinine 2.99 with baseline 2.3 from July, minimally elevated troponin 0.04, 0.04, 0.03 and proBNP 32,000. Chest x-ray shows pleural effusions mild congestion consistent with mild chronic heart failure. 09/04 Patient seen and examined. Patient denies any chest pain or pressure. He states that shortness breath has improved. He is lying flat in bed without any dyspnea. Creatinine mildly increased to 3.16 from his baseline of approximately 2.9. 09/05/2021 Patient examined this morning at the bedside. at the bedside. Patient denies chest pain or pressure. He denies shortness of breath. He remains on oral lasix. Vital signs are stable. PHYSICAL EXAM: VITAL SIGNS: Reviewed. GENERAL: Well-developed in no acute distress. NECK: Supple. No JVD or thyromegaly LUNGS: Respirations even and unlabored. Lungs diminished to auscultation bilaterally. HEART: Regular rate and rhythm. S1 and S2 heard. EXTREMITIES: Normal range of motion. No clubbing or cyanosis. Peripheral pulses intact. No lower extremity edema ASSESSMENT: 1. Acute on chronic systolic heart failure 2. Mildly elevated troponins, do not suspect acute coronary syndrome appears chronic related to chronic kidney disease 3. Chronic kidney disease, somewhat worse than baseline 4. Hypertension 5. Hyperlipidemia 6. Coronary artery disease 7. Ischemic cardiomyopathy 8. Paroxysmal atrial fibrillation 9. History of prior stroke PLAN: Continue current cardiac medications Patient is stable from a cardiac standpoint to be discharged home and follow up in the office with Dr. Blair Nurse practitioner note has been reviewed by physician. Signing provider agrees with the documented findings, assessment, and plan of care. Objective - Vital Signs Vital signs: Vital Signs Temp 97.8 F 09/05/21 09:37 Pulse 64 09/05/21 09:37 Resp 16 09/05/21 09:37 BP 130/78 09/05/21 09:37 Pulse Ox 95 09/05/21 09:37 Intake & Output 09/04/21 09/05/21 09/05/21 18:59 06:59 18:59 Intake Total 360 240 Output Total 520 Balance -160 240 Weight 59.3 kg Intake: IV 20 Invasive Line 1 20 Oral 340 240 Output: Urine 520 Other: Voiding Method Toilet Toilet Urinal Urinal # Voids 1 1 - Labs CBC & Chem 7: 09/04/21 08:19 09/04/21 08:19 Labs: Abnormal Lab Results - Last 24 Hours (Table) 09/04/21 09/04/21 09/04/21 Range/Units 08:19 11:32 16:39 POC Glucose (mg/dL) 115 H 145 H (75-99) mg/dL Iron 37 L (65-175) ug/dL % Saturation 12.10 L (15.00-50.00) 09/04/21 09/05/21 Range/Units 19:21 06:16 POC Glucose (mg/dL) 264 H 105 H (75-99) mg/dL Iron (65-175) ug/dL % Saturation (15.00-50.00)
[2021-09-05 12:52] VITALS: BP 146/60; RESP 18
[2021-09-05 13:31] VITALS: BMI 23.9
--- NOTE | 2021-09-05 14:10 | P.DS ---
Providers Date of admission: 09/03/21 03:43 Expected date of discharge: 09/05/21 Attending physician: Chandan Padron Consults: 09/03/21 02:57 Consult Physician Routine Consulting Provider: Severiano Burroughs Consult Reason/Comments: CHF Do you want consulting provider notified?: Yes Primary care physician: Chandan Padron Hospital Course: Final Diagnoses: Acute on chronic CHF with systolic dysfunction ejection fraction 35 to 40% Elevated troponin level likely due to CKD Chronic renal disease stage III/IV with baseline creatinine around 2.3. Creatinine on admission is 3.08 Ischemic cardiomyopathy status post ICD placement Paroxysmal atrial fibrillation on anticoagulation with Eliquis History of CVA/TIA brainstem stroke with dizziness and balance issues Diabetes type 2 Hypertension Hyperlipidemia Osteoarthritis Currently everyday smoker Hospital course: This is a 71-year-old gentleman admitted with acute on chronic CHF, chronic kidney disease and multiple other medical issues. Evaluated by cardiology, diuresed on IV push Lasix. Currently maintained on oral Lasix, lying flat in bed without any further dyspnea. Significant clinical improvement. Cleared by cardiology for discharge. Patient will be discharged home today in stable condition with guarded prognosis. Family at bedside requesting cardiac rehab, to be arranged outpatient. Creatinine currently at 3.16, recheck outpatient within 3 days with potential adjustment in Lasix dose per PCP/cardiology . The impression and plan of care has been dictated as directed. : I performed a history and examination of this patient, discussed the same with the dictator. I agree with the dictator's note ,documented as a scribe. Any additional findings or plans will be noted. Patient Condition at Discharge: Stable Plan - Discharge Summary New Discharge Prescriptions: Continue glipiZIDE [Glucotrol] 10 mg PO BID Isosorbide Mononitrate [Isosorbide Mononitrate ER] 30 mg PO DAILY Apixaban [Eliquis] 2.5 mg PO BID Atorvastatin [Lipitor] 20 mg PO HS Furosemide [Lasix] 40 mg PO BID Carvedilol [Coreg] 25 mg PO BID-W/MEALS Multivit-Min/FA/Lycopen/Lutein [Centrum Silver Men Tablet] 1 tab PO DAILY Famotidine [Pepcid] 20 mg PO BID #60 tablet hydrALAZINE HCL [Apresoline] 50 mg PO TID Albuterol Sulfate [Albuterol Sulfate Hfa] 2 puff PO RT-Q6H PRN PRN Reason: Shortness Of Breath Budesonide/Formoterol Fumarate [Symbicort 80-4.5 Mcg Inhaler] 2 puff INHALATION RT-BID Potassium Chloride [Klor-Con 10 ER] 10 meq PO DAILY Discharge Medication List glipiZIDE [Glucotrol] 10 mg PO BID 06/04/14 [History] Isosorbide Mononitrate [Isosorbide Mononitrate ER] 30 mg PO DAILY 07/03/18 [History] Apixaban [Eliquis] 2.5 mg PO BID 09/26/19 [History] Atorvastatin [Lipitor] 20 mg PO HS 09/26/19 [History] Furosemide [Lasix] 40 mg PO BID 09/26/19 [History] Carvedilol [Coreg] 25 mg PO BID-W/MEALS 07/16/21 [History] Multivit-Min/FA/Lycopen/Lutein [Centrum Silver Men Tablet] 1 tab PO DAILY 07/16/21 [History] hydrALAZINE HCL [Apresoline] 50 mg PO TID 07/16/21 [History] Famotidine [Pepcid] 20 mg PO BID #60 tablet 07/19/21 [Rx] Albuterol Sulfate [Albuterol Sulfate Hfa] 2 puff PO RT-Q6H PRN 09/03/21 [History] Budesonide/Formoterol Fumarate [Symbicort 80-4.5 Mcg Inhaler] 2 puff INHALATION RT-BID 09/03/21 [History] Potassium Chloride [Klor-Con 10 ER] 10 meq PO DAILY 09/05/21 [History] Follow up Appointment(s)/Referral(s): Violet Blair MD [STAFF PHYSICIAN] - 1 Week Chandan Padron DO [Primary Care Provider] - 3 Days [facility], [NON-STAFF] - Ambulatory/Diagnostic Orders: Complete Blood Count w/diff [LAB.AMB] Time Frame: 3 Days, Location: None Selected Activity/Diet/Wound Care/Special Instructions: Recheck labs in 3 days, may require further increase in diuretics secondary to acute on chronic renal failure. Cardiac rehab to be arranged. Discharge Disposition: HOME SELF-CARE
[2021-09-06] MEDS ORDERED: FAMOTIDINE 20 MG TAB PO SCH (09:00)
== END 2021-09-05 15:05 | disposition home or self-care (01) | DRG 291 ==
LOC: EC 22:02 → 3SCARD 09-03 03:43
PROVIDERS: ADMIT Family Medicine; ATTEND Family Medicine
DX: I13.0 Hypertensive heart and chronic kidney disease with heart failure and stage 1 through stage 4 chronic kidney disease, or unspecified chronic kidney disease (principal); I50.23 Acute on chronic systolic (congestive) heart failure; J44.1 Chronic obstructive pulmonary disease with (acute) exacerbation; N18.4 Chronic kidney disease, stage 4 (severe); I48.0 Paroxysmal atrial fibrillation; D50.9 Iron deficiency anemia, unspecified; E11.22 Type 2 diabetes mellitus with diabetic chronic kidney disease; E78.5 Hyperlipidemia, unspecified; F17.210 Nicotine dependence, cigarettes, uncomplicated; I25.10 Atherosclerotic heart disease of native coronary artery without angina pectoris; I25.5 Ischemic cardiomyopathy; M19.90 Unspecified osteoarthritis, unspecified site; Z98.890 Other specified postprocedural states; Z86.73 Personal history of transient ischemic attack (TIA), and cerebral infarction without residual deficits; Z95.810 Presence of automatic (implantable) cardiac defibrillator; Z79.01 Long term (current) use of anticoagulants; Z79.51 Long term (current) use of inhaled steroids; Z79.84 Long term (current) use of oral hypoglycemic drugs; Z79.899 Other long term (current) drug therapy; Z82.49 Family history of ischemic heart disease and other diseases of the circulatory system; Z83.3 Family history of diabetes mellitus
CPT/HCPCS: 36415; 71046; 80048; 80053; 82607; 83540; 83550; 83735; 83880; 84484; 85025; 85610; 85730; 87635; 93005; 94640; 99291

== ENCOUNTER 2021-12-15 10:56 | Inpatient (IN) | payer MEDICARE, BC ==
[2021-12-15 11:33] LABS: Anisocytosis Slight; Basophils # (A) 0.1 k/uL (0-0.2); Basophils % (A) 1 %; Eosinophils # (A) 0.1 k/uL (0-0.7); Eosinophils % (A) 1 %; HGB 11.2 gm/dL (13.0-17.5); Hypochromasia Marked; Lymphocytes # (A) 0.9 k/uL (1.0-4.8); Lymphocytes % (A) 11 %; MCH 27.3 pg (25.0-35.0); MCHC 29.5 g/dL (31.0-37.0); MCV 92.7 fL (80.0-100.0); Mean Platelet Volume 8.7; Monocytes # (A) 0.6 k/uL (0-1.0); Monocytes % (A) 7 %; Neutrophils # (A) 6.5 k/uL (1.3-7.7); Neutrophils % (A) 79 %; Platelet Count 221 k/uL (150-450); RDW 16.4 % (11.5-15.5); WBC 8.2 k/uL (3.8-10.6)
[2021-12-15] MEDS ORDERED: FUROSEMIDE 10 MG/ML 4 ML VIAL IV STA (11:35)
--- NOTE | 2021-12-15 11:35 | ED ---
General Adult HPI - General Chief complaint: Shortness of Breath Stated complaint: Fluid retention Time Seen by Provider: 12/15/21 11:10 Source: patient, family Mode of arrival: wheelchair Limitations: no limitations - History of Present Illness Initial comments: Dictation was produced using [employer] dictation software. please excuse any grammatical, word or spelling errors. Chief Complaint: 71-year-old male sent in from head resident office for heart failure exacerbation History of Present Illness: 71-year-old male he has no complaints. He is accompanied by his . He was at the head resident office for a routine cardiac checkup. At the appointment so the head resident and was told to come to the emergency department to be admitted for heart failure. Patient has no complaints. at the bedside provides history of present illness says that he's been very weak recently. They live in a small area and patient has diffi culty performing his activities of daily living. reports that he has history of severe heart failure. Echocardiogram performed back in October and was admitted showing ejection fraction of 20%. at the bedside reports that he has been showing signs of exertional dyspnea but she says he does not want to admit it. The ROS documented in this emergency department record has been reviewed and confirmed by me. Those systems with pertinent positive or negative responses have been documented in the HPI. All other systems are other negative and/or noncontributory. PHYSICAL EXAM: General Impression: Alert and oriented x3, not in acute distress HEENT: Normocephalic atraumatic, extra-ocular movements intact, pupils equal and reactive to light bilaterally, mucous membranes moist. Cardiovascular: Heart regular rate and rhythm Chest: Slight tachypnea, mild diffuse crackles Abdomen: abdomen soft, non-tender, non-distended, no organomegaly Musculoskeletal: Pulses present and equal in all extremities, 1+ pitting edema to the lower extremities Motor: no focal deficits noted Neurological: CN II-XII grossly intact, no focal motor or sensory deficits noted Skin: Intact with no visualized rashes Psych: Normal affect and mood ED course: 71-year-old male sent in by head resident to be admitted for heart failure exacerbation. Vital signs upon arrival are within acceptable limits. Patient is mildly dyspneic. Laboratory evaluation obtained. CBC within acceptable limits. Cardiac panel is negative. Metabolic panel shows creatinine 2.71. This is below his usual baseline. Prematurity peptide is 52,800. Chest x-ray shows limited exam but suggests heart failure. Patient given Lasix. Patient will be admitted to Dr. Chandan Padron. Cardiology is aware of patient and will consult. EKG interpretation: Ventricular rate 50, sinus bradycardia,. 185, care is 114, QTc 439. No MT prolongation, no QTC prolongation, no ST or T-wave changes noted. EKG compared to October 16 2021 showing no changes. Overall, this EKG is unremarkable - Related Data Home Medications Medication Instructions Recorded Confirmed glipiZIDE [Glucotrol] 10 mg PO BID 06/04/14 12/15/21 Isosorbide Mononitrate [Isosorbide 30 mg PO DAILY 07/03/18 12/15/21 Mononitrate ER] Apixaban [Eliquis] 2.5 mg PO BID 09/26/19 12/15/21 Atorvastatin [Lipitor] 20 mg PO HS 09/26/19 12/15/21 Furosemide [Lasix] 40 mg PO BID 09/26/19 12/15/21 Carvedilol [Coreg] 25 mg PO BID-W/MEALS 07/16/21 12/15/21 Multivit-Min/FA/Lycopen/Lutein 1 tab PO DAILY 07/16/21 12/15/21 [Centrum Silver Men Tablet] hydrALAZINE HCL [Apresoline] 50 mg PO TID 07/16/21 12/15/21 Albuterol Sulfate [Albuterol 2 puff INHALATION RT-Q6H PRN 09/03/21 12/15/21 Sulfate Hfa] Budesonide/Formoterol Fumarate 2 puff INHALATION RT-BID 09/03/21 12/15/21 [Symbicort 80-4.5 Mcg Inhaler] Potassium Chloride [Klor-Con 10 ER] 10 meq PO DAILY 09/05/21 12/15/21 INSULIN LISPRO (HumaLOG) [humaLOG] See Protocol SQ ACHS 12/15/21 12/15/21 Previous Rx's Medication Instructions Recorded Famotidine [Pepcid] 20 mg PO BID #60 tablet 07/19/21 Aspirin 81 mg PO DAILY 10/19/21 Allergies Allergy/AdvReac Type Severity Reaction Status Date / Time No Known Allergies Allergy Verified 04/14/22 11:57 Review of Systems ROS Statement: Those systems with pertinent positive or pertinent negative responses have been documented in the HPI. ROS Other: All systems not noted in ROS Statement are negative. 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 History of Any Multi-Drug Resistant Organisms: None Reported Past Surgical History: AICD, Orthopedic Surgery Additional Past Surgical History / Comment(s): R wrist fx with repair, R eye retinal detachment with surgery, R eye retinal hemorrhage with eye injections in the past Past Anesthesia/Blood Transfusion Reactions: No Reported Reaction Additional Past Anesthesia/Blood Transfusion Reaction / Comment(s): Pt has never recieved blood. Type of Cardiac Device: AICD Device Placement Date:: 07/04/2018 Past Psychological History: No Psychological Hx Reported Smoking Status: Current every day smoker Past Alcohol Use History: None Reported Past Drug Use History: None Reported - Past Family History Father Family Medical History: Vascular Disorder Additional Family Medical History / Comment(s): Father during vascular surgery for his blood flow to his legs. Mother Family Medical History: Congestive Heart Failure (CHF), Diabetes Mellitus General Exam Limitations: no limitations Course Vital Signs 12/15/21 12/15/21 10:57 11:09 Temperature 96.8 F L Pulse Rate 56 L Respiratory 18 20 Rate Blood Pressure 139/77 O2 Sat by Pulse 98 Oximetry Medical Decision Making - Lab Data Result diagrams: 12/15/21 11:22 12/15/21 11:22 Lab Results 12/15/21 12/15/21 12/15/21 Range/Units 11:22 11:22 11:22 WBC 8.2 (3.8-10.6) k/uL RBC 4.10 L (4.30-5.90) m/uL Hgb 11.2 L (13.0-17.5) gm/dL Hct 38.0 L (39.0-53.0) % MCV 92.7 (80.0-100.0) fL MCH 27.3 (25.0-35.0) pg MCHC 29.5 L (31.0-37.0) g/dL RDW 16.4 H (11.5-15.5) % Plt Count 221 (150-450) k/uL MPV 8.7 Neutrophils % 79 % Lymphocytes % 11 % Monocytes % 7 % Eosinophils % 1 % Basophils % 1 % Neutrophils # 6.5 (1.3-7.7) k/uL Lymphocytes # 0.9 L (1.0-4.8) k/uL Monocytes # 0.6 (0-1.0) k/uL Eosinophils # 0.1 (0-0.7) k/uL Basophils # 0.1 (0-0.2) k/uL Hypochromasia Marked Anisocytosis Slight PT 12.9 H (9.0-12.0) sec INR 1.2 H (<1.2) APTT 24.9 (22.0-30.0) sec Sodium 143 (137-145) mmol/L Potassium 4.1 (3.5-5.1) mmol/L Chloride 104 (98-107) mmol/L Carbon Dioxide 33 H (22-30) mmol/L Anion Gap 6 mmol/L BUN 29 H (9-20) mg/dL Creatinine 2.71 H (0.66-1.25) mg/dL Est GFR (CKD-EPI)AfAm 26 (>60 ml/min/1.73 sqM) Est GFR (CKD-EPI)NonAf 23 (>60 ml/min/1.73 sqM) Glucose 89 (74-99) mg/dL Calcium 9.1 (8.4-10.2) mg/dL NT-Pro-B Natriuret Pep pg/mL 12/15/21 Range/Units 11:22 WBC (3.8-10.6) k/uL RBC (4.30-5.90) m/uL Hgb (13.0-17.5) gm/dL Hct (39.0-53.0) % MCV (80.0-100.0) fL MCH (25.0-35.0) pg MCHC (31.0-37.0) g/dL RDW (11.5-15.5) % Plt Count (150-450) k/uL MPV Neutrophils % % Lymphocytes % % Monocytes % % Eosinophils % % Basophils % % Neutrophils # (1.3-7.7) k/uL Lymphocytes # (1.0-4.8) k/uL Monocytes # (0-1.0) k/uL Eosinophils # (0-0.7) k/uL Basophils # (0-0.2) k/uL Hypochromasia Anisocytosis PT (9.0-12.0) sec INR (<1.2) APTT (22.0-30.0) sec Sodium (137-145) mmol/L Potassium (3.5-5.1) mmol/L Chloride (98-107) mmol/L Carbon Dioxide (22-30) mmol/L Anion Gap mmol/L BUN (9-20) mg/dL Creatinine (0.66-1.25) mg/dL Est GFR (CKD-EPI)AfAm (>60 ml/min/1.73 sqM) Est GFR (CKD-EPI)NonAf (>60 ml/min/1.73 sqM) Glucose (74-99) mg/dL Calcium (8.4-10.2) mg/dL NT-Pro-B Natriuret Pep 11994 pg/mL Disposition Clinical Impression: Heart failure Disposition: ADMITTED IP TO THIS HOSP Condition: Serious Referrals: Chandan Padron DO [Primary Care Provider] - 1-2 days Decision Time: 13:29
--- NOTE | 2021-12-15 11:38 | XR ---
EXAMINATION TYPE: XR chest 1V portable DATE OF EXAM: 12/15/2021 Comparison: 10/18/2021 Clinical History: 71 year-old male shortness of breath, fluid retention, weakness, heart failure Findings: Left anterior chest wall ICD generator with right atrial right ventricular leads. There is now a mode rate right pleural effusion extending up to the midlung level obscuring the right heart margin. Mild interstitial prominence. Impression: Now a moderate right pleural effusion with underlying atelectasis and/or consolidation. The effusion extends up to the mid chest level and obscures the right heart border. Possible sequela of CHF. Clini karolyn correlate.
[2021-12-15 11:41] LABS: Calcium 9.1 mg/dL (8.4-10.2); Potassium 4.1 mmol/L (3.5-5.1)
[2021-12-15 11:43] LABS: INR 1.2 (<1.2); Partial Thromboplastin Time 24.9 sec (22.0-30.0); Prothrombin Time 12.9 sec (9.0-12.0)
[2021-12-15] MEDS ORDERED: NALOXONE 0.4 MG/ML 1 ML VIAL IV PRN (13:19)
[2021-12-15] MEDS: FUROSEMIDE 100 MG in SODIUM CHLORIDE 0.9% 90 ML IV SCH ×2 (14:56→23:23)
[2021-12-15] MEDS: SODIUM CHLORIDE 0.9% 1,000 ML IV SCH (14:56)
[2021-12-15] MEDS: carvediloL 6.25 MG TAB PO SCH (17:59)
[2021-12-15] MEDS: hydrALAZINE HCL 50 MG TAB PO SCH ×2 (17:59→21:43)
[2021-12-15 20:26] LABS: Glucose,Whole Blood 226 mg/dL (75-99)
[2021-12-15] MEDS: APIXABAN 2.5 MG TABLET PO SCH (21:43)
[2021-12-15] MEDS: ATORVASTATIN 20 MG TAB PO SCH (21:43)
[2021-12-16 06:07] LABS: Glucose,Whole Blood 149 mg/dL (75-99)
[2021-12-16] MEDS: carvediloL 6.25 MG TAB PO SCH ×2 (06:34→16:40)
[2021-12-16] MEDS: INSULIN ASPART (NovoLOG) 100 UNIT/ML VIAL SQ SCH ×4 (06:34→20:53)
[2021-12-16] MEDS: APIXABAN 2.5 MG TABLET PO SCH ×2 (09:29→20:59)
[2021-12-16] MEDS: POTASSIUM CHLORIDE ER 10 MEQ TAB.ER.PRT PO SCH (09:29)
[2021-12-16] MEDS: hydrALAZINE HCL 50 MG TAB PO SCH ×3 (09:29→20:59)
[2021-12-16] MEDS: ASPIRIN 81 MG PO SCH (09:29)
[2021-12-16] MEDS: FUROSEMIDE 100 MG in SODIUM CHLORIDE 0.9% 90 ML IV SCH (09:29)
[2021-12-16] MEDS: ISOSORBIDE MONONITRATE ER 30 MG TAB.ER.24H PO SCH (09:29)
[2021-12-16 09:30] LABS: Calcium 8.7 mg/dL (8.4-10.2); Magnesium 2.3 mg/dL (1.6-2.3); Potassium 3.7 mmol/L (3.5-5.1)
--- NOTE | 2021-12-16 10:30 | P.NPCON ---
History of Present Illness - Reason for Consult acute renal failure, chronic renal failure - History of Present Illness Reason for consultation: Acute kidney injury on chronic kidney disease History of present illness: Patient is a 71-year-old male seen in renal consultation for acute kidney injury on chronic kidney disease. Patient has chronic kidney disease stage IV with baseline creatinine in the range of 2.5-3. Creatinine on admission was 2.71 and is 2.57 today. Patient was sent to the hospital by his hat cutter due to acute CHF exacerbation. Patient has history of systolic CHF with ejection fraction of 20-45% with moderate mitral regurgitation and pulmonary hypertension. He is currently maintained on Lasix drip and is diuresing well. He does have edema in lower extremities but states is better compared to yesterday. Oral intake has been fair. No vomiting or diarrhea. Blood pressure stable. No fever or chills. No cough. Patient does have long-standing history of diabetes. No dizziness or falls. No active complaints. Vital signs are stable. General: Awake and alert. No acute distress. HEENT: Head exam is unremarkable. LUNGS: Breath sounds decreased. HEART: Rate and Rhythm are regular. ABDOMEN: Soft, no distention. EXTREMITITES: 1+ edema. 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 History of Any Multi-Drug Resistant Organisms: None Reported Past Surgical History: AICD, Orthopedic Surgery Additional Past Surgical History / Comment(s): R wrist fx with repair, R eye retinal detachment with surgery, R eye retinal hemorrhage with eye injections in the past Past Anesthesia/Blood Transfusion Reactions: No Reported Reaction Additional Past Anesthesia/Blood Transfusion Reaction / Comment(s): Pt has never recieved blood. Type of Cardiac Device: AICD Device Placement Date:: 07/04/2018 Past Psychological History: No Psychological Hx Reported Additional Psychological History / Comment(s): Pt lives with in their home. Pt is retired from [employer] and the [employer]. Pt does not drive d/t eyesight. Spouse is retired and drives his to [employer]. Pt states he does not own a glucometer. He states he would use one if he didn't have to pay for it. Smoking Status: Current every day smoker Past Alcohol Use History: None Reported Additional Past Alcohol Use History / Comment(s): Pt started smoking in 1967 and is a ppd smoker. Past Drug Use History: None Reported - Past Family History Father Family Medical History: Vascular Disorder Additional Family Medical History / Comment(s): Father during vascular surgery for his blood flow to his legs. Mother Family Medical History: Congestive Heart Failure (CHF), Diabetes Mellitus Medications and Allergies Home Medications Medication Instructions Recorded Confirmed Type glipiZIDE [Glucotrol] 10 mg PO BID 06/04/14 12/15/21 History Isosorbide Mononitrate [Isosorbide 30 mg PO DAILY 07/03/18 12/15/21 History Mononitrate ER] Apixaban [Eliquis] 2.5 mg PO BID 09/26/19 12/15/21 History Atorvastatin [Lipitor] 20 mg PO HS 09/26/19 12/15/21 History Furosemide [Lasix] 40 mg PO BID 09/26/19 12/15/21 History Carvedilol [Coreg] 25 mg PO BID-W/MEALS 07/16/21 12/15/21 History Multivit-Min/FA/Lycopen/Lutein 1 tab PO DAILY 07/16/21 12/15/21 History [Centrum Silver Men Tablet] hydrALAZINE HCL [Apresoline] 50 mg PO TID 07/16/21 12/15/21 History Famotidine [Pepcid] 20 mg PO BID #60 tablet 07/19/21 12/15/21 Rx Albuterol Sulfate [Albuterol 2 puff INHALATION RT-Q6H PRN 09/03/21 12/15/21 History Sulfate Hfa] Budesonide/Formoterol Fumarate 2 puff INHALATION RT-BID 09/03/21 12/15/21 History [Symbicort 80-4.5 Mcg Inhaler] Potassium Chloride [Klor-Con 10 ER] 10 meq PO DAILY 09/05/21 12/15/21 History Aspirin 81 mg PO DAILY 10/19/21 12/15/21 Rx INSULIN LISPRO (HumaLOG) [humaLOG] See Protocol SQ ACHS 12/15/21 12/15/21 History Allergies Allergy/AdvReac Type Severity Reaction Status Date / Time No Known Allergies Allergy Verified 12/15/21 11:57 Physical Exam Vitals: Vital Signs Temp Pulse Pulse Resp BP BP Pulse Ox 12/16/21 09:27 97.6 F 67 17 128/74 93 L 12/16/21 04:50 98 F 72 20 147/73 97 12/15/21 23:10 97.7 F 71 19 150/75 95 12/15/21 20:55 97.6 F 61 20 155/83 97 12/15/21 18:48 98.5 F 55 L 17 157/64 96 12/15/21 16:49 87 18 110/58 96 12/15/21 13:56 65 18 138/74 93 L 12/15/21 11:09 20 12/15/21 10:57 96.8 F L 56 L 18 139/77 98 Intake and Output 12/15/21 12/16/21 12/16/21 22:59 06:59 14:59 Intake Total 84.5 340 Output Total 775 500 200 Balance -775 -415.5 140 Intake: Intake, IV Titration 84.5 100 Amount Furosemide 100 mg In 84.5 100 Sodium Chloride 0.9% 90 ml @ 10 MG/HR 10 mls/hr IV .Q10H [facility] Rx#: [id number] Oral 240 Output: Urine 775 500 200 Other: Voiding Method Urinal Urinal # Bowel Movements 1 Weight 64.047 kg 61.6 kg Results - Lab Results Most recent lab results Calcium 8.7 mg/dL (8.4-10.2) 12/16/21 08:45 Magnesium 2.3 mg/dL (1.6-2.3) 12/16/21 08:45 12/15/21 11:22 12/16/21 08:45 Assessment and Plan Plan: Assessment: 1. Acute kidney injury mostly prerenal secondary to cardiorenal syndrome. Creatinine was 2.71 on admission and is 2.57 today. Kidney ultrasound from October 2021 showed atrophic kidneys without any hydronephrosis. 2. Chronic kidney disease stage IV. Etiology is nephrosclerosis and cardiorenal syndrome. Baseline creatinine in the range of 2.5-3. GFR currently at baseline. 3. Acute on chronic systolic CHF with ejection fraction of 20-25% with moderate mitral regurgitation and pulmonary hypertension. 4. Diabetes mellitus. 5. Volume overload. 6. Hypertension with chronic kidney disease. Stable. Plan: Maintain Lasix drip. 1500 mL fluid restriction. Low-salt diet. Continue to monitor renal function and urine output. Check urinalysis. Thank you for the consultation. I will continue to follow the patient with you during his hospital stay.
[2021-12-16 11:30] LABS: Glucose,Whole Blood 143 mg/dL (75-99)
[2021-12-16] MEDS: SODIUM CHLORIDE 0.9% 1,000 ML IV SCH ×2 (11:31→15:38)
--- NOTE | 2021-12-16 11:39 | P.PN ---
Subjective This is a 71 year old male with a past medical history of coronary artery disease, ischemic cardiomyopathy with an EF of 22% (from echocardiogram 2021), status post AICD, dyslipidemia, hypertension, type 2 diabetes, chronic nicotine dependence, paroxysmal atrial fibrillation, dyslipidemia, chronic kidney disease. He follows with Dr. Blair. We are following the patient for congestive heart failure. Patient seen and at bedside, no acute distress. He continues to have shortness of breath and lower extremity edema. He's currently maintained on IV Lasix drip. I/Os documented reveal -1190mL output over 24 hours. Decrease in weight noted. GENERAL: Well-appearing, well-nourished and in no acute distress. NECK: Supple. JVD present LUNGS: Breath sounds crackles bases to auscultation bilaterally. Respiration equal and unlabored. No wheezes, rales or rhonchi. HEART: Regular rate and rhythm. systolic murmur at base noted. No rubs or ga llops. S1 and S2 heard. EXTREMITIES: Normal range of motion, 3+ bilateral lower extremity edema. No clubbing or cyanosis. Peripheral pulses intact. ASSESSMENT Acute on chronic heart failure with reduced ejection fraction EF 22% Coronary artery disease known 100% proximal RCA Ischemic cardiomyopathy with an EF of 22% s/p post AICD Dyslipidemia, Hypertension Type 2 diabetes Chronic nicotine dependence Paroxysmal atrial fibrillation on Eliquis Chronic kidney disease PLAN Continue IV Lasix drip Monitor I/Os, daily weights, renal function and electrolytes Nephrology following, appreciate recommendations Continue anticoagulation with Eliquis Continue home cardiac medications Smoking cessation discussed and highly recommended Further recommendations based on clinical course Nurse Practitioner note has been reviewed, I agree with a documented findings and plan of care. Patient was seen and examined. Objective - Vital Signs Vital signs: Vital Signs Temp 97.6 F 12/16/21 09:27 Pulse 67 12/16/21 09:27 Resp 17 12/16/21 09:27 BP 128/74 12/16/21 09:27 Pulse Ox 93 L 12/16/21 09:27 Intake & Output 12/15/21 12/16/21 12/16/21 18:59 06:59 18:59 Intake Total 84.5 340 Output Total 625 650 300 Balance -625 -565.5 40 Weight 64.047 kg 61.6 kg Intake: Intake, IV Titration 84.5 100 Amount Furosemide 100 mg In 84.5 100 Sodium Chloride 0.9% 90 ml @ 10 MG/HR 10 mls/hr IV .Q10H [facility] Rx#: [id number] Oral 240 Output: Urine 625 650 300 Other: Voiding Method Urinal Urinal Urinal # Bowel Movements 1 - Labs CBC & Chem 7: 12/15/21 11:12/16/21 08:45 Labs: Abnormal Lab Results - Last 24 Hours (Table) 12/15/21 12/15/21 12/15/21 Range/Units 11: 11: 11:22 RBC 4.10 L (4.30-5.90) m/uL Hgb 11.2 L (13.0-17.5) gm/dL Hct 38.0 L (39.0-53.0) % MCHC 29.5 L (31.0-37.0) g/dL RDW 16.4 H (11.5-15.5) % Lymphocytes # 0.9 L (1.0-4.8) k/uL PT 12.9 H (9.0-12.0) sec INR 1.2 H (<1.2) Carbon Dioxide 33 H (22-30) mmol/L BUN 29 H (9-20) mg/dL Creatinine 2.71 H (0.66-1.25) mg/dL Glucose (74-99) mg/dL POC Glucose (mg/dL) (75-99) mg/dL Troponin I (0.000-0.034) ng/mL 12/15/21 12/15/21 12/16/21 Range/Units : 20: 06:06 RBC (4.30-5.90) m/uL Hgb (13.0-17.5) gm/dL Hct (39.0-53.0) % MCHC (31.0-37.0) g/dL RDW (11.5-15.5) % Lymphocytes # (1.0-4.8) k/uL PT (9.0-12.0) sec INR (<1.2) Carbon Dioxide (22-30) mmol/L BUN (9-20) mg/dL Creatinine (0.66-1.25) mg/dL Glucose (74-99) mg/dL POC Glucose (mg/dL) 226 H 149 H (75-99) mg/dL Troponin I 0.051 H* (0.000-0.034) ng/mL 12/16/21 Range/Units 08:45 RBC (4.30-5.90) m/uL Hgb (13.0-17.5) gm/dL Hct (39.0-53.0) % MCHC (31.0-37.0) g/dL RDW (11.5-15.5) % Lymphocytes # (1.0-4.8) k/uL PT (9.0-12.0) sec INR (<1.2) Carbon Dioxide 34 H (22-30) mmol/L BUN 28 H (9-20) mg/dL Creatinine 2.57 H (0.66-1.25) mg/dL Glucose 100 H (74-99) mg/dL POC Glucose (mg/dL) (75-99) mg/dL Troponin I (0.000-0.034) ng/mL
[2021-12-16 14:46] LABS: Appearance,Urine Clear (Clear); Bilirubin,Urine Negative (Negative); Blood,Urine Negative (Negative); Color,Urine Yellow; Glucose,Urine (UA) Negative (Negative); Ketones,Urine Negative (Negative); Leukocyte Esterase,Urine Negative (Negative); Nitrite,Urine Negative (Negative); Protein,Urine Negative (Negative); Specific Gravity,Urine 1.008 (1.001-1.035); Urobilinogen,Urine <2.0 mg/dL (<2.0)
[2021-12-16 16:30] LABS: Glucose,Whole Blood 138 mg/dL (75-99)
[2021-12-16 20:59] LABS: Glucose,Whole Blood 84 mg/dL (75-99)
[2021-12-16] MEDS: ATORVASTATIN 20 MG TAB PO SCH (20:59)
[2021-12-17 06:23] LABS: Glucose,Whole Blood 98 mg/dL (75-99)
[2021-12-17] MEDS: INSULIN ASPART (NovoLOG) 100 UNIT/ML VIAL SQ SCH ×4 (06:50→20:33)
[2021-12-17] MEDS: carvediloL 6.25 MG TAB PO SCH ×2 (07:07→17:14)
[2021-12-17] MEDS: ASPIRIN 81 MG PO SCH (08:10)
[2021-12-17] MEDS: hydrALAZINE HCL 50 MG TAB PO SCH ×3 (08:10→20:39)
[2021-12-17] MEDS: ISOSORBIDE MONONITRATE ER 30 MG TAB.ER.24H PO SCH (08:10)
[2021-12-17] MEDS: APIXABAN 2.5 MG TABLET PO SCH ×2 (08:11→20:39)
[2021-12-17] MEDS: POTASSIUM CHLORIDE ER 10 MEQ TAB.ER.PRT PO SCH (08:13)
[2021-12-17 08:56] LABS: Calcium 8.6 mg/dL (8.4-10.2); Magnesium 2.2 mg/dL (1.6-2.3); Potassium 3.8 mmol/L (3.5-5.1)
[2021-12-17] MEDS: FUROSEMIDE 10 MG/ML 4 ML VIAL IVP SCH ×3 (09:14→23:13)
[2021-12-17 09:31] LABS: Anisocytosis Slight; HCT 34.6 % (39.0-53.0); HGB 10.2 gm/dL (13.0-17.5); Hypochromasia Marked; MCH 27.9 pg (25.0-35.0); MCHC 29.6 g/dL (31.0-37.0); MCV 94.5 fL (80.0-100.0); Mean Platelet Volume 8.8; Platelet Count 170 k/uL (150-450); RBC 3.66 m/uL (4.30-5.90); RDW 16.5 % (11.5-15.5); WBC 8.6 k/uL (3.8-10.6)
--- NOTE | 2021-12-17 10:14 | PN ---
PROGRESS NOTE Mr. Mccormick is in sinus rhythm, comfortable resting. His Lasix drip was discontinued yesterday afternoon. I am going to resume Lasix at 40 mg IV push q.8 hours, check CBC, BMP today. He has ischemic cardiomyopathy, smoking and COPD. Vitals are stable. S1-S2 heard normally. JVD is evident. Lungs reveal diminished air entry. Abdomen and lower extremity exam unchanged. Plan is to continue IV Lasix. Await input from Nephrology. Patient can be discharged either later today or tomorrow. MMODL / IJN: [id number] /
[2021-12-17] MEDS ORDERED: POTASSIUM CHLORIDE ER 20 MEQ TAB.ER PO STA (11:32)
[2021-12-17] MEDS ORDERED: POTASSIUM CHLORIDE ER 20 MEQ TAB.ER PO ONE (11:35)
[2021-12-17 11:47] LABS: Glucose,Whole Blood 154 mg/dL (75-99)
--- NOTE | 2021-12-17 13:09 | P.PN ---
Subjective Progress Note Date: 12/17/21 Follow-up for acute kidney injury on chronic kidney disease. Objective - Vital Signs Vital signs: Vital Signs Temp 97.6 F 12/17/21 04:45 Pulse 67 12/17/21 12:02 Resp 18 12/17/21 12:02 BP 150/72 12/17/21 12:02 Pulse Ox 98 12/17/21 12:02 Intake & Output 12/16/21 12/17/21 12/17/21 18:59 06:59 18:59 Intake Total 940 237 180 Output Total 550 250 Balance 390 -13 180 Weight 61.689 kg Intake: IV 240 Sodium Chloride 0.9% 1, 240 000 ml @ 20 mls/hr IV . Q24H [facility] Rx#:[id number] Intake, IV Titration 100 Amount Furosemide 100 mg In 100 Sodium Chloride 0.9% 90 ml @ 10 MG/HR 10 mls/hr IV .Q10H [facility] Rx#: [id number] Oral 600 237 180 Output: Urine 550 250 Other: Voiding Method Urinal Urinal Urinal # Voids 1 - Exam No acute distress S1-S2 heard Decreased breath sounds Trace edema - Labs CBC & Chem 7: 12/17/21 08:03 12/17/21 08:03 Labs: Abnormal Lab Results - Last 24 Hours (Table) 12/16/21 12/17/21 12/17/21 Range/Units 16:29 08:03 08:03 RBC 3.66 L (4.30-5.90) m/uL Hgb 10.2 L (13.0-17.5) gm/dL Hct 34.6 L (39.0-53.0) % MCHC 29.6 L (31.0-37.0) g/dL RDW 16.5 H (11.5-15.5) % Carbon Dioxide 31 H (22-30) mmol/L BUN 28 H (9-20) mg/dL Creatinine 2.65 H (0.66-1.25) mg/dL Glucose 140 H (74-99) mg/dL POC Glucose (mg/dL) 138 H (75-99) mg/dL 12/17/21 Range/Units 11:45 RBC (4.30-5.90) m/uL Hgb (13.0-17.5) gm/dL Hct (39.0-53.0) % MCHC (31.0-37.0) g/dL RDW (11.5-15.5) % Carbon Dioxide (22-30) mmol/L BUN (9-20) mg/dL Creatinine (0.66-1.25) mg/dL Glucose (74-99) mg/dL POC Glucose (mg/dL) 154 H (75-99) mg/dL Assessment and Plan Assessment: #1 chronic kidney disease stage IV secondary to nephrosclerosis and cardiorenal syndrome. Baseline creatinine 2.5-3.0 MG per DL. #2 acute on chronic systolic CHF with EF of 20-25% #3 volume overload #4 hypertension with chronic kidney disease. Plan: #1 renal function stable #2 Lasix drip change to Lasix IV push #3 avoid nephrotoxic agents.
[2021-12-17] MEDS: SODIUM CHLORIDE 0.9% 1,000 ML IV SCH (15:16)
[2021-12-17 16:44] LABS: Glucose,Whole Blood 191 mg/dL (75-99)
--- NOTE | 2021-12-17 19:41 | P.HPIM ---
History of Present Illness H&P Date: 12/16/21 Chief Complaint: Shortness of breath [age]-year-old male patient, past medical history of coronary artery disease, ischemic cardiomyopathy with an EF of 22% (from echocardiogram 10/2021), status post AICD, dyslipidemia, hypertension, type 2 diabetes, chronic nicotine dependence, paroxysmal atrial fibrillation, dyslipidemia, chronic kidney disease presented to ED for concerns about shortness of breath; patient was seen at the fire protection designer's office and was recommended evaluation in ED for acute exacerbation of CHF; according to patient's family he has been very weak recen tly and is having extreme difficulty in performing his ADLs Workup completed in ED; EKG interpretation: Ventricular rate 50, sinus bradycardia,. 185, care is 114, QTc 439. No SD prolongation, no QTC prolongation, no ST or T-wave changes noted. EKG compared to October 16 2021 showing no changes. Overall, this EKG is unremarkable Laboratory review shows a CBC with WBCs of 8.2, hemoglobin 11.2, hematocrit 38.0 and platelet count of 221 Review of Systems REVIEW OF SYSTEMS: CONSTITUTIONAL: No fever, no malaise, no fatigue. HEENT: No recent visual problems or hearing problems. Denied any sore throat. CARDIOVASCULAR: No chest pain, orthopnea, PND, no palpitations, no syncope. PULMONARY: No shortness of breath, no cough, no hemoptysis. GASTROINTESTINAL: No diarrhea, no nausea, no vomiting, no abdominal pain. NEUROLOGICAL: No headaches, no weakness, no numbness. HEMATOLOGICAL: Denies any bleeding or petechiae. GENITOURINARY: Denies any burning micturition, frequency, or urgency. MUSCULOSKELETAL/RHEUMATOLOGICAL: Denies any joint pain, swelling, or any muscle pain. ENDOCRINE: Denies any polyuria or polydipsia. The rest of the 14-point review of systems is negative. 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 History of Any Multi-Drug Resistant Organisms: None Reported Past Surgical History: AICD, Orthopedic Surgery Additional Past Surgical History / Comment(s): R wrist fx with repair, R eye retinal detachment with surgery, R eye retinal hemorrhage with eye injections in the past Past Anesthesia/Blood Transfusion Reactions: No Reported Reaction Additional Past Anesthesia/Blood Transfusion Reaction / Comment(s): Pt has never recieved blood. Type of Cardiac Device: AICD Device Placement Date:: 07/04/2018 Past Psychological History: No Psychological Hx Reported Additional Psychological History / Comment(s): Pt lives with in their home. Pt is retired from [employer] and the [employer]. Pt does not drive d/t [place]. Spouse is retired and drives his to [employer]. Pt states he does not own a glucometer. He states he would use one if he didn't have to pay for it. Smoking Status: Current every day smoker Past Alcohol Use History: None Reported Additional Past Alcohol Use History / Comment(s): Pt started smoking in 1967 and is a ppd smoker. Past Drug Use History: None Reported - Past Family History Father Family Medical History: Vascular Disorder Additional Family Medical History / Comment(s): Father during vascular surgery for his blood flow to his legs. Mother Family Medical History: Congestive Heart Failure (CHF), Diabetes Mellitus Medications and Allergies Home Medications Medication Instructions Recorded Confirmed Type glipiZIDE [Glucotrol] 10 mg PO BID 06/04/14 12/15/21 History Isosorbide Mononitrate [Isosorbide 30 mg PO DAILY 07/03/18 12/15/21 History Mononitrate ER] Apixaban [Eliquis] 2.5 mg PO BID 09/26/19 12/15/21 History Atorvastatin [Lipitor] 20 mg PO HS 09/26/19 12/15/21 History Furosemide [Lasix] 40 mg PO BID 09/26/19 12/15/21 History Carvedilol [Coreg] 25 mg PO BID-W/MEALS 07/16/21 12/15/21 History Multivit-Min/FA/Lycopen/Lutein 1 tab PO DAILY 07/16/21 12/15/21 History [Centrum Silver Men Tablet] hydrALAZINE HCL [Apresoline] 50 mg PO TID 07/16/21 12/15/21 History Famotidine [Pepcid] 20 mg PO BID #60 tablet 07/19/21 12/15/21 Rx Albuterol Sulfate [Albuterol 2 puff INHALATION RT-Q6H PRN 09/03/21 12/15/21 History Sulfate Hfa] Budesonide/Formoterol Fumarate 2 puff INHALATION RT-BID 09/03/21 12/15/21 History [Symbicort 80-4.5 Mcg Inhaler] Potassium Chloride [Klor-Con 10 ER] 10 meq PO DAILY 09/05/21 12/15/21 History Aspirin 81 mg PO DAILY 10/19/21 12/15/21 Rx INSULIN LISPRO (HumaLOG) [humaLOG] See Protocol SQ ACHS 12/15/21 12/15/21 History Allergies Allergy/AdvReac Type Severity Reaction Status Date / Time No Known Allergies Allergy Verified 12/15/21 11:57 Physical Exam Vitals: Vital Signs Temp Pulse Pulse Resp BP BP Pulse Ox 12/16/21 11:23 98 F 63 17 128/65 91 L 12/16/21 09:27 97.6 F 67 17 128/74 93 L 12/16/21 04:50 98 F 72 20 147/73 97 12/15/21 23:10 97.7 F 71 19 150/75 95 12/15/21 20:55 97.6 F 61 20 155/83 97 12/15/21 18:48 98.5 F 55 L 17 157/64 96 12/15/21 16:49 87 18 110/58 96 12/15/21 13:56 65 18 138/74 93 L Intake and Output 12/15/21 12/16/21 12/16/21 22:59 06:59 14:59 Intake Total 84.5 340 Output Total 775 500 300 Balance -775 -415.5 40 Intake: Intake, IV Titration 84.5 100 Amount Furosemide 100 mg In 84.5 100 Sodium Chloride 0.9% 90 ml @ 10 MG/HR 10 mls/hr IV .Q10H [facility] Rx#: [id number] Oral 240 Output: Urine 775 500 300 Other: Voiding Method Urinal Urinal Urinal # Bowel Movements 1 Weight 64.047 kg 61.6 kg - Constitutional General appearance: Present: average body habitus, cooperative, no acute distress - EENT Eyes: Present: anicteric sclerae, EOMI, PERRLA, normal appearance ENT: Present: hearing grossly normal, normal oropharynx Ears: bilateral: normal - Neck Neck: Present: normal ROM. Absent: lymphadenopathy, rigidity, thyromegaly Carotids: negative: bruit present Thyroid: bilateral: normal size, negative: enlarged, nodule - Respiratory Respiratory: bilateral: CTA, negative: rales, rhonchi, wheezing - Cardiovascular Rhythm: regular Heart sounds: normal: S1, S2 Abnormal Heart Sounds: Absent: systolic murmur, diastolic murmur - Gastrointestinal General gastrointestinal: Present: normal bowel sounds, soft. Absent: distended, organomegaly, tenderness - Genitourinary Genitourinary Comment(s): deferred - Integumentary Integumentary: Present: normal turgor. Absent: jaundiced, rash, ulcer - Neurologic Neurologic: Present: CNII-XII intact. Absent: focal deficits - Musculoskeletal Musculoskeletal: Present: gait normal, strength equal bilaterally - Psychiatric Psychiatric: Present: A&O x's 3, appropriate affect, intact judgment & insight Results CBC & Chem 7: 12/17/21 08:03 12/17/21 08:03 Labs: Abnormal Lab Results - Last 24 Hours (Table) 12/15/21 12/15/21 12/16/21 Range/Units 11:22 20:21 06:06 Carbon Dioxide (22-30) mmol/L BUN (9-20) mg/dL Creatinine (0.66-1.25) mg/dL Glucose (74-99) mg/dL POC Glucose (mg/dL) 226 H 149 H (75-99) mg/dL Troponin I 0.051 H* (0.000-0.034) ng/mL 12/16/21 12/16/21 Range/Units 08:45 11:28 Carbon Dioxide 34 H (22-30) mmol/L BUN 28 H (9-20) mg/dL Creatinine 2.57 H (0.66-1.25) mg/dL Glucose 100 H (74-99) mg/dL POC Glucose (mg/dL) 143 H (75-99) mg/dL Troponin I (0.000-0.034) ng/mL Thrombosis Risk Factor Assmnt - Choose All That Apply Each Risk Factor Represents 2 Points: Age 61-74 years Thrombosis Risk Factor Assessment Total Risk Factor Score: 2 Thrombosis Risk Factor Assessment Level: Low Risk Assessment and Plan Assessment: 1. Acute on chronic heart failure; -- ejection fraction EF 22%; Coronary artery disease known 100% proximal RCA -- patient remains on IV Lasix drip; we'll continue to monitor strict FRANDY's, daily weights, renal function and electrolytes; low salt and fluid restricted diet - Cardiology on board and agreeable with current plan 2. Acute on chronic kidney disease stage IV; likely related to cardiorenal syndrome; - Creatinine was 2.71 on admission and is up to 12.57 today; patient did have renal ultrasound done recently which revealed atrophic kidneys without any hydronephrosis - Nephrology on board and recommending to continue with 1500 mL fluid restriction and low-salt diet; monitor strict FRANDY's, daily weights, renal function and electrolytes; avoid nephrotoxic agents 3. Ischemic cardiomyopathy; with an EF of 22% s/p post AICD; continue with aspirin, statins, beta blockers, Imdur and anticoagulation therapy 4. Hyperlipidemia; Lipitor 20 mg by mouth daily at bedtime 5. Hypertension; stable on Coreg 25 mg twice a day, hydralazine 50 mg 3 times a day, Imdur 30 mg daily 6. Type 2 diabetes; monitor Accu-Cheks every before meals and at bedtime with insulin sliding scale 7. Paroxysmal atrial fibrillation; anticoagulated with Eliquis DVT prophylaxis; SCDs/systemic anticoagulation CODE STATUS; full code
--- NOTE | 2021-12-17 19:43 | P.PN ---
Subjective Progress Note Date: 12/17/21 Principal diagnosis: Acute on chronic systolic CHF Acute on chronic kidney disease stage IV Ischemic cardiomyopathy 71 year-old male patient, past medical history of coronary artery disease, ischemic cardiomyopathy with an EF of 22% (from echocardiogram 10/2021), status post AICD, dyslipidemia, hypertension, type 2 diabetes, chronic nicotine dependence, paroxysmal atrial fibrillation, dyslipidemia, chronic kidney disease presented to ED for concerns about shortness of breath; patient was seen at the waiter and cashier's office and was recommended evaluation in ED for acute exacerbation of CHF; according to patient's family he has been very weak recentl y and is having extreme difficulty in performing his ADLs Workup completed in ED; EKG interpretation: Ventricular rate 50, sinus bradycardia,. 185, care is 114, QTc 439. No [place] prolongation, no QTC prolongation, no ST or T-wave changes noted. EKG compared to October 16 2021 showing no changes. Overall, this EKG is unremarkable Laboratory review shows a CBC with WBCs of 8.2, hemoglobin 11.2, hematocrit 38.0 and platelet count of 221 Objective - Vital Signs Vital signs: Vital Signs Temp 97.6 F 12/17/21 04:45 Pulse 69 12/17/21 17:06 Resp 18 12/17/21 17:06 BP 137/68 12/17/21 17:06 Pulse Ox 91 L 12/17/21 17:06 Intake & Output 12/17/21 12/17/21 12/18/21 06:59 18:59 06:59 Intake Total 237 775 Output Total 250 Balance -13 775 Intake: Oral 237 775 Output: Urine 250 Other: Voiding Method Urinal Urinal # Voids 3 - Exam - Constitutional General appearance: Present: average body habitus, cooperative, no acute distress - EENT Eyes: Present: anicteric sclerae, EOMI, PERRLA, normal appearance ENT: Present: hearing grossly normal, normal oropharynx Ears: bilateral: normal - Neck Neck: Present: normal ROM. Absent: lymphadenopathy, rigidity, thyromegaly Carotids: negative: bruit present Thyroid: bilateral: normal size, negative: enlarged, nodule - Respiratory Respiratory: bilateral: CTA, negative: rales, rhonchi, wheezing - Cardiovascular Rhythm: regular Heart sounds: normal: S1, S2 Abnormal Heart Sounds: Absent: systolic murmur, diastolic murmur - Gastrointestinal General gastrointestinal: Present: normal bowel sounds, soft. Absent: distended, organomegaly, tenderness - Genitourinary Genitourinary Comment(s): deferred - Integumentary Integumentary: Present: normal turgor. Absent: jaundiced, rash, ulcer - Neurologic Neurologic: Present: CNII-XII intact. Absent: focal deficits - Musculoskeletal Musculoskeletal: Present: gait normal, strength equal bilaterally - Psychiatric Psychiatric: Present: A&O x's 3, appropriate affect, intact judgment & insight - Labs CBC & Chem 7: 12/17/21 08:03 12/17/21 08:03 Labs: Abnormal Lab Results - Last 24 Hours (Table) 12/17/21 12/17/21 12/17/21 Range/Units 08:03 08:03 11:45 RBC 3.66 L (4.30-5.90) m/uL Hgb 10.2 L (13.0-17.5) gm/dL Hct 34.6 L (39.0-53.0) % MCHC 29.6 L (31.0-37.0) g/dL RDW 16.5 H (11.5-15.5) % Carbon Dioxide 31 H (22-30) mmol/L BUN 28 H (9-20) mg/dL Creatinine 2.65 H (0.66-1.25) mg/dL Glucose 140 H (74-99) mg/dL POC Glucose (mg/dL) 154 H (75-99) mg/dL 12/17/21 Range/Units 16:37 RBC (4.30-5.90) m/uL Hgb (13.0-17.5) gm/dL Hct (39.0-53.0) % MCHC (31.0-37.0) g/dL RDW (11.5-15.5) % Carbon Dioxide (22-30) mmol/L BUN (9-20) mg/dL Creatinine (0.66-1.25) mg/dL Glucose (74-99) mg/dL POC Glucose (mg/dL) 191 H (75-99) mg/dL Assessment and Plan Assessment: 1. Acute on chronic heart failure; -- ejection fraction EF 22%; Coronary artery disease known 100% proximal RCA -- patient remains on IV Lasix drip; we'll continue to monitor strict FRANDY's, daily weights, renal function and electrolytes; low salt and fluid restricted diet - Cardiology on board and agreeable with current plan 2. Acute on chronic kidney disease stage IV; likely related to cardiorenal syndrome; - Creatinine was 2.71 on admission and is up to 12.57 today; patient did have renal ultrasound done recently which revealed atrophic kidneys without any hydronephrosis - Nephrology on board and recommending to continue with 1500 mL fluid restriction and low-salt diet; monitor strict FRANDY's, daily weights, renal function and electrolytes; avoid nephrotoxic agents 3. Ischemic cardiomyopathy; with an EF of 22% s/p post AICD; continue with aspirin, statins, beta blockers, Imdur and anticoagulation therapy 4. Hyperlipidemia; Lipitor 20 mg by mouth daily at bedtime 5. Hypertension; stable on Coreg 25 mg twice a day, hydralazine 50 mg 3 times a day, Imdur 30 mg daily 6. Type 2 diabetes; monitor Accu-Cheks every before meals and at bedtime with insulin sliding scale 7. Paroxysmal atrial fibrillation; anticoagulated with Eliquis DVT prophylaxis; SCDs/systemic anticoagulation CODE STATUS; full code
[2021-12-17 20:39] LABS: Glucose,Whole Blood 158 mg/dL (75-99)
[2021-12-17] MEDS: ATORVASTATIN 20 MG TAB PO SCH (20:40)
[2021-12-18 06:38] LABS: Glucose,Whole Blood 112 mg/dL (75-99)
[2021-12-18] MEDS: INSULIN ASPART (NovoLOG) 100 UNIT/ML VIAL SQ SCH (06:50)
[2021-12-18] MEDS: carvediloL 6.25 MG TAB PO SCH (07:00)
[2021-12-18 09:02] VITALS: BP 131/63; PULSE 70; RESP 18; TEMP 97.9
[2021-12-18] MEDS: ASPIRIN 81 MG PO SCH (09:03)
[2021-12-18] MEDS: POTASSIUM CHLORIDE ER 10 MEQ TAB.ER.PRT PO SCH (09:03)
[2021-12-18] MEDS: ISOSORBIDE MONONITRATE ER 30 MG TAB.ER.24H PO SCH (09:03)
[2021-12-18] MEDS: FUROSEMIDE 10 MG/ML 4 ML VIAL IVP SCH (09:03)
[2021-12-18] MEDS: APIXABAN 2.5 MG TABLET PO SCH (09:03)
[2021-12-18] MEDS: hydrALAZINE HCL 50 MG TAB PO SCH (09:03)
--- NOTE | 2021-12-18 10:12 | PN ---
PROGRESS NOTE Mr. Mccormick has ischemic cardiomyopathy, heart failure. He was on a Lasix drip and then IV push Lasix. He feels better. Breathing is easier. He has lost weight. I am going to switch him to oral Lasix 80 mg in the morning, 40 mg in the afternoon, increase activity, and possible discharge today if okayed by Nephrology. Vitals are stable. JVD 1 cm. No carotid bruit. S1-S2 heard normally. Short systolic murmur noted. Rhythm is sinus. Lungs reveal improved air entry, bilateral lung barry. Abdomen and lower extremity exam unchanged. Prognosis remains guarded. MMODL / IJN: [id number] /
== END 2021-12-18 12:25 | disposition home or self-care (01) | DRG 291 ==
LOC: EC 10:56 → 3SCARD 13:19
PROVIDERS: ADMIT Family Medicine; ATTEND Family Medicine
DX: I13.0 Hypertensive heart and chronic kidney disease with heart failure and stage 1 through stage 4 chronic kidney disease, or unspecified chronic kidney disease (principal); I50.23 Acute on chronic systolic (congestive) heart failure; N18.4 Chronic kidney disease, stage 4 (severe); N17.9 Acute kidney failure, unspecified; E87.70 Fluid overload, unspecified; E11.22 Type 2 diabetes mellitus with diabetic chronic kidney disease; E78.5 Hyperlipidemia, unspecified; F17.200 Nicotine dependence, unspecified, uncomplicated; I25.10 Atherosclerotic heart disease of native coronary artery without angina pectoris; I25.5 Ischemic cardiomyopathy; I27.20 Pulmonary hypertension, unspecified; I34.0 Nonrheumatic mitral (valve) insufficiency; I48.0 Paroxysmal atrial fibrillation; J44.9 Chronic obstructive pulmonary disease, unspecified; Z79.01 Long term (current) use of anticoagulants; Z79.51 Long term (current) use of inhaled steroids; Z79.82 Long term (current) use of aspirin; Z79.84 Long term (current) use of oral hypoglycemic drugs; Z79.899 Other long term (current) drug therapy; Z82.49 Family history of ischemic heart disease and other diseases of the circulatory system; Z83.3 Family history of diabetes mellitus; Z86.73 Personal history of transient ischemic attack (TIA), and cerebral infarction without residual deficits; Z95.810 Presence of automatic (implantable) cardiac defibrillator
CPT/HCPCS: 36415; 71045; 80048; 80061; 81003; 82306; 82728; 83036; 83540; 83550; 83735; 83880; 83970; 84100; 84484; 85025; 85027; 85610; 85730; 93005; 96374; 99285

== ENCOUNTER 2021-12-23 23:44 | Emergency (ER) | payer MEDICARE, BC ==
[2021-12-24 00:02] VITALS: RESP 19; TEMP 97.8
[2021-12-24 00:13] LABS: Glucose,Whole Blood 139 mg/dL (75-99)
[2021-12-24 00:29] LABS: Anisocytosis Slight; Basophils % (A) 1 %; Eosinophils % (A) 0 %; HCT 37.2 % (39.0-53.0); HGB 11.2 gm/dL (13.0-17.5); Hypochromasia Moderate; Lymphocytes # (A) 0.6 k/uL (1.0-4.8); Lymphocytes % (A) 17 %; MCH 27.3 pg (25.0-35.0); MCHC 30.1 g/dL (31.0-37.0); MCV 90.7 fL (80.0-100.0); Mean Platelet Volume 8.9; Monocytes # (A) 0.4 k/uL (0-1.0); Monocytes % (A) 12 %; Neutrophils # (A) 2.5 k/uL (1.3-7.7); Neutrophils % (A) 68 %; Platelet Count 178 k/uL (150-450); WBC 3.6 k/uL (3.8-10.6)
[2021-12-24 00:44] LABS: ALT 19 U/L (4-49); AST 33 U/L (17-59); African American GFR (CKD) 29 (>60 ml/min/1.73 sqM); Albumin 3.4 g/dL (3.5-5.0); Alcohol <10 mg/dL; Alkaline Phosphatase 107 U/L (38-126); Anion Gap 5 mmol/L; Blood Urea Nitrogen 33 mg/dL (9-20); Calcium 8.3 mg/dL (8.4-10.2); Carbon Dioxide 32 mmol/L (22-30); Chloride 99 mmol/L (98-107); Glucose 138 mg/dL (74-99); Non-African American GFR(CKD) 25 (>60 ml/min/1.73 sqM); Potassium 4.2 mmol/L (3.5-5.1); Sodium 136 mmol/L (137-145); Total Bilirubin 1.1 mg/dL (0.2-1.3); Total Protein 5.9 g/dL (6.3-8.2)
--- NOTE | 2021-12-24 00:51 | XR ---
EXAMINATION TYPE: XR chest 1V portable DATE OF EXAM: 12/24/2021 COMPARISON: 12/15/2021 HISTORY: Fluid retention TECHNIQUE: Single view FINDINGS: Heart is enlarged. There is mild pulmonary congestion. There is moderate size right pleural effusion. There is a left axillary pacemaker. There are chest leads. IMPRESSION: There is mild chronic congestive heart failure. Moderate right pleural effusion without m uch change.
--- NOTE | 2021-12-24 02:08 | ED ---
Altered Mental Status HPI - General Chief Complaint: Altered Mental Status Stated Complaint: Altered Mental Status Time Seen by Provider: 12/24/21 00:14 Source: patient Mode of arrival: ambulatory - History of Present Illness Initial Comments: 's patient is 71-year-old man brought by ambulance to evaluation for altered mental status. They were called as patient was not feeling well and did not seem his usual self. When EMS arrived they checked an Accu-Chek that was 60. They administered dextrose and patient reported feeling a little better. On arrival here the patient states that he just does not feel entirely well. He is denying pain. No dyspnea MD Complaint: confusion -: minutes(s) Severity: mild Associated Symptoms: denies other symptoms Treatments Prior to Arrival: glucose - Related Data Home Medications Medication Instructions Recorded Confirmed glipiZIDE [Glucotrol] 10 mg PO BID 06/04/14 12/15/21 Isosorbide Mononitrate [Isosorbide 30 mg PO DAILY 07/03/18 12/15/21 Mononitrate ER] Apixaban [Eliquis] 2.5 mg PO BID 09/26/19 12/15/21 Atorvastatin [Lipitor] 20 mg PO HS 09/26/19 12/15/21 Carvedilol [Coreg] 25 mg PO BID-W/MEALS 07/16/21 12/15/21 Multivit-Min/FA/Lycopen/Lutein 1 tab PO DAILY 07/16/21 12/15/21 [Centrum Silver Men Tablet] hydrALAZINE HCL [Apresoline] 50 mg PO TID 07/16/21 12/15/21 Albuterol Sulfate [Albuterol 2 puff INHALATION RT-Q6H PRN 09/03/21 12/15/21 Sulfate Hfa] Budesonide/Formoterol Fumarate 2 puff INHALATION RT-BID 09/03/21 12/15/21 [Symbicort 80-4.5 Mcg Inhaler] Potassium Chloride [Klor-Con 10 ER] 10 meq PO DAILY 09/05/21 12/15/21 INSULIN LISPRO (HumaLOG) [humaLOG] See Protocol SQ ACHS 12/15/21 12/15/21 Previous Rx's Medication Instructions Recorded Famotidine [Pepcid] 20 mg PO BID #60 tablet 07/19/21 Aspirin 81 mg PO DAILY 10/19/21 Furosemide [Lasix] 40 mg PO BID 30 Days #90 tablet 12/18/21 Allergies Allergy/AdvReac Type Severity Reaction Status Date / Time No Known Allergies Allergy Verified 12/15/21 11:57 Review of Systems ROS Statement: Those systems with pertinent positive or pertinent negative responses have been documented in the HPI. ROS Other: All systems not noted in ROS Statement are negative. Constitutional: Reports: weakness. Denies: fever, chills Respiratory: Reports: cough. Denies: dyspnea Cardiovascular: Denies: chest pain, palpitations Gastrointestinal: Denies: abdominal pain, vomiting, diarrhea Musculoskeletal: Denies: back pain Skin: Denies: rash Neurological: Reports: confusion. 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 History of Any Multi-Drug Resistant Organisms: None Reported Past Surgical History: AICD, Orthopedic Surgery Additional Past Surgical History / Comment(s): R wrist fx with repair, R eye retinal detachment with surgery, R eye retinal hemorrhage with eye injections in the past Past Anesthesia/Blood Transfusion Reactions: No Reported Reaction Additional Past Anesthesia/Blood Transfusion Reaction / Comment(s): Pt has never recieved blood. Type of Cardiac Device: AICD Device Placement Date:: 07/04/2018 Past Psychological History: No Psychological Hx Reported Smoking Status: Current every day smoker Past Alcohol Use History: None Reported Past Drug Use History: None Reported - Past Family History Father Family Medical History: Vascular Disorder Additional Family Medical History / Comment(s): Father during vascular surgery for his blood flow to his legs. Mother Family Medical History: Congestive Heart Failure (CHF), Diabetes Mellitus General Exam General appearance: alert, in no apparent distress Head exam: Present: atraumatic, normocephalic Eye exam: Present: normal appearance. Absent: scleral icterus, conjunctival injection Neck exam: Present: normal inspection, full ROM Respiratory exam: Present: normal lung sounds bilaterally. Absent: respiratory distress, wheezes, rales, rhonchi, stridor Cardiovascular Exam: Present: regular rate, normal rhythm, normal heart sounds. Absent: systolic murmur, diastolic murmur, rubs, gallop GI/Abdominal exam: Present: soft. Absent: distended, tenderness, guarding, rebound, rigid, mass Extremities exam: Present: normal inspection, normal capillary refill. Absent: pedal edema Neurological exam: Present: alert, oriented X3, CN II-XII intact. Absent: motor sensory deficit Skin exam: Present: warm, dry, intact, normal color. Absent: rash Course Vital Signs 12/23/21 12/24/21 23:53 03:11 Temperature 97.8 F Pulse Rate 70 75 Respiratory 19 19 Rate Blood Pressure 134/89 146/90 O2 Sat by Pulse 97 96 Oximetry Medical Decision Making - Medical Decision Making Patient is 71-year-old man here with some mild delirium. Found to have code infection. Discussed results of studies with patient and . He would like to go home. Do suspect that the slightly elevated troponin is due to the patient's chronic renal condition. Discussed return parameters and appropriate further care and follow-up. - Lab Data Result diagrams: 12/24/21 00:18 12/24/21 00:18 Lab Results 12/23/21 12/24/21 12/24/21 Range/Units 23:59 00:18 00:18 WBC 3.6 L (3.8-10.6) k/uL RBC 4.10 L (4.30-5.90) m/uL Hgb 11.2 L (13.0-17.5) gm/dL Hct 37.2 L (39.0-53.0) % MCV 90.7 (80.0-100.0) fL MCH 27.3 (25.0-35.0) pg MCHC 30.1 L (31.0-37.0) g/dL RDW 17.0 H (11.5-15.5) % Plt Count 178 (150-450) k/uL MPV 8.9 Neutrophils % 68 % Lymphocytes % 17 % Monocytes % 12 % Eosinophils % 0 % Basophils % 1 % Neutrophils # 2.5 (1.3-7.7) k/uL Lymphocytes # 0.6 L (1.0-4.8) k/uL Monocytes # 0.4 (0-1.0) k/uL Eosinophils # 0.0 (0-0.7) k/uL Basophils # 0.0 (0-0.2) k/uL Hypochromasia Moderate Anisocytosis Slight Sodium 136 L (137-145) mmol/L Potassium 4.2 (3.5-5.1) mmol/L Chloride 99 (98-107) mmol/L Carbon Dioxide 32 H (22-30) mmol/L Anion Gap 5 mmol/L BUN 33 H (9-20) mg/dL Creatinine 2.50 H (0.66-1.25) mg/dL Est GFR (CKD-EPI)AfAm 29 (>60 ml/min/1.73 sqM) Est GFR (CKD-EPI)NonAf 25 (>60 ml/min/1.73 sqM) Glucose 138 H (74-99) mg/dL POC Glucose (mg/dL) 139 H (75-99) mg/dL POC Glu Can Patcher ID Nancy Bunch Calcium 8.3 L (8.4-10.2) mg/dL Total Bilirubin 1.1 (0.2-1.3) mg/dL AST 33 (17-59) U/L ALT 19 (4-49) U/L Alkaline Phosphatase 107 (38-126) U/L Troponin I (0.000-0.034) ng/mL Total Protein 5.9 L (6.3-8.2) g/dL Albumin 3.4 L (3.5-5.0) g/dL Serum Alcohol <10 mg/dL Coronavirus (PCR) (Not Detectd) Influenza Type A RNA (Not Detectd) Influenza Type B (PCR) (Not Detectd) 12/24/21 12/24/21 12/24/21 Range/Units 00:18 00:56 00:56 WBC (3.8-10.6) k/uL RBC (4.30-5.90) m/uL Hgb (13.0-17.5) gm/dL Hct (39.0-53.0) % MCV (80.0-100.0) fL MCH (25.0-35.0) pg MCHC (31.0-37.0) g/dL RDW (11.5-15.5) % Plt Count (150-450) k/uL MPV Neutrophils % % Lymphocytes % % Monocytes % % Eosinophils % % Basophils % % Neutrophils # (1.3-7.7) k/uL Lymphocytes # (1.0-4.8) k/uL Monocytes # (0-1.0) k/uL Eosinophils # (0-0.7) k/uL Basophils # (0-0.2) k/uL Hypochromasia Anisocytosis Sodium (137-145) mmol/L Potassium (3.5-5.1) mmol/L Chloride (98-107) mmol/L Carbon Dioxide (22-30) mmol/L Anion Gap mmol/L BUN (9-20) mg/dL Creatinine (0.66-1.25) mg/dL Est GFR (CKD-EPI)AfAm (>60 ml/min/1.73 sqM) Est GFR (CKD-EPI)NonAf (>60 ml/min/1.73 sqM) Glucose (74-99) mg/dL POC Glucose (mg/dL) (75-99) mg/dL POC Glu Can Patcher ID Calcium (8.4-10.2) mg/dL Total Bilirubin (0.2-1.3) mg/dL AST (17-59) U/L ALT (4-49) U/L Alkaline Phosphatase (38-126) U/L Troponin I 0.088 H* (0.000-0.034) ng/mL Total Protein (6.3-8.2) g/dL Albumin (3.5-5.0) g/dL Serum Alcohol mg/dL Coronavirus (PCR) Detected A (Not Detectd) Influenza Type A RNA Not Detected (Not Detectd) Influenza Type B (PCR) Not Detected (Not Detectd) Disposition Clinical Impression: COVID-19 Disposition: HOME SELF-CARE Condition: Fair Instructions (If sedation given, give patient instructions): COVID-19 (Coronavirus Disease 2019) (ED) Is patient prescribed a controlled substance at d/c from ED?: No Referrals: Chandan Padron DO [Primary Care Provider] - 1-2 days
[2021-12-24] MEDS ORDERED: BEBTELOVIMAB (EUA) 175 MG/2 ML VIAL IV ONE (02:45)
[2021-12-24 03:13] VITALS: BP 146/90; PULSE 75
== END 2021-12-24 04:00 | disposition home or self-care (01) ==
LOC: EC 23:44
DX: U07.1 COVID-19 (principal); F17.200 Nicotine dependence, unspecified, uncomplicated; E11.22 Type 2 diabetes mellitus with diabetic chronic kidney disease; I13.0 Hypertensive heart and chronic kidney disease with heart failure and stage 1 through stage 4 chronic kidney disease, or unspecified chronic kidney disease; I50.9 Heart failure, unspecified; N18.30 Chronic kidney disease, stage 3 unspecified; E78.5 Hyperlipidemia, unspecified; I48.91 Unspecified atrial fibrillation; M19.90 Unspecified osteoarthritis, unspecified site; Z79.01 Long term (current) use of anticoagulants; Z79.51 Long term (current) use of inhaled steroids; Z79.84 Long term (current) use of oral hypoglycemic drugs; Z86.73 Personal history of transient ischemic attack (TIA), and cerebral infarction without residual deficits; Z95.810 Presence of automatic (implantable) cardiac defibrillator; Z79.899 Other long term (current) drug therapy; Z79.4 Long term (current) use of insulin
CPT/HCPCS: 36415 ×2; 93005; 80053; 84484; 85025; 87502; 87635; 71045; 99285; G0480; Q0222; 80320

== ENCOUNTER 2022-02-24 00:28 | Emergency (ER) | payer MEDICARE, BC ==
--- NOTE | 2022-02-24 00:54 | ED ---
General Adult HPI - General Chief complaint: Weakness Stated complaint: Fluid retention Time Seen by Provider: 02/24/22 00:39 Source: patient, RN notes reviewed Mode of arrival: EMS Limitations: no limitations - History of Present Illness Initial comments: This is a pleasant 71-year-old male with history of atrial fibrillation and congestive heart failure. Patient currently on palliative care for severe congestive heart failure. Over the past few days the patient has gained about 8 pounds. Bilateral edema is worsened. was concerned that he may have worsening edema. She was unsure what to do so she brought him here after the primary care physician and cardiology [facility] didn't call her back. Patient denying any pain. Patient denies any severe symptoms other than the weight gain and increased edema. No headache, no fever or chills, no changes in vision or hearing, no sore throat or difficulty with speech, no neck pain,, chronic shortness of breath no abdominal pain, no nausea or vomiting, no changes in urination or bowel movements, no numbness or tingling,, no skin rashes or lesions. - Related Data Home Medications Medication Instructions Recorded Confirmed glipiZIDE [Glucotrol] 10 mg PO BID 06/04/14 12/15/21 Isosorbide Mononitrate [Isosorbide 30 mg PO DAILY 07/03/18 12/15/21 Mononitrate ER] Apixaban [Eliquis] 2.5 mg PO BID 09/26/19 12/15/21 Atorvastatin [Lipitor] 20 mg PO HS 09/26/19 12/15/21 Multivit-Min/FA/Lycopen/Lutein 1 tab PO DAILY 07/16/21 12/15/21 [Centrum Silver Men Tablet] carvediloL [Coreg] 25 mg PO BID-W/MEALS 07/16/21 12/15/21 hydrALAZINE HCL [Apresoline] 50 mg PO TID 07/16/21 12/15/21 Albuterol Sulfate [Albuterol 2 puff INHALATION RT-Q6H PRN 09/03/21 12/15/21 Sulfate Hfa] Budesonide/Formoterol Fumarate 2 puff INHALATION RT-BID 09/03/21 12/15/21 [Symbicort 80-4.5 Mcg Inhaler] Potassium Chloride [Klor-Con 10 ER] 10 meq PO DAILY 09/05/21 12/15/21 INSULIN LISPRO (HumaLOG) [humaLOG] See Protocol SQ ACHS 12/15/21 12/15/21 Previous Rx's Medication Instructions Recorded Famotidine [Pepcid] 20 mg PO BID #60 tablet 07/19/21 Aspirin 81 mg PO DAILY 10/19/21 Furosemide [Lasix] 40 mg PO BID 30 Days #90 tablet 12/18/21 Allergies Allergy/AdvReac Type Severity Reaction Status Date / Time No Known Allergies Allergy Verified 12/15/21 11:57 Review of Systems ROS Statement: Those systems with pertinent positive or pertinent negative responses have been documented in the HPI. ROS Other: All systems not noted in ROS Statement are negative. 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 History of Any Multi-Drug Resistant Organisms: None Reported Past Surgical History: AICD, Orthopedic Surgery Additional Past Surgical History / Comment(s): R wrist fx with repair, R eye retinal detachment with surgery, R eye retinal hemorrhage with eye injections in the past Past Anesthesia/Blood Transfusion Reactions: No Reported Reaction Additional Past Anesthesia/Blood Transfusion Reaction / Comment(s): Pt has never recieved blood. Type of Cardiac Device: AICD Device Placement Date:: 07/04/2018 Past Psychological History: No Psychological Hx Reported Smoking Status: Current every day smoker Past Alcohol Use History: None Reported Past Drug Use History: None Reported - Past Family History Father Family Medical History: Vascular Disorder Additional Family Medical History / Comment(s): Father during vascular surgery for his blood flow to his legs. Mother Family Medical History: Congestive Heart Failure (CHF), Diabetes Mellitus General Exam Limitations: no limitations Course Vital Signs 02/24/22 02/24/22 02/24/22 00:31 02:32 06:04 Temperature 98.4 F 98.2 F Pulse Rate 67 73 72 Respiratory 18 22 20 Rate Blood Pressure 125/58 139/83 132/74 O2 Sat by Pulse 98 100 100 Oximetry - Reevaluation(s) Reevaluation #1: 02/24/22 03:01 Medical record is reviewed Patient symptoms are essentially unchanged. Patient is informed of results and questions answered Patient in no distress EKG Findings - EKG Comments: EKG Findings:: EKG done at 12:35 AM and read by the attending physician reveals left axis deviation. Some baseline artifact. Poor R-wave progression. Flipped T-wave in lead V6. No evidence of ST elevation. Normal intervals. Rate is 66. When compared to the previous study from 12/24/2021 no convincing change. Medical Decision Making - Medical Decision Making Here for increased edema and 8 pound weight gain over the past few days. Patient has no complaints at rest. The case was discussed in detail with ED attending physician. Presentation, findings, treatment plan discussed in detail. Patient endorsed to Dr. Sprague at 3 AM for further evaluation and disposition - Lab Data Result diagrams: 02/24/22 02:32 02/24/22 01:14 Lab Results 02/24/22 02/24/22 02/24/22 Range/Units 01:14 01:14 01:14 WBC (3.8-10.6) k/uL RBC (4.30-5.90) m/uL Hgb (13.0-17.5) gm/dL Hct (39.0-53.0) % MCV (80.0-100.0) fL MCH (25.0-35.0) pg MCHC (31.0-37.0) g/dL RDW (11.5-15.5) % Plt Count (150-450) k/uL MPV Neutrophils % % Lymphocytes % % Monocytes % % Eosinophils % % Basophils % % Neutrophils # (1.3-7.7) k/uL Lymphocytes # (1.0-4.8) k/uL Monocytes # (0-1.0) k/uL Eosinophils # (0-0.7) k/uL Basophils # (0-0.2) k/uL Hypochromasia Anisocytosis PT 13.5 H (9.0-12.0) sec INR 1.3 H (<1.2) APTT 25.9 (22.0-30.0) sec Sodium 139 (137-145) mmol/L Potassium 5.3 H (3.5-5.1) mmol/L Chloride 107 (98-107) mmol/L Carbon Dioxide 29 (22-30) mmol/L Anion Gap 3 mmol/L BUN 33 H (9-20) mg/dL Creatinine 2.29 H (0.66-1.25) mg/dL Est GFR (CKD-EPI)AfAm 33 (>60 ml/min/1.73 sqM) Est GFR (CKD-EPI)NonAf 28 (>60 ml/min/1.73 sqM) Glucose 62 L (74-99) mg/dL Calcium 8.6 (8.4-10.2) mg/dL Total Bilirubin 1.4 H (0.2-1.3) mg/dL AST 56 (17-59) U/L ALT 20 (4-49) U/L Alkaline Phosphatase 100 (38-126) U/L Troponin I 0.054 H* (0.000-0.034) ng/mL Total Protein 6.6 (6.3-8.2) g/dL Albumin 3.6 (3.5-5.0) g/dL Lipase 90 (23-300) U/L Coronavirus (PCR) (Not Detectd) Influenza Type A RNA (Not Detectd) Influenza Type B (PCR) (Not Detectd) 02/24/22 02/24/22 02/24/22 Range/Units 01:14 01:14 02:32 WBC 6.3 (3.8-10.6) k/uL RBC 3.48 L (4.30-5.90) m/uL Hgb 9.9 L (13.0-17.5) gm/dL Hct 32.2 L (39.0-53.0) % MCV 92.5 (80.0-100.0) fL MCH 28.6 (25.0-35.0) pg MCHC 30.9 L (31.0-37.0) g/dL RDW 19.7 H (11.5-15.5) % Plt Count 172 (150-450) k/uL MPV 9.6 Neutrophils % 80 % Lymphocytes % 11 % Monocytes % 6 % Eosinophils % 1 % Basophils % 1 % Neutrophils # 5.1 (1.3-7.7) k/uL Lymphocytes # 0.7 L (1.0-4.8) k/uL Monocytes # 0.4 (0-1.0) k/uL Eosinophils # 0.1 (0-0.7) k/uL Basophils # 0.0 (0-0.2) k/uL Hypochromasia Marked Anisocytosis Slight PT (9.0-12.0) sec INR (<1.2) APTT (22.0-30.0) sec Sodium (137-145) mmol/L Potassium (3.5-5.1) mmol/L Chloride (98-107) mmol/L Carbon Dioxide (22-30) mmol/L Anion Gap mmol/L BUN (9-20) mg/dL Creatinine (0.66-1.25) mg/dL Est GFR (CKD-EPI)AfAm (>60 ml/min/1.73 sqM) Est GFR (CKD-EPI)NonAf (>60 ml/min/1.73 sqM) Glucose (74-99) mg/dL Calcium (8.4-10.2) mg/dL Total Bilirubin (0.2-1.3) mg/dL AST (17-59) U/L ALT (4-49) U/L Alkaline Phosphatase (38-126) U/L Troponin I (0.000-0.034) ng/mL Total Protein (6.3-8.2) g/dL Albumin (3.5-5.0) g/dL Lipase (23-300) U/L Coronavirus (PCR) Not Detected (Not Detectd) Influenza Type A RNA Not Detected (Not Detectd) Influenza Type B (PCR) Not Detected (Not Detectd) - Radiology Data Radiology results: report reviewed, image reviewed Disposition Clinical Impression: Congestive heart failure Disposition: HOME SELF-CARE Condition: Stable Is patient prescribed a controlled substance at d/c from ED?: No Referrals: None,Stated [REFERRING] - 1-2 days
[2022-02-24 02:23] LABS: INR 1.3 (<1.2); Partial Thromboplastin Time 25.9 sec (22.0-30.0); Prothrombin Time 13.5 sec (9.0-12.0)
[2022-02-24 02:25] LABS: Albumin 3.6 g/dL (3.5-5.0); Calcium 8.6 mg/dL (8.4-10.2); Total Bilirubin 1.4 mg/dL (0.2-1.3); Total Protein 6.6 g/dL (6.3-8.2)
--- NOTE | 2022-02-24 02:37 | XR ---
EXAM: XR Abdomen, 2 Views and XR Chest, 1 View CLINICAL HISTORY: ITS.REASON XR Reason: Abdominal pain TECHNIQUE: Frontal view of the chest, frontal view of the abdomen/pelvis and upright or decubitus view of the abdomen. COMPARISON: None FINDINGS: Hardware: None. Lungs/pleura: Large right and small left pleural effusions. Associated atelectasis versus pneumonia. Prominent lung markings may represent pulmonary vasculature congestion. Heart/mediastinum: Mild enlargement of the cardiac silhouette. Left- sided pacemaker/AICD. Atherosclerotic calcifications in the aorta. Soft tissues: Unremarkable. Bones: No acute fracture. Abdomen: Nonobstructive bowel gas pattern. Mild to moderate amount of stool. No free air. IMPRESSION: 1. Large right and small left pleural effusions. Associated atelectasis versus pneumonia. 2. Prominent lung markings may represent pulmonary vasculature congestion. 3. Nonobstructive bowel gas pattern.
[2022-02-24] MEDS ORDERED: FUROSEMIDE 10 MG/ML 10 ML VIAL IV STA (03:01)
[2022-02-24 03:26] LABS: Potassium 5.3 mmol/L (3.5-5.1)
[2022-02-24 03:26] LABS: Anisocytosis Slight; Basophils % (A) 1 %; Eosinophils # (A) 0.1 k/uL (0-0.7); Eosinophils % (A) 1 %; HCT 32.2 % (39.0-53.0); HGB 9.9 gm/dL (13.0-17.5); Hypochromasia Marked; Lymphocytes # (A) 0.7 k/uL (1.0-4.8); Lymphocytes % (A) 11 %; MCH 28.6 pg (25.0-35.0); MCHC 30.9 g/dL (31.0-37.0); MCV 92.5 fL (80.0-100.0); Mean Platelet Volume 9.6; Monocytes # (A) 0.4 k/uL (0-1.0); Monocytes % (A) 6 %; Neutrophils # (A) 5.1 k/uL (1.3-7.7); Neutrophils % (A) 80 %; Platelet Count 172 k/uL (150-450); RBC 3.48 m/uL (4.30-5.90); RDW 19.7 % (11.5-15.5); WBC 6.3 k/uL (3.8-10.6)
[2022-02-24 06:06] VITALS: BP 132/74; PULSE 72; RESP 20; TEMP 98.2
== END 2022-02-24 06:04 | disposition home or self-care (01) ==
LOC: EC 00:28
DX: I13.0 Hypertensive heart and chronic kidney disease with heart failure and stage 1 through stage 4 chronic kidney disease, or unspecified chronic kidney disease (principal); E11.22 Type 2 diabetes mellitus with diabetic chronic kidney disease; I50.9 Heart failure, unspecified; N18.30 Chronic kidney disease, stage 3 unspecified; E78.5 Hyperlipidemia, unspecified; F17.200 Nicotine dependence, unspecified, uncomplicated; I48.91 Unspecified atrial fibrillation; Z79.84 Long term (current) use of oral hypoglycemic drugs; Z79.4 Long term (current) use of insulin; Z79.899 Other long term (current) drug therapy; Z79.01 Long term (current) use of anticoagulants; Z20.822 Contact with and (suspected) exposure to COVID-19
CPT/HCPCS: 36415; 93005; 80053; 83690; 84484; 85025; 85610; 85730; 87502; 87635; 74022; 99285; 96374; J1940

== ENCOUNTER 2022-03-07 14:44 | Inpatient (IN) | payer MEDICARE, BC ==
--- NOTE | 2022-03-07 15:42 | ED ---
General Adult HPI - General Chief complaint: Shortness of Breath Stated complaint: Difficulty Breathing Time Seen by Provider: 03/07/22 14:59 Source: patient, RN notes reviewed, old records reviewed Mode of arrival: ambulatory Limitations: no limitations - History of Present Illness Initial comments: 71-year-old male presenting for evaluation of dyspnea, and weight gain. Patient states that he was noted to gain 6 pounds overnight. He is currently on 40 mg of Lasix twice daily. He has a history of congestive heart failure and cardiomyopathy. He has been compliant with his medications. He denies cough or fever. Denies central chest pain. He does report bilateral lower extremity edema. - Related Data Home Medications Medication Instructions Recorded Confirmed glipiZIDE [Glucotrol] 10 mg PO BID 06/04/14 03/07/22 Isosorbide Mononitrate [Isosorbide 30 mg PO DAILY 07/03/18 03/07/22 Mononitrate ER] Apixaban [Eliquis] 2.5 mg PO BID 09/26/19 03/07/22 Atorvastatin [Lipitor] 20 mg PO HS 09/26/19 03/07/22 Multivit-Min/FA/Lycopen/Lutein 1 tab PO DAILY 07/16/21 03/07/22 [Centrum Silver Men Tablet] carvediloL [Coreg] 25 mg PO BID-W/MEALS 07/16/21 03/07/22 hydrALAZINE HCL [Apresoline] 50 mg PO TID 07/16/21 03/07/22 Albuterol Sulfate [Albuterol 2 puff INHALATION RT-Q6H PRN 09/03/21 03/07/22 Sulfate Hfa] Budesonide/Formoterol Fumarate 2 puff INHALATION RT-BID 09/03/21 03/07/22 [Symbicort 80-4.5 Mcg Inhaler] Potassium Chloride [Klor-Con 10 ER] 10 meq PO DAILY 09/05/21 03/07/22 INSULIN LISPRO (HumaLOG) [humaLOG] See Protocol SQ ACHS PRN 12/15/21 03/07/22 calcitrioL [Rocaltrol] 0.25 mcg PO TUFR 03/07/22 03/07/22 Previous Rx's Medication Instructions Recorded Furosemide [Lasix] 40 mg PO BID 30 Days #90 tablet 12/18/21 Allergies Allergy/AdvReac Type Severity Reaction Status Date / Time No Known Allergies Allergy Verified 03/07/22 16:18 Review of Systems ROS Statement: Those systems with pertinent positive or pertinent negative responses have been documented in the HPI. ROS Other: All systems not noted in ROS Statement are negative. 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 History of Any Multi-Drug Resistant Organisms: None Reported Past Surgical History: AICD, Orthopedic Surgery Additional Past Surgical History / Comment(s): R wrist fx with repair, R eye retinal detachment with surgery, R eye retinal hemorrhage with eye injections in the past Past Anesthesia/Blood Transfusion Reactions: No Reported Reaction Additional Past Anesthesia/Blood Transfusion Reaction / Comment(s): Pt has never recieved blood. Type of Cardiac Device: AICD Device Placement Date:: 07/04/2018 Past Psychological History: No Psychological Hx Reported Smoking Status: Current every day smoker Past Alcohol Use History: None Reported Past Drug Use History: None Reported - Past Family History Father Family Medical History: Vascular Disorder Additional Family Medical History / Comment(s): Father during vascular surgery for his blood flow to his legs. Mother Family Medical History: Congestive Heart Failure (CHF), Diabetes Mellitus General Exam Limitations: no limitations General appearance: alert, in no apparent distress Head exam: Present: atraumatic, normocephalic Eye exam: Present: PERRL, periorbital swelling ENT exam: Present: normal exam Neck exam: Present: normal inspection. Absent: tenderness Respiratory exam: Present: rales, decreased breath sounds. Absent: respiratory distress Cardiovascular Exam: Present: normal rhythm, bradycardia GI/Abdominal exam: Present: soft, distended. Absent: tenderness, guarding, rebound Extremities exam: Present: pedal edema Neurological exam: Present: alert, oriented X3, CN II-XII intact. Absent: motor sensory deficit Psychiatric exam: Present: normal affect, normal mood Skin exam: Present: warm, dry, intact Course Vital Signs 03/07/22 03/07/22 14:45 17:01 Temperature 97.5 F L Pulse Rate 57 L 61 Respiratory 24 17 Rate Blood Pressure 118/76 109/79 O2 Sat by Pulse 95 92 L Oximetry EKG Findings - EKG Comments: EKG Findings:: EKG: Sinus bradycardia rate of 54, ME interval 186, QRS duration 121, QTC [address] segment elevation. Medical Decision Making - Medical Decision Making 71-year-old male presenting for evaluation of increased lower extremity swelling, abdominal distention, increased difficulty breathing. History of ischemic cardiomyopathy. He has no active chest pain. Chest x-ray stable with right-sided effusion. He is hemoglobin 9.6 which is stable for this patient. No leukocytosis. Chronic stable kidney disease. Negative troponin, significantly elevated BNP at 54,000. Patient given IV diuresis. He will be admitted to [facility] [place] covering for Dr. Padron. - Lab Data Result diagrams: 03/07/22 15:39 03/07/22 15:39 Lab Results 03/07/22 03/07/22 03/07/22 Range/Units 15:39 15:39 15:39 WBC 6.2 (3.8-10.6) k/uL RBC 3.39 L (4.30-5.90) m/uL Hgb 9.6 L (13.0-17.5) gm/dL Hct 31.0 L (39.0-53.0) % MCV 91.4 (80.0-100.0) fL MCH 28.4 (25.0-35.0) pg MCHC 31.1 (31.0-37.0) g/dL RDW 19.5 H (11.5-15.5) % Plt Count 195 (150-450) k/uL MPV 9.4 Neutrophils % 79 % Lymphocytes % 12 % Monocytes % 7 % Eosinophils % 1 % Basophils % 1 % Neutrophils # 4.9 (1.3-7.7) k/uL Lymphocytes # 0.7 L (1.0-4.8) k/uL Monocytes # 0.5 (0-1.0) k/uL Eosinophils # 0.0 (0-0.7) k/uL Basophils # 0.0 (0-0.2) k/uL Hypochromasia Marked Anisocytosis Slight PT 13.2 H (9.0-12.0) sec INR 1.3 H (<1.2) APTT 29.3 (22.0-30.0) sec Sodium 140 (137-145) mmol/L Potassium 4.3 (3.5-5.1) mmol/L Chloride 104 (98-107) mmol/L Carbon Dioxide 32 H (22-30) mmol/L Anion Gap 4 mmol/L BUN 38 H (9-20) mg/dL Creatinine 2.53 H (0.66-1.25) mg/dL Est GFR (CKD-EPI)AfAm 29 (>60 ml/min/1.73 sqM) Est GFR (CKD-EPI)NonAf 25 (>60 ml/min/1.73 sqM) Glucose 48 L* (74-99) mg/dL POC Glucose (mg/dL) (70-110) mg/dL POC Glu [employer] ID Plasma Lactic Acid Preston (0.7-2.0) mmol/L Calcium 8.7 (8.4-10.2) mg/dL Total Bilirubin 0.7 (0.2-1.3) mg/dL AST 24 (17-59) U/L ALT 15 (4-49) U/L Alkaline Phosphatase 109 (38-126) U/L Troponin I (0.000-0.034) ng/mL NT-Pro-B Natriuret Pep pg/mL Total Protein 5.8 L (6.3-8.2) g/dL Albumin 3.3 L (3.5-5.0) g/dL 03/07/22 03/07/22 03/07/22 Range/Units 15:39 15:39 15:39 WBC (3.8-10.6) k/uL RBC (4.30-5.90) m/uL Hgb (13.0-17.5) gm/dL Hct (39.0-53.0) % MCV (80.0-100.0) fL MCH (25.0-35.0) pg MCHC (31.0-37.0) g/dL RDW (11.5-15.5) % Plt Count (150-450) k/uL MPV Neutrophils % % Lymphocytes % % Monocytes % % Eosinophils % % Basophils % % Neutrophils # (1.3-7.7) k/uL Lymphocytes # (1.0-4.8) k/uL Monocytes # (0-1.0) k/uL Eosinophils # (0-0.7) k/uL Basophils # (0-0.2) k/uL Hypochromasia Anisocytosis PT (9.0-12.0) sec INR (<1.2) APTT (22.0-30.0) sec Sodium (137-145) mmol/L Potassium (3.5-5.1) mmol/L Chloride (98-107) mmol/L Carbon Dioxide (22-30) mmol/L Anion Gap mmol/L BUN (9-20) mg/dL Creatinine (0.66-1.25) mg/dL Est GFR (CKD-EPI)AfAm (>60 ml/min/1.73 sqM) Est GFR (CKD-EPI)NonAf (>60 ml/min/1.73 sqM) Glucose (74-99) mg/dL POC Glucose (mg/dL) (70-110) mg/dL POC Glu [employer] ID Plasma Lactic Acid Preston 1.1 (0.7-2.0) mmol/L Calcium (8.4-10.2) mg/dL Total Bilirubin (0.2-1.3) mg/dL AST (17-59) U/L ALT (4-49) U/L Alkaline Phosphatase (38-126) U/L Troponin I 0.025 (0.000-0.034) ng/mL NT-Pro-B Natriuret Pep 56702 pg/mL Total Protein (6.3-8.2) g/dL Albumin (3.5-5.0) g/dL 03/07/22 Range/Units 17:10 WBC (3.8-10.6) k/uL RBC (4.30-5.90) m/uL Hgb (13.0-17.5) gm/dL Hct (39.0-53.0) % MCV (80.0-100.0) fL MCH (25.0-35.0) pg MCHC (31.0-37.0) g/dL RDW (11.5-15.5) % Plt Count (150-450) k/uL MPV Neutrophils % % Lymphocytes % % Monocytes % % Eosinophils % % Basophils % % Neutrophils # (1.3-7.7) k/uL Lymphocytes # (1.0-4.8) k/uL Monocytes # (0-1.0) k/uL Eosinophils # (0-0.7) k/uL Basophils # (0-0.2) k/uL Hypochromasia Anisocytosis PT (9.0-12.0) sec INR (<1.2) APTT (22.0-30.0) sec Sodium (137-145) mmol/L Potassium (3.5-5.1) mmol/L Chloride (98-107) mmol/L Carbon Dioxide (22-30) mmol/L Anion Gap mmol/L BUN (9-20) mg/dL Creatinine (0.66-1.25) mg/dL Est GFR (CKD-EPI)AfAm (>60 ml/min/1.73 sqM) Est GFR (CKD-EPI)NonAf (>60 ml/min/1.73 sqM) Glucose (74-99) mg/dL POC Glucose (mg/dL) 105 (70-110) mg/dL POC Glu [employer] ID Julito Carey Plasma Lactic Acid Preston (0.7-2.0) mmol/L Calcium (8.4-10.2) mg/dL Total Bilirubin (0.2-1.3) mg/dL AST (17-59) U/L ALT (4-49) U/L Alkaline Phosphatase (38-126) U/L Troponin I (0.000-0.034) ng/mL NT-Pro-B Natriuret Pep pg/mL Total Protein (6.3-8.2) g/dL Albumin (3.5-5.0) g/dL Disposition Clinical Impression: Acute on chronic systolic CHF (congestive heart failure) Disposition: ADMITTED IP TO THIS HOSP Condition: Stable Is patient prescribed a controlled substance at d/c from ED?: No Referrals: Chandan Padron DO [Primary Care Provider] - 1-2 days Time of Disposition: 17:40
[2022-03-07 15:52] LABS: Anisocytosis Slight; Basophils % (A) 1 %; Eosinophils % (A) 1 %; HGB 9.6 gm/dL (13.0-17.5); Hypochromasia Marked; Lymphocytes # (A) 0.7 k/uL (1.0-4.8); Lymphocytes % (A) 12 %; MCH 28.4 pg (25.0-35.0); MCHC 31.1 g/dL (31.0-37.0); MCV 91.4 fL (80.0-100.0); Mean Platelet Volume 9.4; Monocytes # (A) 0.5 k/uL (0-1.0); Monocytes % (A) 7 %; Neutrophils # (A) 4.9 k/uL (1.3-7.7); Neutrophils % (A) 79 %; Platelet Count 195 k/uL (150-450); RBC 3.39 m/uL (4.30-5.90); RDW 19.5 % (11.5-15.5); WBC 6.2 k/uL (3.8-10.6)
--- NOTE | 2022-03-07 15:58 | XR ---
EXAMINATION TYPE: XR chest 2V DATE OF EXAM: 03/07/2022 COMPARISON: 12/24/21 HISTORY: Shortness of breath TECHNIQUE: Frontal and lateral views of the chest are obtained. FINDINGS: Scattered senescent parenchymal changes noted. Hyperinflation compatible with COPD. Persistent right lower lobe opacity which may reflect atelectasis, effusion and/or infiltrate. Heart size is stable. Mediastinal structures are stable and grossly unremarkable. No evidence for hilar prominence. Degenerative changes dorsal spine. IMPRESSION: 1. Persistent right lower lobe opacity which may reflect atelectasis, effusion and/or infiltrate.
[2022-03-07 16:10] LABS: Albumin 3.3 g/dL (3.5-5.0); Calcium 8.7 mg/dL (8.4-10.2); Potassium 4.3 mmol/L (3.5-5.1); Total Bilirubin 0.7 mg/dL (0.2-1.3); Total Protein 5.8 g/dL (6.3-8.2)
[2022-03-07 16:21] LABS: INR 1.3 (<1.2); Partial Thromboplastin Time 29.3 sec (22.0-30.0); Prothrombin Time 13.2 sec (9.0-12.0)
[2022-03-07 17:12] LABS: Glucose,Whole Blood 105 mg/dL (70-110)
[2022-03-07] MEDS ORDERED: FUROSEMIDE 10 MG/ML 4 ML VIAL IV STA (17:16)
[2022-03-07] MEDS ORDERED: ACETAMINOPHEN TAB 325 MG TAB PO PRN (17:38)
[2022-03-07] MEDS ORDERED: NALOXONE 0.4 MG/ML 1 ML VIAL IV PRN (17:38)
[2022-03-07 20:45] LABS: Glucose,Whole Blood 80 mg/dL (70-110)
[2022-03-07] MEDS: APIXABAN 2.5 MG TABLET PO SCH (20:51)
[2022-03-07] MEDS: ATORVASTATIN 20 MG TAB PO SCH (20:51)
[2022-03-07] MEDS: FUROSEMIDE 10 MG/ML 4 ML VIAL IV SCH (20:52)
[2022-03-07] MEDS: glipiZIDE 10 MG TAB PO SCH (20:52)
[2022-03-07] MEDS: hydrALAZINE HCL 50 MG TAB PO SCH (21:49)
[2022-03-08] MEDS ORDERED: ARTIFICIAL TEARS OINTMENT 3.5 GM TUBE RIGHT EYE PRN (01:00)
[2022-03-08 01:48] LABS: Glucose,Whole Blood 55 mg/dL (70-110)
[2022-03-08 02:28] LABS: Glucose,Whole Blood 115 mg/dL (70-110)
[2022-03-08 06:55] LABS: Glucose,Whole Blood 50 mg/dL (70-110)
[2022-03-08 07:15] LABS: Glucose,Whole Blood 59 mg/dL (70-110)
[2022-03-08 07:36] LABS: Glucose,Whole Blood 84 mg/dL (70-110)
[2022-03-08] MEDS: glipiZIDE 10 MG TAB PO SCH (07:44)
[2022-03-08] MEDS: FUROSEMIDE 10 MG/ML 4 ML VIAL IV SCH ×2 (08:49→20:28)
[2022-03-08] MEDS: APIXABAN 2.5 MG TABLET PO SCH ×2 (09:00→21:10)
[2022-03-08] MEDS: carvediloL 12.5 MG TAB PO SCH ×2 (09:00→16:52)
[2022-03-08 09:03] LABS: Glucose,Whole Blood 111 mg/dL (70-110)
--- NOTE | 2022-03-08 09:28 | P.HPIM ---
History of Present Illness This is a pleasant 71 years old male with past medical history of Atrial Fibrillation, on liquids CVA/TIA, Diabetes Mellitus, Hyperlipidemia, Hypertension, Osteoarthritis ,CRD stage III, R eye retinal detachment , status post AICD. He is patient of Dr. Padron and decatizer Dr. cotto Patient was recently discharged from the hospital about one month ago for acute CHF. He was placed on palliative care for his advanced CHF and chronic kidney disease. Presents because of increased swelling and breathing difficulty of 1-2 days duration with no chest pain or coughing. 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 His bedbound at baseline with at bedside currently. He denies vomiting or diarrhea. No abdominal pain, no urinary complaints. No headache or dizziness. He smokes about 1 pack per day and he was counseled to quit but he declines as well as he declines the nicotine patch. No alcohol or illicit drugs. Vitas looks stable, patient is been afebrile Labs show normal WBC at 6.2, hemoglobin 9.6, rest of CBC, INR, BMP is reviewed and unremarkable except his creatinine is elevated at 2.5 with baseline 2.2-2.7, glucose was low at 48 Liver enzymes not elevated EKG showed sinus bradycardia at [address]-T changes Chest x-ray: Persistent right lower lobe opacity which may reflect atelectasis, effusion and/or infiltrate. By the radiologist. I reviewed them as well as by myself and patient has significant right lower lobe opacities suspicious for significant pleural effusion versus consolidation, which looks somewhat worse than last this x-ray in about one month ago. 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 History of Any Multi-Drug Resistant Organisms: None Reported Past Surgical History: AICD, Orthopedic Surgery Additional Past Surgical History / Comment(s): R wrist fx with repair, R eye retinal detachment with surgery, R eye retinal hemorrhage with eye injections in the past Past Anesthesia/Blood Transfusion Reactions: No Reported Reaction Additional Past Anesthesia/Blood Transfusion Reaction / Comment(s): Pt has never recieved blood. Type of Cardiac Device: AICD Device Placement Date:: 07/04/2018 Past Psychological History: No Psychological Hx Reported Additional Psychological History / Comment(s): Pt lives with in their home. Pt is retired from [employer] and the [employer]. Pt does not drive d/t [employer]. Spouse is retired and drives his to [employer]. Pt states he does not own a glucometer. He states he would use one if he didn't have to pay for it. Smoking Status: Current every day smoker Past Alcohol Use History: None Reported Additional Past Alcohol Use History / Comment(s): Pt started smoking in 1967 and is a ppd smoker. Past Drug Use History: None Reported - Past Family History Father Family Medical History: Vascular Disorder Additional Family Medical History / Comment(s): Father during vascular s urgery for his blood flow to his legs. Mother Family Medical History: Congestive Heart Failure (CHF), Diabetes Mellitus Medications and Allergies Home Medications Medication Instructions Recorded Confirmed Type glipiZIDE [Glucotrol] 10 mg PO BID 06/04/14 03/07/22 History Isosorbide Mononitrate [Isosorbide 30 mg PO DAILY 07/03/18 03/07/22 History Mononitrate ER] Apixaban [Eliquis] 2.5 mg PO BID 09/26/19 03/07/22 History Atorvastatin [Lipitor] 20 mg PO HS 09/26/19 03/07/22 History Multivit-Min/FA/Lycopen/Lutein 1 tab PO DAILY 07/16/21 03/07/22 History [Centrum Silver Men Tablet] carvediloL [Coreg] 25 mg PO BID-W/MEALS 07/16/21 03/07/22 History hydrALAZINE HCL [Apresoline] 50 mg PO TID 07/16/21 03/07/22 History Albuterol Sulfate [Albuterol 2 puff INHALATION RT-Q6H PRN 09/03/21 03/07/22 History Sulfate Hfa] Budesonide/Formoterol Fumarate 2 puff INHALATION RT-BID 09/03/21 03/07/22 History [Symbicort 80-4.5 Mcg Inhaler] Potassium Chloride [Klor-Con 10 ER] 10 meq PO DAILY 09/05/21 03/07/22 History INSULIN LISPRO (HumaLOG) [humaLOG] See Protocol SQ ACHS PRN 12/15/21 03/07/22 History Furosemide [Lasix] 40 mg PO BID 30 Days #90 tablet 12/18/21 03/07/22 Rx calcitrioL [Rocaltrol] 0.25 mcg PO TUFR 03/07/22 03/07/22 History Allergies Allergy/AdvReac Type Severity Reaction Status Date / Time No Known Allergies Allergy Verified 03/07/22 16:18 Physical Exam Vitals: Vital Signs Temp Pulse Pulse Resp BP BP Pulse Ox 03/08/22 01:47 98.3 F 61 18 148/68 98 03/07/22 21:46 65 120/72 97 03/07/22 20:00 97.6 F 86 18 116/69 97 03/07/22 19:46 65 16 157/103 100 03/07/22 18:53 100 03/07/22 18:33 62 16 130/64 93 L 03/07/22 17:01 61 17 109/79 92 L 03/07/22 14:45 97.5 F L 57 L 24 118/76 95 Intake and Output 03/07/22 03/07/22 03/08/22 14:59 22:59 06:59 Intake Total 200 Output Total 425 Balance 200 -425 Intake: Oral 200 Output: Urine 425 Other: Voiding Method Toilet # Voids 2 Weight 77.111 kg 77.111 kg GENERAL: The patient is alert and oriented x3, not in any acute distress. Well developed, well nourished. -HEENT: Pupils are round and equally reacting to light. EOMI. No scleral icterus. No conjunctival pallor. Normocephalic, atraumatic. No pharyngeal erythema. No thyromegaly. Right conjunctivitis and periorbital cellulitis CARDIOVASCULAR: S1 and S2 present. No murmurs, rubs, or gallops. -PULMONARY: Chest is clear to auscultation, no wheezing . ABDOMEN: Soft, nontender, nondistended, normoactive bowel sounds. No palpable organomegaly. MUSCULOSKELETAL: No joint swelling or deformity. -EXTREMITIES: No cyanosis, clubbing,.Bilateral pitting leg edema NEUROLOGICAL: Gross neurological examination did not reveal any focal deficits. SKIN: No rashes. no petechiae. Results CBC & Chem 7: 03/07/22 15:39 03/07/22 15:39 Labs: Abnormal Lab Results - Last 24 Hours (Table) 03/07/22 03/07/22 03/07/22 Range/Units 15:39 15:39 15:39 RBC 3.39 L (4.30-5.90) m/uL Hgb 9.6 L (13.0-17.5) gm/dL Hct 31.0 L (39.0-53.0) % RDW 19.5 H (11.5-15.5) % Lymphocytes # 0.7 L (1.0-4.8) k/uL PT 13.2 H (9.0-12.0) sec INR 1.3 H (<1.2) Carbon Dioxide 32 H (22-30) mmol/L BUN 38 H (9-20) mg/dL Creatinine 2.53 H (0.66-1.25) mg/dL Glucose 48 L* (74-99) mg/dL POC Glucose (mg/dL) (70-110) mg/dL Total Protein 5.8 L (6.3-8.2) g/dL Albumin 3.3 L (3.5-5.0) g/dL 03/08/22 03/08/22 Range/Units 01:45 02:25 RBC (4.30-5.90) m/uL Hgb (13.0-17.5) gm/dL Hct (39.0-53.0) % RDW (11.5-15.5) % Lymphocytes # (1.0-4.8) k/uL PT (9.0-12.0) sec INR (<1.2) Carbon Dioxide (22-30) mmol/L BUN (9-20) mg/dL Creatinine (0.66-1.25) mg/dL Glucose (74-99) mg/dL POC Glucose (mg/dL) 55 L 115 H (70-110) mg/dL Total Protein (6.3-8.2) g/dL Albumin (3.5-5.0) g/dL Thrombosis Risk Factor Assmnt - Choose All That Apply Each Risk Factor Represents 2 Points: Age 61-74 years Each Risk Factor Represents 3 Points: History of DVT/PE Thrombosis Risk Factor Assessment Total Risk Factor Score: 5 Thrombosis Risk Factor Assessment Level: High Risk Assessment and Plan Assessment: Acute on chronic CHF with persistent right lower lobe consolidation suspicious for effusion versus fluid overload, atelectasis, pneumonia. Less likely with no fever or leukocytosis right eye conjunctivitis and orbital cellulitis Diabetes mellitus with hypoglycemia, present on admission bed bound at baseline Hypertension Hyperlipidemia Chronic kidney disease stage IV History of osteoarthritis History of atrial fibrillation on liquids History of CVA/TIA Status post AICD History of right eye retinal detachment and hemorrhage Plan: this is a pleasant 71 is old male who presents with CHF exacerbation Continue with IV Lasix Monitor input and output and electrolytes with kidney function Cardiology consult augmentin and cipro eye drops to the right eye Labs and medication were reviewed.. Continue same treatment. Continue with symptomatic treatment. Resume home medication. Monitor lytes and vitals. DVT and GI prophylaxis. Further recommendations as per clinical course of the patient DVT prophylaxis: Subcutaneous heparin GI Prophylaxis: Pepcid PT/OT: Pending Prognosis is guarded
--- NOTE | 2022-03-08 09:41 | P.CRDCN ---
History of Present Illness Consult date: 03/08/22 History of present illness: HISTORY OF PRESENT ILLNESS: This is a 71-year-old male with a past medical history significant for chronic kidney disease, coronary artery disease, hypertension, hyperlipidemia, diabetes, cardiomyopathy with AICD implantation, and congestive heart failure. Patient follows in the office with Dr. Blair. We have been asked to see the patient in consultation for congestive heart failure. Patient examined at the bedside. Patient appears confused at the time of our examination and is unable to provide a significant history. According to the nurse, the patient was brought to the hospital by his secondary to shortness of breath and increased lower extremity edema. She reported a 6 pound weight gain at home. The patient was found to be in acute CHF and was started on IV Lasix. The patient is laying flat in bed and appears comfortable at the time of examination * EKG reveals sinus bradycardia with a heart rate of 54 * Chest xray persistent right lower lobe opacities which may reflect atelectasis, effusion and/or infiltrate * Laboratory data: WBC 6.2. Hemoglobin 9.6. Platelet count 195. Sodium 140. Potassium 4.3. BUN 38. Creatinine 2.53. ProBNP 54,300 * Current home cardiac medications include Eliquis 2.5mg BID, Lipitor 20 mg at night, Lasix 40 mg twice a day, carvedilol 25 mg twice a day, hydralazine 50 mg 3 times a day, Imdur 30 mg daily * Most recent echocardiogram obtained in October 2021 revealed ejection fraction 22%, mild AR, mild TR * Cardiac catheterization history: 2018 revealing calcified left main, chronically occluded proximal RCA with good collateral from the left coronary artery system, mild disease in the left circumflex, elevated left ventricular end-diastolic pressures. Medical management was recommended. REVIEW OF SYSTEMS: At the time of my exam: Unable to obtain thorough review of systems secondary to altered mental status PHYSICAL EXAM: VITAL SIGNS: Reviewed. GENERAL: Well-developed in no acute distress. HEENT: Head is normocephalic. Pupils are equal, round. Sclerae anicteric. Mucous membranes of the mouth are moist. Neck supple. No JVD or thyromegaly LUNGS: Respirations even and unlabored. Lungs diminished to auscultation bilaterally. HEART: Regular rate and rhythm. S1 and S2 heard. ABDOMEN: Soft. Nondistended. Nontender. EXTREMITIES: Normal range of motion. No clubbing or cyanosis. Peripheral pulses intact. Bilateral lower extremity edema noted. NEUROLOGIC: Awake and alert. ASSESSMENT: Altered mental status, baseline unknown Acute on chronic heart failure with reduced EF, 22% Coronary artery disease Ischemic cardiomyopathy with previous AICD implantation Paroxysmal atrial fibrillation Chronic kidney disease Hypertension Hyperlipidemia Diabetes PLAN: Resume home cardiac medications Continue IV lasix Monitor kidney function Daily weights Accurate I&O Further recommendations pending patient's course Nurse practitioner note has been reviewed by physician. Signing provider agrees with the documented findings, assessment, and plan of care. 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 History of Any Multi-Drug Resistant Organisms: None Reported Past Surgical History: AICD, Orthopedic Surgery Additional Past Surgical History / Comment(s): R wrist fx with repair, R eye retinal detachment with surgery, R eye retinal hemorrhage with eye injections in the past Past Anesthesia/Blood Transfusion Reactions: No Reported Reaction Additional Past Anesthesia/Blood Transfusion Reaction / Comment(s): Pt has never recieved blood. Type of Cardiac Device: AICD Device Placement Date:: 07/04/2018 Past Psychological History: No Psychological Hx Reported Additional Psychological History / Comment(s): Pt lives with in their home. Pt is retired from [employer] and the [employer]. Pt does not drive d/t [employer]. Spouse is retired and drives his to [employer]. Pt states he does not own a glucometer. He states he would use one if he didn't have to pay for it. Smoking Status: Current every day smoker Past Alcohol Use History: None Reported Additional Past Alcohol Use History / Comment(s): Pt started smoking in 1967 and is a ppd smoker. Past Drug Use History: None Reported - Past Family History Father Family Medical History: Vascular Disorder Additional Family Medical History / Comment(s): Father during vascular surgery for his blood flow to his legs. Mother Family Medical History: Congestive Heart Failure (CHF), Diabetes Mellitus Medications and Allergies Home Medications Medication Instructions Recorded Confirmed Type glipiZIDE [Glucotrol] 10 mg PO BID 06/04/14 03/07/22 History Isosorbide Mononitrate [Isosorbide 30 mg PO DAILY 07/03/18 03/07/22 History Mononitrate ER] Apixaban [Eliquis] 2.5 mg PO BID 09/26/19 03/07/22 History Atorvastatin [Lipitor] 20 mg PO HS 09/26/19 03/07/22 History Multivit-Min/FA/Lycopen/Lutein 1 tab PO DAILY 07/16/21 03/07/22 History [Centrum Silver Men Tablet] carvediloL [Coreg] 25 mg PO BID-W/MEALS 07/16/21 03/07/22 History hydrALAZINE HCL [Apresoline] 50 mg PO TID 07/16/21 03/07/22 History Albuterol Sulfate [Albuterol 2 puff INHALATION RT-Q6H PRN 09/03/21 03/07/22 Hist ory Sulfate Hfa] Budesonide/Formoterol Fumarate 2 puff INHALATION RT-BID 09/03/21 03/07/22 Hi story [Symbicort 80-4.5 Mcg Inhaler] Potassium Chloride [Klor-Con 10 ER] 10 meq PO DAILY 09/05/21 03/07/22 History INSULIN LISPRO (HumaLOG) [humaLOG] See Protocol SQ ACHS PRN 12/15/21 03/07/22 History Furosemide [Lasix] 40 mg PO BID 30 Days #90 tablet 12/18/21 03/07/22 Rx calcitrioL [Rocaltrol] 0.25 mcg PO TUFR 03/07/22 03/07/22 History Allergies Allergy/AdvReac Type Severity Reaction Status Date / Time No Known Allergies Allergy Verified 03/07/22 16:18 Physical Exam Vitals: Vital Signs Temp Pulse Pulse Resp BP BP Pulse Ox 03/08/22 08:47 67 18 121/67 94 L 03/08/22 08:00 97.8 F 80 18 120/77 94 L 03/08/22 01:47 98.3 F 61 18 148/68 98 03/07/22 21:46 65 120/72 97 03/07/22 20:00 97.6 F 86 18 116/69 97 03/07/22 19:46 65 16 157/103 100 03/07/22 18:53 100 03/07/22 18:33 62 16 130/64 93 L 03/07/22 17:01 61 17 109/79 92 L 03/07/22 14:45 97.5 F L 57 L 24 118/76 95 Intake and Output 03/07/22 03/08/22 03/08/22 22:59 06:59 14:59 Intake Total 200 Output Total 425 Balance 200 -425 Intake: Oral 200 Output: Urine 425 Other: Voiding Method Toilet # Voids 2 Weight 77.111 kg Results 03/07/22 15:39 03/07/22 15:39 Cardiac Enzymes 03/07/22 03/07/22 Range/Units 15:39 15:39 AST 24 (17-59) U/L Troponin I 0.025 (0.000-0.034) ng/mL Coagulation 03/07/22 Range/Units 15:39 PT 13.2 H (9.0-12.0) sec APTT 29.3 (22.0-30.0) sec CBC 03/07/22 Range/Units 15:39 WBC 6.2 (3.8-10.6) k/uL RBC 3.39 L (4.30-5.90) m/uL Hgb 9.6 L (13.0-17.5) gm/dL Hct 31.0 L (39.0-53.0) % Plt Count 195 (150-450) k/uL Comprehensive Metabolic Panel 03/07/22 Range/Units 15:39 Sodium 140 (137-145) mmol/L Potassium 4.3 (3.5-5.1) mmol/L Chloride 104 (98-107) mmol/L Carbon Dioxide 32 H (22-30) mmol/L BUN 38 H (9-20) mg/dL Creatinine 2.53 H (0.66-1.25) mg/dL Glucose 48 L* (74-99) mg/dL Calcium 8.7 (8.4-10.2) mg/dL AST 24 (17-59) U/L ALT 15 (4-49) U/L Alkaline Phosphatase 109 (38-126) U/L Total Protein 5.8 L (6.3-8.2) g/dL Albumin 3.3 L (3.5-5.0) g/dL Current Medications Generic Name Dose Route Start Last Admin Trade Name Freq PRN Reason Stop Dose Admin Acetaminophen 650 mg 03/07/22 17:38 Acetaminophen Tab 325 Mg Tab PO Q6HR PRN Mild Pain or Fever > 100.5 Amoxicillin/Clavulanate Potassium 1 each 03/08/22 09:30 Amoxic-Pot Clav 500-125 Mg 1 Each Tab PO BID [facility] Protocol Apixaban 2.5 mg 03/07/22 21:00 03/08/22 09:00 Apixaban 2.5 Mg Tablet PO 2.5 mg BID GELY Administration Protocol Atorvastatin Calcium 20 mg 03/07/22 21:00 03/07/22 20:51 Atorvastatin 20 Mg Tab PO 20 mg HS [facility] Administration Carvedilol 25 mg 03/08/22 07:30 03/08/22 09:00 Carvedilol 12.5 Mg Tab PO 25 mg BID-W/MEALS GELY Administration Ciprofloxacin 2 drops 03/08/22 09:30 Ciprofloxacin 0.3% Ophth Soln 5 Ml Btl RIGHT EYE Q4HR [facility] Dextrose/Water 50 ml 03/08/22 07:58 Dextrose 50% Syringe 50 Ml IVP ONCE PRN Hypoglycemia Furosemide 40 mg 03/07/22 21:00 03/08/22 08:49 Furosemide 10 Mg/Ml 4 Ml Vial IV 40 mg Q12HR GELY Administration Hydralazine HCl 50 mg 03/07/22 22:00 03/07/22 21:49 Hydralazine Hcl 50 Mg Tab PO 50 mg TID [facility] Administration Multi-Ingred Cream/Lotion/Oil/Oint 1 applic 03/08/22 01:00 03/08/22 01:48 Artificial Tears Ointment 3.5 Gm Tube RIGHT EYE 1 applic QID PRN Administration Eye Irritation Naloxone HCl 0.2 mg 03/07/22 17:38 Naloxone 0.4 Mg/Ml 1 Ml Vial IV Q2M PRN Opioid Reversal Intake and Output 03/07/22 03/08/22 03/08/22 22:59 06:59 14:59 Intake Total 200 Output Total 425 Balance 200 -425 Intake: Oral 200 Output: Urine 425 Other: Voiding Method Toilet # Voids 2 Weight 77.111 kg 03/07/22 15:39 03/07/22 15:39
[2022-03-08] MEDS: CIPROFLOXACIN 0.3% OPHTH SOLN 5 ML BTL RIGHT EYE SCH ×5 (10:19→23:00)
[2022-03-08] MEDS: hydrALAZINE HCL 50 MG TAB PO SCH ×4 (10:21→21:10)
[2022-03-08] MEDS: AMOXIC-POT CLAV 500-125 MG 1 EACH TAB PO SCH ×2 (10:21→22:50)
[2022-03-08 11:19] LABS: Glucose,Whole Blood 50 mg/dL (70-110)
[2022-03-08 11:35] LABS: Glucose,Whole Blood 64 mg/dL (70-110)
[2022-03-08] MEDS: DEXTROSE 50% SYRINGE 50 ML IVP PRN ×2 (11:42→21:27)
[2022-03-08 11:54] LABS: Glucose,Whole Blood 254 mg/dL (70-110)
[2022-03-08 16:49] LABS: Glucose,Whole Blood 52 mg/dL (70-110)
[2022-03-08 17:30] LABS: Glucose,Whole Blood 65 mg/dL (70-110)
[2022-03-08 17:47] LABS: Glucose,Whole Blood 72 mg/dL (70-110)
[2022-03-08 18:17] LABS: Glucose,Whole Blood 78 mg/dL (70-110)
[2022-03-08 21:06] LABS: Glucose,Whole Blood 56 mg/dL (70-110)
[2022-03-08] MEDS: ATORVASTATIN 20 MG TAB PO SCH (21:10)
[2022-03-08] MEDS ORDERED: DEXTROSE 50% SYRINGE 50 ML IVP ONE (21:14)
[2022-03-08] MEDS ORDERED: MORPHINE SULFATE 4 MG/ML SYRINGE IVP STA (21:20)
[2022-03-08 21:25] LABS: Glucose,Whole Blood 63 mg/dL (70-110)
[2022-03-08] MEDS: MORPHINE SULFATE 2 MG/ML SYRINGE IVP PRN (21:26)
[2022-03-08] MEDS: MELATONIN 3 MG TABLET PO PRN (22:54)
[2022-03-08] MEDS: HYDROcodone/APAP 5-325MG 1 EACH TAB PO PRN (22:54)
[2022-03-09 01:10] LABS: Glucose,Whole Blood 61 mg/dL (70-110)
[2022-03-09] MEDS ORDERED: DEXTROSE 50% SYRINGE 50 ML IVP ONE ×4 (01:10→18:58)
[2022-03-09] MEDS: DEXTROSE 50% SYRINGE 50 ML IVP PRN (01:14)
[2022-03-09 02:01] LABS: Glucose,Whole Blood 137 mg/dL (70-110)
[2022-03-09] MEDS: MORPHINE SULFATE 2 MG/ML SYRINGE IVP PRN ×3 (03:33→16:05)
[2022-03-09] MEDS: CIPROFLOXACIN 0.3% OPHTH SOLN 5 ML BTL RIGHT EYE SCH ×6 (04:08→23:35)
[2022-03-09 06:49] LABS: Glucose,Whole Blood 29 mg/dL (70-110)
[2022-03-09] MEDS ORDERED: DEXTROSE 50% SYRINGE 50 ML IVP STA (07:00)
[2022-03-09 07:04] LABS: Glucose,Whole Blood 156 mg/dL (70-110)
[2022-03-09] MEDS ORDERED: DEXTROSE 5%-0.45% NACL 1,000 ML IV SCH (07:15)
[2022-03-09] MEDS ORDERED: DEXTROSE 10% IN WATER 500 ML with SODIUM CHLORIDE 4MEQ/ML VIAL 38.5 MEQ IV SCH ×2 (07:30→07:31)
[2022-03-09 07:34] LABS: Anisocytosis Slight; Basophils % (A) 0 %; Eosinophils % (A) 1 %; HCT 29.9 % (39.0-53.0); HGB 9.3 gm/dL (13.0-17.5); Hypochromasia Marked; Lymphocytes # (A) 0.3 k/uL (1.0-4.8); Lymphocytes % (A) 4 %; MCHC 31.2 g/dL (31.0-37.0); MCV 92.9 fL (80.0-100.0); Mean Platelet Volume 9.2; Monocytes # (A) 0.5 k/uL (0-1.0); Monocytes % (A) 8 %; Neutrophils # (A) 5.3 k/uL (1.3-7.7); Neutrophils % (A) 87 %; Platelet Count 203 k/uL (150-450); RBC 3.22 m/uL (4.30-5.90); RDW 19.5 % (11.5-15.5); WBC 6.1 k/uL (3.8-10.6)
[2022-03-09 07:45] LABS: ALT 17 U/L (4-49); AST 27 U/L (17-59); African American GFR (CKD) 26 (>60 ml/min/1.73 sqM); Albumin 2.9 g/dL (3.5-5.0); Albumin/Globulin Ratio 1.2; Alkaline Phosphatase 108 U/L (38-126); Anion Gap 5 mmol/L; Bilirubin,Unconjugated 0.5 mg/dL (0.0-1.1); Blood Urea Nitrogen 35 mg/dL (9-20); Calcium 8.3 mg/dL (8.4-10.2); Carbon Dioxide 33 mmol/L (22-30); Chloride 103 mmol/L (98-107); Globulin 2.4 g/dL; Glucose 106 mg/dL (74-99); Magnesium 2.2 mg/dL (1.6-2.3); Non-African American GFR(CKD) 23 (>60 ml/min/1.73 sqM); Potassium 3.9 mmol/L (3.5-5.1); Sodium 141 mmol/L (137-145); Total Bilirubin 0.9 mg/dL (0.2-1.3); Total Protein 5.3 g/dL (6.3-8.2)
--- NOTE | 2022-03-09 08:00 | P.GSCN ---
History of Present Illness History of present illness: This is a 71-year-old male admitted to the hospital with CHF exacerbation. Urology is consulted for gross hematuria and Jenkins catheter placement patient had a catheter placed during the hospital admission to monitor his output. Catheter was noted to be hematuric with clot. Attempted to upsize the catheter by nursing to 20-Sami was unsuccessful. Patient is a poor historian, thus a limited history was obtained. Ultrasound was obtained on presentation that showed no evidence of hydronephrosis. Initially the catheter was draining clear yellow urine, but became hematuric later in the day. 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 History of Any Multi-Drug Resistant Organisms: None Reported Past Surgical History: AICD, Orthopedic Surgery Additional Past Surgical History / Comment(s): R wrist fx with repair, R eye retinal detachment with surgery, R eye retinal hemorrhage with eye injections in the past Past Anesthesia/Blood Transfusion Reactions: No Reported Reaction Additional Past Anesthesia/Blood Transfusion Reaction / Comm: Pt has never recieved blood. Type of Cardiac Device: AICD Device Placement Date:: 07/04/2018 Past Psychological History: No Psychological Hx Reported Additional Psychological History / Comment(s): Pt lives with in their home. Pt is retired from [email or web address] and the [employer]. Pt does not drive d/t [employer]. Spouse is retired and drives his to [employer]. Pt states he does not own a glucometer. He states he would use one if he didn't have to pay for it. Smoking Status: Current every day smoker Past Alcohol Use History: None Reported Additional Past Alcohol Use History / Comment(s): Pt started smoking in 1967 and is a ppd smoker. Past Drug Use History: None Reported - Past Family History Father Family Medical History: Vascular Disorder Additional Family Medical History / Comment(s): Father during vascular surgery for his blood flow to his legs. Mother Family Medical History: Congestive Heart Failure (CHF), Diabetes Mellitus Medications and Allergies Home Medications Medication Instructions Recorded Confirmed Type glipiZIDE [Glucotrol] 10 mg PO BID 06/04/14 03/07/22 History Isosorbide Mononitrate [Isosorbide 30 mg PO DAILY 07/03/18 03/07/22 History Mononitrate ER] Apixaban [Eliquis] 2.5 mg PO BID 09/26/19 03/07/22 History Atorvastatin [Lipitor] 20 mg PO HS 09/26/19 03/07/22 History Multivit-Min/FA/Lycopen/Lutein 1 tab PO DAILY 07/16/21 03/07/22 History [Centrum Silver Men Tablet] carvediloL [Coreg] 25 mg PO BID-W/MEALS 07/16/21 03/07/22 History hydrALAZINE HCL [Apresoline] 50 mg PO TID 07/16/21 03/07/22 History Albuterol Sulfate [Albuterol 2 puff INHALATION RT-Q6H PRN 09/03/21 03/07/22 History Sulfate Hfa] Budesonide/Formoterol Fumarate 2 puff INHALATION RT-BID 09/03/21 03/07/22 History [Symbicort 80-4.5 Mcg Inhaler] Potassium Chloride [Klor-Con 10 ER] 10 meq PO DAILY 09/05/21 03/07/22 History INSULIN LISPRO (HumaLOG) [humaLOG] See Protocol SQ ACHS PRN 12/15/21 03/07/22 History Furosemide [Lasix] 40 mg PO BID 30 Days #90 tablet 12/18/21 03/07/22 Rx calcitrioL [Rocaltrol] 0.25 mcg PO TUFR 03/07/22 03/07/22 History Allergies Allergy/AdvReac Type Severity Reaction Status Date / Time No Known Allergies Allergy Verified 03/07/22 16:18 Surgical - Exam Vital Signs Temp Pulse Resp BP Pulse Ox 97.5 F L 57 L 24 118/76 95 03/07/22 14:45 03/07/22 14:45 03/07/22 14:45 03/07/22 14:45 03/07/22 14:45 - General no distress, no pain - ENT normal nares, normal mucosa - Respiratory normal expansion, normal respiratory effort - Abdomen Abdomen: soft, non tender - Genitourinary Significant penile and scrotal edema. Normal meatus Results - Labs 03/09/22 07:13 03/09/22 07:13 Abnormal Lab Results - Last 24 Hours (Table) 03/08/22 03/08/22 03/08/22 Range/Units 08:58 11:18 11:34 RBC (4.30-5.90) m/uL Hgb (13.0-17.5) gm/dL Hct (39.0-53.0) % RDW (11.5-15.5) % Lymphocytes # (1.0-4.8) k/uL Carbon Dioxide (22-30) mmol/L BUN (9-20) mg/dL Creatinine (0.66-1.25) mg/dL Glucose (74-99) mg/dL POC Glucose (mg/dL) 111 H 50 L 64 L (70-110) mg/dL Calcium (8.4-10.2) mg/dL Total Protein (6.3-8.2) g/dL Albumin (3.5-5.0) g/dL 03/08/22 03/08/22 03/08/22 Range/Units 11:54 16:48 17:27 RBC (4.30-5.90) m/uL Hgb (13.0-17.5) gm/dL Hct (39.0-53.0) % RDW (11.5-15.5) % Lymphocytes # (1.0-4.8) k/uL Carbon Dioxide (22-30) mmol/L BUN (9-20) mg/dL Creatinine (0.66-1.25) mg/dL Glucose (74-99) mg/dL POC Glucose (mg/dL) 254 H 52 L 65 L (70-110) mg/dL Calcium (8.4-10.2) mg/dL Total Protein (6.3-8.2) g/dL Albumin (3.5-5.0) g/dL 03/08/22 03/08/22 03/09/22 Range/Units 21:03 21:24 01:05 RBC (4.30-5.90) m/uL Hgb (13.0-17.5) gm/dL Hct (39.0-53.0) % RDW (11.5-15.5) % Lymphocytes # (1.0-4.8) k/uL Carbon Dioxide (22-30) mmol/L BUN (9-20) mg/dL Creatinine (0.66-1.25) mg/dL Glucose (74-99) mg/dL POC Glucose (mg/dL) 56 L 63 L 61 L (70-110) mg/dL Calcium (8.4-10.2) mg/dL Total Protein (6.3-8.2) g/dL Albumin (3.5-5.0) g/dL 03/09/22 03/09/22 03/09/22 Range/Units 01:48 06:48 07:03 RBC (4.30-5.90) m/uL Hgb (13.0-17.5) gm/dL Hct (39.0-53.0) % RDW (11.5-15.5) % Lymphocytes # (1.0-4.8) k/uL Carbon Dioxide (22-30) mmol/L BUN (9-20) mg/dL Creatinine (0.66-1.25) mg/dL Glucose (74-99) mg/dL POC Glucose (mg/dL) 137 H 29 L 156 H (70-110) mg/dL Calcium (8.4-10.2) mg/dL Total Protein (6.3-8.2) g/dL Albumin (3.5-5.0) g/dL 03/09/22 03/09/22 Range/Units 07:13 07:13 RBC 3.22 L (4.30-5.90) m/uL Hgb 9.3 L (13.0-17.5) gm/dL Hct 29.9 L (39.0-53.0) % RDW 19.5 H (11.5-15.5) % Lymphocytes # 0.3 L (1.0-4.8) k/uL Carbon Dioxide 33 H (22-30) mmol/L BUN 35 H (9-20) mg/dL Creatinine 2.74 H (0.66-1.25) mg/dL Glucose 106 H (74-99) mg/dL POC Glucose (mg/dL) (70-110) mg/dL Calcium 8.3 L (8.4-10.2) mg/dL Total Protein 5.3 L (6.3-8.2) g/dL Albumin 2.9 L (3.5-5.0) g/dL Diabetes panel 03/09/22 Range/Units 07:13 Sodium 141 (137-145) mmol/L Potassium 3.9 (3.5-5.1) mmol/L Chloride 103 (98-107) mmol/L Carbon Dioxide 33 H (22-30) mmol/L BUN 35 H (9-20) mg/dL Creatinine 2.74 H (0.66-1.25) mg/dL Glucose 106 H (74-99) mg/dL Calcium 8.3 L (8.4-10.2) mg/dL AST 27 (17-59) U/L ALT 17 (4-49) U/L Alkaline Phosphatase 108 (38-126) U/L Total Protein 5.3 L (6.3-8.2) g/dL Albumin 2.9 L (3.5-5.0) g/dL Calcium panel 03/09/22 Range/Units 07:13 Calcium 8.3 L (8.4-10.2) mg/dL Albumin 2.9 L (3.5-5.0) g/dL Pituitary panel 03/09/22 Range/Units 07:13 Sodium 141 (137-145) mmol/L Potassium 3.9 (3.5-5.1) mmol/L Chloride 103 (98-107) mmol/L Carbon Dioxide 33 H (22-30) mmol/L BUN 35 H (9-20) mg/dL Creatinine 2.74 H (0.66-1.25) mg/dL Glucose 106 H (74-99) mg/dL Calcium 8.3 L (8.4-10.2) mg/dL Adrenal panel 03/09/22 Range/Units 07:13 Sodium 141 (137-145) mmol/L Potassium 3.9 (3.5-5.1) mmol/L Chloride 103 (98-107) mmol/L Carbon Dioxide 33 H (22-30) mmol/L BUN 35 H (9-20) mg/dL Creatinine 2.74 H (0.66-1.25) mg/dL Glucose 106 H (74-99) mg/dL Calcium 8.3 L (8.4-10.2) mg/dL Total Bilirubin 0.9 (0.2-1.3) mg/dL AST 27 (17-59) U/L ALT 17 (4-49) U/L Alkaline Phosphatase 108 (38-126) U/L Total Protein 5.3 L (6.3-8.2) g/dL Albumin 2.9 L (3.5-5.0) g/dL Assessment and Plan Assessment: 71-year-old male to the hospital with CHF exacerbation. Urology is consulted for gross hematuria Jenkins catheter insertion. Patient had a catheter placed initially was draining clear yellow urine but yesterday became hematuric with clots. Attempted to upsize the catheter was unsuccessful by nursing staff. Thus urology was consulted. Patient is confused, gross hematuria is most likely secondary to trauma to the prostate, versus patient might have been pulling on his catheter. -20-Sami Jenkins was placed with the return of clear urine -Recommend keeping the catheter in until patient is back to his baseline, at that time it can be discontinued and a post void residual should be obtained after catheter removal. at that time If PVR is less than 400 mL okay for discharge from urology standpoint
--- NOTE | 2022-03-09 08:02 | P.PCN ---
Date of Procedure: 03/09/22 Preoperative Diagnosis: Gross hematuria Postoperative Diagnosis: Same Procedure(s) Performed: Jenkins catheter insertion Description of Procedure: Patient penis was prepped in sterile fashion. A 20-Guine[place] coud catheter was placed, there was moderate resistance at the prostate but I was able to navigate the catheter into the bladder with the return of clear urine. Patient tolerated the procedure well
[2022-03-09] MEDS: hydrALAZINE HCL 50 MG TAB PO SCH ×3 (08:18→22:05)
[2022-03-09] MEDS: APIXABAN 2.5 MG TABLET PO SCH ×2 (08:18→22:04)
[2022-03-09] MEDS: carvediloL 12.5 MG TAB PO SCH ×2 (08:18→16:52)
[2022-03-09] MEDS: AMOXIC-POT CLAV 500-125 MG 1 EACH TAB PO SCH ×2 (08:18→22:05)
[2022-03-09 08:28] LABS: Appearance,Urine Cloudy (Clear); Bacteria,Urine Rare /hpf; Bilirubin,Urine Negative (Negative); Blood,Urine Large (Negative); Budding Yeast,Urine Few /hpf; Color,Urine Yellow; Glucose,Urine (UA) Negative (Negative); Ketones,Urine Negative (Negative); Leukocyte Esterase,Urine Moderate (Negative); Nitrite,Urine Negative (Negative); PH, Urine 5.5 (5.0-8.0); Protein,Urine 1+ (Negative); RBC,Urine >182 /hpf (0-5); Specific Gravity,Urine 1.014 (1.001-1.035); Squamous Epithelial Cell,Urine <1 /hpf (0-4); Urobilinogen,Urine <2.0 mg/dL (<2.0); WBC,Urine 66 /hpf (0-5)
[2022-03-09 08:57] LABS: Glucose,Whole Blood 48 mg/dL (70-110)
[2022-03-09 09:23] LABS: Glucose,Whole Blood 182 mg/dL (70-110)
[2022-03-09 09:24] LABS: Glucose,Whole Blood 56 mg/dL (70-110)
--- NOTE | 2022-03-09 10:06 | P.PN ---
Subjective Progress Note Date: 03/09/22 Principal diagnosis: Heart failure with reduced ejection fraction The patient is a 71-year-old gentleman with coronary artery disease and ischemic cardiomyopathy as well as chronic kidney disease as well as underlying dementia who was admitted to the hospital with a change in mental status and we consulted to see the patient mainly for acute exacerbation of heart failure. The patient was seen this morning. He is a very agitated and he did have a rough night. Apparently his glucose has been low and currently is receiving D50. He continues to be slightly confused. His was bedside who stated that the patient does have underlying dementia. On examination he does have very mild bilateral lower 70s edema was diminished breathing sounds bilaterally and continues to be on Lasix 40 mg IV twice a day which I would suggest decreasing to 20 mg IV twice a day giving the worsening in his kidney function. Continue monitor the kidney function and electrolytes. Continue monitor the weight. And follow-up with the patient Objective - Vital Signs Vital signs: Vital Signs Temp 99.4 F 03/09/22 08:00 Pulse 85 03/09/22 08:00 Resp 18 03/09/22 08:00 BP 106/66 03/09/22 08:00 Pulse Ox 99 03/09/22 08:00 FiO2 Intake & Output 03/08/22 03/09/22 03/09/22 18:59 06:59 18:59 Intake Total 200 Output Total 100 250 Balance 100 -250 Intake: Oral 200 Output: Urine 100 250 Uretheral (Jenkins) 250 Other: Voiding Method Toilet Indwelling Catheter Indwelling Catheter # Bowel Movements 6 - Constitutional General appearance: Present: mild distress - Respiratory Respiratory: bilateral: diminished - Cardiovascular Heart sounds: normal: S1, S2 - Labs CBC & Chem 7: 03/09/22 07:13 03/09/22 07:13 Labs: Abnormal Lab Results - Last 24 Hours (Table) 03/08/22 03/08/22 03/08/22 Range/Units 11:18 11:34 11:54 RBC (4.30-5.90) m/uL Hgb (13.0-17.5) gm/dL Hct (39.0-53.0) % RDW (11.5-15.5) % Lymphocytes # (1.0-4.8) k/uL Carbon Dioxide (22-30) mmol/L BUN (9-20) mg/dL Creatinine (0.66-1.25) mg/dL Glucose (74-99) mg/dL POC Glucose (mg/dL) 50 L 64 L 254 H (70-110) mg/dL Calcium (8.4-10.2) mg/dL Total Protein (6.3-8.2) g/dL Albumin (3.5-5.0) g/dL Urine Protein (Negative) Urine Blood (Negative) Ur Leukocyte Esterase (Negative) Urine RBC (0-5) /hpf Urine WBC (0-5) /hpf Urine WBC Clumps (None) /hpf Urine Bacteria (None) /hpf Urine Yeast (Budding) (None) /hpf 03/08/22 03/08/22 03/08/22 Range/Units 16:48 17:06 17:27 RBC (4.30-5.90) m/uL Hgb (13.0-17.5) gm/dL Hct (39.0-53.0) % RDW (11.5-15.5) % Lymphocytes # (1.0-4.8) k/uL Carbon Dioxide (22-30) mmol/L BUN (9-20) mg/dL Creatinine (0.66-1.25) mg/dL Glucose (74-99) mg/dL POC Glucose (mg/dL) 52 L 56 L 65 L (70-110) mg/dL Calcium (8.4-10.2) mg/dL Total Protein (6.3-8.2) g/dL Albumin (3.5-5.0) g/dL Urine Protein (Negative) Urine Blood (Negative) Ur Leukocyte Esterase (Negative) Urine RBC (0-5) /hpf Urine WBC (0-5) /hpf Urine WBC Clumps (None) /hpf Urine Bacteria (None) /hpf Urine Yeast (Budding) (None) /hpf 03/08/22 03/08/22 03/09/22 Range/Units 21:03 21:24 01:05 RBC (4.30-5.90) m/uL Hgb (13.0-17.5) gm/dL Hct (39.0-53.0) % RDW (11.5-15.5) % Lymphocytes # (1.0-4.8) k/uL Carbon Dioxide (22-30) mmol/L BUN (9-20) mg/dL Creatinine (0.66-1.25) mg/dL Glucose (74-99) mg/dL POC Glucose (mg/dL) 56 L 63 L 61 L (70-110) mg/dL Calcium (8.4-10.2) mg/dL Total Protein (6.3-8.2) g/dL Albumin (3.5-5.0) g/dL Urine Protein (Negative) Urine Blood (Negative) Ur Leukocyte Esterase (Negative) Urine RBC (0-5) /hpf Urine WBC (0-5) /hpf Urine WBC Clumps (None) /hpf Urine Bacteria (None) /hpf Urine Yeast (Budding) (None) /hpf 03/09/22 03/09/22 03/09/22 Range/Units 01:48 06:48 07:03 RBC (4.30-5.90) m/uL Hgb (13.0-17.5) gm/dL Hct (39.0-53.0) % RDW (11.5-15.5) % Lymphocytes # (1.0-4.8) k/uL Carbon Dioxide (22-30) mmol/L BUN (9-20) mg/dL Creatinine (0.66-1.25) mg/dL Glucose (74-99) mg/dL POC Glucose (mg/dL) 137 H 29 L 156 H (70-110) mg/dL Calcium (8.4-10.2) mg/dL Total Protein (6.3-8.2) g/dL Albumin (3.5-5.0) g/dL Urine Protein (Negative) Urine Blood (Negative) Ur Leukocyte Esterase (Negative) Urine RBC (0-5) /hpf Urine WBC (0-5) /hpf Urine WBC Clumps (None) /hpf Urine Bacteria (None) /hpf Urine Yeast (Budding) (None) /hpf 03/09/22 03/09/22 03/09/22 Range/Units 07:13 07:13 08:06 RBC 3.22 L (4.30-5.90) m/uL Hgb 9.3 L (13.0-17.5) gm/dL Hct 29.9 L (39.0-53.0) % RDW 19.5 H (11.5-15.5) % Lymphocytes # 0.3 L (1.0-4.8) k/uL Carbon Dioxide 33 H (22-30) mmol/L BUN 35 H (9-20) mg/dL Creatinine 2.74 H (0.66-1.25) mg/dL Glucose 106 H (74-99) mg/dL POC Glucose (mg/dL) (70-110) mg/dL Calcium 8.3 L (8.4-10.2) mg/dL Total Protein 5.3 L (6.3-8.2) g/dL Albumin 2.9 L (3.5-5.0) g/dL Urine Protein 1+ H (Negative) Urine Blood Large H (Negative) Ur Leukocyte Esterase Moderate H (Negative) Urine RBC >182 H (0-5) /hpf Urine WBC 66 H (0-5) /hpf Urine WBC Clumps Moderate H (None) /hpf Urine Bacteria Rare H (None) /hpf Urine Yeast (Budding) Few H (None) /hpf 03/09/22 03/09/22 Range/Units 08:55 09:22 RBC (4.30-5.90) m/uL Hgb (13.0-17.5) gm/dL Hct (39.0-53.0) % RDW (11.5-15.5) % Lymphocytes # (1.0-4.8) k/uL Carbon Dioxide (22-30) mmol/L BUN (9-20) mg/dL Creatinine (0.66-1.25) mg/dL Glucose (74-99) mg/dL POC Glucose (mg/dL) 48 L 182 H (70-110) mg/dL Calcium (8.4-10.2) mg/dL Total Protein (6.3-8.2) g/dL Albumin (3.5-5.0) g/dL Urine Protein (Negative) Urine Blood (Negative) Ur Leukocyte Esterase (Negative) Urine RBC (0-5) /hpf Urine WBC (0-5) /hpf Urine WBC Clumps (None) /hpf Urine Bacteria (None) /hpf Urine Yeast (Budding) (None) /hpf Assessment and Plan Assessment: Assessment #1 change in mental status/agitation #2 cardiomyopathy #3 heart failure with reduced ejection fraction #4 chronic kidney disease #5 multiple comorbid conditions Plan #1 decrease the dose of Lasix #2 continue monitor the kidney function and electrolytes #3 follow-up with the patient
[2022-03-09 10:17] LABS: Glucose,Whole Blood 96 mg/dL (70-110)
[2022-03-09 11:06] LABS: Glucose,Whole Blood 84 mg/dL (70-110)
[2022-03-09] MEDS: FUROSEMIDE 10 MG/ML 4 ML VIAL IV SCH (11:41)
--- NOTE | 2022-03-09 11:49 | P.NPCON ---
History of Present Illness - Reason for Consult acute renal failure, chronic renal failure - History of Present Illness Reason for consultation: Acute kidney injury on chronic kidney disease History of present illness: Patient is a 71-year-old male seen in consultation for acute kidney injury on chronic kidney disease. Patient has chronic kidney disease stage IV with baseline creatinine near 2.3-2.5 secondary to cardiorenal syndrome and diabetic kidney disease. Patient has required multiple hospitalizations for CHF exacerbation. Patient presented to the hospital on 03/07/2022 with shortness of breath and weight gain. Patient is currently quite confused. is present at bedside who provides the history. She states the patient gained about 7 pounds overnight and legs were very edematous. She states that he was taking Lasix 40 mg orally twice daily prior to admission. No fever or chills. No cough. Patient was receiving IV Lasix 40 mg twice daily and was changed to 20 mg IV twice daily this morning. Patient has history of systolic CHF with ejection fraction of 20-25% with moderate mitral regurgitation and pulmonary hypertension. Patient's blood sugar was also low this morning in his been started on D10 drip. Jenkins catheter was placed by urology this morning for accurate I's and O's. Hemodynamically stable. Vital signs are stable. General: Awake. Confused. HEENT: Head exam is unremarkable. LUNGS: Breath sounds decreased. HEART: Rate and Rhythm are regular. ABDOMEN: Soft, no distention. EXTREMITITES: 2+ edema. 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 History of Any Multi-Drug Resistant Organisms: None Reported Past Surgical History: AICD, Orthopedic Surgery Additional Past Surgical History / Comment(s): R wrist fx with repair, R eye retinal detachment with surgery, R eye retinal hemorrhage with eye injections in the past Past Anesthesia/Blood Transfusion Reactions: No Reported Reaction Additional Past Anesthesia/Blood Transfusion Reaction / Comment(s): Pt has never recieved blood. Type of Cardiac Device: AICD Device Placement Date:: 07/04/2018 Past Psychological History: No Psychological Hx Reported Additional Psychological History / Comment(s): Pt lives with in their home. Pt is retired from [employer] the [employer]. Pt does not drive d/t eyesight. Spouse is retired and drives his to appts. Pt states he does not own a glucometer. He states he would use one if he didn't have to pay for it. Smoking Status: Current every day smoker Past Alcohol Use History: None Reported Additional Past Alcohol Use History / Comment(s): Pt started smoking in 1967 and is a ppd smoker. Past Drug Use History: None Reported - Past Family History Father Family Medical History: Vascular Disorder Additional Family Medical History / Comment(s): Father during vascular surgery for his blood flow to his legs. Mother Family Medical History: Congestive Heart Failure (CHF), Diabetes Mellitus Medications and Allergies Home Medications Medication Instructions Recorded Confirmed Type glipiZIDE [Glucotrol] 10 mg PO BID 06/04/14 03/07/22 History Isosorbide Mononitrate [Isosorbide 30 mg PO DAILY 07/03/18 03/07/22 History Mononitrate ER] Apixaban [Eliquis] 2.5 mg PO BID 09/26/19 03/07/22 History Atorvastatin [Lipitor] 20 mg PO HS 09/26/19 03/07/22 History Multivit-Min/FA/Lycopen/Lutein 1 tab PO DAILY 07/16/21 03/07/22 History [Centrum Silver Men Tablet] carvediloL [Coreg] 25 mg PO BID-W/MEALS 07/16/21 03/07/22 History hydrALAZINE HCL [Apresoline] 50 mg PO TID 07/16/21 03/07/22 History Albuterol Sulfate [Albuterol 2 puff INHALATION RT-Q6H PRN 09/03/21 03/07/22 History Sulfate Hfa] Budesonide/Formoterol Fumarate 2 puff INHALATION RT-BID 09/03/21 03/07/22 History [Symbicort 80-4.5 Mcg Inhaler] Potassium Chloride [Klor-Con 10 ER] 10 meq PO DAILY 09/05/21 03/07/22 History INSULIN LISPRO (HumaLOG) [humaLOG] See Protocol SQ ACHS PRN 12/15/21 03/07/22 History Furosemide [Lasix] 40 mg PO BID 30 Days #90 tablet 12/18/21 03/07/22 Rx calcitrioL [Rocaltrol] 0.25 mcg PO TUFR 03/07/22 03/07/22 History Allergies Allergy/AdvReac Type Severity Reaction Status Date / Time No Known Allergies Allergy Verified 03/07/22 16:18 Physical Exam Vitals: Vital Signs Temp Pulse Resp BP Pulse Ox 03/09/22 08:00 99.4 F 85 18 106/66 99 03/09/22 07:50 95 03/09/22 05:15 64 95 03/09/22 01:22 98.4 F 64 18 123/66 96 03/08/22 19:10 98.4 F 73 14 144/81 91 L 03/08/22 14:00 98.5 F 69 16 127/76 96 Intake and Output 03/08/22 03/09/22 03/09/22 22:59 06:59 14:59 Output Total 250 Balance -250 Output: Urine 250 Uretheral (Jenkins) 250 Other: Voiding Method Indwelling Catheter Indwelling Catheter # Bowel Movements 6 Results - Lab Results Most recent lab results Calcium 8.3 mg/dL (8.4-10.2) L 03/09/22 07:13 Magnesium 2.2 mg/dL (1.6-2.3) 03/09/22 07:13 03/09/22 07:13 03/09/22 07:13 Assessment and Plan Plan: Assessment: 1. Acute kidney injury mostly prerenal secondary to cardiorenal syndrome. Creatinine 2.53 on admission and is 2.74 today. Renal ultrasound from October 2021 showed atrophic kidneys without any evidence of hydronephrosis. 2. Chronic kidney disease stage IV with baseline creatinine in the range of 2.3-2.5 secondary to diabetic kidney disease and cardiorenal syndrome. Serologies have been negative in the past. 3. Volume overload. 4. Acute on chronic systolic CHF with ejection fraction of 20-25% with moderate mitral regurgitation and pulmonary hypertension. 5. Diabetes mellitus with hypoglycemia maintained on D10 drip. 6. Anemia of chronic kidney disease. Rule out iron deficiency. Plan: Stop IV push Lasix. Start Lasix drip at 10 mL an hour. Add metolazone 5 mg once daily. Low-sodium diet. 1500 mL fluid restriction. Maintain Jenkins catheter. Check iron studies. Avoid nephrotoxins. Continue to monitor renal function and urine output. TPN being considered. Thank you for the consultation. I will continue to follow the patient with you during his hospital stay.
[2022-03-09 12:17] LABS: Glucose,Whole Blood 85 mg/dL (70-110)
[2022-03-09] MEDS: FUROSEMIDE 100 MG in SODIUM CHLORIDE 0.9% 90 ML IV SCH ×2 (12:21→21:28)
[2022-03-09 13:11] LABS: Glucose,Whole Blood 75 mg/dL (70-110)
[2022-03-09] MEDS: metOLazone 5 MG TAB PO SCH (13:11)
[2022-03-09 14:18] LABS: Glucose,Whole Blood 61 mg/dL (70-110)
[2022-03-09 15:41] VITALS: BMI 28.3
[2022-03-09 15:57] LABS: Glucose,Whole Blood 103 mg/dL (70-110)
[2022-03-09] MEDS ORDERED: ONDANSETRON 4 MG/2 ML VIAL IVP PRN (16:16)
[2022-03-09 16:55] LABS: Phosphorus 4.7 mg/dL (2.5-4.5)
[2022-03-09 17:08] LABS: Glucose,Whole Blood 94 mg/dL (70-110)
[2022-03-09 18:04] LABS: Glucose,Whole Blood 71 mg/dL (70-110)
[2022-03-09 18:52] LABS: Glucose,Whole Blood 48 mg/dL (70-110)
[2022-03-09] MEDS ORDERED: MORPHINE SULFATE 2 MG/ML SYRINGE IM STA (18:55)
[2022-03-09] MEDS ORDERED: MORPHINE SULFATE 2 MG/ML SYRINGE IVP STA (19:08)
--- NOTE | 2022-03-09 19:17 | P.PN ---
Subjective This is a pleasant 71 years old male with past medical history of Atrial Fibrillation, on liquids CVA/TIA, Diabetes Mellitus, Hyperlipidemia, Hypertension, Osteoarthritis ,CRD stage III, R eye retinal detachment , status p ost AICD. He is patient of Dr. Padron and well control instructor Dr. cotto Patient was recently discharged from the hospital about one month ago for acute CHF. He was placed on palliative care for his advanced CHF and chronic kidney disease. Presents because of increased swelling and breathing difficulty of 1-2 days duration with no chest pain or coughing. 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 His bedbound at baseline with at bedside currently. He denies vomiting or diarrhea. No abdominal pain, no urinary complaints. No headache or dizziness. He smokes about 1 pack per day and he was counseled to quit but he declines as well as he declines the nicotine patch. No alcohol or illicit drugs. Vitas looks stable, patient is been afebrile Labs show normal WBC at 6.2, hemoglobin 9.6, rest of CBC, INR, BMP is reviewed and unremarkable except his creatinine is elevated at 2.5 with baseline 2.2-2.7, glucose was low at 48 Liver enzymes not elevated EKG showed sinus bradycardia at [address]-T changes Chest x-ray: Persistent right lower lobe opacity which may reflect atelectasis, effusion and/or infiltrate. By the radiologist. I reviewed them as well as by myself and patient has significant right lower lobe opacities suspicious for significant pleural effusion versus consolidation, which looks somewhat worse than last this x-ray in about one month ago. ProBNP [place] elevated 03072, which is the same last month Echocardiogram from 10/2021 showed ejection fraction 20-25% with wall hypokinesia and moderate mitral regurgitation On admission patient was scheduled for Eliquis and given IV Lasix with cardi ologist consulted 03/09/2022 Patient developed hematuria overnight, he had a Jenkins catheter placement and neurologist has been contacted by plant operator/shift supervisor nurse, despite orders patient problem did not solve the morning on the urologist placed a Jenkins catheter with 20-Burmese size successfully active and started draining out. Patient laid about 1375 mL of urine output since yesterday. He has been more confused today and more hypoglycemic, a patient was started on D10 normal saline at increasing doses with difficult to control her glucose and no much improvement in her glucose level successfully, PICC line was placed and TPN was going to be started today, although there is risk of fluid over load however patient breathing is currently quiet and he is saturating 98% on 4 L oxygen, also varnish thinner started the patient on Lasix drip at 10 mg per hour and medazolone orally for worsening creatinine 2.5-2.7 and the patient is a known case of stage IV kidney disease. Lasix which was stopped. On checking the patient in the afternoon, PICC line was inserted, TPN is known to be restarted area discussed with the bedside nurse to stop D10 fluids when TPN was started and motor respiratory function closely. Also with no improvement in his mentation despite correction of her glucose we will order CT of the brain without contrast since the patient is also on Eliquis although there is no history of trauma or fall. Also patient confusion could be caused by pain and by pain medication, patient after 1 hour from 2 mg of morphine he started acting out again and asking for help and shunted for nurses therefore we going to increase his morphine to 4 mg every 4 hours, as his benefits more than the risks of this point. Patient right conjunctivitis and cellulitis is significantly improved more than 50% and patient will be continued on Cipro eyedrops on Augmentin. Glipizide 10 mg twice daily at home were stopped on admission and most likely it has prolonged half-life review of chronic kidney disease contributing to his hypoglycemia besides confusion of lack of eating appropriately. Active Medications Generic Name Dose Route Start Last Admin Trade Name Freq PRN Reason Stop Dose Admin Acetaminophen 650 mg 03/07/22 17:38 03/08/22 21:09 Acetaminophen Tab 325 Mg Tab PO 650 mg Q6HR PRN Administration Mild Pain or Fever > 100.5 Hydrocodone Bitart/Acetaminophen 1 each 03/08/22 21:13 03/08/22 22:54 Hydrocodone/Apap 5-325mg 1 Each Tab PO 1 each Q6HR PRN Administration Pain Amoxicillin/Clavulanate Potassium 1 each 03/08/22 09:30 03/09/22 08:18 Amoxic-Pot Clav 500-125 Mg 1 Each Tab PO 1 each BID GELY Administration Protocol Apixaban 2.5 mg 03/07/22 21:00 03/09/22 08:18 Apixaban 2.5 Mg Tablet PO 2.5 mg BID GELY Administration Protocol Atorvastatin Calcium 20 mg 03/07/22 21:00 03/08/22 21:10 Atorvastatin 20 Mg Tab PO 20 mg HS GELY Administration Carvedilol 25 mg 03/08/22 07:30 03/09/22 16:52 Carvedilol 12.5 Mg Tab PO 25 mg BID-W/MEALS GELY Administration Ciprofloxacin 2 drops 03/08/22 09:30 03/09/22 15:55 Ciprofloxacin 0.3% Ophth Soln 5 Ml Btl RIGHT EYE 2 drops Q4HR GELY Administration Dextrose/Water 50 ml 03/08/22 07:58 03/09/22 01:14 Dextrose 50% Syringe 50 Ml IVP 50 ml ONCE PRN Administration Hypoglycemia Hydralazine HCl 50 mg 03/07/22 22:00 03/09/22 15:56 Hydralazine Hcl 50 Mg Tab PO 50 mg TID GELY Administration Sodium Chloride 38.5 meq/ 509.625 mls @ 40 mls/hr 03/09/22 07:31 03/09/22 09:23 Dextrose/Water IV 03/09/22 19:31 40 mls/hr .[id number] GELY Administration Protocol Furosemide 100 mg/ Sodium 100 mls @ 10 mls/hr 03/09/22 12:00 03/09/22 12:21 Chloride IV 10 mg/hr .Q10H GELY 10 mls/hr Administration 10 MG/HR Sodium Chloride 30 meq/ 1,030.5 mls @ 30 mls/hr 03/09/22 20:00 Potassium Chloride 20 meq/ IV 03/10/22 19:59 Magnesium Sulfate 1 gm/ .Q24H GELY Parenteral Vitamin Supplement 10 ml/ Zinc/Copper/Manganese/ Selenium 1 ml/ Amino Acids/ Dextrose Parenteral Vitamin Supplement 1,030.5 mls @ 30 mls/hr 03/10/22 20:00 10 ml/ Zinc/Copper/Manganese/ IV Selenium 1 ml/ Sodium Chloride .BY DURATION GELY 30 meq/ Potassium Chloride 20 meq/ Magnesium Sulfate 1 gm/ Amino Acids/Dextrose Sodium Chloride 30 meq/ 1,019.5 mls @ 30 mls/hr 03/10/22 20:00 Potassium Chloride 20 meq/ IV Magnesium Sulfate 1 gm/ Amino .BY DURATION GELY Acids/Dextrose Melatonin 3 mg 03/08/22 21:13 03/08/22 22:54 Melatonin 3 Mg Tablet PO 3 mg HS PRN Administration Insomnia Metolazone 5 mg 03/09/22 12:00 03/09/22 13:11 Metolazone 5 Mg Tab PO 5 mg DAILY GELY Administration Morphine Sulfate 4 mg 03/09/22 18:56 Morphine Sulfate 4 Mg/Ml Syringe IVP Q4HR PRN Pain/Discomfort Multi-Ingred Cream/Lotion/Oil/Oint 1 applic 03/08/22 01:00 03/08/22 01:48 Artificial Tears Ointment 3.5 Gm Tube RIGHT EYE 1 applic QID PRN Administration Eye Irritation Naloxone HCl 0.2 mg 03/07/22 17:38 Naloxone 0.4 Mg/Ml 1 Ml Vial IV Q2M PRN Opioid Reversal Ondansetron HCl 4 mg 03/09/22 16:16 Ondansetron 4 Mg/2 Ml Vial IVP Q6HR PRN Nausea And Vomiting Sodium Chloride 10 ml 03/09/22 15:37 Sodium Chloride 0.9% Flush 10 Ml Syringe IV Q4HR PRN PICC Line Sodium Chloride 10 ml 03/16/22 09:00 Sodium Chloride 0.9% Flush 10 Ml Syringe IV WEEKLY GELY Sodium Chloride 20 ml 03/09/22 15:37 Sodium Chloride 0.9% Flush 10 Ml Syringe IV Q4HR PRN PICC Line Objective - Vital Signs Vital signs: Vital Signs Temp 99.4 F 03/09/22 08:00 Pulse 85 03/09/22 08:00 Resp 18 03/09/22 08:00 BP 106/66 03/09/22 08:00 Pulse Ox 99 03/09/22 08:00 FiO2 Intake & Output 03/08/22 03/09/22 03/09/22 18:59 06:59 18:59 Intake Total 200 Output Total 100 250 Balance 100 -250 Intake: Oral 200 Output: Urine 100 250 Uretheral (Jenkins) 250 Other: Voiding Method Toilet Indwelling Catheter Indwelling Catheter # Bowel Movements 6 - Exam -GENERAL: The patient is awake and confused, not in any acute distress. Well developed, well perfused -HEENT: Pupils are round and equally reacting to light. EOMI. No scleral icterus. No conjunctival pallor. Normocephalic, atraumatic. No pharyngeal erythema. No thyromegaly. CARDIOVASCULAR: S1 and S2 present. No murmurs, rubs, or gallops. Right eye conjunctivitis and surrounding cellulitis significantly improved -PULMONARY: Chest is clear to auscultation, no wheezing.. Mild bilateral basal crepitation -ABDOMEN: Soft, nontender, nondistended, normoactive bowel sounds. No palpable organomegaly. Jenkins catheter in place with clear yellow urine MUSCULOSKELETAL: No joint swelling or deformity. -EXTREMITIES: No cyanosis, clubbing,. Bilateral patellar getting NEUROLOGICAL: Gross neurological examination did not reveal any focal deficits. SKIN: No rashes. no petechiae. - Labs CBC & Chem 7: 03/09/22 07:13 03/09/22 07:13 Labs: Abnormal Lab Results - Last 24 Hours (Table) 03/08/22 03/08/22 03/08/22 Range/Units 11:18 11:34 11:54 RBC (4.30-5.90) m/uL Hgb (13.0-17.5) gm/dL Hct (39.0-53.0) % RDW (11.5-15.5) % Lymphocytes # (1.0-4.8) k/uL Carbon Dioxide (22-30) mmol/L BUN (9-20) mg/dL Creatinine (0.66-1.25) mg/dL Glucose (74-99) mg/dL POC Glucose (mg/dL) 50 L 64 L 254 H (70-110) mg/dL Calcium (8.4-10.2) mg/dL Total Protein (6.3-8.2) g/dL Albumin (3.5-5.0) g/dL Urine Protein (Negative) Urine Blood (Negative) Ur Leukocyte Esterase (Negative) Urine RBC (0-5) /hpf Urine WBC (0-5) /hpf Urine WBC Clumps (None) /hpf Urine Bacteria (None) /hpf Urine Yeast (Budding) (None) /hpf 03/08/22 03/08/22 03/08/22 Range/Units 16:48 17:06 17:27 RBC (4.30-5.90) m/uL Hgb (13.0-17.5) gm/dL Hct (39.0-53.0) % RDW (11.5-15.5) % Lymphocytes # (1.0-4.8) k/uL Carbon Dioxide (22-30) mmol/L BUN (9-20) mg/dL Creatinine (0.66-1.25) mg/dL Glucose (74-99) mg/dL POC Glucose (mg/dL) 52 L 56 L 65 L (70-110) mg/dL Calcium (8.4-10.2) mg/dL Total Protein (6.3-8.2) g/dL Albumin (3.5-5.0) g/dL Urine Protein (Negative) Urine Blood (Negative) Ur Leukocyte Esterase (Negative) Urine RBC (0-5) /hpf Urine WBC (0-5) /hpf Urine WBC Clumps (None) /hpf Urine Bacteria (None) /hpf Urine Yeast (Budding) (None) /hpf 03/08/22 03/08/22 03/09/22 Range/Units 21:03 21:24 01:05 RBC (4.30-5.90) m/uL Hgb (13.0-17.5) gm/dL Hct (39.0-53.0) % RDW (11.5-15.5) % Lymphocytes # (1.0-4.8) k/uL Carbon Dioxide (22-30) mmol/L BUN (9-20) mg/dL Creatinine (0.66-1.25) mg/dL Glucose (74-99) mg/dL POC Glucose (mg/dL) 56 L 63 L 61 L (70-110) mg/dL Calcium (8.4-10.2) mg/dL Total Protein (6.3-8.2) g/dL Albumin (3.5-5.0) g/dL Urine Protein (Negative) Urine Blood (Negative) Ur Leukocyte Esterase (Negative) Urine RBC (0-5) /hpf Urine WBC (0-5) /hpf Urine WBC Clumps (None) /hpf Urine Bacteria (None) /hpf Urine Yeast (Budding) (None) /hpf 03/09/22 03/09/22 03/09/22 Range/Units 01:48 06:48 07:03 RBC (4.30-5.90) m/uL Hgb (13.0-17.5) gm/dL Hct (39.0-53.0) % RDW (11.5-15.5) % Lymphocytes # (1.0-4.8) k/uL Carbon Dioxide (22-30) mmol/L BUN (9-20) mg/dL Creatinine (0.66-1.25) mg/dL Glucose (74-99) mg/dL POC Glucose (mg/dL) 137 H 29 L 156 H (70-110) mg/dL Calcium (8.4-10.2) mg/dL Total Protein (6.3-8.2) g/dL Albumin (3.5-5.0) g/dL Urine Protein (Negative) Urine Blood (Negative) Ur Leukocyte Esterase (Negative) Urine RBC (0-5) /hpf Urine WBC (0-5) /hpf Urine WBC Clumps (None) /hpf Urine Bacteria (None) /hpf Urine Yeast (Budding) (None) /hpf 03/09/22 03/09/22 03/09/22 Range/Units 07:13 07:13 08:06 RBC 3.22 L (4.30-5.90) m/uL Hgb 9.3 L (13.0-17.5) gm/dL Hct 29.9 L (39.0-53.0) % RDW 19.5 H (11.5-15.5) % Lymphocytes # 0.3 L (1.0-4.8) k/uL Carbon Dioxide 33 H (22-30) mmol/L BUN 35 H (9-20) mg/dL Creatinine 2.74 H (0.66-1.25) mg/dL Glucose 106 H (74-99) mg/dL POC Glucose (mg/dL) (70-110) mg/dL Calcium 8.3 L (8.4-10.2) mg/dL Total Protein 5.3 L (6.3-8.2) g/dL Albumin 2.9 L (3.5-5.0) g/dL Urine Protein 1+ H (Negative) Urine Blood Large H (Negative) Ur Leukocyte Esterase Moderate H (Negative) Urine RBC >182 H (0-5) /hpf Urine WBC 66 H (0-5) /hpf Urine WBC Clumps Moderate H (None) /hpf Urine Bacteria Rare H (None) /hpf Urine Yeast (Budding) Few H (None) /hpf 03/09/22 03/09/22 Range/Units 08:55 09:22 RBC (4.30-5.90) m/uL Hgb (13.0-17.5) gm/dL Hct (39.0-53.0) % RDW (11.5-15.5) % Lymphocytes # (1.0-4.8) k/uL Carbon Dioxide (22-30) mmol/L BUN (9-20) mg/dL Creatinine (0.66-1.25) mg/dL Glucose (74-99) mg/dL POC Glucose (mg/dL) 48 L 182 H (70-110) mg/dL Calcium (8.4-10.2) mg/dL Total Protein (6.3-8.2) g/dL Albumin (3.5-5.0) g/dL Urine Protein (Negative) Urine Blood (Negative) Ur Leukocyte Esterase (Negative) Urine RBC (0-5) /hpf Urine WBC (0-5) /hpf Urine WBC Clumps (None) /hpf Urine Bacteria (None) /hpf Urine Yeast (Budding) (None) /hpf Assessment and Plan Assessment: Acute on chronic CHF with persistent right lower lobe consolidation suspicious for effusion versus fluid overload, atelectasis, pneumonia. Less likely with no fever or leukocytosis right eye conjunctivitis and orbital cellulitis Altered mental status, most likely metabolic/toxic encephalopathy. Ruled out intracranial lesion Diabetes mellitus with hypoglycemia, present on admission. Patient was started on TPN Urinary retention Gross hematuria most likely secondary to trauma to the prostate bed bound at baseline Hypertension Hyperlipidemia Chronic kidney disease stage IV History of osteoarthritis History of atrial fibrillation on liquids History of CVA/TIA Status post AICD History of right eye retinal detachment and hemorrhage Plan: this is a pleasant 71 is old male who presents with CHF exacerbation Continue with IV Lasix drip and metolazone her varnish thinner Monitor input and output and electrolytes with kidney function Cardiology consult augmentin and cipro eye drops to the right eye Start the patient on TPN Check CT of the brain Monitor glucose closely Labs and medication were reviewed.. Continue same treatment. Continue with symptomatic treatment. Resume home medication. Monitor lytes and vitals. DVT and GI prophylaxis. Further recommendations as per clinical course of the patient DVT prophylaxis: Eliquis 2.5 mg, home dose GI Prophylaxis: Pepcid PT/OT: Deferred Prognosis is guarded given his complex and multiple medical problems
[2022-03-09 19:39] LABS: % Iron Saturation 83.12 (15.00-50.00); Ferritin 54.8 ng/mL (22.0-322.0)
[2022-03-09 19:41] LABS: Glucose,Whole Blood 119 mg/dL (70-110)
[2022-03-09] MEDS ORDERED: SODIUM CHLORIDE IV SCH ×6 (20:00)
[2022-03-09] MEDS ORDERED: POTASSIUM CHLORIDE IV SCH ×6 (20:00)
[2022-03-09] MEDS ORDERED: [UNRECOGNIZED DRUG - OTHER] IV SCH ×6 (20:00)
[2022-03-09 20:53] LABS: Glucose,Whole Blood 115 mg/dL (70-110)
[2022-03-09] MEDS ORDERED: FUROSEMIDE 10 MG/ML 4 ML VIAL IV SCH (21:00)
[2022-03-09] MEDS: MORPHINE SULFATE 4 MG/ML SYRINGE IVP PRN (21:35)
--- NOTE | 2022-03-09 21:37 | CT ---
EXAMINATION TYPE: CT brain wo con DATE OF EXAM: 03/09/2022 COMPARISON: 11/21/2016 HISTORY: confusion CT DLP: 1326.[address] of the brain was performed. The ventricles, basal cisterns and sulci overlying the cerebral convexities demonstrate mild enlargem ent. Remote left occipital insult. There is no evidence for intracranial hemorrhage or sulcal effacement. There is decreased attenuation about the periventricular white matter and deep white matter of both c erebral hemispheres, compatible with chronic small vessel ischemia. Differential diagnosis does inclu de demyelination. No mass effects are seen.No midline shift. Osseous calvarium is intact. If symptoms persist consider MRI. IMPRESSION: 1. Age related atrophic and chronic small vessel ischemic change without acute intracranial process s een at this time.
[2022-03-09 21:42] LABS: Glucose,Whole Blood 82 mg/dL (70-110)
[2022-03-09] MEDS: ATORVASTATIN 20 MG TAB PO SCH (22:05)
[2022-03-09] MEDS: FAMOTIDINE 20 MG/2 ML VIAL IV SCH (22:05)
[2022-03-09 22:31] LABS: Glucose,Whole Blood 76 mg/dL (70-110)
[2022-03-09] MEDS: 1: MVI, ADULT NO.4 WITH VIT K 10 ML, TRACE (CONC-1ML/DOSE) 1 ML, SODIUM CHLORIDE 4MEQ/ML IV SCH ×6 (23:33)
[2022-03-09 23:36] LABS: Glucose,Whole Blood 72 mg/dL (70-110)
[2022-03-10] MEDS: MORPHINE SULFATE 4 MG/ML SYRINGE IVP PRN ×3 (00:50→15:15)
[2022-03-10 00:52] LABS: Triglycerides 62.3 mg/dL (0.00-149.00)
[2022-03-10 00:54] LABS: Glucose,Whole Blood 77 mg/dL (70-110)
[2022-03-10 01:31] LABS: Glucose,Whole Blood 78 mg/dL (70-110)
[2022-03-10 01:38] LABS: Glucose,Whole Blood 65 mg/dL (70-110)
[2022-03-10] MEDS: DEXTROSE 50% SYRINGE 50 ML IVP PRN (01:45)
[2022-03-10] MEDS ORDERED: DEXTROSE 50% SYRINGE 50 ML IVP ONE ×2 (01:45→04:54)
[2022-03-10 03:34] LABS: Glucose,Whole Blood 82 mg/dL (70-110)
--- NOTE | 2022-03-10 04:07 | XR ---
EXAM: XR Chest, 1 View CLINICAL HISTORY: ITS.REASON XR Reason: short of breath TECHNIQUE: Frontal view of the chest. COMPARISON: 03/07/2022 FINDINGS: Lungs: Medial right base consolidation. Pleural space: Large right pleural effusion, increased from prior study. Small left pleural effusion. No pneumothorax. Heart: Moderate cardiomegaly. Left chest pacer in place. Mediastinum: Unremarkable. Bones/joints: Unremarkable. IMPRESSION: 1. Large right pleural effusion, increased from prior study. 2. Small left pleural effusion with bibasilar atelectasis.
[2022-03-10 05:05] LABS: Glucose,Whole Blood 67 mg/dL (70-110)
[2022-03-10 05:51] LABS: Glucose,Whole Blood 158 mg/dL (70-110)
[2022-03-10] MEDS: CIPROFLOXACIN 0.3% OPHTH SOLN 5 ML BTL RIGHT EYE SCH ×5 (05:56→20:24)
[2022-03-10] MEDS: DEXTROSE 10% IN WATER 500 ML in EMPTY BAG 1 BAG IV SCH ×3 (05:56→21:48)
[2022-03-10 06:53] LABS: African American GFR (CKD) 27 (>60 ml/min/1.73 sqM); Anion Gap 4 mmol/L; Blood Urea Nitrogen 38 mg/dL (9-20); Calcium 8.2 mg/dL (8.4-10.2); Carbon Dioxide 34 mmol/L (22-30); Chloride 100 mmol/L (98-107); Glucose 116 mg/dL (74-99); Magnesium 2.1 mg/dL (1.6-2.3); Non-African American GFR(CKD) 23 (>60 ml/min/1.73 sqM); Phosphorus 5.2 mg/dL (2.5-4.5); Potassium 3.4 mmol/L (3.5-5.1); Sodium 138 mmol/L (137-145)
[2022-03-10] MEDS: carvediloL 12.5 MG TAB PO SCH ×2 (07:01→16:20)
[2022-03-10 07:02] LABS: Ionized Calcium 4.7 mg/dL (4.5-5.3)
[2022-03-10] MEDS: AMOXIC-POT CLAV 500-125 MG 1 EACH TAB PO SCH ×2 (07:02→20:24)
[2022-03-10] MEDS: APIXABAN 2.5 MG TABLET PO SCH ×2 (07:02→20:31)
[2022-03-10] MEDS: metOLazone 5 MG TAB PO SCH (07:02)
[2022-03-10] MEDS: FAMOTIDINE 20 MG/2 ML VIAL IV SCH ×2 (07:02→20:50)
[2022-03-10] MEDS: hydrALAZINE HCL 50 MG TAB PO SCH ×3 (07:02→20:31)
[2022-03-10 07:08] LABS: Glucose,Whole Blood 128 mg/dL (70-110)
[2022-03-10 08:08] LABS: Glucose,Whole Blood 125 mg/dL (70-110)
--- NOTE | 2022-03-10 08:33 | IR ---
EXAMINATION TYPE: IR cvc insert >=5 years DATE OF EXAM: 03/09/2022 COMPARISON: NONE CLINICAL HISTORY: Renal failure Needs long-term intravenous access for therapy, total parenteral nutr ition PROCEDURE: Hand hygiene obtained with soap and water and alcohol-based hand rub. After informed consent, the skin overlying the right basilic vein was localized with ultrasound and n oted to be compressible and patent. An ultrasound image was obtained and submitted on the patient's chart. The overlying skin was prepped and draped and Lidocaine was used for local anesthesia. A ski n yamilet was made with a scalpel. Access was gained to the vein under ultrasound guidance with a 21 ga uge needle and a 0.018 inch wire was advanced. Access site was dilated with Peel-Away sheath and cat heter tailored to the appropriate length and advanced such that the distal tip is at the cavoatrial j unction. Spot image was obtained verifying placement. Catheter was fixed to the skin and a sterile dressing was placed following hemostasis. Catheter was aspirated and flushed with saline. Patient w as discharged in stable condition without complication. Maximal barrier technique is utilized. Ultra sound image is documented on the chart. Ultrasound used with sterile technique. Fluoro time and fluoroscopic images submitted to document procedure: 61 intraoperative C-arm images d ocument the procedure, 0.4 minutes fluoroscopy time IMPRESSION: STATUS POST ULTRASOUND AND FLUOROSCOPIC GUIDED PICC LINE PLACEMENT, READY FOR USE. THIS PROCEDURE WAS PERFORMED BY THE UNDERSIGNED.
[2022-03-10] MEDS: FUROSEMIDE 100 MG in SODIUM CHLORIDE 0.9% 90 ML IV SCH ×2 (08:44→17:01)
--- NOTE | 2022-03-10 08:50 | P.PN ---
Subjective Progress Note Date: 03/10/22 no acute overnight event, urine is clear Objective - Vital Signs Vital signs: Vital Signs Temp 98.7 F 03/10/22 00:18 Pulse 67 03/10/22 03:12 Resp 14 03/10/22 03:12 BP 124/60 03/10/22 03:12 Pulse Ox 94 L 03/10/22 03:12 FiO2 Intake & Output 03/09/22 03/10/22 03/10/22 18:59 06:59 18:59 Intake Total 91.167 100 Output Total 600 400 Balance -600 -308.833 100 Weight 77.111 kg Intake: Intake, IV Titration 91.167 100 Amount Furosemide 100 mg In 91.167 100 Sodium Chloride 0.9% 90 ml @ 10 MG/HR 10 mls/hr IV .Q10H [facility] Rx#: [id number] Output: Urine 600 400 Other: Voiding Method Indwelling Catheter Indwelling Catheter Indwelling Catheter - Labs CBC & Chem 7: 03/09/22 07:13 03/10/22 06:10 Labs: Abnormal Lab Results - Last 24 Hours (Table) 03/08/22 03/09/22 03/09/22 Range/Units 17:06 07:13 07:13 Potassium (3.5-5.1) mmol/L Carbon Dioxide (22-30) mmol/L BUN (9-20) mg/dL Creatinine (0.66-1.25) mg/dL Glucose (74-99) mg/dL POC Glucose (mg/dL) 56 L (70-110) mg/dL Calcium (8.4-10.2) mg/dL Phosphorus (2.5-4.5) mg/dL Iron 263 H (65-175) ug/dL % Saturation 83.12 H (15.00-50.00) Procalcitonin 0.11 H (0.02-0.09) ng/mL 03/09/22 03/09/22 03/09/22 Range/Units 08:55 09:22 14:15 Potassium (3.5-5.1) mmol/L Carbon Dioxide (22-30) mmol/L BUN (9-20) mg/dL Creatinine (0.66-1.25) mg/dL Glucose (74-99) mg/dL POC Glucose (mg/dL) 48 L 182 H 61 L (70-110) mg/dL Calcium (8.4-10.2) mg/dL Phosphorus (2.5-4.5) mg/dL Iron (65-175) ug/dL % Saturation (15.00-50.00) Procalcitonin (0.02-0.09) ng/mL 03/09/22 03/09/22 03/09/22 Range/Units 16:30 18:50 19:40 Potassium (3.5-5.1) mmol/L Carbon Dioxide (22-30) mmol/L BUN (9-20) mg/dL Creatinine (0.66-1.25) mg/dL Glucose (74-99) mg/dL POC Glucose (mg/dL) 48 L 119 H (70-110) mg/dL Calcium (8.4-10.2) mg/dL Phosphorus 4.7 H (2.5-4.5) mg/dL Iron (65-175) ug/dL % Saturation (15.00-50.00) Procalcitonin (0.02-0.09) ng/mL 03/09/22 03/10/22 03/10/22 Range/Units 20:51 01:36 04:53 Potassium (3.5-5.1) mmol/L Carbon Dioxide (22-30) mmol/L BUN (9-20) mg/dL Creatinine (0.66-1.25) mg/dL Glucose (74-99) mg/dL POC Glucose (mg/dL) 115 H 65 L 67 L (70-110) mg/dL Calcium (8.4-10.2) mg/dL Phosphorus (2.5-4.5) mg/dL Iron (65-175) ug/dL % Saturation (15.00-50.00) Procalcitonin (0.02-0.09) ng/mL 03/10/22 03/10/22 03/10/22 Range/Units 05:50 06:10 06:10 Potassium 3.4 L (3.5-5.1) mmol/L Carbon Dioxide 34 H (22-30) mmol/L BUN 38 H (9-20) mg/dL Creatinine 2.70 H (0.66-1.25) mg/dL Glucose 116 H (74-99) mg/dL POC Glucose (mg/dL) 158 H (70-110) mg/dL Calcium 8.2 L (8.4-10.2) mg/dL Phosphorus 5.2 H (2.5-4.5) mg/dL Iron (65-175) ug/dL % Saturation (15.00-50.00) Procalcitonin (0.02-0.09) ng/mL 03/10/22 03/10/22 Range/Units 07:06 08:07 Potassium (3.5-5.1) mmol/L Carbon Dioxide (22-30) mmol/L BUN (9-20) mg/dL Creatinine (0.66-1.25) mg/dL Glucose (74-99) mg/dL POC Glucose (mg/dL) 128 H 125 H (70-110) mg/dL Calcium (8.4-10.2) mg/dL Phosphorus (2.5-4.5) mg/dL Iron (65-175) ug/dL % Saturation (15.00-50.00) Procalcitonin (0.02-0.09) ng/mL Microbiology - Last 24 Hours (Table) 03/09/22 08:06 Urine Culture - Preliminary Urine,Clean Catch Assessment and Plan Assessment: 71-year-old male to the hospital with CHF exacerbation. Urology is consulted for gross hematuria Jenkins catheter insertion. Patient had a catheter placed initially was draining clear yellow urine but yesterday became hematuric with clots. Attempted to upsize the catheter was unsuccessful by nursing staff. Thus urology was consulted. Patient is confused, gross hematuria is most likely secondary to trauma to the prostate, versus patient might have been pulling on his catheter. Jenkins was placed yesterday, urine is clear this morning -20-Uzbek Jenkins was placed with the return of clear urine -Recommend keeping the catheter in until patient is back to his baseline, at that time it can be discontinued and a post void residual should be obtained after catheter removal. at that time If PVR is less than 400 mL okay for discharge from urology standpoint
[2022-03-10 09:09] LABS: Glucose,Whole Blood 110 mg/dL (70-110)
--- NOTE | 2022-03-10 09:47 | P.PN ---
Subjective Progress Note Date: 03/10/22 Principal diagnosis: Heart failure with reduced ejection fraction The patient is a 71-year-old gentleman with coronary artery disease and ischemic cardiomyopathy as well as chronic kidney disease as well as underlying dementia who was admitted to the hospital with a change in mental status and we consulted to see the patient mainly for acute exacerbation of heart failure. The patient was seen this morning. He was seen with his who was bedside. Unfortunately he continues to be confused and lethargic. A chest x-ray was performed yesterday and showed large right pleural effusion and small left pleural effusion. On examination he continues to have bilateral lower e xtremities pitting edema seems to be unchanged compared to before. He was seen yesterday by the nephrology service and he was started on Lasix drip and beside that metolazone was added to his medication. Hemodynamically he is stable. The creatinine this morning continues to be stable as well. He does have chronic kidney disease with a baseline creatinine of 2.0. The creatinine this morning is 2.7. No symptoms of chest pain or chest discomfort. Objective - Vital Signs Vital signs: Vital Signs Temp 97.5 F L 03/10/22 08:00 Pulse 62 03/10/22 08:00 Resp 18 03/10/22 08:00 BP 117/63 03/10/22 08:00 Pulse Ox 100 03/10/22 08:00 FiO2 Intake & Output 03/09/22 03/10/22 03/10/22 18:59 06:59 18:59 Intake Total 91.167 100 Output Total 600 400 Balance -600 -308.833 100 Weight 77.111 kg Intake: Intake, IV Titration 91.167 100 Amount Furosemide 100 mg In 91.167 100 Sodium Chloride 0.9% 90 ml @ 10 MG/HR 10 mls/hr IV .Q10H [facility] Rx#: [id number] Output: Urine 600 400 Other: Voiding Method Indwelling Catheter Indwelling Catheter Indwelling Catheter - Constitutional General appearance: Present: no acute distress - Respiratory Respiratory: bilateral: diminished - Cardiovascular Heart sounds: normal: S1, S2 Abnormal Heart Sounds: Present: systolic murmur - Labs CBC & Chem 7: 03/09/22 07:13 03/10/22 06:10 Labs: Abnormal Lab Results - Last 24 Hours (Table) 03/09/22 03/09/22 03/09/22 Range/Units 07:13 07:13 14:15 Potassium (3.5-5.1) mmol/L Carbon Dioxide (22-30) mmol/L BUN (9-20) mg/dL Creatinine (0.66-1.25) mg/dL Glucose (74-99) mg/dL POC Glucose (mg/dL) 61 L (70-110) mg/dL Calcium (8.4-10.2) mg/dL Phosphorus (2.5-4.5) mg/dL Iron 263 H (65-175) ug/dL % Saturation 83.12 H (15.00-50.00) Procalcitonin 0.11 H (0.02-0.09) ng/mL 03/09/22 03/09/22 03/09/22 Range/Units 16:30 18:50 19:40 Potassium (3.5-5.1) mmol/L Carbon Dioxide (22-30) mmol/L BUN (9-20) mg/dL Creatinine (0.66-1.25) mg/dL Glucose (74-99) mg/dL POC Glucose (mg/dL) 48 L 119 H (70-110) mg/dL Calcium (8.4-10.2) mg/dL Phosphorus 4.7 H (2.5-4.5) mg/dL Iron (65-175) ug/dL % Saturation (15.00-50.00) Procalcitonin (0.02-0.09) ng/mL 03/09/22 03/10/22 03/10/22 Range/Units 20:51 01:36 04:53 Potassium (3.5-5.1) mmol/L Carbon Dioxide (22-30) mmol/L BUN (9-20) mg/dL Creatinine (0.66-1.25) mg/dL Glucose (74-99) mg/dL POC Glucose (mg/dL) 115 H 65 L 67 L (70-110) mg/dL Calcium (8.4-10.2) mg/dL Phosphorus (2.5-4.5) mg/dL Iron (65-175) ug/dL % Saturation (15.00-50.00) Procalcitonin (0.02-0.09) ng/mL 03/10/22 03/10/22 03/10/22 Range/Units 05:50 06:10 06:10 Potassium 3.4 L (3.5-5.1) mmol/L Carbon Dioxide 34 H (22-30) mmol/L BUN 38 H (9-20) mg/dL Creatinine 2.70 H (0.66-1.25) mg/dL Glucose 116 H (74-99) mg/dL POC Glucose (mg/dL) 158 H (70-110) mg/dL Calcium 8.2 L (8.4-10.2) mg/dL Phosphorus 5.2 H (2.5-4.5) mg/dL Iron (65-175) ug/dL % Saturation (15.00-50.00) Procalcitonin (0.02-0.09) ng/mL 03/10/22 03/10/22 Range/Units 07:06 08:07 Potassium (3.5-5.1) mmol/L Carbon Dioxide (22-30) mmol/L BUN (9-20) mg/dL Creatinine (0.66-1.25) mg/dL Glucose (74-99) mg/dL POC Glucose (mg/dL) 128 H 125 H (70-110) mg/dL Calcium (8.4-10.2) mg/dL Phosphorus (2.5-4.5) mg/dL Iron (65-175) ug/dL % Saturation (15.00-50.00) Procalcitonin (0.02-0.09) ng/mL Microbiology - Last 24 Hours (Table) 03/09/22 08:06 Urine Culture - Preliminary Urine,Clean Catch Assessment and Plan Assessment: Assessment #1 change in mental status/lethargy has not changed #2 known underlying dementia #3 acute exacerbation of heart failure with reduced ejection fraction #4 known severe cardiomyopathy with EF of 20% #5 paroxysmal atrial fibrillation #6 chronic kidney disease Plan #1 he was started yesterday on Lasix drip as well as Zaroxolyn mean by the nephrology service #2 continue monitor the kidney function as well as electrolytes #3 assess the need for pleurocentesis regarding the large right pleural effusion #4 follow-up with the patient
[2022-03-10 10:17] LABS: Glucose,Whole Blood 108 mg/dL (70-110)
[2022-03-10 10:39] LABS: Basophils # (A) 0.02 X 10*3/uL (0.00-0.10); Basophils % (A) 0.2 %; Eosinophils # (A) 0.04 X 10*3/uL (0.04-0.35); Eosinophils % (A) 0.4 %; HCT 30.1 % (39.6-50.0); HGB 8.8 g/dL (13.0-17.0); Immature Grans, Automated 0.6 %; Lymphocytes # (A) 0.37 X 10*3/uL (0.90-5.00); Lymphocytes % (A) 3.6 %; MCHC 29.2 g/dL (32.0-37.0); MCV 92.3 fL (80.0-97.0); Mean Platelet Volume 11.3 fL (9.5-12.2); Monocytes # (A) 0.79 X 10*3/uL (0.20-1.00); Monocytes % (A) 7.7 %; NRBC Per 100 WBC 0 /100 WBCS (0.0-0.0); Neutrophils # (A) 9.04 X 10*3/uL (1.80-7.70); Neutrophils % (A) 87.5 %; Platelet Count 202 X 10*3/uL (140-440); RBC 3.26 X 10*6/uL (4.40-5.60); RDW 21.2 % (11.5-14.5); WBC 10.32 X 10*3/uL (4.50-10.00)
--- NOTE | 2022-03-10 10:47 | P.PN ---
Subjective Patient is seen in follow-up for acute kidney injury and chronic kidney disease. Morning labs pending. Maintained on Lasix drip. Edema improved. Started on TPN yesterday. Oral intake is poor. present at bedside. Vital signs are stable. General: Resting in bed. HEENT: Head exam is unremarkable. LUNGS: Breath sounds decreased. HEART: Rate and Rhythm are regular. ABDOMEN: Soft, no distention. EXTREMITITES: 1+ edema. Objective - Vital Signs Vital signs: Vital Signs Temp 97.5 F L 03/10/22 08:00 Pulse 62 03/10/22 08:00 Resp 18 03/10/22 08:00 BP 117/63 03/10/22 08:00 Pulse Ox 100 03/10/22 08:00 FiO2 Intake & Output 03/09/22 03/10/22 03/10/22 18:59 06:59 18:59 Intake Total 91.167 100 Output Total 600 400 Balance -600 -308.833 100 Weight 77.111 kg Intake: Intake, IV Titration 91.167 100 Amount Furosemide 100 mg In 91.167 100 Sodium Chloride 0.9% 90 ml @ 10 MG/HR 10 mls/hr IV .Q10H [facility] Rx#: [id number] Output: Urine 600 400 Other: Voiding Method Indwelling Catheter Indwelling Catheter Indwelling Catheter - Labs CBC & Chem 7: 03/10/22 06:10 03/10/22 06:10 Labs: Abnormal Lab Results - Last 24 Hours (Table) 03/09/22 03/09/22 03/09/22 Range/Units 07:13 07:13 14:15 WBC (4.50-10.00) X 10*3/uL RBC (4.40-5.60) X 10*6/uL Hgb (13.0-17.0) g/dL Hct (39.6-50.0) % MCHC (32.0-37.0) g/dL RDW (11.5-14.5) % Immature Gran # (0.00-0.04) X 10*3/uL Neutrophils # (1.80-7.70) X 10*3/uL Lymphocytes # (0.90-5.00) X 10*3/uL Potassium (3.5-5.1) mmol/L Carbon Dioxide (22-30) mmol/L BUN (9-20) mg/dL Creatinine (0.66-1.25) mg/dL Glucose (74-99) mg/dL POC Glucose (mg/dL) 61 L (70-110) mg/dL Calcium (8.4-10.2) mg/dL Phosphorus (2.5-4.5) mg/dL Iron 263 H (65-175) ug/dL % Saturation 83.12 H (15.00-50.00) Procalcitonin 0.11 H (0.02-0.09) ng/mL 03/09/22 03/09/22 03/09/22 Range/Units 16:30 18:50 19:40 WBC (4.50-10.00) X 10*3/uL RBC (4.40-5.60) X 10*6/uL Hgb (13.0-17.0) g/dL Hct (39.6-50.0) % MCHC (32.0-37.0) g/dL RDW (11.5-14.5) % Immature Gran # (0.00-0.04) X 10*3/uL Neutrophils # (1.80-7.70) X 10*3/uL Lymphocytes # (0.90-5.00) X 10*3/uL Potassium (3.5-5.1) mmol/L Carbon Dioxide (22-30) mmol/L BUN (9-20) mg/dL Creatinine (0.66-1.25) mg/dL Glucose (74-99) mg/dL POC Glucose (mg/dL) 48 L 119 H (70-110) mg/dL Calcium (8.4-10.2) mg/dL Phosphorus 4.7 H (2.5-4.5) mg/dL Iron (65-175) ug/dL % Saturation (15.00-50.00) Procalcitonin (0.02-0.09) ng/mL 03/09/22 03/10/22 03/10/22 Range/Units 20:51 01:36 04:53 WBC (4.50-10.00) X 10*3/uL RBC (4.40-5.60) X 10*6/uL Hgb (13.0-17.0) g/dL Hct (39.6-50.0) % MCHC (32.0-37.0) g/dL RDW (11.5-14.5) % Immature Gran # (0.00-0.04) X 10*3/uL Neutrophils # (1.80-7.70) X 10*3/uL Lymphocytes # (0.90-5.00) X 10*3/uL Potassium (3.5-5.1) mmol/L Carbon Dioxide (22-30) mmol/L BUN (9-20) mg/dL Creatinine (0.66-1.25) mg/dL Glucose (74-99) mg/dL POC Glucose (mg/dL) 115 H 65 L 67 L (70-110) mg/dL Calcium (8.4-10.2) mg/dL Phosphorus (2.5-4.5) mg/dL Iron (65-175) ug/dL % Saturation (15.00-50.00) Procalcitonin (0.02-0.09) ng/mL 03/10/22 03/10/22 03/10/22 Range/Units 05:50 06:10 06:10 WBC (4.50-10.00) X 10*3/uL RBC (4.40-5.60) X 10*6/uL Hgb (13.0-17.0) g/dL Hct (39.6-50.0) % MCHC (32.0-37.0) g/dL RDW (11.5-14.5) % Immature Gran # (0.00-0.04) X 10*3/uL Neutrophils # (1.80-7.70) X 10*3/uL Lymphocytes # (0.90-5.00) X 10*3/uL Potassium 3.4 L (3.5-5.1) mmol/L Carbon Dioxide 34 H (22-30) mmol/L BUN 38 H (9-20) mg/dL Creatinine 2.70 H (0.66-1.25) mg/dL Glucose 116 H (74-99) mg/dL POC Glucose (mg/dL) 158 H (70-110) mg/dL Calcium 8.2 L (8.4-10.2) mg/dL Phosphorus 5.2 H (2.5-4.5) mg/dL Iron (65-175) ug/dL % Saturation (15.00-50.00) Procalcitonin (0.02-0.09) ng/mL 03/10/22 03/10/22 03/10/22 Range/Units 06:10 07:06 08:07 WBC 10.32 H (4.50-10.00) X 10*3/uL RBC 3.26 L (4.40-5.60) X 10*6/uL Hgb 8.8 L (13.0-17.0) g/dL Hct 30.1 L (39.6-50.0) % MCHC 29.2 L (32.0-37.0) g/dL RDW 21.2 H (11.5-14.5) % Immature Gran # 0.06 H (0.00-0.04) X 10*3/uL Neutrophils # 9.04 H (1.80-7.70) X 10*3/uL Lymphocytes # 0.37 L (0.90-5.00) X 10*3/uL Potassium (3.5-5.1) mmol/L Carbon Dioxide (22-30) mmol/L BUN (9-20) mg/dL Creatinine (0.66-1.25) mg/dL Glucose (74-99) mg/dL POC Glucose (mg/dL) 128 H 125 H (70-110) mg/dL Calcium (8.4-10.2) mg/dL Phosphorus (2.5-4.5) mg/dL Iron (65-175) ug/dL % Saturation (15.00-50.00) Procalcitonin (0.02-0.09) ng/mL Microbiology - Last 24 Hours (Table) 03/09/22 08:06 Urine Culture - Preliminary Urine,Clean Catch Assessment and Plan Plan: Assessment: 1. Acute kidney injury mostly prerenal secondary to cardiorenal syndrome. Creatinine 2.53 on admission and was up to 2.7 yesterday. Renal ultrasound from October 2021 showed atrophic kidneys without any evidence of hydronephrosis. 2. Chronic kidney disease stage IV with baseline creatinine in the range of 2.3-2.5 secondary to diabetic kidney disease and cardiorenal syndrome. Serologies have been negative in the past. 3. Volume overload. Improving with diuresis. 4. Acute on chronic systolic CHF with ejection fraction of 20-25% with moderate mitral regurgitation and pulmonary hypertension. 5. Diabetes mellitus with hypoglycemia maintained on D10 drip. 6. Anemia of chronic kidney disease. Iron replete. 7. Hypokalemia from diuresis. Plan: Maintain Lasix drip at 10 mL an hour. Not getting metolazone as not taking oral meds. Low-sodium diet. 1500 mL fluid restriction. Maintain Jenkins catheter. Add Aranesp. Avoid nephrotoxins. Continue to monitor renal function and urine output. Also receiving TPN. Replace potassium.
[2022-03-10 11:02] LABS: Glucose,Whole Blood 112 mg/dL (70-110)
[2022-03-10] MEDS ORDERED: DARBEPOETIN ALFA 40 MCG/0.4 ML SYRINGE SQ SCH (11:30)
[2022-03-10 12:07] LABS: Glucose,Whole Blood 96 mg/dL (70-110)
[2022-03-10] MEDS: POTASSIUM CHLORIDE 20 MEQ in WATER FOR INJECTION 1 100ML.BAG IVPB SCH (12:14)
[2022-03-10 13:00] LABS: Glucose,Whole Blood 102 mg/dL (70-110)
[2022-03-10 14:08] LABS: Glucose,Whole Blood 107 mg/dL (70-110)
[2022-03-10 16:02] LABS: Glucose,Whole Blood 116 mg/dL (70-110)
[2022-03-10] MEDS: 1: MVI, ADULT NO.4 WITH VIT K 10 ML, TRACE (CONC-1ML/DOSE) 1 ML, SODIUM CHLORIDE 4MEQ/ML IV SCH ×6 (18:12)
--- NOTE | 2022-03-10 19:27 | P.PN ---
Subjective Progress Note Date: 03/10/22 71 years old male with past medical history of Atrial Fibrillation, on liquids CVA/TIA, Diabetes Mellitus, Hyperlipidemia, Hypertension, Osteoarthritis ,CRD stage III, R eye retinal detachment , status post AICD. He is patient of Dr. Padron and admissions manager Dr. cotto Patient was recently discharged from the hospital about one month ago for acute CHF. He was placed on palliative care for his advanced CHF and chronic kidney disease. Presents because of increased swelling and breathing difficulty of 1-2 days duration with no chest pain or coughing. 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 His bedbound at baseline with at bedside currently. Labs show normal WBC at 6.2, hemoglobin 9.6, rest of CBC, INR, BMP is reviewed and unremarkable except his creatinine is elevated at 2.5 with baseline 2.2-2.7, glucose was low at 48 EKG showed sinus bradycardia at [address]-T changes Chest x-ray: Persistent right lower lobe opacity which may reflect atelectasis, effusion and/or infiltrate. By the radiologist. I reviewed them as well as by myself and patient has significant right lower lobe opacities suspicious for significant pleural effusion versus consolidation, which looks somewhat worse than last this x-ray in about one month ago. [place] elevated 61930, which is the same last month Echocardiogram from 10/2021 showed ejection fraction 20-25% with wall hypokinesia and moderate mitral regurgitation On admission patient was scheduled for Eliquis and given IV Lasix with card iologist consulted Objective - Vital Signs Vital signs: Vital Signs Temp 97.5 F L 03/10/22 08:00 Pulse 62 03/10/22 08:00 Resp 18 03/10/22 08:00 BP 109/52 03/10/22 14:00 Pulse Ox 100 03/10/22 08:00 FiO2 Intake & Output 03/09/22 03/10/22 03/10/22 18:59 06:59 18:59 Intake Total 91.167 100 Output Total 600 400 Balance -600 -308.833 100 Weight 77.111 kg 77.111 kg Intake: Intake, IV Titration 91.167 100 Amount Furosemide 100 mg In 91.167 100 Sodium Chloride 0.9% 90 ml @ 10 MG/HR 10 mls/hr IV .Q10H [facility] Rx#: [id number] Output: Urine 600 400 Other: Voiding Method Indwelling Catheter Indwelling Catheter Indwelling Catheter - Exam -GENERAL: The patient is awake and confused, not in any acute distress. Well developed, well perfused -HEENT: Pupils are round and equally reacting to light. EOMI. No scleral icterus. No conjunctival pallor. Normocephalic, atraumatic. No pharyngeal erythema. No thyromegaly. CARDIOVASCULAR: S1 and S2 present. No murmurs, rubs, or gallops. Right eye conjunctivitis and surrounding cellulitis significantly improved -PULMONARY: Chest is clear to auscultation, no wheezing.. Mild bilateral basal crepitation -ABDOMEN: Soft, nontender, nondistended, normoactive bowel sounds. No palpable organomegaly. Jenkins catheter in place with clear yellow urine MUSCULOSKELETAL: No joint swelling or deformity. -EXTREMITIES: No cyanosis, clubbing,. Bilateral patellar getting NEUROLOGICAL: Gross neurological examination did not reveal any focal deficits. SKIN: No rashes. no petechiae. - Labs CBC & Chem 7: 03/10/22 06:10 03/10/22 06:10 Labs: Abnormal Lab Results - Last 24 Hours (Table) 03/09/22 03/09/22 03/09/22 Range/Units 07:13 16:30 18:50 WBC (4.50-10.00) X 10*3/uL RBC (4.40-5.60) X 10*6/uL Hgb (13.0-17.0) g/dL Hct (39.6-50.0) % MCHC (32.0-37.0) g/dL RDW (11.5-14.5) % Immature Gran # (0.00-0.04) X 10*3/uL Neutrophils # (1.80-7.70) X 10*3/uL Lymphocytes # (0.90-5.00) X 10*3/uL Potassium (3.5-5.1) mmol/L Carbon Dioxide (22-30) mmol/L BUN (9-20) mg/dL Creatinine (0.66-1.25) mg/dL Glucose (74-99) mg/dL POC Glucose (mg/dL) 48 L (70-110) mg/dL Calcium (8.4-10.2) mg/dL Phosphorus 4.7 H (2.5-4.5) mg/dL Iron 263 H (65-175) ug/dL % Saturation 83.12 H (15.00-50.00) 03/09/22 03/09/22 03/10/22 Range/Units 19:40 20:51 01:36 WBC (4.50-10.00) X 10*3/uL RBC (4.40-5.60) X 10*6/uL Hgb (13.0-17.0) g/dL Hct (39.6-50.0) % MCHC (32.0-37.0) g/dL RDW (11.5-14.5) % Immature Gran # (0.00-0.04) X 10*3/uL Neutrophils # (1.80-7.70) X 10*3/uL Lymphocytes # (0.90-5.00) X 10*3/uL Potassium (3.5-5.1) mmol/L Carbon Dioxide (22-30) mmol/L BUN (9-20) mg/dL Creatinine (0.66-1.25) mg/dL Glucose (74-99) mg/dL POC Glucose (mg/dL) 119 H 115 H 65 L (70-110) mg/dL Calcium (8.4-10.2) mg/dL Phosphorus (2.5-4.5) mg/dL Iron (65-175) ug/dL % Saturation (15.00-50.00) 03/10/22 03/10/22 03/10/22 Range/Units 04:53 05:50 06:10 WBC (4.50-10.00) X 10*3/uL RBC (4.40-5.60) X 10*6/uL Hgb (13.0-17.0) g/dL Hct (39.6-50.0) % MCHC (32.0-37.0) g/dL RDW (11.5-14.5) % Immature Gran # (0.00-0.04) X 10*3/uL Neutrophils # (1.80-7.70) X 10*3/uL Lymphocytes # (0.90-5.00) X 10*3/uL Potassium 3.4 L (3.5-5.1) mmol/L Carbon Dioxide 34 H (22-30) mmol/L BUN 38 H (9-20) mg/dL Creatinine 2.70 H (0.66-1.25) mg/dL Glucose 116 H (74-99) mg/dL POC Glucose (mg/dL) 67 L 158 H (70-110) mg/dL Calcium 8.2 L (8.4-10.2) mg/dL Phosphorus (2.5-4.5) mg/dL Iron (65-175) ug/dL % Saturation (15.00-50.00) 03/10/22 03/10/22 03/10/22 Range/Units 06:10 06:10 07:06 WBC 10.32 H (4.50-10.00) X 10*3/uL RBC 3.26 L (4.40-5.60) X 10*6/uL Hgb 8.8 L (13.0-17.0) g/dL Hct 30.1 L (39.6-50.0) % MCHC 29.2 L (32.0-37.0) g/dL RDW 21.2 H (11.5-14.5) % Immature Gran # 0.06 H (0.00-0.04) X 10*3/uL Neutrophils # 9.04 H (1.80-7.70) X 10*3/uL Lymphocytes # 0.37 L (0.90-5.00) X 10*3/uL Potassium (3.5-5.1) mmol/L Carbon Dioxide (22-30) mmol/L BUN (9-20) mg/dL Creatinine (0.66-1.25) mg/dL Glucose (74-99) mg/dL POC Glucose (mg/dL) 128 H (70-110) mg/dL Calcium (8.4-10.2) mg/dL Phosphorus 5.2 H (2.5-4.5) mg/dL Iron (65-175) ug/dL % Saturation (15.00-50.00) 03/10/22 03/10/22 03/10/22 Range/Units 08:07 11:01 16:01 WBC (4.50-10.00) X 10*3/uL RBC (4.40-5.60) X 10*6/uL Hgb (13.0-17.0) g/dL Hct (39.6-50.0) % MCHC (32.0-37.0) g/dL RDW (11.5-14.5) % Immature Gran # (0.00-0.04) X 10*3/uL Neutrophils # (1.80-7.70) X 10*3/uL Lymphocytes # (0.90-5.00) X 10*3/uL Potassium (3.5-5.1) mmol/L Carbon Dioxide (22-30) mmol/L BUN (9-20) mg/dL Creatinine (0.66-1.25) mg/dL Glucose (74-99) mg/dL POC Glucose (mg/dL) 125 H 112 H 116 H (70-110) mg/dL Calcium (8.4-10.2) mg/dL Phosphorus (2.5-4.5) mg/dL Iron (65-175) ug/dL % Saturation (15.00-50.00) Microbiology - Last 24 Hours (Table) 03/09/22 08:06 Urine Culture - Preliminary Urine,Clean Catch Assessment and Plan Assessment: Acute on chronic CHF with persistent right lower lobe consolidation suspicious for effusion versus fluid overload, atelectasis, pneumonia. Less likely with no fever or leukocytosis right eye conjunctivitis and orbital cellulitis Altered mental status, most likely metabolic/toxic encephalopathy. Ruled out intracranial lesion Diabetes mellitus with hypoglycemia, present on admission. 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 Continue same treatment. Continue with symptomatic treatment. Resume home medication. Monitor lytes and vitals. DVT and GI prophylaxis. Further recommendations as per clinical course of the patient DVT prophylaxis: Eliquis 2.5 mg, home dose GI Prophylaxis: Pepcid PT/OT: Deferred Prognosis is guarded given his complex and multiple medical problems
[2022-03-10 19:39] LABS: Glucose,Whole Blood 133 mg/dL (70-110)
[2022-03-10] MEDS: ATORVASTATIN 20 MG TAB PO SCH (20:31)
[2022-03-10] MEDS: MELATONIN 3 MG TABLET PO PRN (21:28)
[2022-03-10 21:41] LABS: Glucose,Whole Blood 110 mg/dL (70-110)
[2022-03-10] MEDS ORDERED: 1: MVI, ADULT NO.4 WITH VIT K 10 ML, TRACE (CONC-1ML/DOSE) 1 ML, SODIUM CHLORIDE 4MEQ/ML IV SCH ×7 (23:00)
[2022-03-10 23:25] LABS: Glucose,Whole Blood 141 mg/dL (70-110)
[2022-03-11] MEDS: CIPROFLOXACIN 0.3% OPHTH SOLN 5 ML BTL RIGHT EYE SCH ×6 (00:23→21:04)
[2022-03-11] MEDS: HYDROcodone/APAP 5-325MG 1 EACH TAB PO PRN (00:26)
[2022-03-11] MEDS: FUROSEMIDE 100 MG in SODIUM CHLORIDE 0.9% 90 ML IV SCH ×3 (00:49→18:32)
[2022-03-11 01:26] LABS: Glucose,Whole Blood 139 mg/dL (70-110)
[2022-03-11 03:40] LABS: Glucose,Whole Blood 151 mg/dL (70-110)
[2022-03-11] MEDS: MORPHINE SULFATE 4 MG/ML SYRINGE IVP PRN ×2 (04:11→16:59)
[2022-03-11] MEDS: DEXTROSE 10% IN WATER 500 ML in EMPTY BAG 1 BAG IV SCH ×2 (04:41→13:15)
[2022-03-11 05:33] LABS: Glucose,Whole Blood 164 mg/dL (70-110)
[2022-03-11 07:17] LABS: Glucose,Whole Blood 174 mg/dL (70-110)
--- NOTE | 2022-03-11 08:16 | P.PN ---
Subjective HISTORY OF PRESENTING ILLNESS Heart failure with reduced ejection fraction The patient is a 71-year-old gentleman with coronary artery disease and ischemic cardiomyopathy as well as chronic kidney disease as well as underlying dementia who was admitted to the hospital with a change in mental status and we consulted to see the patient mainly for acute exacerbation of heart failure. The patient was seen this morning. He was seen with his who was bedside. Unfortunately he continues to be confused and lethargic. A chest x-ray was performed yesterday and showed large right pleural effusion and small left pleural effusion. On examination he continues to have bilateral lower extremities pitting edema seems to be unchanged compared to before. He was seen yesterday by the nephrology service and he was started on Lasix drip and beside that metolazone was added to his medication. Hemodynamically he is stable. The creatinine this morning continues to be stable as well. He does have chronic kidney disease with a baseline creatinine of 2.0. The creatinine this morning is 2.7. No symptoms of chest pain or chest discomfort. 03/11 Patient seen and examined. Patient confused and Unclear if accurate intake however appears to have minus proximally 2 L urine output. Denies any chest pain or pressure however is complaining of pain in his penis appears to be related to his Jenkins catheter. He has been nothing by mouth for swallow evaluation over previously refused swallow eval. Creatinine still pending from today. Appears confused and yelling for "Isabel". Previously attempted TPN however he pulled PICC line out. PHYSICAL EXAMINATION Vital signs reviewed. CONSTITUTIONAL: No apparent distress, confused HEENT: Head is normocephalic. Pupils are equal, round. Sclerae anicteric. Mucous membranes of the mouth are moist. No JVD. No carotid bruit. CHEST EXAMINATION: Lungs are clear to auscultation. No chest wall tenderness is noted on palpation or with deep breathing. HEART EXAMINATION: Regular rate and rhythm. S1, S2 heard. No murmurs, gallops or rub. ABDOMEN: Soft, nontender. Positive bowel sounds. EXTREMITIES: 2+ peripheral pulses, 2+ lower extremity edema and no calf tenderness. NEUROLOGIC EXAMINATION: Patient is awake, alert and oriented x3. Assessment #1 change in mental status/lethargy has not changed #2 known underlying dementia #3 acute exacerbation of heart failure with reduced ejection fraction #4 known severe cardiomyopathy with EF of 20% #5 paroxysmal atrial fibrillation #6 chronic kidney disease Plan Continue with current medications with carvedilol, hydralazine for heart failure in addition to Lasix drip currently at 10 with addition of Zaroxolyn 5 mg daily. Still does have some increased lower extremity edema however has not been eating or drinking much. Continue to monitor creatinine. Prognosis guarded. Objective - Vital Signs Vital signs: Vital Signs Temp 97.6 F 03/11/22 01:29 Pulse 60 03/11/22 01:29 Resp 14 03/11/22 01:29 BP 107/56 03/11/22 01:29 Pulse Ox 96 03/11/22 01:29 FiO2 Intake & Output 03/10/22 03/11/22 03/11/22 18:59 06:59 18:59 Intake Total 182.833 78 Output Total 1000 Balance -817.167 78 Weight 77.111 kg Intake: Intake, IV Titration 182.833 78 Amount Furosemide 100 mg In 182.833 78 Sodium Chloride 0.9% 90 ml @ 10 MG/HR 10 mls/hr IV .Q10H [facility] Rx#: [id number] Output: Urine 1000 Other: Voiding Method Indwelling Catheter - Labs CBC & Chem 7: 03/10/22 06:10 03/10/22 06:10 Labs: Abnormal Lab Results - Last 24 Hours (Table) 03/10/22 03/10/22 03/10/22 Range/Units 06:10 11:01 16:01 WBC 10.32 H (4.50-10.00) X 10*3/uL RBC 3.26 L (4.40-5.60) X 10*6/uL Hgb 8.8 L (13.0-17.0) g/dL Hct 30.1 L (39.6-50.0) % MCHC 29.2 L (32.0-37.0) g/dL RDW 21.2 H (11.5-14.5) % Immature Gran # 0.06 H (0.00-0.04) X 10*3/uL Neutrophils # 9.04 H (1.80-7.70) X 10*3/uL Lymphocytes # 0.37 L (0.90-5.00) X 10*3/uL POC Glucose (mg/dL) 112 H 116 H (70-110) mg/dL 03/10/22 03/10/22 03/11/22 Range/Units 19:37 23:24 01:24 WBC (4.50-10.00) X 10*3/uL RBC (4.40-5.60) X 10*6/uL Hgb (13.0-17.0) g/dL Hct (39.6-50.0) % MCHC (32.0-37.0) g/dL RDW (11.5-14.5) % Immature Gran # (0.00-0.04) X 10*3/uL Neutrophils # (1.80-7.70) X 10*3/uL Lymphocytes # (0.90-5.00) X 10*3/uL POC Glucose (mg/dL) 133 H 141 H 139 H (70-110) mg/dL 03/11/22 03/11/22 03/11/22 Range/Units 03:38 05:31 07:15 WBC (4.50-10.00) X 10*3/uL RBC (4.40-5.60) X 10*6/uL Hgb (13.0-17.0) g/dL Hct (39.6-50.0) % MCHC (32.0-37.0) g/dL RDW (11.5-14.5) % Immature Gran # (0.00-0.04) X 10*3/uL Neutrophils # (1.80-7.70) X 10*3/uL Lymphocytes # (0.90-5.00) X 10*3/uL POC Glucose (mg/dL) 151 H 164 H 174 H (70-110) mg/dL Microbiology - Last 24 Hours (Table) 03/09/22 08:06 Urine Culture - Final Urine,Clean Catch
[2022-03-11 08:41] LABS: Basophils # (A) 0.01 X 10*3/uL (0.00-0.10); Basophils % (A) 0.1 %; Eosinophils # (A) 0.04 X 10*3/uL (0.04-0.35); Eosinophils % (A) 0.4 %; HGB 9.1 g/dL (13.0-17.0); Immature Grans, Automated 0.3 %; Lymphocytes # (A) 0.52 X 10*3/uL (0.90-5.00); Lymphocytes % (A) 5.3 %; MCHC 29.4 g/dL (32.0-37.0); Mean Platelet Volume 10.5 fL (9.5-12.2); Monocytes # (A) 0.73 X 10*3/uL (0.20-1.00); Monocytes % (A) 7.4 %; NRBC Per 100 WBC 0 /100 WBCS (0.0-0.0); Neutrophils # (A) 8.52 X 10*3/uL (1.80-7.70); Neutrophils % (A) 86.5 %; Platelet Count 190 X 10*3/uL (140-440); RBC 3.37 X 10*6/uL (4.40-5.60); WBC 9.85 X 10*3/uL (4.50-10.00)
[2022-03-11 09:30] LABS: African American GFR (CKD) 23.1 (60.0-200.0); Anion Gap 11.3 mmol/L (10.00-18.00); BUN/Creat Ratio 11.58 Ratio (12.00-20.00); Blood Urea Nitrogen 35.2 mg/dL (9.0-27.0); Calcium 8.5 mg/dL (8.7-10.3); Carbon Dioxide 29.6 mmol/L (20.0-27.5); Magnesium 2.1 mg/dL (1.5-2.4); Non-African American GFR(CKD) 19.9 (60.0-200.0); Phosphorus 5.5 mg/dL (2.4-5.1); Potassium 3.5 mmol/L (3.5-5.5)
[2022-03-11 09:34] LABS: Glucose,Whole Blood 170 mg/dL (70-110)
[2022-03-11] MEDS ORDERED: POTASSIUM CHLORIDE ER 20 MEQ TAB.ER PO STA (09:43)
--- NOTE | 2022-03-11 09:46 | P.PN ---
Subjective Patient is seen in follow-up for acute kidney injury and chronic kidney disease. Creatinine 3.0 today. Maintained on Lasix drip. Edema improved. Started on TPN yesterday. Oral intake is poor. present at bedside. Vital signs are stable. General: Resting in bed. HEENT: Head exam is unremarkable. LUNGS: Breath sounds decreased. HEART: Rate and Rhythm are regular. ABDOMEN: Soft, no distention. EXTREMITITES: 1+ edema. Objective - Vital Signs Vital signs: Vital Signs Temp 97.4 F L 03/11/22 08:00 Pulse 59 L 03/11/22 08:00 Resp 18 03/11/22 08:00 BP 126/62 03/11/22 08:00 Pulse Ox 96 03/11/22 08:48 FiO2 Intake & Output 03/10/22 03/11/22 03/11/22 18:59 06:59 18:59 Intake Total 182.833 78 Output Total 1000 Balance -817.167 78 Weight 77.111 kg Intake: Intake, IV Titration 182.833 78 Amount Furosemide 100 mg In 182.833 78 Sodium Chloride 0.9% 90 ml @ 10 MG/HR 10 mls/hr IV .Q10H [facility] Rx#: [id number] Output: Urine 1000 Other: Voiding Method Indwelling Catheter - Labs CBC & Chem 7: 03/11/22 05:47 03/11/22 05:47 Labs: Abnormal Lab Results - Last 24 Hours (Table) 03/10/22 03/10/22 03/10/22 Range/Units 06:10 11:01 16:01 WBC 10.32 H (4.50-10.00) X 10*3/uL RBC 3.26 L (4.40-5.60) X 10*6/uL Hgb 8.8 L (13.0-17.0) g/dL Hct 30.1 L (39.6-50.0) % MCHC 29.2 L (32.0-37.0) g/dL RDW 21.2 H (11.5-14.5) % Immature Gran # 0.06 H (0.00-0.04) X 10*3/uL Neutrophils # 9.04 H (1.80-7.70) X 10*3/uL Lymphocytes # 0.37 L (0.90-5.00) X 10*3/uL Carbon Dioxide (20.0-27.5) mmol/L BUN (9.0-27.0) mg/dL Creatinine (0.6-1.5) mg/dL Est GFR (CKD-EPI)AfAm (60.0-200.0) Est GFR (CKD-EPI)NonAf (60.0-200.0) BUN/Creatinine Ratio (12.00-20.00) Ratio Glucose (70-110) mg/dL POC Glucose (mg/dL) 112 H 116 H (70-110) mg/dL Calcium (8.7-10.3) mg/dL Phosphorus (2.4-5.1) mg/dL 03/10/22 03/10/22 03/11/22 Range/Units 19:37 23:24 01:24 WBC (4.50-10.00) X 10*3/uL RBC (4.40-5.60) X 10*6/uL Hgb (13.0-17.0) g/dL Hct (39.6-50.0) % MCHC (32.0-37.0) g/dL RDW (11.5-14.5) % Immature Gran # (0.00-0.04) X 10*3/uL Neutrophils # (1.80-7.70) X 10*3/uL Lymphocytes # (0.90-5.00) X 10*3/uL Carbon Dioxide (20.0-27.5) mmol/L BUN (9.0-27.0) mg/dL Creatinine (0.6-1.5) mg/dL Est GFR (CKD-EPI)AfAm (60.0-200.0) Est GFR (CKD-EPI)NonAf (60.0-200.0) BUN/Creatinine Ratio (12.00-20.00) Ratio Glucose (70-110) mg/dL POC Glucose (mg/dL) 133 H 141 H 139 H (70-110) mg/dL Calcium (8.7-10.3) mg/dL Phosphorus (2.4-5.1) mg/dL 03/11/22 03/11/22 03/11/22 Range/Units 03:38 05:31 05:47 WBC (4.50-10.00) X 10*3/uL RBC (4.40-5.60) X 10*6/uL Hgb (13.0-17.0) g/dL Hct (39.6-50.0) % MCHC (32.0-37.0) g/dL RDW (11.5-14.5) % Immature Gran # (0.00-0.04) X 10*3/uL Neutrophils # (1.80-7.70) X 10*3/uL Lymphocytes # (0.90-5.00) X 10*3/uL Carbon Dioxide 29.6 H (20.0-27.5) mmol/L BUN 35.2 H (9.0-27.0) mg/dL Creatinine 3.0 H (0.6-1.5) mg/dL Est GFR (CKD-EPI)AfAm 23.1 L (60.0-200.0) Est GFR (CKD-EPI)NonAf 19.9 L (60.0-200.0) BUN/Creatinine Ratio 11.58 L (12.00-20.00) Ratio Glucose 144 H (70-110) mg/dL POC Glucose (mg/dL) 151 H 164 H (70-110) mg/dL Calcium 8.5 L (8.7-10.3) mg/dL Phosphorus 5.5 H (2.4-5.1) mg/dL 03/11/22 03/11/22 03/11/22 Range/Units 05:47 07:15 09:32 WBC (4.50-10.00) X 10*3/uL RBC 3.37 L (4.40-5.60) X 10*6/uL Hgb 9.1 L (13.0-17.0) g/dL Hct 31.0 L (39.6-50.0) % MCHC 29.4 L (32.0-37.0) g/dL RDW 21.0 H (11.5-14.5) % Immature Gran # (0.00-0.04) X 10*3/uL Neutrophils # 8.52 H (1.80-7.70) X 10*3/uL Lymphocytes # 0.52 L (0.90-5.00) X 10*3/uL Carbon Dioxide (20.0-27.5) mmol/L BUN (9.0-27.0) mg/dL Creatinine (0.6-1.5) mg/dL Est GFR (CKD-EPI)AfAm (60.0-200.0) Est GFR (CKD-EPI)NonAf (60.0-200.0) BUN/Creatinine Ratio (12.00-20.00) Ratio Glucose (70-110) mg/dL POC Glucose (mg/dL) 174 H 170 H (70-110) mg/dL Calcium (8.7-10.3) mg/dL Phosphorus (2.4-5.1) mg/dL Microbiology - Last 24 Hours (Table) 03/09/22 08:06 Urine Culture - Final Urine,Clean Catch Assessment and Plan Plan: Assessment: 1. Acute kidney injury mostly prerenal secondary to cardiorenal syndrome. Creatinine 2.53 on admission and was up to 3 today. Renal ultrasound from October 2021 showed atrophic kidneys without any evidence of hydronephrosis. 2. Chronic kidney disease stage IV with baseline creatinine in the range of 2.3-2.5 secondary to diabetic kidney disease and cardiorenal syndrome. Serologies have been negative in the past. 3. Volume overload. Improving with diuresis. 4. Acute on chronic systolic CHF with ejection fraction of 20-25% with moderate mitral regurgitation and pulmonary hypertension. 5. Diabetes mellitus with hypoglycemia maintained on D10 drip. 6. Anemia of chronic kidney disease. Iron replete. On Aranesp. 7. Hypokalemia from diuresis. Replaced. Plan: Increase Lasix drip to 15 mL an hour. Maintain metolazone. Low-sodium diet. 1500 mL fluid restriction. Maintain Jenkins catheter. Avoid nephrotoxins. Continue to monitor renal function and urine output. Also receiving TPN. Replace potassium.
[2022-03-11 11:27] LABS: Glucose,Whole Blood 170 mg/dL (70-110)
[2022-03-11] MEDS ORDERED: LORazepam 1 MG/0.5 ML VIAL IV PRN ×2 (11:35→16:00)
[2022-03-11] MEDS: carvediloL 12.5 MG TAB PO SCH ×2 (11:50→19:02)
[2022-03-11] MEDS: FAMOTIDINE 20 MG/2 ML VIAL IV SCH ×2 (11:56→21:10)
[2022-03-11] MEDS: AMOXIC-POT CLAV 500-125 MG 1 EACH TAB PO SCH ×2 (12:14→21:04)
[2022-03-11] MEDS: metOLazone 5 MG TAB PO SCH (12:33)
[2022-03-11] MEDS: hydrALAZINE HCL 50 MG TAB PO SCH (12:33)
[2022-03-11 13:43] LABS: Glucose,Whole Blood 175 mg/dL (70-110)
[2022-03-11] MEDS: APIXABAN 2.5 MG TABLET PO SCH ×2 (14:16→21:04)
[2022-03-11 15:42] LABS: Glucose,Whole Blood 179 mg/dL (70-110)
--- NOTE | 2022-03-11 17:39 | P.PN ---
Subjective Progress Note Date: 03/11/22 71 years old male with past medical history of Atrial Fibrillation, on liquids CVA/TIA, Diabetes Mellitus, Hyperlipidemia, Hypertension, Osteoarthritis ,CRD stage III, R eye retinal detachment , status post AICD. He is patient of Dr. Padron and continuum of care manager Dr. cotto Patient was recently discharged from the hospital about one month ago for acute CHF. He was placed on palliative care for his advanced CHF and chronic kidney disease. Presents because of increased swelling and breathing difficulty of 1-2 days duration with no chest pain or coughing. 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 His bedbound at baseline with at bedside currently. Labs show normal WBC at 6.2, hemoglobin 9.6, rest of CBC, INR, BMP is reviewed and unremarkable except his creatinine is elevated at 2.5 with baseline 2.2-2.7, glucose was low at 48 EKG showed sinus bradycardia at [address]-T changes Chest x-ray: Persistent right lower lobe opacity which may reflect atelectasis, effusion and/or infiltrate. By the radiologist. I reviewed them as well as by myself and patient has significant right lower lobe opacities suspicious for significant pleural effusion versus consolidation, which looks somewhat worse than last this x-ray in about one month ago. ProBNP is elevated 64725, which is the same last month Echocardiogram from 10/2021 showed ejection fraction 20-25% with wall hypokinesia and moderate mitral regurgitation On admission patient was scheduled for Eliquis and given IV Lasix with card iologist consulted 03/11/2022 Patient is seen and evaluated with at bedside; discussed in great detail with nursing staff in the room - Patient has been refusing all care and occasionally pulling out IVs and oxygen and constantly telling nursing staff to leave him alone - This was discussed in great detail with patient's and she is agreeable to proceed with comfort care and consulting hospice Objective - Vital Signs Vital signs: Vital Signs Temp 97.4 F L 03/11/22 08:00 Pulse 59 L 03/11/22 08:00 Resp 18 03/11/22 08:00 BP 126/62 03/11/22 08:00 Pulse Ox 93 L 03/11/22 10:21 FiO2 Intake & Output 03/10/22 03/11/22 03/11/22 18:59 06:59 18:59 Intake Total 182.833 78 93.667 Output Total 1000 Balance -817.167 78 93.667 Weight 77.111 kg Intake: Intake, IV Titration 182.833 78 93.667 Amount Furosemide 100 mg In 182.833 78 93.667 Sodium Chloride 0.9% 90 ml @ 10 MG/HR 10 mls/hr IV .Q10H [facility] Rx#: [id number] Output: Urine 1000 Other: Voiding Method Indwelling Catheter - Exam -GENERAL: The patient is awake and confused, not in any acute distress. Well developed, well perfused -HEENT: Pupils are round and equally reacting to light. EOMI. No scleral icterus. No conjunctival pallor. Normocephalic, atraumatic. No pharyngeal erythema. No thyromegaly. CARDIOVASCULAR: S1 and S2 present. No murmurs, rubs, or gallops. Right eye conjunctivitis and surrounding cellulitis significantly improved -PULMONARY: Chest is clear to auscultation, no wheezing.. Mild bilateral basal crepitation -ABDOMEN: Soft, nontender, nondistended, normoactive bowel sounds. No palpable organomegaly. Jenkins catheter in place with clear yellow urine MUSCULOSKELETAL: No joint swelling or deformity. -EXTREMITIES: No cyanosis, clubbing,. Bilateral patellar getting NEUROLOGICAL: Gross neurological examination did not reveal any focal deficits. SKIN: No rashes. no petechiae. - Labs CBC & Chem 7: 03/11/22 05:47 03/11/22 05:47 Labs: Abnormal Lab Results - Last 24 Hours (Table) 03/10/22 03/10/22 03/10/22 Range/Units 16:01 19:37 23:24 RBC (4.40-5.60) X 10*6/uL Hgb (13.0-17.0) g/dL Hct (39.6-50.0) % MCHC (32.0-37.0) g/dL RDW (11.5-14.5) % Neutrophils # (1.80-7.70) X 10*3/uL Lymphocytes # (0.90-5.00) X 10*3/uL Carbon Dioxide (20.0-27.5) mmol/L BUN (9.0-27.0) mg/dL Creatinine (0.6-1.5) mg/dL Est GFR (CKD-EPI)AfAm (60.0-200.0) Est GFR (CKD-EPI)NonAf (60.0-200.0) BUN/Creatinine Ratio (12.00-20.00) Ratio Glucose (70-110) mg/dL POC Glucose (mg/dL) 116 H 133 H 141 H (70-110) mg/dL Calcium (8.7-10.3) mg/dL Phosphorus (2.4-5.1) mg/dL 03/11/22 03/11/22 03/11/22 Range/Units 01:24 03:38 05:31 RBC (4.40-5.60) X 10*6/uL Hgb (13.0-17.0) g/dL Hct (39.6-50.0) % MCHC (32.0-37.0) g/dL RDW (11.5-14.5) % Neutrophils # (1.80-7.70) X 10*3/uL Lymphocytes # (0.90-5.00) X 10*3/uL Carbon Dioxide (20.0-27.5) mmol/L BUN (9.0-27.0) mg/dL Creatinine (0.6-1.5) mg/dL Est GFR (CKD-EPI)AfAm (60.0-200.0) Est GFR (CKD-EPI)NonAf (60.0-200.0) BUN/Creatinine Ratio (12.00-20.00) Ratio Glucose (70-110) mg/dL POC Glucose (mg/dL) 139 H 151 H 164 H (70-110) mg/dL Calcium (8.7-10.3) mg/dL Phosphorus (2.4-5.1) mg/dL 03/11/22 03/11/22 03/11/22 Range/Units 05:47 05:47 07:15 RBC 3.37 L (4.40-5.60) X 10*6/uL Hgb 9.1 L (13.0-17.0) g/dL Hct 31.0 L (39.6-50.0) % MCHC 29.4 L (32.0-37.0) g/dL RDW 21.0 H (11.5-14.5) % Neutrophils # 8.52 H (1.80-7.70) X 10*3/uL Lymphocytes # 0.52 L (0.90-5.00) X 10*3/uL Carbon Dioxide 29.6 H (20.0-27.5) mmol/L BUN 35.2 H (9.0-27.0) mg/dL Creatinine 3.0 H (0.6-1.5) mg/dL Est GFR (CKD-EPI)AfAm 23.1 L (60.0-200.0) Est GFR (CKD-EPI)NonAf 19.9 L (60.0-200.0) BUN/Creatinine Ratio 11.58 L (12.00-20.00) Ratio Glucose 144 H (70-110) mg/dL POC Glucose (mg/dL) 174 H (70-110) mg/dL Calcium 8.5 L (8.7-10.3) mg/dL Phosphorus 5.5 H (2.4-5.1) mg/dL 03/11/22 03/11/22 Range/Units 09:32 11:26 RBC (4.40-5.60) X 10*6/uL Hgb (13.0-17.0) g/dL Hct (39.6-50.0) % MCHC (32.0-37.0) g/dL RDW (11.5-14.5) % Neutrophils # (1.80-7.70) X 10*3/uL Lymphocytes # (0.90-5.00) X 10*3/uL Carbon Dioxide (20.0-27.5) mmol/L BUN (9.0-27.0) mg/dL Creatinine (0.6-1.5) mg/dL Est GFR (CKD-EPI)AfAm (60.0-200.0) Est GFR (CKD-EPI)NonAf (60.0-200.0) BUN/Creatinine Ratio (12.00-20.00) Ratio Glucose (70-110) mg/dL POC Glucose (mg/dL) 170 H 170 H (70-110) mg/dL Calcium (8.7-10.3) mg/dL Phosphorus (2.4-5.1) mg/dL Microbiology - Last 24 Hours (Table) 03/09/22 08:06 Urine Culture - Final Urine,Clean Catch Assessment and Plan Assessment: Acute on chronic CHF with persistent right lower lobe consolidation suspicious for effusion versus fluid overload, atelectasis, pneumonia. Less likely with no fever or leukocytosis right eye conjunctivitis and orbital cellulitis Altered mental status, most likely metabolic/toxic encephalopathy. Ruled out intracranial lesion Diabetes mellitus with hypoglycemia, present on admission. 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 Continue same treatment. Continue with symptomatic treatment. Resume home medication. Monitor lytes and vitals. DVT and GI prophylaxis. Further recommendations as per clinical course of the patient DVT prophylaxis: Eliquis 2.5 mg, home dose GI Prophylaxis: Pepcid PT/OT: Deferred Prognosis is guarded given his complex and multiple medical problems
[2022-03-11] MEDS ORDERED: ATROPINE OPHTH SOLN 1% 5ML BTL SUBLINGUAL PRN (17:40)
[2022-03-11 18:35] LABS: Glucose,Whole Blood 173 mg/dL (70-110)
[2022-03-11 20:50] LABS: Glucose,Whole Blood 189 mg/dL (70-110)
[2022-03-11] MEDS: LORazepam 1 MG/0.5 ML VIAL IV PRN (22:03)
[2022-03-12] MEDS: DEXTROSE 10% IN WATER 500 ML in EMPTY BAG 1 BAG IV SCH ×2 (02:06→03:35)
[2022-03-12] MEDS: CIPROFLOXACIN 0.3% OPHTH SOLN 5 ML BTL RIGHT EYE SCH ×3 (02:07→07:43)
[2022-03-12] MEDS: FUROSEMIDE 100 MG in SODIUM CHLORIDE 0.9% 90 ML IV SCH ×2 (03:32→07:37)
[2022-03-12 06:56] LABS: Glucose,Whole Blood 134 mg/dL (70-110)
[2022-03-12] MEDS: LORazepam 1 MG/0.5 ML VIAL IV PRN (07:18)
[2022-03-12 07:29] LABS: ALT 14 U/L (4-49); AST 23 U/L (17-59); African American GFR (CKD) 23 (>60 ml/min/1.73 sqM); Albumin 3.1 g/dL (3.5-5.0); Albumin/Globulin Ratio 1.2; Alkaline Phosphatase 100 U/L (38-126); Anion Gap 8 mmol/L; Blood Urea Nitrogen 45 mg/dL (9-20); Calcium 8.3 mg/dL (8.4-10.2); Carbon Dioxide 30 mmol/L (22-30); Chloride 97 mmol/L (98-107); Globulin 2.5 g/dL; Glucose 130 mg/dL (74-99); Magnesium 2.1 mg/dL (1.6-2.3); Non-African American GFR(CKD) 20 (>60 ml/min/1.73 sqM); Phosphorus 6.3 mg/dL (2.5-4.5); Sodium 135 mmol/L (137-145); Total Protein 5.6 g/dL (6.3-8.2)
[2022-03-12] MEDS: carvediloL 12.5 MG TAB PO SCH (07:43)
[2022-03-12 08:01] VITALS: BP 125/75; PULSE 61; TEMP 98
[2022-03-12] MEDS ORDERED: Potassium Replacement Protocol 1 EACH MISC MISCELLANE PRN (08:36)
[2022-03-12] MEDS: MORPHINE SULFATE 4 MG/ML SYRINGE IVP PRN (10:37)
[2022-03-12 10:42] VITALS: RESP 16
--- NOTE | 2022-03-12 10:52 | P.PN ---
Subjective Patient is seen in follow-up for acute kidney injury and chronic kidney disease. Creatinine stable at 3.02 today. Maintained on Lasix drip. Edema improving. Receiving TPN. Oral intake is poor. Patient has been refusing medications. Hospice consulted. Vital signs are stable. General: Resting in bed. HEENT: Head exam is unremarkable. LUNGS: Breath sounds decreased. HEART: Rate and Rhythm are regular. ABDOMEN: Soft, no distention. EXTREMITITES: 1+ edema. Objective - Vital Signs Vital signs: Vital Signs Temp 98.0 F 03/12/22 08:00 Pulse 61 03/12/22 08:00 Resp 16 03/12/22 10:42 BP 125/75 03/12/22 08:00 Pulse Ox 98 03/12/22 10:42 FiO2 Intake & Output 03/11/22 03/12/22 03/12/22 18:59 06:59 18:59 Intake Total 193.667 100 61.25 Output Total 300 200 Balance -106.333 -100 61.25 Intake: Intake, IV Titration 193.667 100 61.25 Amount Furosemide 100 mg In 193.667 100 61.25 Sodium Chloride 0.9% 90 ml @ 15 MG/HR 15 mls/hr IV .Q6H40M [facility] Rx#: [id number] Oral 0 Output: Urine 300 200 Other: Voiding Method Indwelling Catheter Indwelling Catheter Indwelling Catheter - Labs CBC & Chem 7: 03/11/22 05:47 03/12/22 06:31 Labs: Abnormal Lab Results - Last 24 Hours (Table) 03/11/22 03/11/22 03/11/22 Range/Units 11:26 13:41 15:39 Sodium (137-145) mmol/L Chloride (98-107) mmol/L BUN (9-20) mg/dL Creatinine (0.66-1.25) mg/dL Glucose (74-99) mg/dL POC Glucose (mg/dL) 170 H 175 H 179 H (70-110) mg/dL Calcium (8.4-10.2) mg/dL Phosphorus (2.5-4.5) mg/dL Total Protein (6.3-8.2) g/dL Albumin (3.5-5.0) g/dL 03/11/22 03/11/22 03/12/22 Range/Units 18:32 20:49 06:31 Sodium 135 L (137-145) mmol/L Chloride 97 L (98-107) mmol/L BUN 45 H (9-20) mg/dL Creatinine 3.02 H (0.66-1.25) mg/dL Glucose 130 H (74-99) mg/dL POC Glucose (mg/dL) 173 H 189 H (70-110) mg/dL Calcium 8.3 L (8.4-10.2) mg/dL Phosphorus 6.3 H (2.5-4.5) mg/dL Total Protein 5.6 L (6.3-8.2) g/dL Albumin 3.1 L (3.5-5.0) g/dL 03/12/22 Range/Units 06:54 Sodium (137-145) mmol/L Chloride (98-107) mmol/L BUN (9-20) mg/dL Creatinine (0.66-1.25) mg/dL Glucose (74-99) mg/dL POC Glucose (mg/dL) 134 H (70-110) mg/dL Calcium (8.4-10.2) mg/dL Phosphorus (2.5-4.5) mg/dL Total Protein (6.3-8.2) g/dL Albumin (3.5-5.0) g/dL Assessment and Plan Plan: Assessment: 1. Acute kidney injury mostly prerenal secondary to cardiorenal syndrome. Creatinine 2.53 on admission and is stable at 3.02 today. Renal ultrasound from October 2021 showed atrophic kidneys without any evidence of hydronephrosis. 2. Chronic kidney disease stage IV with baseline creatinine in the range of 2.3-2.5 secondary to diabetic kidney disease and cardiorenal syndrome. Serologies have been negative in the past. 3. Volume overload. Improving with diuresis. 4. Acute on chronic systolic CHF with ejection fraction of 20-25% with moderate mitral regurgitation and pulmonary hypertension. 5. Diabetes mellitus with hypoglycemia maintained on D10 drip. 6. Anemia of chronic kidney disease. Iron replete. On Aranesp. 7. Hypokalemia from diuresis. Replaced. Better. Plan: Maintain Lasix drip. Maintain metolazone. Low-sodium diet. 1500 mL fluid restriction. Maintain Jenkins catheter. Avoid nephrotoxins. Continue to monitor renal function and urine output. Also receiving TPN. Prognosis guarded. Will potentially go home on hospice.
[2022-03-12] MEDS: AMOXIC-POT CLAV 500-125 MG 1 EACH TAB PO SCH (11:18)
[2022-03-12] MEDS: FAMOTIDINE 20 MG/2 ML VIAL IV SCH (11:19)
[2022-03-12] MEDS: APIXABAN 2.5 MG TABLET PO SCH (11:19)
[2022-03-12] MEDS: metOLazone 5 MG TAB PO SCH (11:19)
--- NOTE | 2022-03-12 16:59 | P.DS ---
Providers Date of admission: 03/07/22 17:38 Expected date of discharge: 03/12/22 Attending physician: Jaye Booker Consults: 03/07/22 18:29 Consult Physician Routine Consulting Provider: Violet Blair Consult Reason/Comments: CHF Do you want consulting provider notified?: Yes 03/08/22 18:47 Consult Physician Routine Consulting Provider: Clarence Escobar Consult Reason/Comments: blood in perez Do you want consulting provider notified?: Yes 03/09/22 11:29 Consult Physician Urgent Consulting Provider: Darren Diego Consult Reason/Comments: kidney injury Do you want consulting provider notified?: Yes Primary care physician: Chandan Padron [facility] Course: 71 years old male with past medical history of Atrial Fibrillation, on liquids CVA/TIA, Diabetes Mellitus, Hyperlipidemia, Hypertension, Osteoarthritis ,CRD stage III, R eye retinal detachment , status post AICD. He is patient of Dr. Padron and leather goods assembler Dr. cotto Patient was recently discharged from the hospital about one month ago for acute CHF. He was placed on palliative care for his advanced CHF and chronic kidney disease. Presents because of increased swelling and breathing difficulty of 1-2 days duration with no chest pain or coughing. 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 His bedbound at baseline with at bedside currently. Labs show normal WBC at 6.2, hemoglobin 9.6, rest of CBC, INR, BMP is reviewed and unremarkable except his creatinine is elevated at 2.5 with baseline 2.2-2.7, glucose was low at 48 EKG showed sinus bradycardia at [address]-T changes Chest x-ray: Persistent right lower lobe opacity which may reflect atelectasis, effusion and/or infiltrate. By the radiologist. I reviewed them as well as by myself and patient has significant right lower lobe opacities suspicious for significant pleural effusion versus consolidation, which looks somewhat worse than last this x-ray in about one month ago. [place] 96177, which is the same last month Echocardiogram from 10/2021 showed ejection fraction 20-25% with wall hypokinesia and moderate mitral regurgitation On admission patient was scheduled for Eliquis and given IV Lasix with leather goods assembler consulted 03/09/2022 Patient developed hematuria overnight, he had a Perez catheter placement and neurologist has been contacted by operation shift supervisor nurse, despite orders patient problem did not solve the morning on the urologist placed a Perez catheter with 20-Anguillan size successfully active and started draining out. Patient laid about 1375 mL of urine output since yesterday. He has been more confused today and more hypoglycemic, a patient was started on D10 normal saline at increasing doses with difficult to control her glucose and no much improvement in her glucose level successfully, PICC line was placed and TPN was going to be started today, although there is risk of fluid over load however patient breathing is currently quiet and he is saturating 98% on 4 L oxygen, also allergy and immunology chief started the patient on Lasix drip at 10 mg per hour and medazolone orally for worsening creatinine 2.5-2.7 and the patient is a known case of stage IV kidney disease. Lasix which was stopped. On checking the patient in the afternoon, PICC line was inserted, TPN is known to be restarted area discussed with the bedside nurse to stop D10 fluids when TPN was started and motor respiratory function closely. Also with no improvement in his mentation despite correction of her glucose we will order CT of the brain without contrast since the patient is also on Eliquis although there is no history of trauma or fall. Also patient confusion could be caused by pain and by pain medication, patient after 1 hour from 2 mg of morphine he started acting out again and asking for help and shunted for nurses therefore we going to increase his morphine to 4 mg every 4 hours, as his benefits more than the risks of this point. Patient right conjunctivitis and cellulitis is significantly improved more than 50% and patient will be continued on Cipro eyedrops on Augmentin. Glipizide 10 mg twice daily at home were stopped on admission and most likely it has prolonged half-life review of chronic kidney disease contributing to his hypoglycemia besides confusion of lack of eating appropriately. 03/11/2022 Patient is seen and evaluated with at bedside; discussed in great detail with nursing staff in the room - Patient has been refusing all care and occasionally pulling out IVs and oxygen and constantly telling nursing staff to leave him alone - This was discussed in great detail with patient's and she is agreeable to proceed with comfort care and consulting hospice 03/12/2022; patient is seen and evaluated at bedside; remains comfortable; daughter present in the room; patient is being admitted to hospice Patient Condition at Discharge: Stable Plan - Discharge Summary New Discharge Prescriptions: No Action glipiZIDE [Glucotrol] 10 mg PO BID Isosorbide Mononitrate [Isosorbide Mononitrate ER] 30 mg PO DAILY Apixaban [Eliquis] 2.5 mg PO BID Atorvastatin [Lipitor] 20 mg PO HS carvediloL [Coreg] 25 mg PO BID-W/MEALS Multivit-Min/FA/Lycopen/Lutein [Centrum Silver Men Tablet] 1 tab PO DAILY calcitrioL [Rocaltrol] 0.25 mcg PO TUFR hydrALAZINE HCL [Apresoline] 50 mg PO TID Albuterol Sulfate [Albuterol Sulfate Hfa] 2 puff INHALATION RT-Q6H PRN PRN Reason: Shortness Of Breath Budesonide/Formoterol Fumarate [Symbicort 80-4.5 Mcg Inhaler] 2 puff INHALATION RT-BID Potassium Chloride [Klor-Con 10 ER] 10 meq PO DAILY INSULIN LISPRO (HumaLOG) [humaLOG] See Protocol SQ ACHS PRN PRN Reason: high blood sugar Furosemide [Lasix] 40 mg PO BID 30 Days #90 tablet Discharge Medication List glipiZIDE [Glucotrol] 10 mg PO BID 06/04/14 [History] Isosorbide Mononitrate [Isosorbide Mononitrate ER] 30 mg PO DAILY 07/03/18 [History] Apixaban [Eliquis] 2.5 mg PO BID 09/26/19 [History] Atorvastatin [Lipitor] 20 mg PO HS 09/26/19 [History] Multivit-Min/FA/Lycopen/Lutein [Centrum Silver Men Tablet] 1 tab PO DAILY 07/16/21 [History] carvediloL [Coreg] 25 mg PO BID-W/MEALS 07/16/21 [History] hydrALAZINE HCL [Apresoline] 50 mg PO TID 07/16/21 [History] Albuterol Sulfate [Albuterol Sulfate Hfa] 2 puff INHALATION RT-Q6H PRN 09/03/21 [History] Budesonide/Formoterol Fumarate [Symbicort 80-4.5 Mcg Inhaler] 2 puff INHALATION RT-BID 09/03/21 [History] Potassium Chloride [Klor-Con 10 ER] 10 meq PO DAILY 09/05/21 [History] INSULIN LISPRO (HumaLOG) [humaLOG] See Protocol SQ ACHS PRN 12/15/21 [History] Furosemide [Lasix] 40 mg PO BID 30 Days #90 tablet 12/18/21 [Rx] calcitrioL [Rocaltrol] 0.25 mcg PO TUFR 03/07/22 [History] Follow up Appointment(s)/Referral(s): Chandan Padron DO [Primary Care Provider] - 1-2 days Discharge Disposition: DISCH TO HOSPICE [facility]
== END 2022-03-12 11:46 | disposition hospice, inpatient (51) | DRG 291 ==
LOC: EC 14:44 → 4SSUR 17:38
PROVIDERS: ADMIT Hospitalist; ATTEND Hospitalist
PROC: 0T9B70Z Drainage of Bladder with Drainage Device, Via Natural or Artificial Opening (ICD-10-PCS; 2022-03-09)
PROC: 3E0336Z Introduction of Nutritional Substance into Peripheral Vein, Percutaneous Approach (ICD-10-PCS; 2022-03-09)
PROC: 02HV33Z Insertion of Infusion Device into Superior Vena Cava, Percutaneous Approach (ICD-10-PCS; principal; 2022-03-10)
DX: I13.0 Hypertensive heart and chronic kidney disease with heart failure and stage 1 through stage 4 chronic kidney disease, or unspecified chronic kidney disease (principal); G92.8 Other toxic encephalopathy; I50.23 Acute on chronic systolic (congestive) heart failure; N17.9 Acute kidney failure, unspecified; N18.4 Chronic kidney disease, stage 4 (severe); L03.213 Periorbital cellulitis; I27.20 Pulmonary hypertension, unspecified; E11.649 Type 2 diabetes mellitus with hypoglycemia without coma; D63.1 Anemia in chronic kidney disease; E11.22 Type 2 diabetes mellitus with diabetic chronic kidney disease; F03.90 Unspecified dementia, unspecified severity, without behavioral disturbance, psychotic disturbance, mood disturbance, and anxiety; I34.0 Nonrheumatic mitral (valve) insufficiency; J44.9 Chronic obstructive pulmonary disease, unspecified; E78.5 Hyperlipidemia, unspecified; R00.1 Bradycardia, unspecified; I25.5 Ischemic cardiomyopathy; R31.0 Gross hematuria; Z51.5 Encounter for palliative care; Z66 Do not resuscitate; M19.90 Unspecified osteoarthritis, unspecified site; F17.210 Nicotine dependence, cigarettes, uncomplicated; N26.1 Atrophy of kidney (terminal); N50.89 Other specified disorders of the male genital organs; I25.10 Atherosclerotic heart disease of native coronary artery without angina pectoris; I48.0 Paroxysmal atrial fibrillation; H54.61 Unqualified visual loss, right eye, normal vision left eye; H10.9 Unspecified conjunctivitis; R33.9 Retention of urine, unspecified; E87.6 Hypokalemia; Z98.890 Other specified postprocedural states; Z98.61 Coronary angioplasty status; Z74.01 Bed confinement status; Z91.19 Patient's noncompliance with other medical treatment and regimen; Z79.84 Long term (current) use of oral hypoglycemic drugs; Z79.01 Long term (current) use of anticoagulants; Z79.899 Other long term (current) drug therapy; Z79.51 Long term (current) use of inhaled steroids; Z86.73 Personal history of transient ischemic attack (TIA), and cerebral infarction without residual deficits; Z95.810 Presence of automatic (implantable) cardiac defibrillator; Z83.3 Family history of diabetes mellitus; Z82.49 Family history of ischemic heart disease and other diseases of the circulatory system
CPT/HCPCS: 36415; 36573; 70450; 71045; 71046; 80048; 80053; 80076; 81001; 82330; 82728; 83540; 83550; 83605; 83735; 83880; 84100; 84145; 84478; 84484; 85025; 85610; 85730; 87086; 93005; 94760; 96374; 99285

== ENCOUNTER 2022-03-12 11:30 | Inpatient (IN) | payer MEDICAID ==
[2022-03-12] MEDS ORDERED: ACETAMINOPHEN SUPPOSITORY 650 MG SUPP RECTAL PRN (11:35)
[2022-03-12] MEDS ORDERED: HALOPERIDOL LACTATE 5 MG/ML 1 ML VIAL IM PRN (11:35)
[2022-03-12] MEDS ORDERED: ATROPINE OPHTH SOLN 1% 5ML BTL SUBLINGUAL PRN (11:35)
[2022-03-12] MEDS ORDERED: ONDANSETRON 4 MG/2 ML VIAL IVP PRN (11:38)
[2022-03-12] MEDS ORDERED: MORPHINE SULFATE 4 MG/ML SYRINGE IVP PRN (11:38)
[2022-03-12] MEDS ORDERED: SCOPOLAMINE 1 MG/72 HR PATCH TRANSDERM SCH (11:45)
[2022-03-12] MEDS ORDERED: ARTIFICIAL TEARS-HYPROMELLOSE DROPS 15 ML BTL BOTH EYES PRN (11:46)
[2022-03-12] MEDS: LORazepam 1 MG/0.5 ML VIAL IV SCH ×2 (12:39→16:29)
[2022-03-12 15:16] VITALS: PULSE 56
[2022-03-12 18:07] VITALS: RESP 18
== END 2022-03-12 20:25 | disposition expired | DRG 951 ==
LOC: 4SSUR 11:48
PROVIDERS: ADMIT Internal Medicine; ATTEND Internal Medicine
DX: Z51.5 Encounter for palliative care (principal); I13.0 Hypertensive heart and chronic kidney disease with heart failure and stage 1 through stage 4 chronic kidney disease, or unspecified chronic kidney disease; N18.4 Chronic kidney disease, stage 4 (severe); H33.21 Serous retinal detachment, right eye; H05.019 Cellulitis of unspecified orbit; Z66 Do not resuscitate; I50.9 Heart failure, unspecified; E11.22 Type 2 diabetes mellitus with diabetic chronic kidney disease; Z79.4 Long term (current) use of insulin; Z79.84 Long term (current) use of oral hypoglycemic drugs; Z71.6 Tobacco abuse counseling; F17.210 Nicotine dependence, cigarettes, uncomplicated; H10.9 Unspecified conjunctivitis; Z74.01 Bed confinement status; I48.91 Unspecified atrial fibrillation; Z79.01 Long term (current) use of anticoagulants; Z79.51 Long term (current) use of inhaled steroids; Z79.899 Other long term (current) drug therapy; M15.9 Polyosteoarthritis, unspecified; Z86.718 Personal history of other venous thrombosis and embolism; E78.5 Hyperlipidemia, unspecified; Z83.3 Family history of diabetes mellitus; Z82.49 Family history of ischemic heart disease and other diseases of the circulatory system; Z95.810 Presence of automatic (implantable) cardiac defibrillator